=== PATIENT | female | born 1955 | race Caucasian/White ===

== ENCOUNTER 2016-12-19 22:53 | Emergency (ER) | payer MEDICARE, MEDICAID ==
[2016-12-19 23:16] VITALS: BP 146/78
--- NOTE | 2016-12-20 00:15 | EDM.PDOC ---
ED HPI GENERAL MEDICAL PROBLEM - General Chief Complaint: Abdominal Pain Stated Complaint: ABDOMINAL PAIN Time Seen by Provider: 12/19/16 23:14 Source of Information: Reports: Patient, Family, RN Notes Reviewed History Limitations: Reports: No Limitations - History of Present Illness INITIAL COMMENTS - FREE TEXT/NARRATIVE: 61-year-old female presents emergency department day complaint of generalized abdominal pain, she does have a history of diverticular disease however the pain now has completely resolved she had no nausea vomiting or fever abdominal pain Pain Score (Numeric/FACES): 3 - Related Data Allergies Allergy/AdvReac Type Severity Reaction Status Date / Time acetaminophen [From Percocet] Allergy Hives Verified 12/19/16 23:49 ciprofloxacin [From Cipro] Allergy Hives Verified 12/19/16 23:49 ciprofloxacin HCl Allergy Hives Verified 12/19/16 23:49 [From Cipro] clonidine HCl [From Catapres] Allergy Blisters Verified 12/19/16 23:49 hydromorphone Allergy Itching Verified 12/19/16 23:49 oxycodone [From Percocet] Allergy Hives Verified 12/19/16 23:49 Home Meds: Home Meds Citalopram [Citalopram HBr] 20 mg PO DAILY 07/05/14 [History] Cyclobenzaprine [Flexeril] 10 - 20 mg PO TID PRN 07/05/14 [History] Levothyroxine Sodium [Synthroid] 25 mcg PO DAILY 07/05/14 [History] Pantoprazole [ProTONIX] 40 mg PO BID 07/05/14 [History] Albuterol Sulfate [Albuterol Sulfate HFA] 2 puff INH Q6H PRN 10/25/14 [History] Ondansetron HCl [Zofran] 4 mg PO Q4H PRN 10/25/14 [History] Tiotropium [Spiriva HandiHaler] 1 cap INH DAILY 06/18/15 [History] ClonazePAM [KlonoPIN] 0.5 mg PO BID PRN #0 tablet 06/24/15 [Rx] Loratadine 10 mg PO DAILY 02/14/16 [History] Meclizine HCl 25 mg PO Q6HR PRN 02/14/16 [History] traMADol [Ultram] 50 mg PO Q6HR PRN 02/14/16 [History] buPROPion [Wellbutrin] 200 mg PO DAILY 02/15/16 [History] Furosemide 40 mg PO DAILY PRN 06/17/16 [History] Lidocaine 2% [Xylocaine 2% Jelly] 1 applic TOP ASDIRECTED 06/17/16 [History] Mupirocin Oint [Bactroban Oint] 1 applic TP BID 06/17/16 [History] Triamcinolone Acetonide [Kenalog 0.1% Crm] 1 applic TOP TID 06/17/16 [History] Albuterol/Ipratropium [DuoNeb 3.0-0.5 MG/3 ML] 3 ml IH Q4H PRN 12/14/16 [History ] predniSONE [Prednisone] 5 mg PO ASDIRECTED 12/14/16 [History] Past Medical History HEENT 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: Allergic Rhinitis, Impaired Vision Cardiovascular 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: Cardiomyopathy, SOB on Exertion Respiratory 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: Bronchitis, Recurrent, COPD, Sleep Apnea Gastrointestinal 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: Bowel Obstruction, Diverticulosis, GERD, Hiatal Hernia Genitourinary 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: UTI, Recurrent, Other (See Below) Other Genitourinary History: bladder suspension 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: , Spontaneous Musculoskeletal 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: Arthritis, Back Pain, Chronic, Fibromyalgia Neurological 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: Vertigo Psychiatric 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: Anxiety, Depression Endocrine/Metabolic 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: Hypothyroidism, Obesity/BMI 30+ Oncologic (Cancer) 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: Uterine Other Oncologic History: complete hysterectomy July 09, 2014 Dermatologic 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: Cellulitis Other Dermatologic History: sore on right lower leg that won't go away - Infectious Disease History Infectious Disease 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: Chicken Pox, Measles - Past Surgical History GI Surgical 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: Appendectomy, Colonoscopy, EGD, Hernia Repair/ Other Female Surgical 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: Hysterectomy, Salpingo-Oophorectomy Social & Family History - Family History Family Medical History: Noncontributory - Tobacco Use Smoking Status *Q: Current Every Day Smoker Years of Tobacco use: 40 Packs/Tins Daily: 0.5 Used Tobacco, but Quit: No Month Tobacco Last Used: TODAY Second Hand Smoke Exposure: No - Caffeine Use Caffeine Use: Reports: Coffee, Soda - Alcohol Use Days Per Week of Alcohol Use: 0 - Recreational Drug Use Recreational Drug Use: No ED ROS GENERAL - Review of Systems Review Of Systems: See Below Constitutional: Reports: No Symptoms Respiratory: Reports: No Symptoms Cardiovascular: Reports: No Symptoms GI/Abdominal: Reports: Abdominal Pain (Now resolved), Flatus. Denies: Nausea, Vomiting ( headaches versus constipation) : Reports: No Symptoms Musculoskeletal: Reports: No Symptoms ED EXAM, GI/ABD - Physical Exam Exam: See Below Exam Limited By: No Limitations General Appearance: Alert, WD/WN, No Apparent Distress Respiratory/Chest: No Respiratory Distress GI/Abdominal: Normal Bowel Sounds, Soft, Non-Tender, No Mass Course - Vital Signs Last Recorded V/S: Last Vital Signs Temp 97.3 F 12/19/16 23:15 Pulse 83 12/19/16 23:15 Resp 16 12/19/16 23:15 BP 146/78 H 12/19/16 23:15 Pulse Ox 93 L 12/19/16 23:15 Departure - Departure Time of Disposition: 00:14 Disposition: Home, Self-Care 01 Condition: Good Clinical Impression: Abdominal pain Qualifiers: Abdominal location: generalized Qualified Code(s): R10.84 - Generalized abdominal pain - Discharge Information Forms: ED Department Discharge Additional Instructions: Continue regular medications, Please followup with your primary care provider in 3-5 days if not better, please call return to the emergency department with worsening of symptoms. - Assessment/Plan Plan: Assessment Acuity = acute Site and laterality = abdominal pain now resolved Etiology = unclear etiology Manifestations = none Location of injury = Home Lab values = none Plan I offered to provide further workup and evaluation of abdominal pain she felt since the pain is now resolved she would prefer to just go home and will return if the she has a follow-up appointment with general surgery next month Patient was in agreement with the plan all questions were answered, they were instructed to return to the emergency department or call for worsening symptoms. This note was dictated using [employer] voice recognition software please call with any questions.
== END 2016-12-20 00:35 | disposition home or self-care (01) ==
LOC: JP.ED 22:53
DX: R10.84 Generalized abdominal pain (principal); J44.9 Chronic obstructive pulmonary disease, unspecified; F41.9 Anxiety disorder, unspecified; F32.9 Major depressive disorder, single episode, unspecified; E03.9 Hypothyroidism, unspecified; F17.210 Nicotine dependence, cigarettes, uncomplicated; E66.9 Obesity, unspecified; Z68.37 Body mass index [BMI] 37.0-37.9, adult; Z87.440 Personal history of urinary (tract) infections; Z90.49 Acquired absence of other specified parts of digestive tract; Z90.710 Acquired absence of both cervix and uterus; Z90.721 Acquired absence of ovaries, unilateral; Z98.890 Other specified postprocedural states; Z79.899 Other long term (current) drug therapy; Z88.1 Allergy status to other antibiotic agents; Z88.5 Allergy status to narcotic agent; Z88.8 Allergy status to other drugs, medicaments and biological substances
CPT/HCPCS: 99282; 99284

== ENCOUNTER 2017-03-09 07:31 | Day surgery (SDC) | payer MEDICARE, MEDICAID ==
[~2017-03-09 07:31] MED LIST: Dextrose 5%-Lactated Ringers 1,000 ML IV SCH
[2017-03-09] MEDS ORDERED: Dextrose 5%-Lactated Ringers 1,000 ML IV SCH (08:00)
[2017-03-09] MEDS ORDERED: Propofol 200 MG/20 ML SDV ONE (08:32)
[2017-03-09] MEDS ORDERED: fentaNYL 100 MCG/2 ML SDV ONE (08:32)
[2017-03-09] MEDS ORDERED: Midazolam 1 MG/ML 2 ML SDV ONE (08:32)
[2017-03-09 11:16] VITALS: BP 107/72
--- NOTE | 2017-03-16 18:50 | OR ---
DATE OF PROCEDURE: 03/09/2017 PREOPERATIVE DIAGNOSES: Nausea and epigastric discomfort. POSTOPERATIVE DIAGNOSES: Nausea and epigastric discomfort associated with: 1. Small hiatal hernia with no gross inflammation at esophagogastric junction. 2. Diffuse gastritis (marked edema and mild redness throughout the gastric mucosa). OPERATIVE PROCEDURE: Esophagogastroduodenoscopy with: 1. Biopsies of antrum for CLOtest. 2. Biopsies of gastric body for histologic evaluation. ANESTHESIA: IV sedation. INDICATIONS FOR PROCEDURE: This is a 62-year-old presenting with ongoing problems with nausea. Nausea is predominant symptom, also has some mild epigastric discomfort as well. Presently, she is on Protonix 40 mg b.i.d. and also taking Zofran on a p.r.n. basis. The plan is to proceed with an upper GI endoscopy with biopsies as indicated. Potential risks including bleeding and perforation were discussed, and the patient wishes to proceed. DETAILS OF PROCEDURE: The patient was taken to the operating room and placed in a left lateral decubitus position. IV sedation was administered, after which the upper GI endoscope was passed orally through the length of the esophagus into the stomach with retroflexion view of the fundus, and thereafter through the pyloric channel and into the duodenum. Findings included a normal hypopharynx, larynx, upper esophageal sphincter, there was a small hiatal hernia present, but no gross inflammation or upward extension of the gastroesophageal junction mucosal lining above the gastric fold. Within the stomach, there was a quite pronounced diffuse gastritis, this was most prominent within the body and antrum. The entire surface of the stomach was reddened and edematous. No erosions or ulcers were seen. Pyloric channel and duodenum third and fourth portions were otherwise unremarkable. The biopsies were obtained from the antrum and sent for CLOtest for H. pylori. Multiple biopsies were obtained from the gastric body, sent for histologic evaluation. No bleeding from the biopsy sites was seen and the procedure then concluded. The plan will be to add a cytoprotective agent, in this case Carafate 1 gram q.i.d. to the regimen and we will see her back in one month for recheck. If the CLOtest is abnormal, we will contact her regarding treatment of H. pylori. Aayush Ruiz MD /[id number]
== END 2017-03-09 11:30 | disposition home or self-care (01) ==
LOC: JP.SDS 07:31
PROVIDERS: ATTEND Surgery
DX: K29.50 Unspecified chronic gastritis without bleeding (principal); K44.9 Diaphragmatic hernia without obstruction or gangrene; G47.33 Obstructive sleep apnea (adult) (pediatric); J44.9 Chronic obstructive pulmonary disease, unspecified; K21.9 Gastro-esophageal reflux disease without esophagitis; F41.9 Anxiety disorder, unspecified; F32.9 Major depressive disorder, single episode, unspecified; E03.9 Hypothyroidism, unspecified; Z88.1 Allergy status to other antibiotic agents; Z88.8 Allergy status to other drugs, medicaments and biological substances; F17.210 Nicotine dependence, cigarettes, uncomplicated
CPT/HCPCS: 43239; 87081; 88305; 88341; 88342; J2250; J2704; J3010; J7042

== ENCOUNTER 2017-09-20 07:35 | Inpatient (IN) | payer MEDICARE, MEDICAID ==
[~2017-09-20 07:35] MED LIST changes: +Acetaminophen 500 MG Tab PO ONE; -Dextrose 5%-Lactated Ringers 1,000 ML IV SCH; +Midazolam 1 MG/ML 2 ML SDV ONE; +Propofol 200 MG/20 ML SDV ONE; +fentaNYL 100 MCG/2 ML SDV ONE
[2017-09-20] MEDS ORDERED: Lidocaine 1% with EPINEPHrine 1:100,000 50 ML MDV ONE (07:40)
[2017-09-20] MEDS ORDERED: Bupivacaine 0.5% 50 ML MDV ONE (07:40)
[2017-09-20] MEDS ORDERED: Albuterol/Ipratropium 3.0-0.5 MG/3 ML Neb Soln NEB ONE (08:00)
[2017-09-20] MEDS ORDERED: Dextrose 5%-Lactated Ringers 1,000 ML IV SCH (08:00)
[2017-09-20] MEDS ORDERED: Acetaminophen 500 MG Tab PO ONE (08:00)
[2017-09-20] MEDS ORDERED: Rocuronium 50 MG/5 ML Vial ONE (09:02)
[2017-09-20] MEDS ORDERED: Propofol 200 MG/20 ML SDV ONE (09:02)
[2017-09-20] MEDS ORDERED: Ondansetron 4 MG/2 ML SDV ONE (09:02)
[2017-09-20] MEDS ORDERED: Succinylcholine 200 MG/10 ML MDV ONE (09:02)
[2017-09-20] MEDS ORDERED: Dexamethasone 4 MG/ML SDV ONE (09:02)
[2017-09-20] MEDS ORDERED: Bupivacaine 0.5%/EPINEPHrine 1:200,000 50 ML MDV ONE (09:23)
[2017-09-20] MEDS: Clindamycin Phosphate 900 MG in Sodium Chloride 0.9% 100 ML IV ONE ×2 (09:26→12:08)
[2017-09-20] MEDS ORDERED: Morphine PF 150 MG/30 ML PCA Syringe IV PRN (10:21)
[2017-09-20] MEDS ORDERED: Naloxone 0.4 MG/ML SDV IV PRN (11:41)
[2017-09-20] MEDS ORDERED: hydrOXYzine HCl 100 MG/2 ML SDV IM PRN (11:42)
[2017-09-20] MEDS ORDERED: hydrOXYzine HCl 25 MG Tab PO PRN (11:43)
[2017-09-20] MEDS ORDERED: Meclizine 25 MG Tab PO PRN (11:53)
[2017-09-20] MEDS ORDERED: Albuterol/Ipratropium 3.0-0.5 MG/3 ML Neb Soln INH PRN (12:00)
[2017-09-20] MEDS ORDERED: Ondansetron 4 MG/2 ML SDV IVPUSH PRN (12:00)
[2017-09-20] MEDS: Albuterol/Ipratropium 3.0-0.5 MG/3 ML Neb Soln INH SCH ×2 (14:47→21:53)
[2017-09-20] MEDS: ceFAZolin 1 GM in Premix Bag 1 BAG IV SCH (15:37)
[2017-09-20] MEDS: buPROPion 150 MG Tab.SR PO SCH (21:50)
[2017-09-20] MEDS: ClonazePAM 0.5 MG Tab PO SCH (21:51)
[2017-09-20] MEDS: Dextrose 5%-Lactated Ringers 1,000 ML IV SCH (21:59)
[2017-09-20] MEDS: traZODone 50 MG Tab PO PRN (22:07)
[2017-09-21] MEDS: ceFAZolin 1 GM in Premix Bag 1 BAG IV SCH ×3 (00:45→15:36)
[2017-09-21] MEDS: Dextrose 5%-Lactated Ringers 1,000 ML IV SCH (05:30)
[2017-09-21] MEDS: Levothyroxine 25 MCG Tab PO SCH (07:09)
[2017-09-21] MEDS: Pantoprazole 40 MG Tab.CR PO SCH (07:09)
[2017-09-21] MEDS ORDERED: Dextrose 5%-Lactated Ringers 1,000 ML IV SCH (07:30)
[2017-09-21] MEDS: Albuterol/Ipratropium 3.0-0.5 MG/3 ML Neb Soln INH SCH ×4 (07:33→21:14)
[2017-09-21] MEDS: Loratadine 10 MG Tab PO SCH (08:52)
[2017-09-21] MEDS: Docusate Sodium 100 MG Cap PO SCH ×2 (08:52→21:04)
[2017-09-21] MEDS: lamoTRIgine 100 MG, lamoTRIgine 50 MG PO SCH ×2 (08:53)
[2017-09-21] MEDS: Furosemide 40 MG Tab PO SCH (08:53)
[2017-09-21] MEDS: Sertraline 50 MG Tab PO SCH (08:53)
[2017-09-21] MEDS: buPROPion 150 MG Tab.SR PO SCH ×2 (08:53→21:04)
[2017-09-21] MEDS: Acetaminophen/HYDROcodone 325-5 MG Tab PO PRN ×3 (08:58→19:28)
[2017-09-21] MEDS: diphenhydrAMINE 25 MG Cap PO PRN ×3 (11:43→21:13)
[2017-09-21] MEDS: ClonazePAM 0.5 MG Tab PO SCH (18:56)
[2017-09-21] MEDS: traZODone 50 MG Tab PO PRN (21:30)
[2017-09-22] MEDS: ceFAZolin 1 GM in Premix Bag 1 BAG IV SCH ×2 (00:24→00:50)
[2017-09-22] MEDS: Albuterol/Ipratropium 3.0-0.5 MG/3 ML Neb Soln INH SCH (07:14)
[2017-09-22 07:28] VITALS: BP 99/52
[2017-09-22] MEDS: Acetaminophen/HYDROcodone 325-5 MG Tab PO PRN (08:20)
[2017-09-22] MEDS: Pantoprazole 40 MG Tab.CR PO SCH (08:22)
[2017-09-22] MEDS: Levothyroxine 25 MCG Tab PO SCH (08:22)
[2017-09-22] MEDS: Furosemide 40 MG Tab PO SCH (09:31)
[2017-09-22] MEDS: Sertraline 50 MG Tab PO SCH (09:31)
[2017-09-22] MEDS: Loratadine 10 MG Tab PO SCH (09:31)
[2017-09-22] MEDS: lamoTRIgine 100 MG, lamoTRIgine 50 MG PO SCH ×2 (09:31)
[2017-09-22] MEDS: Docusate Sodium 100 MG Cap PO SCH (09:31)
[2017-09-22] MEDS: buPROPion 150 MG Tab.SR PO SCH (09:32)
--- NOTE | 2017-09-23 01:31 | DISCH ---
ADMISSION DIAGNOSES: 1. Recurrent incarcerated incisional hernia. 2. Panlobular emphysema. 3. Chronic low back pain. 4. Obstructive sleep apnea syndrome with CPAP. 5. Mild concentric left ventricular hypertrophy. 6. Vitamin D deficiency. 7. Anxiety. 8. Gastrointestinal dysmotility. 9. Personality disorder. 10.Tobacco use disorder, recently stopped about a week ago. 11.Venous insufficiency. 12.Memory loss. 13.Major depression disorder. 14.Pure hypercholesterolemia. 15.Hypothyroidism due to acquired atrophy of the thyroid. DISCHARGE DIAGNOSIS: Open repair of recurrent incarcerated incisional hernia with mesh, and repair of left inguinal hernia with mesh, and division of left inguinal nerve for recurrent incarcerated incisional hernia and recurrent incarcerated left inguinal hernia and left inguinal nerve entrapment. Date of surgery on 09/20/2017 by Aayush Ruiz MD. HISTORY: Reji Gonzalez is a 62-year-old female with a recurrent incarcerated incisional hernia and recurrent left inguinal hernia. After preoperative evaluation and discussion of possible risks and possible complications, she wished to proceed with surgical procedure. HOSPITAL COURSE: Reji had her surgery on 09/20/2017. She had no operative complications. On postop day #1, she was started on a regular diet, oral pain medication, and a stool softener. On postop day #2, her pain was well managed, her activity was good, vital signs stable, and she was able to be discharged to home. PHYSICAL EXAMINATION: GENERAL: Reji Gonzalez is a 62-year-old female, alert, orientated. VITAL SIGNS: Height is 5 feet 1 inch, weight is 199 pounds. TPR is 99.2, 61, 16, blood pressure 99/52. HEENT: Negative. NECK: Supple. HEART: Regular rate and rhythm. LUNGS: Clear. ABDOMEN: Soft. Normal expected tenderness on left surgical site. EXTREMITIES: Negative extremities without peripheral edema. DISPOSITION: Discharged to home. CONDITION: Stable and improving. FOLLOWUP APPOINTMENT: With Irasema Gresham PA-C, on 10/04/2017 at 9:00 a.m. and follow up with Aayush Ruiz MD on 10/13/2017 at 10:00 a.m. DISCHARGE MEDICATIONS: New prescriptions: 1. [place] 5/325 mg 1 to 2 every 4 hours p.r.n. pain, #40, new. She is to resume her home medications: 1. Albuterol inhaler 2 puffs every 6 hours p.r.n. dyspnea. 2. Albuterol DuoNeb 3 mL every 4 hours p.r.n. shortness of breath. 3. Keflex 500 mg oral twice daily. 4. Klonopin 0.5 mg oral daily. 5. Furosemide 40 mg oral daily. 6. Levothyroxine 25 mcg oral daily. 7. Lidocaine 2% jelly one applicator topical as directed. 8. Loratadine 10 mg oral daily. 9. Magnesium oxide 500 mg oral daily. 10.Meclizine 25 mg oral q.6 hours p.r.n. dizziness. 11.Elocon 0.1% cream 1 applicator topical daily. 12.Zofran 4 mg every 4 hours p.r.n. nausea. 13.Protonix 40 mg oral twice daily. 14.Denavir 1% cream 1.5 g topical as directed. 15.Sertraline (Zoloft) 100 mg oral daily. 16.Carafate 1 tablet oral before meals and at bedtime. 17.Kenalog 0.1% cream topical t.i.d. 18.Chantix 1 tablet as directed b.i.d. 19.Bupropion 150 mg oral twice daily. 20.Lamotrigine 150 mg oral at bedtime. 21.Tizanidine 4 mg oral every 8 hours p.r.n. muscle spasms. 22.Trazodone 1 to 2 at bedtime for sleep. DIET: Usual diet as tolerated, drink 8-10 glasses of water a day. ACTIVITY: No lifting greater than 10 pounds for 6 weeks. DRIVING AFTER DISCHARGE: Do not drive on pain medication, may shower. INSTRUCTIONS: Notify provider if any fever, increased pain, nausea, or vomiting. Keep site clean and dry. SPECIAL INSTRUCTION: Use incentive spirometer 10 times every hour while awake.
--- NOTE | 2017-09-26 13:24 | PN ---
DATE OF SERVICE: 09/21/2017 The patient has been afebrile with stable vital signs. The plan will be to start diet today and go over to oral pain medication, and she may be ready for discharge home tomorrow. Aayush Ruiz MD /[id number]
--- NOTE | 2017-09-26 13:30 | OR ---
DATE OF PROCEDURE: 09/20/2017 PREOPERATIVE DIAGNOSIS: Left inguinal hernia. POSTOPERATIVE DIAGNOSES: 1. Recurrent incarcerated incisional hernia. 2. Non-incarcerated left inguinal hernia. 3. Left ilioinguinal nerve at risk for scar entrapment. OPERATIVE PROCEDURES: 1. Open repair of recurrent incarcerated incisional hernia with mesh (43878, [id number]). 2. Repair of left inguinal hernia with mesh (78221). 3. Division of left ilioinguinal nerve ([id number]). ANESTHESIA: General. ASSISTANTS: 1. Irasema Gresham PA-C. 2. JEREMI Kramer. 3. JEREMI Conley. INDICATION FOR PROCEDURE: A 62-year-old presenting with what appears to be increasingly symptomatic left inguinal hernia. Plan is to proceed with an inguinal exploration with repair of hernias as indicated. Potential risks including bleeding, infection, injury to underlying viscera, possible problems with the hernia recurring, problems of chronic pain following the repair were all reviewed along with the remote possibility of cardiopulmonary, septic, or hemorrhagic complications leading to , and the patient wishes to proceed. DETAILS OF PROCEDURE: The patient was taken to the operating room and after general endotracheal anesthesia was induced, the abdomen and groin areas were prepped and draped. The area over the left inguinal region was then incised with incision then carried down through the skin and subcutaneous tissue and down on to the area of the external oblique aponeurosis. This area was initially divided. The patient had a complex hernia picture in this case. She had a previous incisional hernia located just above that, but that had been repaired with mesh. This appeared to have recurred along with some mesh prolapse in an incarcerated manner into the abdominal wall just below the previous hernia repair site. This was associated with the onset of a broad-based direct inguinal hernia as well. At this point, the incisional hernia component was dissected free from the surrounding soft tissues and then reduced. The previously-placed mesh was then affixed superior to that with some 0 Vicryl stitches between the musculature consisting of the 3 layers of the abdominal muscle at that level. This then involved division of the transversalis fascia and dissection in the plane underneath the transversalis fascia down to the level of the Riki ligament as well as immediately superiorly up to the level of the adjacent incisional hernia and then laterally underneath the conjoined tendon. An extra-large mesh plug was then placed into that defect. This was affixed initially to the Riki ligament with titanium tacking screws, then medially to the underside of the conjoined tendon, superiorly to the conjoint tendon, and also to the mesh at the repair site of the incisional hernia, all with 0 Ethibond sutures, and then finally with horizontal mattress sutures to the lateral aspect of the tissue underlying the conjoined tendon. At that point, there appeared to be a reasonably secure closure of the floor as well as the above incisional hernia overlying this. The conjoined tendon was affixed to the inguinal ligament with a running #1 Vicryl stitch. The patient's ilioinguinal nerve was within the field of all of this dissection and it was felt to be at significant risk for entrapment plus scar resulting in chronic pain. Given this, this was divided at the lateral aspect of the incision and specimen of this was delivered from the field. Finally, the external oblique aponeurosis was approximated over this area with 0 Vicryl stitch, subcutaneous tissue with 4-0 Vicryl stitch, and the skin with azeem. Dressing was applied. The patient was taken to the recovery room in a satisfactory condition. There were no other complications. Physician occupational therapy assistant, Irasema Gresham PA-C, played an essential role in assisting in this case, helping to position the patient, retract structures as needed, as well as suturing and cutting sutures when indicated. Her presence improved patient safety and decreased the operative time. Aayush Ruiz MD /[id number]
== END 2017-09-22 10:53 | disposition home or self-care (01) | DRG 351 ==
LOC: JP.SDSSCHI 07:35 → JP.SDS 07:35 → JP.2SS 10:30 → EDSTATUS 11:00
PROVIDERS: ADMIT Surgery; ATTEND Surgery
PROC: 0WUF0JZ Supplement Abdominal Wall with Synthetic Substitute, Open Approach (ICD-10-PCS; principal; 2017-09-20)
PROC: 0YU60JZ Supplement Left Inguinal Region with Synthetic Substitute, Open Approach (ICD-10-PCS; 2017-09-20)
PROC: 018 Peripheral Nervous System, Division (ICD-10-PCS; 2017-09-20)
DX: K40.91 Unilateral inguinal hernia, without obstruction or gangrene, recurrent (principal); I50.30 Unspecified diastolic (congestive) heart failure; K43.0 Incisional hernia with obstruction, without gangrene; K40.90 Unilateral inguinal hernia, without obstruction or gangrene, not specified as recurrent; G57.82 Other specified mononeuropathies of left lower limb; F17.210 Nicotine dependence, cigarettes, uncomplicated; N18.9 Chronic kidney disease, unspecified; E03.9 Hypothyroidism, unspecified; J43.1 Panlobular emphysema; F41.9 Anxiety disorder, unspecified; F32.9 Major depressive disorder, single episode, unspecified; F60.9 Personality disorder, unspecified; G47.33 Obstructive sleep apnea (adult) (pediatric); Z99.89 Dependence on other enabling machines and devices; M54.9 Dorsalgia, unspecified; G89.29 Other chronic pain; E55.9 Vitamin D deficiency, unspecified; K30 Functional dyspepsia; E78.00 Pure hypercholesterolemia, unspecified
CPT/HCPCS: 88305; 88342; 94640; 94762; A9270-GY; C1781; J0330; J0690; J1100; J2250; J2270; J2405; J2704; J3010; J7030; J7042; J7620; S0077

== ENCOUNTER 2017-12-07 14:31 | Inpatient (IN) | payer MEDICARE, MEDICAID ==
[2017-12-07] MEDS ORDERED: Sodium Chloride 0.9% 10 ML Syringe FLUSH PRN (15:12)
[2017-12-07] MEDS ORDERED: HYDROmorphone 1 MG/ML Syringe IVPUSH ONE (15:16)
[2017-12-07] MEDS ORDERED: Morphine 10 MG/ML Syringe IVPUSH ONE (15:18)
[2017-12-07] MEDS ORDERED: Sodium Chloride 0.9% 1,000 ML IV SCH ×3 (15:30→21:27)
[2017-12-07] MEDS ORDERED: Morphine 2 MG/ML Syringe IVPUSH ONE (17:12)
[2017-12-07] MEDS ORDERED: Sodium Chloride 0.9% 10 ML Syringe FLUSH ONE (17:20)
[2017-12-07] MEDS ORDERED: Sodium Chloride 0.9% 80 ML IV SCH (17:30)
[2017-12-07] MEDS: Iopamidol 612 MG/ML 150 ML Bottle IV SCH ×3 (17:43→21:57)
[2017-12-07] MEDS ORDERED: Morphine 2 MG/ML Syringe IVPUSH PRN (21:27)
[2017-12-07] MEDS ORDERED: methylPREDNISolone Sodium Succinate 125 MG/2 ML SDV IVPUSH ONE (21:27)
[2017-12-07] MEDS ORDERED: LORazepam 2 MG/ML SDV IV PRN (21:27)
[2017-12-07] MEDS ORDERED: Albuterol/Ipratropium 3.0-0.5 MG/3 ML Neb Soln NEB PRN (21:27)
[2017-12-07] MEDS ORDERED: lamoTRIgine 100 MG Tab PO SCH (21:27)
[2017-12-07] MEDS ORDERED: tiZANidine 4 MG Tab PO PRN (21:27)
[2017-12-07] MEDS ORDERED: Bisacodyl 5 MG Tab PO PRN (21:27)
[2017-12-07] MEDS ORDERED: Furosemide 40 MG Tab PO PRN (21:27)
[2017-12-07] MEDS ORDERED: traZODone 50 MG Tab PO PRN (21:27)
[2017-12-07] MEDS ORDERED: buPROPion 100 MG Tab PO SCH (21:27)
[2017-12-07] MEDS ORDERED: Albuterol 8 GM Inhaler INH PRN (21:27)
[2017-12-07] MEDS ORDERED: Docusate Sodium 100 MG Cap PO PRN (21:27)
[2017-12-07] MEDS ORDERED: Albuterol 0.083% 2.5 MG/3 ML Neb Soln NEB PRN (21:27)
[2017-12-07] MEDS ORDERED: Ondansetron 4 MG/2 ML SDV IV PRN (21:27)
[2017-12-07] MEDS ORDERED: Ondansetron 4 MG Tab.DIS PO PRN (21:27)
--- NOTE | 2017-12-07 21:28 | PCM.HP ---
H&P History of Present Illness - General Date of Service: 12/07/17 Admit Problem/Dx: Admission Diagnosis/Problem Admission Diagnosis/Problem Diverticulitis Source of Information: Patient History Limitations: Reports: No Limitations - History of Present Illness Initial Comments - Free Text/Narative: Abdominal pain; this is a 62-year-old female presents emergency room for concerns of abdominal pain, she reports on Wednesday started to experience abdominal pain felt chills but no fever. She felt a little better on Wednesday then today had worsening symptoms of abdominal pain and chills. Denies any vomiting, bloody diarrhea, chest pain, fever or chills. Does have chronic shortness of breath due to her severe emphysema and COPD. Onset of Symptoms: Reports: Gradual Duration of Symptoms: Reports: Day(s): (3 days) Location: Reports: Abdomen Quality: Reports: Same as Previous Episode Severity: Moderate Improves with: Reports: Medication Worsens with: Reports: Eating Context: Reports: Other (Past history of diverticular stenosis) Associated Symptoms: Reports: Fever/Chills (Chills not fever), Loss of Appetite , Shortness of Breath (Chronic) Abdomen Pain Score (Numeric/FACES): 3 - Related Data Allergies/Adverse Reactions: Allergies Allergy/AdvReac Type Severity Reaction Status Date / Time ciprofloxacin [From Cipro] Allergy Hives Verified 12/07/17 15:18 ciprofloxacin HCl Allergy Hives Verified 12/07/17 15:18 [From Cipro] clonidine HCl [From Catapres] Allergy Blisters Verified 12/07/17 15:18 hydromorphone Allergy Itching Verified 12/07/17 15:18 oxycodone [From Percocet] Allergy Hives Verified 12/07/17 15:18 Home Medications: Home Meds Levothyroxine Sodium [Synthroid] 25 mcg PO DAILY 07/05/14 [History] Pantoprazole [ProTONIX Granules] 40 mg PO BID 07/05/14 [History] Albuterol Sulfate [Albuterol Sulfate HFA] 2 puff INH Q6H PRN 10/25/14 [History] Ondansetron HCl [Zofran] 4 mg PO Q4H PRN 10/25/14 [History] Loratadine 10 mg PO DAILY 02/14/16 [History] buPROPion [Wellbutrin] 150 mg PO BID 02/15/16 [History] Furosemide 40 mg PO DAILY PRN 06/17/16 [History] Lidocaine 2% [Xylocaine 2% Jelly] 1 applic TOP ASDIRECTED 06/17/16 [History] Triamcinolone Acetonide [Kenalog 0.1% Crm] 1 applic TOP TID 06/17/16 [History] Albuterol/Ipratropium [DuoNeb 3.0-0.5 MG/3 ML] 3 ml IH Q4H PRN 12/14/16 [History ] Magnesium Oxide [Magnesium] 250 mg PO ASDIRECTED 02/24/17 [History] Sertraline HCl [Zoloft] 50 mg PO DAILY 02/24/17 [History] Varenicline [Chantix] 1 tab PO BID 02/24/17 [History] lamoTRIgine [Lamotrigine] 150 mg PO BEDTIME 02/24/17 [History] traZODone 1 - 2 tab PO BEDTIME PRN 02/24/17 [History] ClonazePAM [KlonoPIN] 0.5 mg PO DAILY 03/05/17 [History] Penciclovir [Denavir 1% Crm] 1.5 gm TP ASDIRECTED 03/05/17 [History] Mometasone Furoate [Elocon 0.1% Crm] 1 applic TOP DAILY 09/16/17 [History] Sucralfate [Carafate] 1 tab PO QIDACANDBED 09/16/17 [History] tiZANidine [Zanaflex] 4 mg PO Q8H PRN 09/16/17 [History] Hydrocodone/Acetaminophen [Hydrocodon-Acetaminophen 5-325] 1 - 2 tab PO Q4H 08/22 [History] Past Medical History HEENT 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: Allergic Rhinitis, Impaired Vision Cardiovascular 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: Cardiomyopathy, SOB on Exertion Respiratory 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: Bronchitis, Recurrent, COPD, Sleep Apnea Gastrointestinal 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: Bowel Obstruction, Diverticulosis, GERD, Hiatal Hernia Genitourinary 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: UTI, Recurrent, Other (See Below) Other Genitourinary History: bladder suspension [employer] 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: , Spontaneous Musculoskeletal 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: Arthritis, Back Pain, Chronic, Fibromyalgia Neurological 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: Vertigo Psychiatric 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: Anxiety, Depression Endocrine/Metabolic 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: Hypothyroidism, Obesity/BMI 30+ Immunologic 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: None Oncologic (Cancer) 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: Uterine Other Oncologic History: complete hysterectomy July 09, 2014 Dermatologic 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: Cellulitis Other Dermatologic History: sore on right lower leg that won't go away - Infectious Disease History Infectious Disease 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: Chicken Pox, Measles - Past Surgical History HEENT Surgical 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: Other (See Below) Other HEENT Surgeries/Procedures: biopsy on tongue GI Surgical 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: Appendectomy, Colon, Colonoscopy, EGD, Hernia Repair/Other Female Surgical 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: Hysterectomy, Salpingo-Oophorectomy Social & Family History - Family History Family Medical History: Noncontributory - Tobacco Use Smoking Status *Q: Light Tobacco Smoker Years of Tobacco use: 45 Packs/Tins Daily: 0.3 - Caffeine Use Caffeine Use: Reports: Coffee, Soda - Recreational Drug Use Recreational Drug Use: No - Living Situation & Occupation Living situation: Reports: (Lives with her 80+ mother, and her sister is in the next house. Has 1 son and 2 grandchildren , who she is currently estranged from her child and grandchildren.) H&P Review of Systems - Review of Systems: Review Of Systems: See Below General: Reports: Chills, Fatigue, Decreased Appetite HEENT: Reports: No Symptoms Pulmonary: Reports: Shortness of Breath, Cough, Other (Severe emphysema with COPD) Cardiovascular: Reports: No Symptoms Gastrointestinal: Reports: Abdominal Pain Genitourinary: Reports: No Symptoms Musculoskeletal: Reports: No Symptoms Skin: Reports: No Symptoms Psychiatric: Reports: Depression, Other (Depression related to family situation , anxiety, personality disorder.) Neurological: Reports: No Symptoms Hematologic/Lymphatic: Reports: No Symptoms Immunologic: Reports: No Symptoms Exam - Exam Exam: See Below - Vital Signs Vital Signs: Last Vital Signs Temp 37.1 C 12/07/17 15:17 Pulse 73 12/07/17 18:13 Resp 16 12/07/17 18:13 BP 105/55 L 12/07/17 18:13 Pulse Ox 93 L 12/07/17 18:13 Weight: 89.811 kg - Exam Quality Assessment: Supplemental Oxygen, DVT Prophylaxis General: Alert, Oriented, Cooperative, Mild Distress HEENT: PERRLA, Conjunctiva Clear, EACs Clear, EOMI, Hearing Intact, Mucosa Moist & [place], Nares Patent, Normal Nasal Septum, Posterior Pharynx Clear, Pupils Equal, Pupils Reactive, TMs Clear, Glasses Neck: Supple, Trachea Midline, 2 Lungs: Decreased Breath Sounds, Wheezing Cardiovascular: Regular Rate, Regular Rhythm, Normal S1, Normal S2 GI/Abdominal Exam: Soft, Tender (Generalized tenderness noted), Abnormal Bowel Sounds (Hypoactive bowel sounds noted) (Female) Exam: Deferred Rectal (Female) Exam: Deferred Back Exam: Normal Inspection, Full Range of Motion, NT Extremities: Normal Inspection, Normal Range of Motion, Non-Tender, No Pedal Edema, Normal Capillary Refill Peripheral Pulses: 2+: Radial (L), Radial (R), Posterior Tibial (L), Posterior Tibial (R) Skin: Warm, Dry, Intact Neurological: Strength Equal Bilateral, Normal Speech, Normal Tone Neuro Extensive - Mental Status: Alert, Oriented x3, Normal Mood/Affect, Other ( Patient became tearful when discussing her family situation.) Psychiatric: Alert, Normal Affect, Normal Mood - Patient Data Lab Results Last 24 hrs: Laboratory Results - last 24 hr 12/07/17 12/07/17 12/07/17 Range/Units 15:11 15:11 15:11 WBC 9.9 (4.5-11.0) K/uL RBC 4.44 (3.30-5.50) M/uL Hgb 13.1 (12.0-15.0) g/dL Hct 40.5 (36.0-48.0) % MCV 91 (80-98) fL MCH 30 (27-31) pg MCHC 32 (32-36) % Plt Count 253 (150-400) K/uL Neut % (Auto) 75 H (36-66) % Lymph % (Auto) 18 L (24-44) % [place] % (Auto) 6 (2-6) % Eos % (Auto) 1 L (2-4) % Baso % (Auto) 0 (0-1) % Sodium 143 (140-148) mmol/L Potassium 3.8 (3.6-5.2) mmol/L Chloride 104 (100-108) mmol/L Carbon Dioxide 31 (21-32) mmol/L Anion Gap 8.3 (5.0-14.0) mmol/L BUN 14 (7-18) mg/dL Creatinine 1.0 D (0.6-1.0) mg/dL Est Cr Clr Drug Dosing 44.58 mL/min Estimated GFR (MDRD) 56 L (>60) Glucose 101 (74-106) mg/dL Calcium 8.9 (8.5-10.1) mg/dL Total Bilirubin 0.4 (0.2-1.0) mg/dL AST 17 (15-37) U/L ALT 22 (12-78) U/L Alkaline Phosphatase 98 (46-116) U/L Total Protein 7.2 (6.4-8.2) g/dL Albumin 3.3 L (3.4-5.0) g/dL Globulin 3.9 H (2.3-3.5) g/dL Albumin/Globulin Ratio 0.9 L (1.2-2.2) Amylase 52 (25-115) U/L Lipase 71 L (73-393) U/L Urine Color Yellow Urine Appearance Clear Urine pH 7.0 (4.5-8.0) Ur Specific [place] 1.010 (1.008-1.030) Urine Protein Negative (NEGATIVE) mg/dL Urine Glucose (UA) Normal (NEGATIVE) mg/dL Urine Ketones Negative (NEGATIVE) mg/dL Urine Occult Blood Negative (NEGATIVE) Urine Nitrite Negative (NEGATIVE) Urine Bilirubin Negative (NEGATIVE) Urine Urobilinogen Normal (NORMAL) mg/dL Ur Leukocyte Esterase Negative (NEGATIVE) Urine RBC 0-5 (0-5) Urine WBC 0-5 (0-5) Ur Epithelial Cells Rare Amorphous Sediment Not seen Urine Bacteria Moderate Urine Mucus Not seen Result Diagrams: 12/07/17 15:11 12/07/17 15:11 - Problem List (1) COPD (chronic obstructive pulmonary disease) with emphysema SNOMED Code(s): 74474208 ICD Code: J43.9 - EMPHYSEMA, UNSPECIFIED Status: Acute Current Visit: Yes (2) Diverticulitis SNOMED Code(s): 815768221 ICD Code: K57.92 - DVTRCLI OF INTEST, PART UNSP, W/O PERF OR ABSCESS W/O BLEED Status: Acute Priority: High Current Visit: Yes (3) COLD, Chronic obstructive lung disease SNOMED Code(s): 64378667 ICD Code: J44.9 - CHRONIC OBSTRUCTIVE PULMONARY DISEASE, UNSPECIFIED Status : Chronic Priority: Low Current Visit: No Problem List Initiated/Reviewed/Updated: Yes Orders Last 24hrs: Active Orders 24 hr Category Date Time Status Patient Status Manage Transfer [TRANSFER] Routine ADT 12/07/17 20:02 Active Peripheral IV Care [RC] . DIRECTED Care 12/07/17 15:12 Active Abdomen 2V AP Flat Upright [CR] Stat Exams 12/07/17 15:59 Taken Abdomen Pelvis w Cont [CT] Stat Exams 12/07/17 17:11 Taken UA W/MICROSCOPIC [URIN] Stat Lab 12/07/17 15:11 Ordered Iopamidol [Isovue-300 (61%)] Med 12/07/17 17:30 Active 135 ml IV . DIRECTED Sodium Chloride 0.9% [Normal Saline] 1,000 ml Med 12/07/17 15:30 Active IV ASDIRECTED Sodium Chloride 0.9% [Normal Saline] 1,000 ml Med 12/07/17 19:15 Active IV ASDIRECTED Sodium Chloride 0.9% [Normal Saline] 80 ml Med 12/07/17 17:30 Active IV ASDIRECTED Sodium Chloride 0.9% [Saline Flush] Med 12/07/17 15:12 Active 10 ml FLUSH ASDIRECTED PRN Peripheral IV Insertion Adult [OM.PC] Stat Oth 12/07/17 15:12 Ordered Resuscitation Status Routine Resus Stat 12/07/17 20:05 Ordered Medication Orders Sodium Chloride (Normal Saline) 1,000 mls @ 75 mls/hr IV ASDIRECTED [facility] Last Admin: 12/07/17 15:57 Dose: 75 mls/hr Sodium Chloride (Normal Saline) 80 mls @ 3 mls/sec IV ASDIRECTED [facility] Stop: 12/07/17 23:00 Last Admin: 12/07/17 17:44 Dose: 3 mls/sec Sodium Chloride (Normal Saline) 1,000 mls @ 75 mls/hr IV ASDIRECTED [facility] Last Admin: 12/07/17 21:00 Dose: 75 mls/hr Iopamidol (Isovue-300 (61%)) 135 ml IV . DIRECTED [facility] Stop: 12/07/17 22:00 Last Admin: 12/07/17 17:44 Dose: 135 ml Admin: 12/07/17 17:43 Dose: 150 ml Sodium Chloride (Saline Flush) 10 ml FLUSH ASDIRECTED PRN PRN Reason: Keep Vein Open Last Admin: 12/07/17 15:57 Dose: 10 ml Assessment/Plan Comment:: ASSESSMENT / PLAN -Abdominal pain; this is a 62-year-old female presents emergency room for concerns of abdominal pain, she reports on Wednesday started to experience abdominal pain felt chills but no fever. She felt a little better on Wednesday then today had worsening symptoms of abdominal pain and chills. Denies any vomiting, bloody diarrhea, chest pain, fever or chills. Does have chronic shortness of breath due to her severe emphysema and COPD. Labs: White count 9.9 hemoglobin 13.1 differential normal, sodium 143 potassium 3.8 chloride 104 ,bun 14 creatinine 1.0, chloride 101 CO2 31 GFR greater than 56 , UA negative. CT scan abdomen pelvis, results colonic diverticulosis with moderate acute diverticulitis of the mid sigmoid colon. Colonic diverticulosis with moderate acute diverticulitis of the mid sigmoid colon -Admit to [address] [place] [address] for further monitoring -IV Fluids for rehydration NS at 125 mL per hour -IV Antibiotic: Piperacillin tazobact 3.375mg IV every 6 hours -IV Antibiotic: Metronidazole 500 gm IV every 8 hours -IV Solu-Medrol 125 mg, then 62.5 mg IV every 6 hours -surgical consult Dr. Ruiz, will see in am -And a.m. labs: CBC, BMP COPD -albuterol nebulizer every 4 hours as needed for wheezing and cough -Duo nebu ; schedule nebulize every 6 hours -Nicotine patch 14mg daily -oxygen per nasal cannula to keep sats greater than 92% -Advise to notify nurses of any chest pain or other symptoms Maintenance issues -Orders home meds: ordered discharge -Nutrition: NPO diet -Barrett catheter not indicated at this time -DVT: SCD -PPI: IV Protonix 40mg daily CODE STATUS: FULL CODE Admission status: Admit to [address] [place] [address] Admission justification. This patient will be admitted for inpatient services and is medically appropriate meeting medical necessity for inpatient admission as outlined in my documentation. I reasonably expect the patient will require inpatient services that span. Time over 2 midnights. I reasonably expect this patient to be discharged or transferred within 96 hours after admission to the critical access hospital. Disposition; home Primary care provider: Dr. Linda MD Hospitalist: Dr. Quinones Surgeon: Dr. Aayush Ruiz
[2017-12-07] MEDS: Nicotine 14 MG/24 Hr Patch TRDERM SCH (21:55)
[2017-12-07] MEDS: metroNIDAZOLE/Normal Saline 500 MG in Premix Bag 1 BAG IV SCH (22:24)
[2017-12-07] MEDS: Acetaminophen/HYDROcodone 325-5 MG Tab PO PRN (22:31)
[2017-12-07] MEDS: Triamcinolone Acetonide 0.1% Crm 15 GM Tube TOP SCH (22:40)
[2017-12-07] MEDS: Albuterol/Ipratropium 3.0-0.5 MG/3 ML Neb Soln NEB SCH (22:41)
[2017-12-07] MEDS: Piperacillin/Tazobactam 3.375 GM in Sodium Chloride 0.9% 50 ML IV SCH (23:53)
[2017-12-08] MEDS: metroNIDAZOLE/Normal Saline 500 MG in Premix Bag 1 BAG IV SCH (04:08)
[2017-12-08] MEDS: Piperacillin/Tazobactam 3.375 GM in Sodium Chloride 0.9% 50 ML IV SCH (04:08)
[2017-12-08] MEDS ORDERED: methylPREDNISolone Sodium Succinate 125 MG/2 ML SDV IVPUSH SCH ×2 (04:10→10:00)
[2017-12-08] MEDS: Acetaminophen/HYDROcodone 325-5 MG Tab PO PRN ×4 (04:29→21:11)
[2017-12-08] MEDS: Albuterol/Ipratropium 3.0-0.5 MG/3 ML Neb Soln NEB SCH ×4 (05:28→21:12)
[2017-12-08] MEDS: Levothyroxine 25 MCG Tab PO SCH (08:30)
[2017-12-08] MEDS: Sucralfate 1 GM Tab PO SCH ×4 (08:31→21:11)
[2017-12-08] MEDS: Loratadine 10 MG Tab PO SCH (08:31)
[2017-12-08] MEDS: Nicotine 14 MG/24 Hr Patch TRDERM SCH (08:31)
[2017-12-08] MEDS: Sertraline 50 MG Tab PO SCH (08:31)
[2017-12-08] MEDS: Triamcinolone Acetonide 0.1% Crm 15 GM Tube TOP SCH ×3 (08:32→21:04)
[2017-12-08] MEDS: Pantoprazole 40 MG Vial IV SCH (08:32)
[2017-12-08] MEDS: ClonazePAM 0.5 MG Tab PO SCH ×2 (08:51→10:01)
[2017-12-08] MEDS ORDERED: Levothyroxine 25 MCG Tab PO SCH (09:00)
[2017-12-08] MEDS: Piperacillin/Tazobactam/Dext 3.375 GM in Premix Bag 1 BAG IV SCH ×3 (09:53→21:17)
[2017-12-08] MEDS ORDERED: metroNIDAZOLE/Normal Saline 500 MG in Premix Bag 1 BAG IV SCH (10:00)
[2017-12-08] MEDS ORDERED: Dextrose 5%-Lactated Ringers 1,000 ML IV SCH (10:00)
--- NOTE | 2017-12-08 10:39 | PCM.PN ---
- General Info Date of Service: 12/08/17 Functional Status: Reports: Pain Controlled - Review of Systems General: Denies: Fever Gastrointestinal: Reports: Abdominal Pain Systems Review Comment:: There were no acute events overnight. Abdominal pain has improved since admission. She still reports moderate lower abdominal and left lower quadrant abdominal pain. She has had a bowel movement. She has not had any fevers. White blood cell count is normal. No nausea. Appetite is returning. - Patient Data Vitals - Most Recent: Last Vital Signs Temp 35.7 C 12/08/17 08:21 Pulse 73 12/08/17 08:21 Resp 16 12/08/17 08:21 BP 97/54 L 12/08/17 08:21 Pulse Ox 90 L 12/08/17 08:21 Weight - Most Recent: 89.811 kg I&O - Last 24 Hours: Intake & Output 12/07/17 12/08/17 12/08/17 22:59 06:59 14:59 Intake Total 1001 140 Output Total 1150 300 Balance -149 -160 Lab Results Last 24 Hours: Laboratory Results - last 24 hr 12/07/17 12/07/17 12/07/17 Range/Units 15:11 15:11 15:11 WBC 9.9 (4.5-11.0) K/uL RBC 4.44 (3.30-5.50) M/uL Hgb 13.1 (12.0-15.0) g/dL Hct 40.5 (36.0-48.0) % MCV 91 (80-98) fL MCH 30 (27-31) pg MCHC 32 (32-36) % Plt Count 253 (150-400) K/uL Neut % (Auto) 75 H (36-66) % Lymph % (Auto) 18 L (24-44) % [place] % (Auto) 6 (2-6) % Eos % (Auto) 1 L (2-4) % Baso % (Auto) 0 (0-1) % Sodium 143 (140-148) mmol/L Potassium 3.8 (3.6-5.2) mmol/L Chloride 104 (100-108) mmol/L Carbon Dioxide 31 (21-32) mmol/L Anion Gap 8.3 (5.0-14.0) mmol/L BUN 14 (7-18) mg/dL Creatinine 1.0 D (0.6-1.0) mg/dL Est Cr Clr Drug Dosing 44.58 mL/min Estimated GFR (MDRD) 56 L (>60) Glucose 101 (74-106) mg/dL Calcium 8.9 (8.5-10.1) mg/dL Total Bilirubin 0.4 (0.2-1.0) mg/dL AST 17 (15-37) U/L ALT 22 (12-78) U/L Alkaline Phosphatase 98 (46-116) U/L Total Protein 7.2 (6.4-8.2) g/dL Albumin 3.3 L (3.4-5.0) g/dL Globulin 3.9 H (2.3-3.5) g/dL Albumin/Globulin Ratio 0.9 L (1.2-2.2) Amylase 52 (25-115) U/L Lipase 71 L (73-393) U/L Urine Color Yellow Urine Appearance Clear Urine pH 7.0 (4.5-8.0) Ur Specific [place] 1.010 (1.008-1.030) Urine Protein Negative (NEGATIVE) mg/dL Urine Glucose (UA) Normal (NEGATIVE) mg/dL Urine Ketones Negative (NEGATIVE) mg/dL Urine Occult Blood Negative (NEGATIVE) Urine Nitrite Negative (NEGATIVE) Urine Bilirubin Negative (NEGATIVE) Urine Urobilinogen Normal (NORMAL) mg/dL Ur Leukocyte Esterase Negative (NEGATIVE) Urine RBC 0-5 (0-5) Urine WBC 0-5 (0-5) Ur Epithelial Cells Rare Amorphous Sediment Not seen Urine Bacteria Moderate Urine Mucus Not seen 12/08/17 12/08/17 Range/Units 05:45 05:45 WBC 6.8 (4.5-11.0) K/uL RBC 4.11 (3.30-5.50) M/uL Hgb 12.4 (12.0-15.0) g/dL Hct 37.9 (36.0-48.0) % MCV 92 (80-98) fL MCH 30 (27-31) pg MCHC 33 (32-36) % Plt Count 212 (150-400) K/uL Neut % (Auto) 92 H (36-66) % Lymph % (Auto) 7 L (24-44) % [place] % (Auto) 1 L (2-6) % Eos % (Auto) 0 L (2-4) % Baso % (Auto) 0 (0-1) % Sodium 143 (140-148) mmol/L Potassium 4.1 (3.6-5.2) mmol/L Chloride 106 (100-108) mmol/L Carbon Dioxide 26 (21-32) mmol/L Anion Gap 10.7 (5.0-14.0) mmol/L BUN 11 (7-18) mg/dL Creatinine 1.0 (0.6-1.0) mg/dL Est Cr Clr Drug Dosing 44.58 mL/min Estimated GFR (MDRD) 56 L (>60) Glucose 154 H (74-106) mg/dL Calcium 8.4 L (8.5-10.1) mg/dL Total Bilirubin (0.2-1.0) mg/dL AST (15-37) U/L ALT (12-78) U/L Alkaline Phosphatase (46-116) U/L Total Protein (6.4-8.2) g/dL Albumin (3.4-5.0) g/dL Globulin (2.3-3.5) g/dL Albumin/Globulin Ratio (1.2-2.2) Amylase (25-115) U/L Lipase (73-393) U/L Urine Color Urine Appearance Urine pH (4.5-8.0) Ur Specific [place] (1.008-1.030) Urine Protein (NEGATIVE) mg/dL Urine Glucose (UA) (NEGATIVE) mg/dL Urine Ketones (NEGATIVE) mg/dL Urine Occult Blood (NEGATIVE) Urine Nitrite (NEGATIVE) Urine Bilirubin (NEGATIVE) Urine Urobilinogen (NORMAL) mg/dL Ur Leukocyte Esterase (NEGATIVE) Urine RBC (0-5) Urine WBC (0-5) Ur Epithelial Cells Amorphous Sediment Urine Bacteria Urine Mucus Med Orders - Current: Current Medications Acetaminophen (Tylenol) 650 mg PO Q4H PRN PRN Reason: Pain (Mild 1-3)/fever Hydrocodone Bitart/Acetaminophen ([place] 325-5 Mg) 1 tab PO Q4H PRN PRN Reason: Pain (moderate 4-6) Last Admin: 12/08/17 08:44 Dose: 1 tab Albuterol (Proventil Neb Soln) 2.5 mg NEB Q4H PRN PRN Reason: Shortness Of Breath/wheezing Albuterol (Ventolin Hfa) 0 gm INH Q6H PRN PRN Reason: Dyspnea Albuterol/Ipratropium (Duoneb 3.0-0.5 Mg/3 Ml) 3 ml NEB Q4H PRN PRN Reason: Shortness of Breath Albuterol/Ipratropium (Duoneb 3.0-0.5 Mg/3 Ml) 3 ml NEB QIDRT [facility] Bisacodyl (Dulcolax) 5 mg PO DAILY PRN PRN Reason: Constipation Last Admin: 12/07/17 22:31 Dose: 5 mg Bupropion HCl (Wellbutrin) 150 mg PO BID [facility] Last Admin: 12/08/17 08:31 Dose: 150 mg Clonazepam (Klonopin) 0.5 mg PO DAILY [facility] Last Admin: 12/08/17 10:01 Dose: 0.5 mg Docusate Sodium (Colace) 100 mg PO BID PRN PRN Reason: Constipation Last Admin: 12/07/17 22:31 Dose: 100 mg Furosemide (Lasix) 40 mg PO DAILY PRN PRN Reason: Other Last Admin: 12/07/17 22:32 Dose: 40 mg Piperacillin/Tazobactam/ (Dextrose 3.375 gm/ Premix) 50 mls @ 100 mls/hr IV Q6H [facility] Last Admin: 12/08/17 09:53 Dose: 100 mls/hr Dextrose/Lactated Ringer's (Dextrose 5%-Lactated Ringers) 1,000 mls @ 100 mls/ hr IV ASDIRECTED [facility] Lamotrigine (Lamotrigine) 150 mg PO BEDTIME [facility] Last Admin: 12/07/17 22:32 Dose: 150 mg Levothyroxine Sodium (Levothyroxine) 25 mcg PO ACBREAKFAST [facility] Last Admin: 12/08/17 08:30 Dose: 25 mcg Loratadine (Claritin) 10 mg PO DAILY [facility] Last Admin: 12/08/17 08:31 Dose: 10 mg Lorazepam (Ativan) 1 mg IV Q6H PRN PRN Reason: Nausea/Vomiting Morphine Sulfate (Morphine) 2 mg IVPUSH Q2H PRN PRN Reason: Pain (severe 7-10) Nicotine (Habitrol) 14 mg TRDERM DAILY [facility] Last Admin: 12/08/17 08:31 Dose: Not Given Ondansetron HCl (Zofran Odt) 4 mg PO Q6H PRN PRN Reason: Nausea able to take PO Ondansetron HCl (Zofran) 4 mg IV Q4H PRN PRN Reason: Nausea/Vomiting Pantoprazole Sodium (Protonix Iv) 40 mg IV DAILY [facility] Last Admin: 12/08/17 08:32 Dose: 40 mg Sertraline HCl (Zoloft) 50 mg PO DAILY [facility] Last Admin: 12/08/17 08:31 Dose: 50 mg Sucralfate (Carafate) 1 gm PO QIDACANDBED [facility] Last Admin: 12/08/17 08:31 Dose: 1 gm Tizanidine HCl (Zanaflex) 4 mg PO Q8H PRN PRN Reason: Muscle Spasm Trazodone HCl (Trazodone) 50 mg PO BEDTIME PRN PRN Reason: Sleep Last Admin: 12/07/17 22:31 Dose: 50 mg Triamcinolone Acetonide (Triamcinolone Acetonide 0.1% Crm) 0 gm TOP TID [facility] Last Admin: 12/08/17 08:32 Dose: 1 applic Discontinued Medications Albuterol/Ipratropium (Duoneb 3.0-0.5 Mg/3 Ml) 3 ml NEB QID [facility] Last Admin: 12/08/17 05:28 Dose: 3 ml Bupropion HCl (Wellbutrin) 150 mg PO BID [facility] Last Admin: 12/07/17 22:45 Dose: 150 mg Sodium Chloride (Normal Saline) 1,000 mls @ 75 mls/hr IV ASDIRECTED [facility] Last Admin: 12/07/17 15:57 Dose: 75 mls/hr Sodium Chloride (Normal Saline) 80 mls @ 3 mls/sec IV ASDIRECTED [facility] Stop: 12/07/17 23:00 Last Admin: 12/07/17 17:44 Dose: 3 mls/sec Sodium Chloride (Normal Saline) 1,000 mls @ 75 mls/hr IV ASDIRECTED [facility] Last Admin: 12/07/17 21:00 Dose: 75 mls/hr Metronidazole 500 mg/ Premix 100 mls @ 100 mls/hr IV Q6H [facility] Last Admin: 12/08/17 04:08 Dose: 100 mls/hr Piperacillin Sod/Tazobactam (Sod 3.375 gm/ Sodium Chloride) 50 mls @ 100 mls/ hr IV Q6H [facility] Last Admin: 12/08/17 04:08 Dose: 100 mls/hr Sodium Chloride (Normal Saline) 1,000 mls @ 125 mls/hr IV ASDIRECTED [facility] Last Admin: 12/08/17 08:21 Dose: 125 mls/hr Metronidazole 500 mg/ Premix 100 mls @ 100 mls/hr IV Q6H [facility] Iopamidol (Isovue-300 (61%)) 135 ml IV . DIRECTED [facility] Stop: 12/07/17 22:00 Last Admin: 12/07/17 21:57 Dose: Not Given Levothyroxine Sodium (Levothyroxine) 25 mcg PO DAILY [facility] Methylprednisolone Sodium Succinate (Solu-Medrol) 125 mg IVPUSH ONETIME ONE Stop: 12/07/17 21:28 Last Admin: 12/07/17 22:35 Dose: 125 mg Methylprednisolone Sodium Succinate (Solu-Medrol) 62.5 mg IVPUSH Q6H [facility] Last Admin: 12/08/17 04:08 Dose: 62.5 mg Methylprednisolone Sodium Succinate (Solu-Medrol) 62.5 mg IVPUSH Q6H [facility] Last Admin: 12/08/17 09:51 Dose: 62.5 mg Morphine Sulfate (Morphine) 5 mg IVPUSH ONETIME ONE Stop: 12/07/17 15:19 Last Admin: 12/07/17 15:56 Dose: 5 mg Morphine Sulfate (Morphine) 2 mg IVPUSH ONETIME ONE Stop: 12/07/17 17:13 Last Admin: 12/07/17 17:30 Dose: 2 mg Sodium Chloride (Saline Flush) 10 ml FLUSH ASDIRECTED PRN PRN Reason: Keep Vein Open Last Admin: 12/07/17 15:57 Dose: 10 ml Sodium Chloride (Saline Flush) 10 ml FLUSH ONETIME ONE Stop: 12/07/17 17:21 Last Admin: 12/07/17 17:40 Dose: 10 ml - Exam Quality Assessment: No: Supplemental Oxygen General: Alert, Oriented, Cooperative, No Acute Distress Neck: Supple Lungs: Clear to Auscultation, Normal Respiratory Effort GI/Abdominal Exam: Soft, No Distention, Tender, Abnormal Bowel Sounds ( hypoactive) Extremities: No Pedal Edema Skin: Warm, Dry Psy/Mental Status: Alert, Normal Affect - Problem List Review Problem List Initiated/Reviewed/Updated: Yes - My Orders Last 24 Hours: My Active Orders 12/08/17 22:00 methylPREDNISolone Sod Succ [Solu-MEDROL] 62.5 mg IVPUSH Q12H 12/08/17 Lunch Clear Liquid Diet [DIET] - Plan Plan:: ASSESSMENT / PLAN Acute diverticulitis of the mid sigmoid colon - pain improving. Not having any fevers.Indication for surgical intervention at this time. -IV fluids -Antibiotic coverage with Piperacillin/tazobactam 3.375mg IV every 6 hours -Tapering dose of steroids -Pain control -Trial of clear liquids COPD - stable with no evidence for exacerbation. -albuterol nebulizer every 4 hours as needed for wheezing and cough -Duo nebu ; schedule nebulize every 6 hours -oxygen per nasal cannula to keep sats greater than 92% -Advise to notify nurses of any chest pain or other symptoms Tobacco dependence - patient currently utilizing a nicotine patch. Maintenance issues -Nutrition: Clear liquids -Barrett catheter - not indicated at this time -DVT: SCD -PPI: PPI Disposition - I would anticipate discharge to home after the hospital stay, possibly tomorrow if she continues to improve at this rate Rj Quinones M.D.
[2017-12-08] MEDS: Acetaminophen 325 MG Tab PO PRN (21:10)
[2017-12-08] MEDS ORDERED: traZODone 50 MG Tab PO PRN (21:11)
[2017-12-08] MEDS: methylPREDNISolone Sodium Succinate 125 MG/2 ML SDV IVPUSH SCH (21:13)
[2017-12-08] MEDS: lamoTRIgine 100 MG, lamoTRIgine 50 MG PO SCH ×2 (22:58)
[2017-12-09] MEDS: Piperacillin/Tazobactam/Dext 3.375 GM in Premix Bag 1 BAG IV SCH ×4 (03:45→21:50)
[2017-12-09] MEDS: Albuterol/Ipratropium 3.0-0.5 MG/3 ML Neb Soln NEB SCH ×4 (07:27→21:55)
[2017-12-09] MEDS: Loratadine 10 MG Tab PO SCH (08:18)
[2017-12-09] MEDS: Levothyroxine 25 MCG Tab PO SCH (08:18)
[2017-12-09] MEDS: Sucralfate 1 GM Tab PO SCH ×4 (08:18→21:54)
[2017-12-09] MEDS: Nicotine 14 MG/24 Hr Patch TRDERM SCH ×2 (08:18→22:28)
[2017-12-09] MEDS: Pantoprazole 40 MG Vial IV SCH (08:19)
[2017-12-09] MEDS: Sertraline 50 MG Tab PO SCH (08:19)
--- NOTE | 2017-12-09 09:05 | PN ---
DATE OF SERVICE: 12/08/2017 The patient was admitted overnight with a sigmoid colon diverticulitis. She states that her abdomen feels a little bit less uncomfortable today. Examination does show quite a bit in the way of tenderness in the left lower quadrant. A CT scan shows some fluid around the area of diverticulitis, but no obvious abscess formation. She is presently receiving antibiotics consisting of Flagyl and Zosyn. The plan, at this point, we would attempt to treat this nonoperatively. We will continue the antibiotics and minimize the amount of oral intake, recheck some labs in the morning, and follow things clinically over the next few days. Aayush Ruiz MD Job #: [id number]
--- NOTE | 2017-12-09 09:27 | CR ---
Abdomen 2V AP Flat Upright INDICATION: abdominal pain COMPARISON: CT abdomen 09/16/2017 FINDINGS: 4 views. There is infiltrate and possible pleural effusion at the left base. Postoperative changes in the abdomen. No abnormal bowel gas pattern seen. No free air. No signs of ob struction. No abnormal calculi seen.
[2017-12-09] MEDS: Triamcinolone Acetonide 0.1% Crm 15 GM Tube TOP SCH ×3 (09:32→21:56)
[2017-12-09] MEDS: ClonazePAM 0.5 MG Tab PO SCH (09:32)
--- NOTE | 2017-12-09 09:50 | PN ---
DATE OF SERVICE: 12/09/2017 SUBJECTIVE: Reji has sigmoid diverticulitis. She is on IV Zosyn and clear liquids. BNP was 2610. She has been active. Pain has been controlled. Denies any other associated signs and symptoms. REVIEW OF SYSTEMS: HEENT: Negative. NECK: Negative. HEART: No chest pain or shortness of breath. LUNGS: No cough. ABDOMEN: As above. Last bowel movement was a couple of days ago. : Negative for any UTI signs and symptoms. EXTREMITIES: Without joint pain or swelling. SKIN: Denies any rash or changes in moles. PSYCHIATRIC: No depression, anxiety, or insomnia. Remainder of review of systems negative for any pertinent positives and negatives. OBJECTIVE: GENERAL: Reji Gonzalez is a 62-year-old female. She is alert and orientated. VITAL SIGNS: TPR 96.3, 73, 18, and blood pressure 132/77. HEENT: Negative. NECK: Supple. HEART: Regular rate and rhythm. LUNGS: Clear. ABDOMEN: Soft and nontender. EXTREMITIES: Without peripheral edema. NEUROLOGIC: Intact. PSYCHIATRIC: Mood and affect appropriate. ASSESSMENT: Sigmoid diverticulitis. PLAN: 1. Full liquid diet. 2. We will evaluate p.r.n. or in a.m. Irasema Gresham PA-C /[id number]
[2017-12-09] MEDS: methylPREDNISolone Sodium Succinate 125 MG/2 ML SDV IVPUSH SCH (10:31)
[2017-12-09] MEDS ORDERED: LORazepam 1 MG Tab PO PRN (12:06)
[2017-12-09] MEDS ORDERED: traZODone 50 MG Tab PO PRN (12:07)
--- NOTE | 2017-12-09 12:08 | PCM.PN ---
- General Info Date of Service: 12/09/17 Functional Status: Reports: Pain Controlled, Tolerating Diet - Review of Systems General: Denies: Fever Gastrointestinal: Reports: Abdominal Pain Systems Review Comment:: No acute events overnight. Abdominal pain has been slowly improving but has not resolved. She has been having bowel movements. She has not been having fevers. Shortness of breath is at baseline. Tolerating her clear liquid diet overnight. - Patient Data Vitals - Most Recent: Last Vital Signs Temp 36.8 C 12/09/17 10:54 Pulse 72 12/09/17 11:46 Resp 18 12/09/17 10:54 BP 125/63 12/09/17 10:54 Pulse Ox 96 12/09/17 11:46 Weight - Most Recent: 89.074 kg I&O - Last 24 Hours: Intake & Output 12/08/17 12/09/17 12/09/17 22:59 06:59 14:59 Intake Total 1270 1970 Output Total 900 1800 700 Balance 370 170 -700 Lab Results Last 24 Hours: Laboratory Results - last 24 hr 12/09/17 12/09/17 Range/Units 04:48 04:48 WBC 9.2 (4.5-11.0) K/uL RBC 3.65 (3.30-5.50) M/uL Hgb 10.9 L (12.0-15.0) g/dL Hct 33.7 L (36.0-48.0) % MCV 92 (80-98) fL MCH 30 (27-31) pg MCHC 32 (32-36) % Plt Count 213 (150-400) K/uL Sodium 144 (140-148) mmol/L Potassium 3.5 L (3.6-5.2) mmol/L Chloride 109 H (100-108) mmol/L Carbon Dioxide 28 (21-32) mmol/L Anion Gap 10.5 (5.0-14.0) mmol/L BUN 11 (7-18) mg/dL Creatinine 0.9 (0.6-1.0) mg/dL Est Cr Clr Drug Dosing 49.53 mL/min Estimated GFR (MDRD) > 60 (>60) Glucose 175 H (74-106) mg/dL Calcium 8.5 (8.5-10.1) mg/dL Phosphorus 2.7 (2.5-4.9) mg/dL Magnesium 2.1 (1.8-2.4) mg/dL Total Bilirubin 0.2 (0.2-1.0) mg/dL AST 13 L (15-37) U/L ALT 19 (12-78) U/L Alkaline Phosphatase 72 (46-116) U/L NT-Pro-B Natriuret Pep 2610 H (5-125) pg/mL Total Protein 6.3 L (6.4-8.2) g/dL Albumin 2.8 L (3.4-5.0) g/dL Globulin 3.5 (2.3-3.5) g/dL Albumin/Globulin Ratio 0.8 L (1.2-2.2) Med Orders - Current: Current Medications Acetaminophen (Tylenol) 650 mg PO Q4H PRN PRN Reason: Pain (Mild 1-3)/fever Last Admin: 12/08/17 21:10 Dose: 650 mg Hydrocodone Bitart/Acetaminophen ([place] 325-5 Mg) 1 tab PO Q4H PRN PRN Reason: Pain (moderate 4-6) Last Admin: 12/08/17 21:11 Dose: 1 tab Albuterol (Proventil Neb Soln) 2.5 mg NEB Q4H PRN PRN Reason: Shortness Of Breath/wheezing Albuterol (Ventolin Hfa) 0 gm INH Q6H PRN PRN Reason: Dyspnea Albuterol/Ipratropium (Duoneb 3.0-0.5 Mg/3 Ml) 3 ml NEB Q4H PRN PRN Reason: Shortness of Breath Albuterol/Ipratropium (Duoneb 3.0-0.5 Mg/3 Ml) 3 ml NEB QIDRT [facility] Last Admin: 12/09/17 11:46 Dose: 3 ml Bisacodyl (Dulcolax) 5 mg PO DAILY PRN PRN Reason: Constipation Last Admin: 12/07/17 22:31 Dose: 5 mg Bupropion HCl (Wellbutrin) 150 mg PO BID [facility] Last Admin: 12/09/17 08:19 Dose: 150 mg Clonazepam (Klonopin) 0.5 mg PO DAILY [facility] Last Admin: 12/09/17 09:32 Dose: Not Given Docusate Sodium (Colace) 100 mg PO BID PRN PRN Reason: Constipation Last Admin: 12/07/17 22:31 Dose: 100 mg Furosemide (Lasix) 40 mg PO DAILY PRN PRN Reason: Other Last Admin: 12/07/17 22:32 Dose: 40 mg Piperacillin/Tazobactam/ (Dextrose 3.375 gm/ Premix) 50 mls @ 100 mls/hr IV Q6H [facility] Last Admin: 12/09/17 09:18 Dose: 100 mls/hr Lamotrigine 100 mg/ (Lamotrigine 50 mg) 150 mg PO BEDTIME [facility] Last Admin: 12/08/17 22:58 Dose: 150 mg Levothyroxine Sodium (Levothyroxine) 25 mcg PO ACBREAKFAST [facility] Last Admin: 12/09/17 08:18 Dose: 25 mcg Loratadine (Claritin) 10 mg PO DAILY [facility] Last Admin: 12/09/17 08:18 Dose: 10 mg Morphine Sulfate (Morphine) 2 mg IVPUSH Q2H PRN PRN Reason: Pain (severe 7-10) Nicotine (Habitrol) 14 mg TRDERM DAILY [facility] Last Admin: 12/09/17 08:18 Dose: 14 mg Ondansetron HCl (Zofran Odt) 4 mg PO Q6H PRN PRN Reason: Nausea able to take PO Ondansetron HCl (Zofran) 4 mg IV Q4H PRN PRN Reason: Nausea/Vomiting Sertraline HCl (Zoloft) 50 mg PO DAILY [facility] Last Admin: 12/09/17 08:19 Dose: 50 mg Sucralfate (Carafate) 1 gm PO QIDACANDBED [facility] Last Admin: 12/09/17 11:25 Dose: 1 gm Tizanidine HCl (Zanaflex) 4 mg PO Q8H PRN PRN Reason: Muscle Spasm Triamcinolone Acetonide (Triamcinolone Acetonide 0.1% Crm) 0 gm TOP TID [facility] Last Admin: 12/09/17 09:32 Dose: Not Given Discontinued Medications Albuterol/Ipratropium (Duoneb 3.0-0.5 Mg/3 Ml) 3 ml NEB QID [facility] Last Admin: 12/08/17 05:28 Dose: 3 ml Bupropion HCl (Wellbutrin) 150 mg PO BID [facility] Last Admin: 12/07/17 22:45 Dose: 150 mg Sodium Chloride (Normal Saline) 1,000 mls @ 75 mls/hr IV ASDIRECTED [facility] Last Admin: 12/07/17 15:57 Dose: 75 mls/hr Sodium Chloride (Normal Saline) 80 mls @ 3 mls/sec IV ASDIRECTED [facility] Stop: 12/07/17 23:00 Last Admin: 12/07/17 17:44 Dose: 3 mls/sec Sodium Chloride (Normal Saline) 1,000 mls @ 75 mls/hr IV ASDIRECTED [facility] Last Admin: 12/07/17 21:00 Dose: 75 mls/hr Metronidazole 500 mg/ Premix 100 mls @ 100 mls/hr IV Q6H [facility] Last Admin: 12/08/17 04:08 Dose: 100 mls/hr Piperacillin Sod/Tazobactam (Sod 3.375 gm/ Sodium Chloride) 50 mls @ 100 mls/ hr IV Q6H [facility] Last Admin: 12/08/17 04:08 Dose: 100 mls/hr Sodium Chloride (Normal Saline) 1,000 mls @ 125 mls/hr IV ASDIRECTED [facility] Last Admin: 12/08/17 08:21 Dose: 125 mls/hr Metronidazole 500 mg/ Premix 100 mls @ 100 mls/hr IV Q6H [facility] Dextrose/Lactated Ringer's (Dextrose 5%-Lactated Ringers) 1,000 mls @ 100 mls/ hr IV ASDIRECTED [facility] Last Admin: 12/08/17 16:14 Dose: 100 mls/hr Iopamidol (Isovue-300 (61%)) 135 ml IV . DIRECTED [facility] Stop: 12/07/17 22:00 Last Admin: 12/07/17 21:57 Dose: Not Given Lamotrigine (Lamotrigine) 150 mg PO BEDTIME [facility] Last Admin: 12/07/17 22:32 Dose: 150 mg Levothyroxine Sodium (Levothyroxine) 25 mcg PO DAILY [facility] Lorazepam (Ativan) 1 mg IV Q6H PRN PRN Reason: Nausea/Vomiting Last Admin: 12/09/17 08:17 Dose: 1 mg Methylprednisolone Sodium Succinate (Solu-Medrol) 125 mg IVPUSH ONETIME ONE Stop: 12/07/17 21:28 Last Admin: 12/07/17 22:35 Dose: 125 mg Methylprednisolone Sodium Succinate (Solu-Medrol) 62.5 mg IVPUSH Q6H [facility] Last Admin: 12/08/17 04:08 Dose: 62.5 mg Methylprednisolone Sodium Succinate (Solu-Medrol) 62.5 mg IVPUSH Q6H [facility] Last Admin: 12/08/17 09:51 Dose: 62.5 mg Methylprednisolone Sodium Succinate (Solu-Medrol) 62.5 mg IVPUSH Q12H [facility] Last Admin: 12/09/17 10:31 Dose: 62.5 mg Morphine Sulfate (Morphine) 5 mg IVPUSH ONETIME ONE Stop: 12/07/17 15:19 Last Admin: 12/07/17 15:56 Dose: 5 mg Morphine Sulfate (Morphine) 2 mg IVPUSH ONETIME ONE Stop: 12/07/17 17:13 Last Admin: 12/07/17 17:30 Dose: 2 mg Pantoprazole Sodium (Protonix Iv) 40 mg IV DAILY [facility] Last Admin: 12/09/17 08:19 Dose: 40 mg Sodium Chloride (Saline Flush) 10 ml FLUSH ASDIRECTED PRN PRN Reason: Keep Vein Open Last Admin: 12/07/17 15:57 Dose: 10 ml Sodium Chloride (Saline Flush) 10 ml FLUSH ONETIME ONE Stop: 12/07/17 17:21 Last Admin: 12/07/17 17:40 Dose: 10 ml Trazodone HCl (Trazodone) 50 mg PO BEDTIME PRN PRN Reason: Sleep Last Admin: 12/07/17 22:31 Dose: 50 mg Trazodone HCl (Trazodone) 50 - 100 mg PO BEDTIME PRN PRN Reason: Sleep Last Admin: 12/08/17 23:03 Dose: 100 mg - Exam Quality Assessment: Supplemental Oxygen General: Alert, Oriented, Cooperative, No Acute Distress Neck: Supple Lungs: Normal Respiratory Effort GI/Abdominal Exam: Soft, No Distention Extremities: No Pedal Edema Psy/Mental Status: Alert, Normal Affect - Problem List Review Problem List Initiated/Reviewed/Updated: Yes - My Orders Last 24 Hours: My Active Orders 12/08/17 21:11 traZODone 50 - 100 mg PO BEDTIME PRN 12/09/17 12:05 Convert IV to Saline Lock [OM.PC] Routine 12/09/17 12:06 LORazepam [Ativan] 1 mg PO Q4H PRN 12/09/17 12:07 traZODone 100 mg PO BEDTIME PRN 12/10/17 07:30 Pantoprazole [ProTONIX] 40 mg PO ACBREAKFAST - Plan Plan:: ASSESSMENT / PLAN Acute diverticulitis of the mid sigmoid colon - Abdominal pain steadily improving. No fevers overnight. -Saline lock IV fluids -Antibiotic coverage with Piperacillin/tazobactam 3.375mg IV every 6 hours -Discontinue steroids -Pain control -Trial of full liquids COPD - stable with no evidence for exacerbation. -albuterol nebulizer every 4 hours as needed for wheezing and cough -Duo nebu ; schedule nebulize every 6 hours -oxygen per nasal cannula to keep sats greater than 92% -Advise to notify nurses of any chest pain or other symptoms Tobacco dependence - patient currently utilizing a nicotine patch. Maintenance issues -Nutrition: Clear liquids -Barrett catheter - not indicated at this time -DVT: SCD -PPI: PPI Disposition - I would anticipate discharge to home after the hospital stay, probably tomorrow Rj Quinones M.D.
[2017-12-09] MEDS: Acetaminophen 325 MG Tab PO PRN (16:51)
[2017-12-09] MEDS: Acetaminophen/HYDROcodone 325-5 MG Tab PO PRN (16:51)
[2017-12-09] MEDS: lamoTRIgine 100 MG, lamoTRIgine 50 MG PO SCH ×2 (21:55)
[2017-12-10] MEDS: Piperacillin/Tazobactam/Dext 3.375 GM in Premix Bag 1 BAG IV SCH ×2 (03:29→11:21)
[2017-12-10] MEDS: Albuterol/Ipratropium 3.0-0.5 MG/3 ML Neb Soln NEB SCH ×3 (07:26→14:51)
[2017-12-10] MEDS ORDERED: Pantoprazole 40 MG Tab.CR PO SCH (07:30)
[2017-12-10] MEDS: Levothyroxine 25 MCG Tab PO SCH (07:45)
[2017-12-10] MEDS: Sucralfate 1 GM Tab PO SCH ×2 (07:46→13:11)
[2017-12-10] MEDS: Loratadine 10 MG Tab PO SCH (09:38)
[2017-12-10] MEDS: Sertraline 50 MG Tab PO SCH (09:38)
[2017-12-10] MEDS: Nicotine 14 MG/24 Hr Patch TRDERM SCH (09:39)
[2017-12-10] MEDS: Triamcinolone Acetonide 0.1% Crm 15 GM Tube TOP SCH (09:39)
[2017-12-10] MEDS: ClonazePAM 0.5 MG Tab PO SCH (09:39)
--- NOTE | 2017-12-10 10:11 | PCM.SN ---
- Free Text/Narrative Note: Pt started having moderate central chest pain while walking. Had similar pain yesterday and again this morning. Worse when trying to swallow, even with coffee. No change with pressure on chest. No nausea or diaphoresis. Does not feel short of breath. EKG shows sinus rhythm some borderline ST changes inferiorly and laterally. The EKG appears similar to the one from 2015. Planning trial of GI cocktail and Q3H troponins but this sounds like GI rather than cardiac pain. Exam is benign. Pro Quinones MD
[2017-12-10] MEDS: Alum Hydrox/Mag Hydrox/Simeth 15 ML, Lidocaine 2% 15 ML PO ONE ×2 (11:31)
--- NOTE | 2017-12-10 12:14 | DISCH ---
ADMISSION DIAGNOSES: 1. Abdominal pain. 2. Chronic obstructive pulmonary disease. 3. Mild concentric left ventricular hypertrophy. 4. Panlobular emphysema. 5. Chronic low back pain. 6. Chronic obstructive lung disease. DISCHARGE DIAGNOSIS: Diverticulitis. HISTORY: Olivia Gonzalez is a 62-year-old female who presented to the emergency department at [facility] for abdominal pain on 12/07/2017. She reports abdominal pain started on 12/05/2017. She had chills, but no fever. The pain gradually worsened. She had no vomiting, red or black stools, and no fever. A CT scan was obtained, and there was severe colonic diverticulosis with moderate acute diverticulitis of the mid-sigmoid colon and a small collection of fluid to the left of the urinary bladder, deep to the anterior abdominal wall, forced to represent postsurgical seroma from her hernia repair. HOSPITAL COURSE: She was admitted to the hospital and started on IV Flagyl and Zosyn. Abdominal pain did lessen. Her abdomen was much less tender, and she started having bowel movements. She remained to be on a clear liquid diet and advanced to a full liquid diet on 12/09/2017. On 12/10/2017, she was started on a low-residue diet, received dietary education and instructions, and was able to be discharged to home without any complications. ALLERGIES: OLIVIA HAS AN ALLERGY TO CIPRO. REVIEW OF SYSTEMS: CONSTITUTIONAL: Denies any fever, chills, night sweats, or fatigue. No weight loss. NECK: Negative. HEART: No chest pain, shortness of breath, fast or irregular heartbeats. The chest pain was evaluated that she did have and was thought to be GI symptoms. ABDOMEN: As above. : Negative. MUSCULOSKELETAL: Chronic back pain and some joint pain and stiffness. SKIN: Negative for rash. NEURO: No headaches, dizziness, or loss of coordination. PSYCHIATRIC: Mood and affect appropriate. Remainder of review of systems negative for any pertinent positives and negatives. PHYSICAL EXAMINATION: GENERAL: Olivia Gonzalez is a 62-year-old female. VITAL SIGNS: Height is 5 feet 1 inch. Weight is 196 pounds. TPR is 98.1, 76, 18, and blood pressure 127/72. HEENT: Negative. NECK: Supple. HEART: Regular rate and rhythm. LUNGS: Clear. ABDOMEN: Soft and nontender. EXTREMITIES: Without peripheral edema. NEURO: Intact. SKIN: Without rash. PSYCHIATRIC: Mood and affect appropriate. DISPOSITION: Discharged to home. CONDITION: Stable and improving. FOLLOWUP APPOINTMENT: With Aayush Ruiz MD, at [facility] on 12/22/2017 at 9 a.m. DISCHARGE MEDICATIONS: She is to resume home medications of; 1. Albuterol 2 puffs every 6 hours p.r.n. shortness of breath. 2. DuoNeb 3 mL inhalation every 4 hours p.r.n. shortness of breath. 3. Clonazepam 0.5 mg oral daily. 4. Furosemide 40 mg oral daily. 5. [place] 5/325 mg 1 to 2 tabs every 4 hours p.r.n. pain. 6. Synthroid 25 mcg daily. 7. Lidocaine one applicator topical as directed. 8. Loratadine 10 mg oral daily. 9. Magnesium oxide 250 mg oral as directed. 10.Elocon 0.1% cream topical daily. 11.Zofran 4 mg every 4 hours. 12.Protonix 40 mg oral twice daily. 13.Penciclovir (Denavir) 1% cream 1.5 topical as directed. 14.Zoloft 50 mg oral daily. 15.Carafate one tablet before meals and at bedtime. 16.Triamcinolone cream three times a day to affected area. 17.Chantix one tablet twice daily. 18.Wellbutrin 150 oral twice daily. 19.Lamotrigine 150 mg oral at bedtime. 20.Tizanidine 4 mg oral every 8 hours p.r.n. muscle spasm. 21.Trazodone one to two tabs at bedtime for sleep. 22.Augmentin 875/125 mg one tablet b.i.d. for 10 days. 23.Flagyl 500 mg p.o. q.8 hours, #30. Recommendations of diverticulitis from up to date. DIET: Soft, low-residue diet. Drink 8 to 10 glasses of water a day. ACTIVITY: As tolerated. Shower/bathing, may shower. DISCHARGE INSTRUCTIONS: Notify provider if any fever, increased pain, nausea, or vomiting. Time of discharge, greater than 10 minutes.
[2017-12-10 14:03] VITALS: BP 118/72
== END 2017-12-10 16:00 | disposition home or self-care (01) | DRG 392 ==
LOC: JP.ED 14:31 → JP.MS 20:02
PROVIDERS: ADMIT Internal Medicine; ATTEND Internal Medicine
DX: K57.32 Diverticulitis of large intestine without perforation or abscess without bleeding (principal); K91.873 Postprocedural seroma of a digestive system organ or structure following other procedure; K57.30 Diverticulosis of large intestine without perforation or abscess without bleeding; J43.9 Emphysema, unspecified; R10.9 Unspecified abdominal pain; F17.210 Nicotine dependence, cigarettes, uncomplicated; E03.9 Hypothyroidism, unspecified; R07.9 Chest pain, unspecified; K21.9 Gastro-esophageal reflux disease without esophagitis; Z85.42 Personal history of malignant neoplasm of other parts of uterus; F32.9 Major depressive disorder, single episode, unspecified; F41.9 Anxiety disorder, unspecified; M79.7 Fibromyalgia; M54.9 Dorsalgia, unspecified; G89.29 Other chronic pain; Z87.440 Personal history of urinary (tract) infections; H54.7 Unspecified visual loss; Z88.1 Allergy status to other antibiotic agents; Z88.5 Allergy status to narcotic agent; Z88.8 Allergy status to other drugs, medicaments and biological substances; J43.1 Panlobular emphysema
CPT/HCPCS: 36415; 74019 ×2; 74177; 80053; 81001; 82150; 83690; 85025; 96361; 96374; 96376; 99284; 99285; J2270 ×2; J7030 ×2; J7050 ×2; 80048; 83735; 83880; 84100; 84484; 85027; 93005; 94640; A9270-GY; C9113; J2060; J2543; J2930; J7042; J7620

== ENCOUNTER 2018-06-20 22:01 | Emergency (ER) | payer MEDICARE, MEDICAID ==
[2018-06-20 22:17] VITALS: BP 144/75
[2018-06-20] MEDS ORDERED: Sodium Chloride 0.9% 10 ML Syringe FLUSH PRN ×2 (22:40→22:54)
--- NOTE | 2018-06-20 22:44 | EDM.PDOC ---
ED HPI GENERAL MEDICAL PROBLEM - General Chief Complaint: Abdominal Pain Stated Complaint: ABD PAIN Time Seen by Provider: 06/20/18 22:35 Source of Information: Reports: Patient, Family, Old Records, RN Notes Reviewed History Limitations: Reports: No Limitations - History of Present Illness INITIAL COMMENTS - FREE TEXT/NARRATIVE: 63-year-old female presents to the emergency department today with complaint of abdominal pain. She states he's had abdominal pain over the last 2 days it is progressively getting worse is mainly in the left lower quadrant. She has felt nauseated no vomiting she still passing gas no shortness of breath or chest pain. Does have extensive history of abdominal surgeries 7 does have a recent bout of diverticulitis the summer Abdominal Pain Score (Numeric/FACES): 8 - Related Data Allergies Allergy/AdvReac Type Severity Reaction Status Date / Time ciprofloxacin [From Cipro] Allergy Hives Verified 06/20/18 22:31 ciprofloxacin HCl Allergy Hives Verified 06/20/18 22:31 [From Cipro] clonidine HCl [From Catapres] Allergy Blisters Verified 06/20/18 22:31 hydromorphone Allergy Itching Verified 06/20/18 22:31 oxycodone [From Percocet] Allergy Hives Verified 06/20/18 22:31 Home Meds: Home Meds Levothyroxine Sodium [Synthroid] 25 mcg PO DAILY 07/05/14 [History] Pantoprazole [ProTONIX Granules] 40 mg PO BID 07/05/14 [History] Albuterol Sulfate [Albuterol Sulfate HFA] 2 puff INH Q6H PRN 10/25/14 [History] Ondansetron HCl [Zofran] 4 mg PO Q4H PRN 10/25/14 [History] Loratadine 10 mg PO DAILY 02/14/16 [History] buPROPion [Wellbutrin] 150 mg PO BID 02/15/16 [History] Furosemide 40 mg PO DAILY PRN 06/17/16 [History] Triamcinolone Acetonide [Kenalog 0.1% Crm] 1 applic TOP TID 06/17/16 [History] Albuterol/Ipratropium [DuoNeb 3.0-0.5 MG/3 ML] 3 ml IH Q4H PRN 12/14/16 [History ] Magnesium Oxide [Magnesium] 250 mg PO ASDIRECTED 02/24/17 [History] Sertraline HCl [Zoloft] 50 mg PO DAILY 02/24/17 [History] lamoTRIgine [Lamotrigine] 150 mg PO BEDTIME 02/24/17 [History] traZODone 1 - 2 tab PO BEDTIME PRN 02/24/17 [History] ClonazePAM [KlonoPIN] 0.5 mg PO DAILY 03/05/17 [History] Penciclovir [Denavir 1% Crm] 1.5 gm TP ASDIRECTED 03/05/17 [History] Mometasone Furoate [Elocon 0.1% Crm] 1 applic TOP DAILY 09/16/17 [History] Sucralfate [Carafate] 1 tab PO QIDACANDBED 09/16/17 [History] tiZANidine [Zanaflex] 4 mg PO Q8H PRN 09/16/17 [History] Past Medical History HEENT 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: Allergic Rhinitis, Impaired Vision Cardiovascular 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: Cardiomyopathy, SOB on Exertion Respiratory 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: Bronchitis, Recurrent, COPD, Sleep Apnea Gastrointestinal 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: Bowel Obstruction, Diverticulosis, GERD, Hiatal Hernia Genitourinary 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: UTI, Recurrent, Other (See Below) Other Genitourinary History: bladder suspension 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: , 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 Musculoskeletal 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: Arthritis, Back Pain, Chronic, Fibromyalgia Neurological 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: Vertigo Psychiatric 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: Anxiety, Depression Endocrine/Metabolic 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: Hypothyroidism, Obesity/BMI 30+ Immunologic 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: None Oncologic (Cancer) 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: Uterine Other Oncologic History: complete hysterectomy July 09, 2014 Dermatologic 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: Cellulitis Other Dermatologic History: sore on right lower leg that won't go away - Infectious Disease History Infectious Disease 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: Chicken Pox, Measles - Past Surgical History HEENT Surgical 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: Other (See Below) Other HEENT Surgeries/Procedures: biopsy on tongue GI Surgical 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: Appendectomy, Colon, Colonoscopy, EGD, Hernia Repair/Other Female Surgical 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: Hysterectomy, Salpingo-Oophorectomy Social & Family History - Family History Family Medical History: Noncontributory - Tobacco Use Smoking Status *Q: Current Every Day Smoker Years of Tobacco use: 48 Packs/Tins Daily: 0.5 - Caffeine Use Caffeine Use: Reports: Coffee - Recreational Drug Use Recreational Drug Use: No - Living Situation & Occupation Living situation: Reports: (Lives with her 80+ mother, and her sister is in the next house. Has 1 son and 2 grandchildren , who she is currently estranged from her child and grandchildren.) ED ROS GENERAL - Review of Systems Review Of Systems: See Below Constitutional: Denies: Fever, Chills HEENT: Reports: No Symptoms Respiratory: Reports: Shortness of Breath (Not beyond baseline) Cardiovascular: Reports: No Symptoms GI/Abdominal: Reports: Abdominal Pain, Flatus, Nausea. Denies: Vomiting : Reports: No Symptoms Musculoskeletal: Reports: No Symptoms Skin: Reports: No Symptoms ED EXAM, GI/ABD - Physical Exam Exam: See Below Exam Limited By: No Limitations General Appearance: Alert, WD/WN, No Apparent Distress Head: Atraumatic, Normocephalic Neck: Normal Inspection, Supple, Non-Tender, Full Range of Motion Respiratory/Chest: No Respiratory Distress, No Accessory Muscle Use, Chest Non- Tender, Decreased Breath Sounds Cardiovascular: Regular Rate, Rhythm, No Murmur GI/Abdominal Exam: Normal Bowel Sounds, Soft, Tender (Tender left lower quadrant ) Course - Vital Signs Last Recorded V/S: Last Vital Signs Temp 97.4 F 06/20/18 22:23 Pulse 86 06/20/18 22:23 Resp 16 06/20/18 22:23 BP 144/75 H 06/20/18 22:23 Pulse Ox 92 L 06/20/18 22:23 - Orders/Labs/Meds Orders: Active Orders 24 hr Category Date Time Status Peripheral IV Care [RC] . DIRECTED Care 06/20/18 22:41 Active Abdomen Pelvis wo Cont [CT] Stat Exams 06/20/18 23:32 Taken Lactated Ringers [Ringers, Lactated] 1,000 ml Med 06/20/18 22:45 Active IV ASDIRECTED Sodium Chloride 0.9% [Saline Flush] Med 06/20/18 22:54 Active 10 ml FLUSH ASDIRECTED PRN Peripheral IV Insertion Adult [OM.PC] Urgent Oth 06/20/18 22:40 Ordered Medication Orders Lactated Ringer's (Ringers, Lactated) 1,000 mls @ 500 mls/hr IV ASDIRECTED DANIEL Last Admin: 06/20/18 23:31 Dose: 500 mls/hr Sodium Chloride (Saline Flush) 10 ml FLUSH ASDIRECTED PRN PRN Reason: Keep Vein Open Labs: Laboratory Tests 06/20/18 06/20/18 06/20/18 Range/Units 22:40 23:02 23:02 WBC 7.7 (4.5-11.0) K/uL RBC 4.31 (3.30-5.50) M/uL Hgb 13.2 D (12.0-15.0) g/dL Hct 40.1 (36.0-48.0) % MCV 93 (80-98) fL MCH 31 (27-31) pg MCHC 33 (32-36) % Plt Count 237 (150-400) K/uL Neut % (Auto) 58 (36-66) % Lymph % (Auto) 35 (24-44) % [place] % (Auto) 6 (2-6) % Eos % (Auto) 2 (2-4) % Baso % (Auto) 0 (0-1) % Sodium 141 (140-148) mmol/L Potassium 3.9 (3.6-5.2) mmol/L Chloride 101 (100-108) mmol/L Carbon Dioxide 32 (21-32) mmol/L Anion Gap 8.4 (5.0-14.0) mmol/L BUN 23 H D (7-18) mg/dL Creatinine 1.7 H D (0.6-1.0) mg/dL Est Cr Clr Drug Dosing 25.89 mL/min Estimated GFR (MDRD) 30 L (>60) Glucose 105 (74-106) mg/dL Lactic Acid 1.3 (0.4-2.0) mmol/L Calcium 9.0 (8.5-10.1) mg/dL Total Bilirubin 0.2 (0.2-1.0) mg/dL AST 15 (15-37) U/L ALT 20 (12-78) U/L Alkaline Phosphatase 102 (46-116) U/L Total Protein 7.2 (6.4-8.2) g/dL Albumin 3.4 (3.4-5.0) g/dL Globulin 3.8 H (2.3-3.5) g/dL Albumin/Globulin Ratio 0.9 L (1.2-2.2) Lipase 156 (73-393) U/L Urine Color Urine Appearance Urine pH (4.5-8.0) Ur Specific [place] (1.008-1.030) Urine Protein (NEGATIVE) mg/dL Urine Glucose (UA) (NEGATIVE) mg/dL Urine Ketones (NEGATIVE) mg/dL Urine Occult Blood (NEGATIVE) Urine Nitrite (NEGATIVE) Urine Bilirubin (NEGATIVE) Urine Urobilinogen (NORMAL) mg/dL Ur Leukocyte Esterase (NEGATIVE) Urine RBC (0-5) Urine WBC (0-5) Ur Epithelial Cells Amorphous Sediment Urine Bacteria Urine Mucus 06/20/18 Range/Units 23:14 WBC (4.5-11.0) K/uL RBC (3.30-5.50) M/uL Hgb (12.0-15.0) g/dL Hct (36.0-48.0) % MCV (80-98) fL MCH (27-31) pg MCHC (32-36) % Plt Count (150-400) K/uL Neut % (Auto) (36-66) % Lymph % (Auto) (24-44) % [place] % (Auto) (2-6) % Eos % (Auto) (2-4) % Baso % (Auto) (0-1) % Sodium (140-148) mmol/L Potassium (3.6-5.2) mmol/L Chloride (100-108) mmol/L Carbon Dioxide (21-32) mmol/L Anion Gap (5.0-14.0) mmol/L BUN (7-18) mg/dL Creatinine (0.6-1.0) mg/dL Est Cr Clr Drug Dosing mL/min Estimated GFR (MDRD) (>60) Glucose (74-106) mg/dL Lactic Acid (0.4-2.0) mmol/L Calcium (8.5-10.1) mg/dL Total Bilirubin (0.2-1.0) mg/dL AST (15-37) U/L ALT (12-78) U/L Alkaline Phosphatase (46-116) U/L Total Protein (6.4-8.2) g/dL Albumin (3.4-5.0) g/dL Globulin (2.3-3.5) g/dL Albumin/Globulin Ratio (1.2-2.2) Lipase (73-393) U/L Urine Color Yellow Urine Appearance Clear Urine pH 6.0 (4.5-8.0) Ur Specific [place] 1.015 (1.008-1.030) Urine Protein Negative (NEGATIVE) mg/dL Urine Glucose (UA) Normal (NEGATIVE) mg/dL Urine Ketones Negative (NEGATIVE) mg/dL Urine Occult Blood Negative (NEGATIVE) Urine Nitrite Negative (NEGATIVE) Urine Bilirubin Negative (NEGATIVE) Urine Urobilinogen Normal (NORMAL) mg/dL Ur Leukocyte Esterase Negative (NEGATIVE) Urine RBC 0-5 (0-5) Urine WBC 0-5 (0-5) Ur Epithelial Cells Few Amorphous Sediment Rare Urine Bacteria Not seen Urine Mucus Not seen Meds: Medications Generic Name Dose Route Start Last Admin Trade Name Freq PRN Reason Stop Dose Admin Lactated Ringer's 1,000 mls @ 500 mls/hr 06/20/18 22:45 06/20/18 23:31 Ringers, Lactated IV 500 mls/hr ASDIRECTED DANIEL Administration Sodium Chloride 10 ml 06/20/18 22:54 Saline Flush FLUSH ASDIRECTED PRN Keep Vein Open Discontinued Medications Generic Name Dose Route Start Last Admin Trade Name Freq PRN Reason Stop Dose Admin Sodium Chloride 80 mls @ 3 mls/sec 06/20/18 23:00 Normal Saline IV ASDIRECTED [facility] Iopamidol 126 ml 06/20/18 23:00 Isovue-300 (61%) IV . DIRECTED [facility] Prochlorperazine Edisylate 5 mg 06/20/18 22:45 06/20/18 23:28 Compazine IVPUSH 06/20/18 22:46 5 mg ONETIME ONE Administration Sodium Chloride 10 ml 06/20/18 22:40 Saline Flush FLUSH ASDIRECTED PRN Keep Vein Open Departure - Departure Time of Disposition: 00:32 Disposition: Home, Self-Care 01 Condition: Fair Clinical Impression: LLQ abdominal pain, Left lower quadrant abdominal pain - Discharge Information Referrals: Zhang Mckeon MD [Primary Care Provider] - Forms: ED Department Discharge Additional Instructions: Continue to use Tylenol or Motrin as needed for pain control, use your anti- nausea medication artery prescribed, Please followup with your primary care provider in 3-5 days if not better, please call return to the emergency department with worsening of symptoms. - My Orders Last 24 Hours: My Active Orders 06/20/18 22:40 Peripheral IV Insertion Adult [OM.PC] Urgent 06/20/18 22:41 Peripheral IV Care [RC] . DIRECTED 06/20/18 22:45 Lactated Ringers [Ringers, Lactated] 1,000 ml IV ASDIRECTED 06/20/18 22:54 Sodium Chloride 0.9% [Saline Flush] 10 ml FLUSH ASDIRECTED PRN 06/20/18 23:32 Abdomen Pelvis wo Cont [CT] Stat - Assessment/Plan Last 24 Hours: My Active Orders 06/20/18 22:40 Peripheral IV Insertion Adult [OM.PC] Urgent 06/20/18 22:41 Peripheral IV Care [RC] . DIRECTED 06/20/18 22:45 Lactated Ringers [Ringers, Lactated] 1,000 ml IV ASDIRECTED 06/20/18 22:54 Sodium Chloride 0.9% [Saline Flush] 10 ml FLUSH ASDIRECTED PRN 06/20/18 23:32 Abdomen Pelvis wo Cont [CT] Stat Plan: Assessment Acuity = acute Site and laterality = left lower quadrant abdominal pain complicated patient with known history of diverticulosis Etiology = unclear etiology Manifestations = none] Location of injury = Home Lab values = CBC within normal limits, creatinine elevated 1.7 consistent with acute renal failure stage G IIIB, urinalysis unremarkable CT scan of the abdomen shows no acute process Plan I reviewed lab work CT scan results with her elected to do watchful waiting at this time she is given a follow-up with primary care the next 3-5 days for reevaluation if pain persists This note was dictated using [employer] voice recognition software please call with any questions on syntax or grammar.
[2018-06-20] MEDS ORDERED: Prochlorperazine 10 MG/2 ML SDV IVPUSH ONE (22:45)
[2018-06-20] MEDS ORDERED: Lactated Ringers 1,000 ML IV SCH (22:45)
[2018-06-20] MEDS ORDERED: Iopamidol 612 MG/ML 150 ML Bottle IV SCH (23:00)
[2018-06-20] MEDS ORDERED: Sodium Chloride 0.9% 80 ML IV SCH (23:00)
== END 2018-06-21 00:48 | disposition home or self-care (01) ==
LOC: JP.ED 22:01
DX: R10.32 Left lower quadrant pain (principal); Z88.1 Allergy status to other antibiotic agents; Z88.5 Allergy status to narcotic agent; Z79.899 Other long term (current) drug therapy; F17.210 Nicotine dependence, cigarettes, uncomplicated; Z87.19 Personal history of other diseases of the digestive system
CPT/HCPCS: 36415; 74176; 80053; 81001; 83605; 83690; 85025; 96361; 96374; 99284; J0780; J7120

== ENCOUNTER 2018-08-12 12:53 | Emergency (ER) | payer MEDICARE, MEDICAID ==
[2018-08-12] MEDS ORDERED: Ketorolac 60 MG/2 ML SDV IM ONE (13:56)
--- NOTE | 2018-08-12 14:24 | EDM.PDOC ---
<Zhang Borjas - Last Filed: 08/12/18 16:35> ED HPI GENERAL MEDICAL PROBLEM - General Chief Complaint: Abdominal Pain Stated Complaint: LOWER LEFT ABD PAIN Time Seen by Provider: 08/12/18 13:45 - Related Data Allergies Allergy/AdvReac Type Severity Reaction Status Date / Time ciprofloxacin [From Cipro] Allergy Hives Verified 08/12/18 13:29 ciprofloxacin HCl Allergy Hives Verified 08/12/18 13:29 [From Cipro] clonidine HCl [From Catapres] Allergy Blisters Verified 08/12/18 13:29 hydromorphone Allergy Itching Verified 08/12/18 13:29 oxycodone [From Percocet] Allergy Hives Verified 08/12/18 13:29 Home Meds: Home Meds RX: Levothyroxine Sodium [Synthroid] 25 mcg PO DAILY 07/05/14 [History] RX: Pantoprazole [ProTONIX Granules] 40 mg PO BID 07/05/14 [History] RX: Albuterol Sulfate [Albuterol Sulfate HFA] 2 puff INH Q6H PRN 10/25/14 [ History] RX: Ondansetron HCl [Zofran] 4 mg PO Q4H PRN 10/25/14 [History] RX: Loratadine 10 mg PO DAILY 02/14/16 [History] RX: buPROPion [Wellbutrin] 150 mg PO BID 02/15/16 [History] RX: Furosemide 40 mg PO DAILY PRN 06/17/16 [History] RX: Triamcinolone Acetonide [Kenalog 0.1% Crm] 1 applic TOP TID 06/17/16 [ History] RX: Albuterol/Ipratropium [DuoNeb 3.0-0.5 MG/3 ML] 3 ml IH Q4H PRN 12/14/16 [ History] RX: Magnesium Oxide [Magnesium] 250 mg PO ASDIRECTED 02/24/17 [History] RX: Sertraline HCl [Zoloft] 50 mg PO DAILY 02/24/17 [History] RX: lamoTRIgine [Lamotrigine] 150 mg PO BEDTIME 02/24/17 [History] RX: traZODone 1 - 2 tab PO BEDTIME PRN 02/24/17 [History] RX: ClonazePAM [KlonoPIN] 0.5 mg PO DAILY 03/05/17 [History] RX: Penciclovir [Denavir 1% Crm] 1.5 gm TP ASDIRECTED 03/05/17 [History] RX: Mometasone Furoate [Elocon 0.1% Crm] 1 applic TOP DAILY 09/16/17 [History] RX: Sucralfate [Carafate] 1 tab PO QIDACANDBED 09/16/17 [History] RX: tiZANidine [Zanaflex] 4 mg PO Q8H PRN 09/16/17 [History] Course - Vital Signs Last Recorded V/S: Last Vital Signs Temp 36.3 C 08/12/18 16:00 Pulse 80 08/12/18 16:00 Resp 16 08/12/18 16:00 BP 106/51 L 08/12/18 16:00 Pulse Ox 91 L 08/12/18 16:00 - Orders/Labs/Meds Orders: Active Orders 24 hr Category Date Time Status Sodium Chloride 0.9% [Normal Saline] 1,000 ml Med 08/12/18 15:15 Active IV ASDIRECTED Medication Orders Sodium Chloride (Normal Saline) 1,000 mls @ 999 mls/hr IV ASDIRECTED DANIEL Last Admin: 08/12/18 16:11 Dose: 999 mls/hr Labs: Laboratory Tests 08/12/18 08/12/18 08/12/18 Range/Units 14:07 14:07 14:58 WBC 12.0 H (4.5-11.0) K/uL RBC 4.64 (3.30-5.50) M/uL Hgb 13.9 (12.0-15.0) g/dL Hct 43.1 (36.0-48.0) % MCV 93 (80-98) fL MCH 30 (27-31) pg MCHC 32 (32-36) % Plt Count 248 (150-400) K/uL Neut % (Auto) 78 H (36-66) % Lymph % (Auto) 15 L (24-44) % [place] % (Auto) 6 (2-6) % Eos % (Auto) 1 L (2-4) % Baso % (Auto) 0 (0-1) % Sodium 139 L (140-148) mmol/L Potassium 4.4 (3.6-5.2) mmol/L Chloride 103 (100-108) mmol/L Carbon Dioxide 27 (21-32) mmol/L Anion Gap 13.4 (5.0-14.0) mmol/L BUN 15 (7-18) mg/dL Creatinine 1.0 (0.6-1.0) mg/dL Est Cr Clr Drug Dosing 44.02 mL/min Estimated GFR (MDRD) 59 L (>60) Glucose 82 (74-106) mg/dL Calcium 9.7 (8.5-10.1) mg/dL Total Bilirubin 0.5 D (0.2-1.0) mg/dL AST 17 (15-37) U/L ALT 13 (12-78) U/L Alkaline Phosphatase 81 (46-116) U/L C-Reactive Protein 3.30 H (0.0-0.3) mg/dL Total Protein 7.1 (6.4-8.2) g/dL Albumin 3.5 (3.4-5.0) g/dL Globulin 3.6 H (2.3-3.5) g/dL Albumin/Globulin Ratio 1.0 L (1.2-2.2) Lipase 82 (73-393) U/L Urine Color Yellow Urine Appearance Clear Urine pH 6.0 (4.5-8.0) Ur Specific [place] 1.020 (1.008-1.030) Urine Protein Negative (NEGATIVE) mg/dL Urine Glucose (UA) Normal (NEGATIVE) mg/dL Urine Ketones Negative (NEGATIVE) mg/dL Urine Occult Blood Negative (NEGATIVE) Urine Nitrite Negative (NEGATIVE) Urine Bilirubin Negative (NEGATIVE) Urine Urobilinogen Normal (NORMAL) mg/dL Ur Leukocyte Esterase Small (NEGATIVE) Urine RBC Not seen (0-5) Urine WBC 0-5 (0-5) Ur Epithelial Cells Moderate Amorphous Sediment Not seen Urine Bacteria Few Urine Mucus Few Meds: Medications Generic Name Dose Route Start Last Admin Trade Name Freq PRN Reason Stop Dose Admin Sodium Chloride 1,000 mls @ 999 mls/hr 08/12/18 15:15 08/12/18 16:11 Normal Saline IV 999 mls/hr ASDIRECTED DANIEL Administration Discontinued Medications Generic Name Dose Route Start Last Admin Trade Name Freq PRN Reason Stop Dose Admin Ampicillin Sodium/Sulbactam 50 mls @ 100 mls/hr 08/12/18 16:00 08/12/18 16:12 Sodium 1.5 gm/ Sodium Chloride IV 08/12/18 16:29 100 mls/hr ONETIME ONE Administration Ketorolac Tromethamine 60 mg 08/12/18 13:56 08/12/18 14:14 Toradol IM 08/12/18 13:57 60 mg ONETIME ONE Administration - Re-Assessments/Exams Free Text/Narrative Re-Assessment/Exam: 08/12/18 16:35 White count returned mildly elevated, CT without contrast confirms sigmoid diverticulitis. Patient was given 1.5 mg of IV Unasyn, and will be placed on 500 mg of metronidazole 3 times a day and Augmentin 875 twice a day for the next 7 days. Encourage stool softeners and lots of water, return if worsening despite treatment. Departure - Departure Disposition: Home, Self-Care 01 Condition: Fair Clinical Impression: Diverticulitis - Discharge Information Instructions: Diverticulitis, [id number] Referrals: PCP,None [Primary Care Provider] - Forms: ED Department Discharge Care Plan Goals: Take antibiotic as prescribed until gone. Drink lots of water, and consider stool softeners such as docusate sodium or fiber. Return anytime if worsening despite treatment such as fever or increased pain. - My Orders Last 24 Hours: My Active Orders 08/12/18 15:15 Sodium Chloride 0.9% [Normal Saline] 1,000 ml IV ASDIRECTED - Assessment/Plan Last 24 Hours: My Active Orders 08/12/18 15:15 Sodium Chloride 0.9% [Normal Saline] 1,000 ml IV ASDIRECTED <Ashia Caputo - Last Filed: 08/12/18 16:58> ED HPI GENERAL MEDICAL PROBLEM - History of Present Illness INITIAL COMMENTS - FREE TEXT/NARRATIVE: Reji Gonzalez is a 63 year old female who reports with concerns of LLQ pain that started 3 days ago. She indicates the pain progressed and was an 8/10 this AM. She states she has chronic loose stools, which has been worse in the last couple of days. 3 days ago she was incontinent of bowel two times during the night hours while sleeping. She states the pain occurs upon positional change, when having a BM and while urinating. She thinks she had a colonoscopy about 1 year ago. She did have a normal CT in June. She states feeling chilled but denies fevers. Further symptoms are denied at this time. 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 Musculoskeletal 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: Arthritis, Back Pain, Chronic, Fibromyalgia Neurological 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: Vertigo Psychiatric 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: Anxiety, Depression Endocrine/Metabolic 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: Hypothyroidism, Obesity/BMI 30+ Immunologic 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: None Oncologic (Cancer) 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: Uterine Other Oncologic History: complete hysterectomy July 09, 2014 Dermatologic 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: Cellulitis Other Dermatologic History: sore on right lower leg that won't go away - Infectious Disease History Infectious Disease 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: Chicken Pox, Measles - Past Surgical History HEENT Surgical 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: Other (See Below) Other HEENT Surgeries/Procedures: biopsy on tongue GI Surgical 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: Appendectomy, Colon, Colonoscopy, EGD, Hernia Repair/Other Female Surgical 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: Hysterectomy, Salpingo-Oophorectomy Social & Family History - Family History Family Medical History: Noncontributory - Tobacco Use Smoking Status *Q: Current Every Day Smoker Years of Tobacco use: 40 Packs/Tins Daily: 0.7 - Caffeine Use Caffeine Use: Reports: Coffee - Living Situation & Occupation Living situation: Reports: (Lives with her 80+ mother, and her sister is in the next house. Has 1 son and 2 grandchildren , who she is currently estranged from her child and grandchildren.) ED ROS GENERAL - Review of Systems Review Of Systems: See Below Constitutional: Denies: Fever, Chills HEENT: Reports: No Symptoms Respiratory: Reports: Shortness of Breath (Patient stated is a chronic issue) Cardiovascular: Reports: No Symptoms GI/Abdominal: Reports: Diarrhea, Distension, Nausea, Other (LLQ pain upon palpation). Denies: Black Stool, Bloody Stool, Constipation, Difficulty Swallowing, Vomiting : Reports: Pain Musculoskeletal: Reports: No Symptoms Skin: Reports: No Symptoms Neurological: Reports: No Symptoms Psychiatric: Reports: No Symptoms ED EXAM, GI/ABD - Physical Exam Exam: See Below Exam Limited By: No Limitations General Appearance: Alert, WD/WN, No Apparent Distress, Mild Distress Ears: Normal External Exam Nose: Normal Inspection Throat/Mouth: Normal Inspection, Normal Lips Head: Atraumatic, Normocephalic Neck: Normal Inspection, Supple, Non-Tender, Full Range of Motion Respiratory/Chest: No Respiratory Distress, Lungs Clear Cardiovascular: Regular Rate, Rhythm, No Edema GI/Abdominal Exam: Normal Bowel Sounds, Soft, Tender (Tenderness upon palpation of LLQ) Extremities: Normal Inspection Neurological: Alert, Oriented Psychiatric: Normal Affect, Normal Mood Departure - Departure Time of Disposition: 16:58
[2018-08-12] MEDS ORDERED: Sodium Chloride 0.9% 1,000 ML IV SCH (15:15)
[2018-08-12] MEDS ORDERED: Ampicillin/Sulbactam Na 1.5 GM in Sodium Chloride 0.9% 50 ML IV ONE ×2 (15:45→16:00)
[2018-08-12 16:01] VITALS: BP 106/51
--- NOTE | 2018-08-12 16:35 | CRLCT ---
INDICATION: Left lower abdominal pain TECHNIQUE: CT abdomen and pelvis without contrast. COMPARISON: June 20, 2013 FINDINGS: Lower chest: Coronary artery calcifications. Liver: Unremarkable. Spleen: Unremarkable. Pancreas: Unremarkable. Gallbladder and bile ducts: Unremarkable. Adrenal glands: 1.2 cm left adrenal gland adenoma. Kidneys: Unremarkable. No kidney or ureteral stones and no hydronephrosis. GI tract: Anastomotic suture within the distal small bowel. Colonic diverticulosis. There is some fat stranding around the mid sigmoid colon, image 113 series 2. No extraluminal air. No evidence for large abscess in the confines of a noncontrast exam. Vascular structures: Moderate atherosclerotic disease. Lymph nodes: Unremarkable. Miscellaneous: Multiple calcifications in the anterior abdomen likely from prior ventral herniorrhaphy. Pelvic Organs: Status post hysterectomy. Bones: Unremarkable for age. IMPRESSION: Acute sigmoid diverticulitis. No extraluminal air. No evidence for abscess within the confines of a noncontrast exam. Coronary artery disease. Left adrenal gland adenoma. Status post hysterectomy and likely ventral herniorrhaphy. Please note that all CT scans at this facility use dose modulation, iterative reconstruction, and/or weight-based dosing when appropriate to reduce radiation dose to as low as reasonably achievable. Dictated by Heidi Barragan MD @ Aug 12 2018 4:21PM Signed by Dr. Heidi Barragan @ Aug 12 2018 4:33PM
== END 2018-08-12 17:04 | disposition home or self-care (01) ==
LOC: JP.ED 12:53
DX: K57.32 Diverticulitis of large intestine without perforation or abscess without bleeding (principal); F41.9 Anxiety disorder, unspecified; F32.9 Major depressive disorder, single episode, unspecified; E03.9 Hypothyroidism, unspecified; F17.210 Nicotine dependence, cigarettes, uncomplicated; Z88.1 Allergy status to other antibiotic agents; Z88.6 Allergy status to analgesic agent; Z79.899 Other long term (current) drug therapy
CPT/HCPCS: 36415; 74176; 80053; 81001; 83690; 85025; 86140; 96365; 96372; 99284; J0287; J1885; J7030; J7050

== ENCOUNTER 2018-11-23 15:59 | Emergency (ER) | payer MEDICARE, MEDICAID ==
[2018-11-23 16:04] VITALS: BP 152/74
[2018-11-23] MEDS ORDERED: Ketorolac 60 MG/2 ML SDV IM ONE (16:16)
--- NOTE | 2018-11-23 16:32 | EDM.PDOC ---
ED HPI GENERAL MEDICAL PROBLEM - General Chief Complaint: Lower Extremity Injury/Pain Stated Complaint: VIA [facility] Time Seen by Provider: 11/23/18 16:10 Source of Information: Reports: Patient History Limitations: Reports: No Limitations - History of Present Illness INITIAL COMMENTS - FREE TEXT/NARRATIVE: 63-year-old female was on a riding lawnmower going up a hill, when she accidentally hit the accelerator and the lawn more flipped upright and then over onto her right leg. She has significant pain of the right knee and she felt and heard a snap. No other significant injury. She was given 50 g of fentanyl in route which didn't do anything for her. Onset: Sudden Duration: Hour(s): Location: Reports: Lower Extremity, Right (within the last hour) Associated Symptoms: Reports: Other (Slight bruising of the left knee as well but no significant pain) Right Knee Pain Score (Numeric/FACES): 8 - Related Data Allergies Allergy/AdvReac Type Severity Reaction Status Date / Time ciprofloxacin [From Cipro] Allergy Hives Verified 11/23/18 16:08 clonidine HCl [From Catapres] Allergy Blisters Verified 11/23/18 16:08 oxycodone [From Percocet] Allergy Hives Verified 11/23/18 16:08 Home Meds: Home Meds Levothyroxine Sodium [Synthroid] 25 mcg PO DAILY 07/05/14 [History] Pantoprazole [ProTONIX Granules] 40 mg PO BID 07/05/14 [History] Albuterol Sulfate [Albuterol Sulfate HFA] 2 puff INH Q6H PRN 10/25/14 [History] Ondansetron HCl [Zofran] 4 mg PO Q4H PRN 10/25/14 [History] Loratadine 10 mg PO DAILY 02/14/16 [History] buPROPion [Wellbutrin] 150 mg PO BID 02/15/16 [History] Furosemide 40 mg PO DAILY PRN 06/17/16 [History] Triamcinolone Acetonide [Kenalog 0.1% Crm] 1 applic TOP TID 06/17/16 [History] Albuterol/Ipratropium [DuoNeb 3.0-0.5 MG/3 ML] 3 ml IH Q4H PRN 12/14/16 [History ] Magnesium Oxide [Magnesium] 250 mg PO ASDIRECTED 02/24/17 [History] Sertraline HCl [Zoloft] 50 mg PO DAILY 02/24/17 [History] lamoTRIgine [Lamotrigine] 150 mg PO BEDTIME 02/24/17 [History] traZODone 1 - 2 tab PO BEDTIME PRN 02/24/17 [History] ClonazePAM [KlonoPIN] 0.5 mg PO DAILY 03/05/17 [History] Penciclovir [Denavir 1% Crm] 1.5 gm TP ASDIRECTED 03/05/17 [History] Mometasone Furoate [Elocon 0.1% Crm] 1 applic TOP DAILY 09/16/17 [History] Sucralfate [Carafate] 1 tab PO QIDACANDBED 09/16/17 [History] tiZANidine [Zanaflex] 4 mg PO Q8H PRN 09/16/17 [History] Past Medical History HEENT 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: Allergic Rhinitis, Impaired Vision Cardiovascular 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: Cardiomyopathy, SOB on Exertion Respiratory 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: Bronchitis, Recurrent, COPD, Sleep Apnea Gastrointestinal 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: Bowel Obstruction, Diverticulosis, GERD, Hiatal Hernia Genitourinary 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: UTI, Recurrent, Other (See Below) Other Genitourinary History: bladder suspension 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: , 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 Musculoskeletal 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: Arthritis, Back Pain, Chronic, Fibromyalgia Neurological 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: Vertigo Psychiatric 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: Anxiety, Depression, Suicidal Ideation Endocrine/Metabolic 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: Hypothyroidism, Obesity/BMI 30+ Immunologic 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: None Oncologic (Cancer) 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: Uterine Other Oncologic History: complete hysterectomy July 09, 2014 Dermatologic 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: Cellulitis Other Dermatologic History: sore on right lower leg that won't go away - Infectious Disease History Infectious Disease 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: Chicken Pox, Measles - Past Surgical History HEENT Surgical 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: Other (See Below) Other HEENT Surgeries/Procedures: biopsy on tongue GI Surgical 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: Appendectomy, Colon, Colonoscopy, EGD, Hernia Repair/Other Female Surgical 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: Hysterectomy, Salpingo-Oophorectomy Social & Family History - Family History Family Medical History: Noncontributory - Tobacco Use Smoking Status *Q: Current Every Day Smoker Years of Tobacco use: 45 Packs/Tins Daily: 1 - Caffeine Use Caffeine Use: Reports: Coffee, Soda - Recreational Drug Use Recreational Drug Use: No - Living Situation & Occupation Living situation: Reports: (Lives with her 80+ mother, and her sister is in the next house. Has 1 son and 2 grandchildren , who she is currently estranged from her child and grandchildren.) Review of Systems - Review of Systems Review Of Systems: See Below Constitutional: Denies: Fever Respiratory: Reports: No Symptoms Cardiovascular: Reports: No Symptoms GI/Abdominal: Reports: No Symptoms Skin: Reports: Bruising, Other (A few abrasions on the lower extremities, some chronic vascular changes and excoriations) Psychiatric: Reports: No Symptoms ED EXAM, GENERAL - Physical Exam Exam: See Below Exam Limited By: No Limitations General Appearance: Alert, No Apparent Distress (Uncomfortable but not distressed) Head: Atraumatic Neck: Non-Tender Respiratory/Chest: No Respiratory Distress GI/Abdominal: Non-Tender Extremities: Other (Exam is otherwise limited the lower extremities. There is a slight swelling around the anterior aspect of the right knee compared to the left, no patellar palpation tenderness. Most the palpation tenderness is across the lateral knee and on the proximal fibula. There is increased pain with flexion of the knee even passively.) Course - Vital Signs Last Recorded V/S: Last Vital Signs Temp 96.3 F 11/23/18 16:06 Pulse 78 11/23/18 16:06 Resp 20 11/23/18 16:06 BP 152/74 H 11/23/18 16:06 Pulse Ox 78 L 11/23/18 16:06 - Orders/Labs/Meds Orders: Active Orders 24 hr Category Date Time Status DME for Discharge [COMM] Stat Oth 11/23/18 16:47 Ordered Meds: Medications Discontinued Medications Generic Name Dose Route Start Last Admin Trade Name Freq PRN Reason Stop Dose Admin Ketorolac Tromethamine 60 mg 11/23/18 16:16 11/23/18 16:22 Toradol IM 11/23/18 16:17 60 mg ONETIME ONE Administration - Re-Assessments/Exams Free Text/Narrative Re-Assessment/Exam: 11/23/18 16:31 An x-ray of the right knee was obtained. 11/23/18 16:46 X-ray shows no fracture. A six-inch Giuliano wrap was applied to the knee and she attempted to bear weight but it was too sore. Crutches were given, and she is can wear the Giuliano wrap for support for the next several days and recheck early next week with Dr. Nagy if not improving satisfactorily. She was given 20 hydrocodone for pain control not responding to anti-inflammatories. Departure - Departure Time of Disposition: 17:18 Disposition: Home, Self-Care 01 Clinical Impression: Right knee sprain Qualifiers: Encounter type: initial encounter Involved ligament of knee: unspecified ligament Qualified Code(s): S83.91XA - Sprain of unspecified site of right knee , initial encounter - Discharge Information Instructions: Knee Sprain, Adult, [id number] Referrals: PCP,None [Primary Care Provider] - Forms: ED Department Discharge Care Plan Goals: Wrap for comfort and use crutches the next several days as you increase activity as tolerated. Take ibuprofen and return naproxen for pain and add stronger pain medication as directed if needed. Recheck with Dr. Nagy next week, call Wednesday for an appointment if still unable to ambulate without crutches. - My Orders Last 24 Hours: My Active Orders 11/23/18 16:47 DME for Discharge [COMM] Stat - Assessment/Plan Last 24 Hours: My Active Orders 11/23/18 16:47 DME for Discharge [COMM] Stat
--- NOTE | 2018-11-23 17:21 | CRLCR ---
Indication: Injury and pain Technique: Right knee 3 views Comparison: None Findings/Impression: Bones: Alignment is normal. No fractures or bone lesions. Joint spaces: Joint effusion is suspected. There is moderate narrowing of the knee joint medial compartment. No other degenerative changes. Soft tissues: Unremarkable. Dictated by Braxton Serrano MD @ 11/23/2018 5:19:27 PM Dictated by: Braxton Serrano MD @ 11/23/2018 17:19:31 (Electronically Signed)
== END 2018-11-23 17:18 | disposition home or self-care (01) ==
LOC: JP.ED 15:59
DX: S83.91XA Sprain of unspecified site of right knee, initial encounter (principal); F41.9 Anxiety disorder, unspecified; F32.9 Major depressive disorder, single episode, unspecified; F17.210 Nicotine dependence, cigarettes, uncomplicated; E03.9 Hypothyroidism, unspecified; J44.9 Chronic obstructive pulmonary disease, unspecified; Z88.8 Allergy status to other drugs, medicaments and biological substances; Z79.899 Other long term (current) drug therapy; Z88.1 Allergy status to other antibiotic agents; Z88.6 Allergy status to analgesic agent; W22.8XXA Striking against or struck by other objects, initial encounter
CPT/HCPCS: 73562; 96372; 99283; J1885

== ENCOUNTER 2018-12-22 23:14 | Emergency (ER) | payer MEDICARE, MEDICAID ==
[2018-12-22 23:51] VITALS: BP 139/74; PULSE 93
--- NOTE | 2018-12-23 00:14 | EDM.PDOC ---
ED HPI GENERAL MEDICAL PROBLEM - General Chief Complaint: Lower Extremity Injury/Pain Stated Complaint: RIGHT LEG RED SWOLLEN AND SORE Time Seen by Provider: 12/23/18 00:06 Source of Information: Reports: Patient, RN Notes Reviewed History Limitations: Reports: No Limitations - History of Present Illness INITIAL COMMENTS - FREE TEXT/NARRATIVE: 63-year-old female presents emergency department today complaint red swollen right leg, she does have a small wound on this leg she's noticed the redness has spread over the last 24 hours has not had any fevers Right Lower Leg Pain Score (Numeric/FACES): 4 - Related Data Allergies Allergy/AdvReac Type Severity Reaction Status Date / Time ciprofloxacin [From Cipro] Allergy Hives Verified 12/22/18 23:43 clonidine HCl [From Catapres] Allergy Blisters Verified 12/22/18 23:43 Home Meds: Home Meds Levothyroxine Sodium [Synthroid] 25 mcg PO DAILY 07/05/14 [History] Pantoprazole [ProTONIX Granules] 40 mg PO BID 07/05/14 [History] Albuterol Sulfate [Albuterol Sulfate HFA] 2 puff INH Q6H PRN 10/25/14 [History] Ondansetron HCl [Zofran] 4 mg PO Q4H PRN 10/25/14 [History] Loratadine 10 mg PO DAILY 02/14/16 [History] buPROPion [Wellbutrin] 150 mg PO BID 02/15/16 [History] Furosemide 40 mg PO DAILY PRN 06/17/16 [History] Triamcinolone Acetonide [Kenalog 0.1% Crm] 1 applic TOP TID 06/17/16 [History] Albuterol/Ipratropium [DuoNeb 3.0-0.5 MG/3 ML] 3 ml IH Q4H PRN 12/14/16 [History ] Magnesium Oxide [Magnesium] 250 mg PO ASDIRECTED 02/24/17 [History] Sertraline HCl [Zoloft] 50 mg PO DAILY 02/24/17 [History] lamoTRIgine [Lamotrigine] 150 mg PO DAILY 02/24/17 [History] traZODone 1 - 2 tab PO BEDTIME PRN 02/24/17 [History] ClonazePAM [KlonoPIN] 0.5 mg PO ASDIRECTED PRN 03/05/17 [History] Penciclovir [Denavir 1% Crm] 1.5 gm TP ASDIRECTED 03/05/17 [History] Mometasone Furoate [Elocon 0.1% Crm] 1 applic TOP DAILY 09/16/17 [History] Sucralfate [Carafate] 1 tab PO QIDACANDBED 09/16/17 [History] tiZANidine [Zanaflex] 4 mg PO Q8H PRN 09/16/17 [History] Acetaminophen/HYDROcodone [[place] 325-5 MG] 1 tab PO Q6H PRN 11/29/18 [History] Hydrocodone/Acetaminophen [[place] 5-325 Tablet] 1 each PO Q6HR PRN #28 tablet 02/23 [Rx] Past Medical History HEENT 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: Allergic Rhinitis, Impaired Vision Cardiovascular 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: Cardiomyopathy, SOB on Exertion Respiratory 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: Bronchitis, Recurrent, COPD, Sleep Apnea Gastrointestinal 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: Bowel Obstruction, Diverticulosis, GERD, Hiatal Hernia Genitourinary 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: UTI, Recurrent, Other (See Below) Other Genitourinary History: bladder suspension 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: , 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 Musculoskeletal 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: Arthritis, Back Pain, Chronic, Fibromyalgia Other Musculoskeletal History: right knee pain Neurological 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: Vertigo Psychiatric 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: Anxiety, Depression, Suicidal Ideation Endocrine/Metabolic 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: Hypothyroidism, Obesity/BMI 30+ Hematologic 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: None Immunologic 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: None Oncologic (Cancer) 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: Cervix, Uterine Other Oncologic History: complete hysterectomy July 09, 2014 Dermatologic 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: Cellulitis Other Dermatologic History: sore on right lower leg that won't go away - Infectious Disease History Infectious Disease 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: Helicobacter Pylori, Measles, Mumps - Past Surgical History HEENT Surgical 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: Other (See Below) Other HEENT Surgeries/Procedures: biopsy on tongue GI Surgical 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: Appendectomy, Colon, Colonoscopy, EGD, Hernia Repair/Other Female Surgical 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: Hysterectomy, Salpingo-Oophorectomy Musculoskeletal Surgical 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: None Oncologic Surgical 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: None Social & Family History - Family History Family Medical History: Noncontributory - Tobacco Use Smoking Status *Q: Current Every Day Smoker Years of Tobacco use: 45 Packs/Tins Daily: 5 - Caffeine Use Caffeine Use: Reports: Coffee - Recreational Drug Use Recreational Drug Use: No - Living Situation & Occupation Living situation: Reports: (Lives with her 80+ mother, and her sister is in the next house. Has 1 son and 2 grandchildren , who she is currently estranged from her child and grandchildren.) Review of Systems - Review of Systems Review Of Systems: See Below Constitutional: Reports: No Symptoms Respiratory: Reports: No Symptoms Cardiovascular: Reports: No Symptoms Skin: Reports: Pallor, Rash, Erythema, Wound ED EXAM, GENERAL - Physical Exam Exam: See Below Free Text/Narrative:: Examination of the right leg ado appreciated erythematous area approximately 8 cm x 5 cm it is located around her facial wound. It is warm to the touch and tender to the touch, pedal pulse is +2 I don't appreciate any significant edema in the calf Exam Limited By: No Limitations General Appearance: Alert, WD/WN, No Apparent Distress Course - Vital Signs Last Recorded V/S: Last Vital Signs Temp 97.6 F 12/22/18 23:51 Pulse 93 12/22/18 23:51 Resp 18 12/22/18 23:51 BP 139/74 12/22/18 23:51 Pulse Ox 91 L 12/22/18 23:51 Departure - Departure Time of Disposition: 00:13 Disposition: Home, Self-Care 01 Condition: Fair Clinical Impression: Cellulitis of right lower leg - Discharge Information Instructions: Cellulitis, Adult Referrals: Zhang Mckeon MD [Primary Care Provider] - Additional Instructions: Take full course of antibiotics, Please followup with your primary care provider in 3-5 days if not better, please call return to the emergency department with worsening of symptoms. - Assessment/Plan Plan: Assessment Acuity = acute Site and laterality = right lower extremity cellulitis Etiology = secondary to breaking the skin bacterial cause Manifestations = none Location of injury = Home Lab values = none Plan Elected to treat empirically Keflex 500 mg by mouth 4 times a day 7 days have her follow up with primary care next week This note was dictated using [employer] recognition software please call with any questions on syntax or grammar.
== END 2018-12-23 00:15 | disposition home or self-care (01) ==
LOC: JP.ED 23:14
DX: L03.115 Cellulitis of right lower limb (principal); B96.89 Other specified bacterial agents as the cause of diseases classified elsewhere; J44.9 Chronic obstructive pulmonary disease, unspecified; K21.9 Gastro-esophageal reflux disease without esophagitis; F41.9 Anxiety disorder, unspecified; F32.9 Major depressive disorder, single episode, unspecified; E03.9 Hypothyroidism, unspecified; F17.210 Nicotine dependence, cigarettes, uncomplicated; Z88.1 Allergy status to other antibiotic agents; Z88.8 Allergy status to other drugs, medicaments and biological substances; Z79.899 Other long term (current) drug therapy
CPT/HCPCS: 99283

== ENCOUNTER 2019-03-30 21:44 | Emergency (ER) | payer MEDICARE, MEDICAID ==
[2019-03-30 22:04] VITALS: BP 114/59; PULSE 84
[2019-03-30] MEDS ORDERED: hydrOXYzine HCl 100 MG/2 ML SDV IM ONE (22:13)
--- NOTE | 2019-03-30 22:15 | EDM.PDOC ---
ED HPI GENERAL MEDICAL PROBLEM - General Chief Complaint: Skin Complaint Stated Complaint: RIGHT LEG ITCHING WITH PAIN Time Seen by Provider: 03/30/19 22:10 Source of Information: Reports: Patient History Limitations: Reports: No Limitations - History of Present Illness INITIAL COMMENTS - FREE TEXT/NARRATIVE: 64 yo female here with itching to the R leg beneath a dressing that was applied [address] Walton after a small skin graft was applied just above her ankle. She has not taken anything for the itching. Dressing has a rubbery texture. 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: Other (see below) (none) - Related Data Allergies Allergy/AdvReac Type Severity Reaction Status Date / Time ciprofloxacin [From Cipro] Allergy Hives Verified 12/22/18 23:43 clonidine HCl [From Catapres] Allergy Blisters Verified 12/22/18 23:43 Home Meds: Home Meds Levothyroxine Sodium [Synthroid] 25 mcg PO DAILY 07/05/14 [History] Pantoprazole [ProTONIX Granules] 40 mg PO BID 07/05/14 [History] Albuterol Sulfate [Albuterol Sulfate HFA] 2 puff INH Q6H PRN 10/25/14 [History] Ondansetron HCl [Zofran] 4 mg PO Q4H PRN 10/25/14 [History] Loratadine 10 mg PO DAILY 02/14/16 [History] buPROPion [Wellbutrin] 150 mg PO BID 02/15/16 [History] Furosemide 40 mg PO DAILY PRN 06/17/16 [History] Triamcinolone Acetonide [Kenalog 0.1% Crm] 1 applic TOP TID 06/17/16 [History] Albuterol/Ipratropium [DuoNeb 3.0-0.5 MG/3 ML] 3 ml IH Q4H PRN 12/14/16 [History ] Magnesium Oxide [Magnesium] 250 mg PO ASDIRECTED 02/24/17 [History] Sertraline HCl [Zoloft] 50 mg PO DAILY 02/24/17 [History] lamoTRIgine [Lamotrigine] 150 mg PO DAILY 02/24/17 [History] traZODone 1 - 2 tab PO BEDTIME PRN 02/24/17 [History] ClonazePAM [KlonoPIN] 0.5 mg PO ASDIRECTED PRN 03/05/17 [History] Penciclovir [Denavir 1% Crm] 1.5 gm TP ASDIRECTED 03/05/17 [History] Mometasone Furoate [Elocon 0.1% Crm] 1 applic TOP DAILY 09/16/17 [History] tiZANidine [Zanaflex] 4 mg PO Q8H PRN 09/16/17 [History] Acetaminophen/HYDROcodone [[place] 325-5 MG] 1 tab PO Q6H PRN 11/29/18 [History] Hydrocodone/Acetaminophen [[place] 5-325 Tablet] 1 each PO Q6HR PRN #28 tablet 02/23 [Rx] cephALEXin [Keflex] 500 mg PO QID 12/27/18 [History] Past Medical History HEENT 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: Allergic Rhinitis, Impaired Vision Cardiovascular 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: Cardiomyopathy, SOB on Exertion Respiratory 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: Bronchitis, Recurrent, COPD, Sleep Apnea Gastrointestinal 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: Bowel Obstruction, Diverticulosis, GERD, Hiatal Hernia Genitourinary 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: UTI, Recurrent, Other (See Below) Other Genitourinary History: bladder suspension 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: , 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 Musculoskeletal 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: Arthritis, Back Pain, Chronic, Fibromyalgia Other Musculoskeletal History: right knee pain Neurological 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: Vertigo Psychiatric 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: Anxiety, Depression, Suicidal Ideation Endocrine/Metabolic 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: Hypothyroidism, Obesity/BMI 30+ Hematologic 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: None Immunologic 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: None Oncologic (Cancer) 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: Cervix, Uterine Other Oncologic History: complete hysterectomy July 09, 2014 Dermatologic 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: Cellulitis Other Dermatologic History: sore on right lower leg that won't go away - Infectious Disease History Infectious Disease 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: Helicobacter Pylori, Measles, Mumps - Past Surgical History HEENT Surgical 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: Other (See Below) Other HEENT Surgeries/Procedures: biopsy on tongue GI Surgical 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: Appendectomy, Colon, Colonoscopy, EGD, Hernia Repair/Other Female Surgical 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: Hysterectomy, Salpingo-Oophorectomy Musculoskeletal Surgical 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: None Social & Family History - Family History Family Medical History: Noncontributory - Caffeine Use Caffeine Use: Reports: Soda - Living Situation & Occupation Living situation: Reports: (Lives with her 80+ mother, and her sister is in the next house. Has 1 son and 2 grandchildren , who she is currently estranged from her child and grandchildren.) ED ROS GENERAL - Review of Systems Review Of Systems: ROS reveals no pertinent complaints other than HPI. Constitutional: Reports: No Symptoms Skin: Reports: Pruritis (just to skin beneath her dressing.) ED EXAM, SKIN/RASH Exam: See Below Exam Limited By: No Limitations General Appearance: Alert, WD/WN, Mild Distress Respiratory/Chest: No Respiratory Distress, Lungs Clear, Normal Breath Sounds, No Accessory Muscle Use Cardiovascular: Regular Rate, Rhythm Skin: Warm, Dry, Intact, No Rash, Erythema (Very slight erythema beneath her dressing. ). No: Increased Warmth, Lymphangitis, Rash Location, Skin: Lower Extremity, Right (below the knee) Characteristics: Confluent, Erythematous (very slight) Associated features: No: Warmth, Tenderness, Swelling, Induration, Scaling, Lymphangitis ED SKIN PROCEDURES - Additional/Other Procedure(s) Other (Free Text) Procedure(s): Current dressing removed and a new one with only cotton in contact with her skin. Course - Vital Signs Last Recorded V/S: Last Vital Signs Temp 36.4 C 03/30/19 22:01 Pulse 84 03/30/19 22:01 Resp 16 03/30/19 22:01 BP 114/59 L 03/30/19 22:01 Pulse Ox 93 L 03/30/19 22:01 - Orders/Labs/Meds Meds: Medications Discontinued Medications Generic Name Dose Route Start Last Admin Trade Name Freq PRN Reason Stop Dose Admin Hydroxyzine HCl 75 mg 03/30/19 22:13 Vistaril IM 03/30/19 22:14 ONETIME ONE Departure - Departure Time of Disposition: 22:45 Disposition: Home, Self-Care 01 Condition: Good Clinical Impression: Localized pruritus - Discharge Information *PRESCRIPTION DRUG MONITORING PROGRAM REVIEWED*: No *COPY OF PRESCRIPTION DRUG MONITORING REPORT IN PATIENT CLYDE: No Instructions: Contact Dermatitis, [id number] Referrals: Zhang Mckeon MD [Primary Care Provider] - Forms: ED Department Discharge Additional Instructions: Take diphenhydramine 50 mg every 4 hrs as needed for itching starting after 0230h tonight. Recheck with Dr. Walton as needed for this problem.
== END 2019-03-30 22:45 | disposition home or self-care (01) ==
LOC: JP.ED 21:44
DX: L29.9 Pruritus, unspecified (principal); J44.9 Chronic obstructive pulmonary disease, unspecified; K21.9 Gastro-esophageal reflux disease without esophagitis; F41.9 Anxiety disorder, unspecified; F32.9 Major depressive disorder, single episode, unspecified; E03.9 Hypothyroidism, unspecified; E66.9 Obesity, unspecified; Z68.34 Body mass index [BMI] 34.0-34.9, adult; Z88.1 Allergy status to other antibiotic agents; Z88.8 Allergy status to other drugs, medicaments and biological substances; Z79.899 Other long term (current) drug therapy; Z79.890 Hormone replacement therapy
CPT/HCPCS: 96372; 99282; 99284; J3410

== ENCOUNTER 2019-04-08 16:55 | Emergency (ER) | payer MEDICARE, MEDICAID ==
[2019-04-08 17:08] VITALS: BP 129/74; PULSE 68
--- NOTE | 2019-04-08 17:20 | EDM.PDOC ---
ED HPI GENERAL MEDICAL PROBLEM - General Chief Complaint: Skin Complaint Stated Complaint: RIGHT PINKY BLISTER Time Seen by Provider: 04/08/19 17:13 Source of Information: Reports: Patient, RN Notes Reviewed History Limitations: Reports: No Limitations - History of Present Illness INITIAL COMMENTS - FREE TEXT/NARRATIVE: 64-year-old female presents emergency department today with a small ulcer on digit #5 right hand states been ongoing for 24 hours she did get some thick purulent drainage out of there the redness is spreading no fevers - Related Data Allergies Allergy/AdvReac Type Severity Reaction Status Date / Time ciprofloxacin [From Cipro] Allergy Hives Verified 12/22/18 23:43 clonidine HCl [From Catapres] Allergy Blisters Verified 12/22/18 23:43 Home Meds: Home Meds Levothyroxine Sodium [Synthroid] 25 mcg PO DAILY 07/05/14 [History] Pantoprazole [ProTONIX Granules] 40 mg PO BID 07/05/14 [History] Albuterol Sulfate [Albuterol Sulfate HFA] 2 puff INH Q6H PRN 10/25/14 [History] Ondansetron HCl [Zofran] 4 mg PO Q4H PRN 10/25/14 [History] Loratadine 10 mg PO DAILY 02/14/16 [History] buPROPion [Wellbutrin] 150 mg PO BID 02/15/16 [History] Furosemide 40 mg PO DAILY PRN 06/17/16 [History] Triamcinolone Acetonide [Kenalog 0.1% Crm] 1 applic TOP TID 06/17/16 [History] Albuterol/Ipratropium [DuoNeb 3.0-0.5 MG/3 ML] 3 ml IH Q4H PRN 12/14/16 [History ] Magnesium Oxide [Magnesium] 250 mg PO ASDIRECTED 02/24/17 [History] Sertraline HCl [Zoloft] 50 mg PO DAILY 02/24/17 [History] lamoTRIgine [Lamotrigine] 150 mg PO DAILY 02/24/17 [History] traZODone 1 - 2 tab PO BEDTIME PRN 02/24/17 [History] ClonazePAM [KlonoPIN] 0.5 mg PO ASDIRECTED PRN 03/05/17 [History] Penciclovir [Denavir 1% Crm] 1.5 gm TP ASDIRECTED 03/05/17 [History] Mometasone Furoate [Elocon 0.1% Crm] 1 applic TOP DAILY 09/16/17 [History] tiZANidine [Zanaflex] 4 mg PO Q8H PRN 09/16/17 [History] Acetaminophen/HYDROcodone [[place] 325-5 MG] 1 tab PO Q6H PRN 11/29/18 [History] Hydrocodone/Acetaminophen [[place] 5-325 Tablet] 1 each PO Q6HR PRN #28 tablet 02/23 [Rx] cephALEXin [Keflex] 500 mg PO QID 12/27/18 [History] Past Medical History HEENT 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: Allergic Rhinitis, Impaired Vision Cardiovascular 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: Cardiomyopathy, SOB on Exertion Respiratory 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: Bronchitis, Recurrent, COPD, Sleep Apnea Gastrointestinal 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: Bowel Obstruction, Diverticulosis, GERD, Hiatal Hernia Genitourinary 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: UTI, Recurrent, Other (See Below) Other Genitourinary History: bladder suspension 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: , 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 Musculoskeletal 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: Arthritis, Back Pain, Chronic, Fibromyalgia Other Musculoskeletal History: right knee pain Neurological 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: Vertigo Psychiatric 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: Anxiety, Depression, Suicidal Ideation Endocrine/Metabolic 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: Hypothyroidism, Obesity/BMI 30+ Hematologic 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: None Immunologic 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: None Oncologic (Cancer) 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: Cervix, Uterine Other Oncologic History: complete hysterectomy July 09, 2014 Dermatologic 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: Cellulitis Other Dermatologic History: sore on right lower leg that won't go away - Infectious Disease History Infectious Disease 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: Helicobacter Pylori, Measles, Mumps - Past Surgical History HEENT Surgical 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: Other (See Below) Other HEENT Surgeries/Procedures: biopsy on tongue GI Surgical 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: Appendectomy, Colon, Colonoscopy, EGD, Hernia Repair/Other Female Surgical 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: Hysterectomy, Salpingo-Oophorectomy Musculoskeletal Surgical 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: None Social & Family History - Family History Family Medical History: Noncontributory - Caffeine Use Caffeine Use: Reports: Coffee - Recreational Drug Use Recreational Drug Use: No - Living Situation & Occupation Living situation: Reports: (Lives with her 80+ mother, and her sister is in the next house. Has 1 son and 2 grandchildren , who she is currently estranged from her child and grandchildren.) ED ROS GENERAL - Review of Systems Review Of Systems: See Below Constitutional: Reports: No Symptoms Skin: Reports: Pallor, Erythema, Wound ED EXAM, SKIN/RASH Exam: See Below Text/Narrative:: Examination of the right hand there is a small ulcer near the PIP joint digit # 5 right hand there is some erythema around that it is warm to the touch it is tender to the touch Course - Vital Signs Last Recorded V/S: Last Vital Signs Temp 97.2 F 04/08/19 17:11 Pulse 68 04/08/19 17:11 Resp 16 04/08/19 17:11 BP 129/74 04/08/19 17:11 Pulse Ox 96 04/08/19 17:11 Departure - Departure Time of Disposition: 17:19 Disposition: Home, Self-Care 01 Condition: Fair Clinical Impression: Cellulitis of right little finger - Discharge Information Referrals: Zhang Mckeon MD [Primary Care Provider] - Additional Instructions: Take full course of antibiotics, Please followup with your primary care provider in 5-7 days if not better, please call return to the emergency department with worsening of symptoms. - Assessment/Plan Plan: Assessment Acuity = acute Site and laterality = cellulitis digit #5 right hand Etiology = probable bacterial cause Manifestations = none Location of injury = Home Lab values = none Plan Elected to treat empirically Keflex 500 mg by mouth 4 times a day 10 days follow-up primary care in 5-7 days if no improvement This note was dictated using [employer] voice recognition software please call with any questions on syntax or grammar.
== END 2019-04-08 17:27 | disposition home or self-care (01) ==
LOC: JP.ED 16:55
DX: L03.011 Cellulitis of right finger (principal); E03.9 Hypothyroidism, unspecified; J44.9 Chronic obstructive pulmonary disease, unspecified; K21.9 Gastro-esophageal reflux disease without esophagitis; F32.9 Major depressive disorder, single episode, unspecified; Z88.1 Allergy status to other antibiotic agents; Z88.8 Allergy status to other drugs, medicaments and biological substances; Z79.890 Hormone replacement therapy; Z79.899 Other long term (current) drug therapy
CPT/HCPCS: 99282

== ENCOUNTER 2019-05-31 23:16 | Emergency (ER) | payer MEDICARE, MEDICAID ==
[2019-06-01 00:42] VITALS: BP 143/72; PULSE 75
[2019-06-01] MEDS ORDERED: Ampicillin/Sulbactam Na 1.5 GM in Sodium Chloride 0.9% 50 ML IV ONE (01:25)
[2019-06-01] MEDS ORDERED: Ketorolac 30 MG/ML SDV IVPUSH ONE (01:26)
--- NOTE | 2019-06-01 01:27 | EDM.PDOC ---
ED HPI GENERAL MEDICAL PROBLEM - General Chief Complaint: Wound Recheck Stated Complaint: LOWER LEFT LEG PAIN Time Seen by Provider: 06/01/19 01:00 Source of Information: Reports: Patient History Limitations: Reports: No Limitations - History of Present Illness INITIAL COMMENTS - FREE TEXT/NARRATIVE: 64-year-old female with chronic worsening ulcerative inflamed lesion on her right leg. States she saw Dr. Walton yesterday and was started on Augmentin. She has taken 2 doses but is concerned that the inflammation seems to be worsening and she has more discomfort. No fevers or chills. Onset: Gradual Duration: Chronic Location: Reports: Lower Extremity, Right Associated Symptoms: Reports: Malaise. Denies: Confusion, Fever/Chills, Loss of Appetite, Nausea/Vomiting Right Leg Pain Score (Numeric/FACES): 6 - Related Data Allergies Allergy/AdvReac Type Severity Reaction Status Date / Time ciprofloxacin [From Cipro] Allergy Hives Verified 12/22/18 23:43 clonidine HCl [From Catapres] Allergy Blisters Verified 12/22/18 23:43 Home Meds: Home Meds Levothyroxine Sodium [Synthroid] 25 mcg PO DAILY 07/05/14 [History] Pantoprazole [ProTONIX Granules] 40 mg PO BID 07/05/14 [History] Albuterol Sulfate [Albuterol Sulfate HFA] 2 puff INH Q6H PRN 10/25/14 [History] Ondansetron HCl [Zofran] 4 mg PO Q4H PRN 10/25/14 [History] Loratadine 10 mg PO DAILY 02/14/16 [History] buPROPion [Wellbutrin] 150 mg PO BID 02/15/16 [History] Furosemide 40 mg PO DAILY PRN 06/17/16 [History] Triamcinolone Acetonide [Kenalog 0.1% Crm] 1 applic TOP TID 06/17/16 [History] Albuterol/Ipratropium [DuoNeb 3.0-0.5 MG/3 ML] 3 ml IH Q4H PRN 12/14/16 [History ] Magnesium Oxide [Magnesium] 250 mg PO ASDIRECTED 02/24/17 [History] Sertraline HCl [Zoloft] 50 mg PO DAILY 02/24/17 [History] lamoTRIgine [Lamotrigine] 150 mg PO DAILY 02/24/17 [History] traZODone 1 - 2 tab PO BEDTIME PRN 02/24/17 [History] ClonazePAM [KlonoPIN] 0.5 mg PO ASDIRECTED PRN 03/05/17 [History] Penciclovir [Denavir 1% Crm] 1.5 gm TP ASDIRECTED 03/05/17 [History] Mometasone Furoate [Elocon 0.1% Crm] 1 applic TOP DAILY 09/16/17 [History] tiZANidine [Zanaflex] 4 mg PO Q8H PRN 09/16/17 [History] Hydrocodone/Acetaminophen [[place] 5-325 Tablet] 1 each PO Q6HR PRN #28 tablet 02/23 [Rx] cephALEXin [Keflex] 500 mg PO QID 12/27/18 [History] Amoxicillin/Potassium Clav [Amox-Clav 875-125 mg Tablet] 1 tab PO BID 06/01/19 [ History] Past Medical History HEENT 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: Allergic Rhinitis, Impaired Vision Cardiovascular 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: Cardiomyopathy, SOB on Exertion Respiratory 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: Bronchitis, Recurrent, COPD, Sleep Apnea Gastrointestinal 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: Bowel Obstruction, Diverticulosis, GERD, Hiatal Hernia Genitourinary 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: UTI, Recurrent, Other (See Below) Other Genitourinary History: bladder suspension 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: , 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 Musculoskeletal 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: Arthritis, Back Pain, Chronic, Fibromyalgia Other Musculoskeletal History: right knee pain Neurological 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: Vertigo Psychiatric 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: Anxiety, Depression, Suicidal Ideation Endocrine/Metabolic 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: Hypothyroidism, Obesity/BMI 30+ Hematologic 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: None Immunologic 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: None Oncologic (Cancer) 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: Cervix, Uterine Other Oncologic History: complete hysterectomy July 09, 2014 Dermatologic 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: Cellulitis Other Dermatologic History: sore on right lower leg that won't go away - Infectious Disease History Infectious Disease 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: Helicobacter Pylori, Measles, Mumps - Past Surgical History HEENT Surgical 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: Other (See Below) Other HEENT Surgeries/Procedures: biopsy on tongue GI Surgical 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: Appendectomy, Colon, Colonoscopy, EGD, Hernia Repair/Other Female Surgical 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: Hysterectomy, Salpingo-Oophorectomy Musculoskeletal Surgical 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: None Social & Family History - Family History Family Medical History: Noncontributory - Tobacco Use Years of Tobacco use: 45 Packs/Tins Daily: 0.5 - Caffeine Use Caffeine Use: Reports: Coffee, Soda - Recreational Drug Use Recreational Drug Use: No - Living Situation & Occupation Living situation: Reports: (Lives with her 80+ mother, and her sister is in the next house. Has 1 son and 2 grandchildren , who she is currently estranged from her child and grandchildren.) ED ROS GENERAL - Review of Systems Review Of Systems: See Below Constitutional: Reports: Malaise. Denies: Fever, Chills Respiratory: Denies: Shortness of Breath Cardiovascular: Denies: Chest Pain GI/Abdominal: Denies: Nausea, Vomiting Skin: Reports: Erythema (Significant increasing erythema around the lesion of the right leg) Neurological: Denies: Paresthesia ED EXAM, SKIN/RASH Exam: See Below Exam Limited By: No Limitations General Appearance: Alert, No Apparent Distress Respiratory/Chest: No Respiratory Distress Extremities: Other (Exam is otherwise limited to the right leg. Patient has a 4 x 5 cm ulcerative lesion which is irregular on the anterior aspect of the right lower leg. There is surrounding erythema and tenderness. No significant discharge or drainage.) Course - Vital Signs Last Recorded V/S: Last Vital Signs Temp 98.2 F 06/01/19 00:51 Pulse 75 06/01/19 00:51 Resp 16 06/01/19 00:51 BP 143/72 H 06/01/19 00:51 Pulse Ox 96 06/01/19 00:51 - Orders/Labs/Meds Meds: Medications Discontinued Medications Generic Name Dose Route Start Last Admin Trade Name Nedra PRN Reason Stop Dose Admin Ampicillin Sodium/Sulbactam 50 mls @ 100 mls/hr 06/01/19 01:25 06/01/19 01:35 Sodium 1.5 gm/ Sodium Chloride IV 06/01/19 01:54 100 mls/hr ONETIME ONE Administration Ketorolac Tromethamine 30 mg 06/01/19 01:26 06/01/19 01:33 Toradol IVPUSH 06/01/19 01:27 30 mg ONETIME ONE Administration - Re-Assessments/Exams Free Text/Narrative Re-Assessment/Exam: 06/01/19 01:40 An IV was started and the patient was given 1.5 g of IV Unasyn, and 30 mg of IV Toradol. She was discharged with 10 hydrocodone for extra pain control and encouraged to continue with the oral Augmentin and follow-up with Dr. Walton early next week if not improving satisfactorily. Departure - Departure Time of Disposition: 02:17 Disposition: Home, Self-Care 01 Clinical Impression: Chronic ulcer of leg Qualifiers: Laterality: right Non-pressure ulcer stage: with fat layer exposed Qualified Code(s): L97.912 - Non-pressure chronic ulcer of unspecified part of right lower leg with fat layer exposed - Discharge Information Instructions: Wound Care, Adult Referrals: Zhang Mckeon MD [Primary Care Provider] - Forms: ED Department Discharge Care Plan Goals: Continue your antibiotics as prescribed, and use stronger pain medication as needed through the weekend. Recheck early next week if not improving satisfactorily. It may be helpful to elevate the leg. Sepsis Event Note - Evaluation Sepsis Screening Result: No Definite Risk - Focused Exam Vital Signs: Vital Signs Temp Pulse Resp BP Pulse Ox 06/01/19 00:51 98.2 F 75 16 143/72 H 96 06/01/19 00:40 98.2 F 75 16 143/72 H 96 Date Exam was Performed: 06/01/19 Time Exam was Performed: 07:00
== END 2019-06-01 02:17 | disposition home or self-care (01) ==
LOC: JP.ED 23:16
DX: L97.912 Non-pressure chronic ulcer of unspecified part of right lower leg with fat layer exposed (principal); J44.9 Chronic obstructive pulmonary disease, unspecified; K21.9 Gastro-esophageal reflux disease without esophagitis; M19.90 Unspecified osteoarthritis, unspecified site; F41.9 Anxiety disorder, unspecified; F32.9 Major depressive disorder, single episode, unspecified; E03.9 Hypothyroidism, unspecified; E66.9 Obesity, unspecified; Z68.35 Body mass index [BMI] 35.0-35.9, adult; F17.210 Nicotine dependence, cigarettes, uncomplicated; Z88.1 Allergy status to other antibiotic agents; Z88.8 Allergy status to other drugs, medicaments and biological substances; Z79.899 Other long term (current) drug therapy
CPT/HCPCS: 96374; 96375; 99282; 99284; J0287; J1885; J7050

== ENCOUNTER 2019-06-05 15:01 | Inpatient (IN) | payer MEDICARE, MEDICAID ==
[2019-06-05] MEDS ORDERED: Lactated Ringers 1,000 ML IV ONE (18:32)
[2019-06-05] MEDS ORDERED: Sodium Chloride 0.9% 10 ML Syringe FLUSH PRN (18:32)
[2019-06-05] MEDS ORDERED: Albuterol/Ipratropium 3.0-0.5 MG/3 ML Neb Soln NEB ONE (18:34)
--- NOTE | 2019-06-05 18:38 | EDM.PDOC ---
ED HPI GENERAL MEDICAL PROBLEM - General Chief Complaint: Respiratory Problem Stated Complaint: FEVER,DIFFICULTY BREATHING Time Seen by Provider: 06/05/19 18:27 Source of Information: Reports: Patient, Family, RN Notes Reviewed History Limitations: Reports: No Limitations - History of Present Illness INITIAL COMMENTS - FREE TEXT/NARRATIVE: 64-year-old female presents emergency department with a complaint of shortness of breath cough and sputum production, she does have a known history of chronic obstructive pulmonary disease states she has been ill for about 3 days has progressively gotten worse. She had fever this morning she did receive an influenza vaccine. Denies any chest pain nausea vomiting difficulty with bowel movements, she normally wears oxygen at night was found to be hypoxic on initial evaluation by nurse Right Lower Leg Pain Score (Numeric/FACES): 5 - Related Data Allergies Allergy/AdvReac Type Severity Reaction Status Date / Time ciprofloxacin [From Cipro] Allergy Hives Verified 06/05/19 18:07 clonidine HCl [From Catapres] Allergy Blisters Verified 06/05/19 18:07 Home Meds: Home Meds Levothyroxine Sodium [Synthroid] 25 mcg PO DAILY 07/05/14 [History] Pantoprazole [ProTONIX Granules] 40 mg PO BID 07/05/14 [History] Albuterol Sulfate [Albuterol Sulfate HFA] 2 puff INH Q6H PRN 10/25/14 [History] Ondansetron HCl [Zofran] 4 mg PO Q4H PRN 10/25/14 [History] Loratadine 10 mg PO DAILY 02/14/16 [History] buPROPion [Wellbutrin] 150 mg PO BID 02/15/16 [History] Furosemide 40 mg PO DAILY PRN 06/17/16 [History] Triamcinolone Acetonide [Kenalog 0.1% Crm] 1 applic TOP TID 06/17/16 [History] Albuterol/Ipratropium [DuoNeb 3.0-0.5 MG/3 ML] 3 ml IH Q4H PRN 12/14/16 [History ] Magnesium Oxide [Magnesium] 250 mg PO ASDIRECTED 02/24/17 [History] Sertraline HCl [Zoloft] 50 mg PO DAILY 02/24/17 [History] lamoTRIgine [Lamotrigine] 150 mg PO DAILY 02/24/17 [History] traZODone 1 - 2 tab PO BEDTIME PRN 02/24/17 [History] ClonazePAM [KlonoPIN] 0.5 mg PO ASDIRECTED PRN 03/05/17 [History] Penciclovir [Denavir 1% Crm] 1.5 gm TP ASDIRECTED 03/05/17 [History] Mometasone Furoate [Elocon 0.1% Crm] 1 applic TOP DAILY 09/16/17 [History] tiZANidine [Zanaflex] 4 mg PO Q8H PRN 09/16/17 [History] Hydrocodone/Acetaminophen [[place] 5-325 Tablet] 1 each PO Q6HR PRN #28 tablet 02/23 [Rx] Amoxicillin/Potassium Clav [Amox-Clav 875-125 mg Tablet] 1 tab PO BID 06/01/19 [ History] Past Medical History HEENT 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: Allergic Rhinitis, Impaired Vision Cardiovascular 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: Cardiomyopathy, SOB on Exertion Respiratory 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: Bronchitis, Recurrent, COPD, Sleep Apnea Gastrointestinal 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: Bowel Obstruction, Diverticulosis, GERD, Hiatal Hernia Genitourinary 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: UTI, Recurrent, Other (See Below) Other Genitourinary History: bladder suspension GLAUCOMA 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: , 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 Musculoskeletal 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: Arthritis, Back Pain, Chronic, Fibromyalgia Other Musculoskeletal History: right knee pain Neurological 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: Vertigo Psychiatric 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: Anxiety, Depression, Suicidal Ideation Endocrine/Metabolic 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: Hypothyroidism, Obesity/BMI 30+ Hematologic 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: None Immunologic 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: None Oncologic (Cancer) 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: Cervix, Uterine Other Oncologic History: complete hysterectomy July 09, 2014 Dermatologic 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: Cellulitis Other Dermatologic History: sore on right lower leg that won't go away - Infectious Disease History Infectious Disease 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: Helicobacter Pylori, Measles, Mumps - Past Surgical History Head Surgeries/Procedures: Reports: None HEENT Surgical 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: Other (See Below) Other HEENT Surgeries/Procedures: biopsy on tongue Cardiovascular Surgical 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: None Respiratory Surgical 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: None GI Surgical 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: Appendectomy, Colon, Colonoscopy, EGD, Hernia Repair/Other Female Surgical 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: Hysterectomy, Salpingo-Oophorectomy Endocrine Surgical 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: None Neurological Surgical 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: None Musculoskeletal Surgical 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: None Oncologic Surgical 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: None Dermatological Surgical 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: None Social & Family History - Family History Family Medical History: Noncontributory - Tobacco Use Smoking Status *Q: Current Every Day Smoker Years of Tobacco use: 45 Packs/Tins Daily: 1 - Caffeine Use Caffeine Use: Reports: Coffee, Soda - Recreational Drug Use Recreational Drug Use: No - Living Situation & Occupation Living situation: Reports: (Lives with her 80+ mother, and her sister is in the next house. Has 1 son and 2 grandchildren , who she is currently estranged from her child and grandchildren.) ED ROS GENERAL - Review of Systems Review Of Systems: See Below Constitutional: Reports: Fever, Chills, Weakness HEENT: Reports: No Symptoms Respiratory: Reports: Shortness of Breath, Wheezing, Cough, Sputum Cardiovascular: Reports: Dyspnea on Exertion GI/Abdominal: Reports: No Symptoms : Reports: No Symptoms Musculoskeletal: Reports: No Symptoms Skin: Reports: No Symptoms ED EXAM, GENERAL - Physical Exam Exam: See Below Free Text/Narrative:: Examination of the right lower extremity I do appreciate a chronic wound there is some sanguinous material there is small amount of eschar formed there is odor coming from the wound mild amount of erythema Exam Limited By: No Limitations General Appearance: Alert, WD/WN, No Apparent Distress Neck: Normal Inspection, Supple, Non-Tender, Full Range of Motion Respiratory/Chest: No Accessory Muscle Use, Rhonchi, Wheezing Cardiovascular: Regular Rate, Rhythm, No Murmur GI/Abdominal: Soft, Non-Tender Course - Vital Signs Last Recorded V/S: Last Vital Signs Temp 97.8 F 06/05/19 17:59 Pulse 81 06/05/19 17:59 Resp 20 06/05/19 17:59 BP 104/35 L 06/05/19 17:59 Pulse Ox - Orders/Labs/Meds Orders: Active Orders 24 hr Category Date Time Status Peripheral IV Care [RC] . DIRECTED Care 06/05/19 18:33 Active RT Aerosol Therapy [RC] ASDIRECTED Care 06/05/19 18:35 Active LACTIC ACID [CHEM] Stat Lab 06/05/19 20:18 Ordered Lactated Ringers [Ringers, Lactated] 1,000 ml Med 06/05/19 18:32 Active IV ASDIRECTED Sodium Chloride 0.9% [Saline Flush] Med 06/05/19 18:32 Active 10 ml FLUSH ASDIRECTED PRN Peripheral IV Insertion Adult [OM.PC] Urgent Oth 06/05/19 18:32 Ordered Medication Orders Lactated Ringer's (Ringers, Lactated) 1,000 mls @ 500 mls/hr IV ASDIRECTED ONE Stop: 06/05/19 20:31 Last Admin: 06/05/19 18:49 Dose: 500 mls/hr Sodium Chloride (Saline Flush) 10 ml FLUSH ASDIRECTED PRN PRN Reason: Keep Vein Open Last Admin: 06/05/19 18:51 Dose: 10 ml Labs: Laboratory Tests 06/05/19 06/05/19 Range/Units 18:35 18:35 WBC 6.1 (4.5-11.0) K/uL RBC 3.66 (3.30-5.50) M/uL Hgb 10.9 L D (12.0-15.0) g/dL Hct 34.4 L (36.0-48.0) % MCV 94 (80-98) fL MCH 30 (27-31) pg MCHC 32 (32-36) % Plt Count 257 (150-400) K/uL Neut % (Auto) 64 (36-66) % Lymph % (Auto) 27 (24-44) % [place] % (Auto) 6 (2-6) % Eos % (Auto) 2 (2-4) % Baso % (Auto) 1 (0-1) % Sodium 137 L (140-148) mmol/L Potassium 3.5 L (3.6-5.2) mmol/L Chloride 101 (100-108) mmol/L Carbon Dioxide 28 (21-32) mmol/L Anion Gap 11.5 (5.0-14.0) mmol/L BUN 13 (7-18) mg/dL Creatinine 0.9 (0.6-1.0) mg/dL Est Cr Clr Drug Dosing 50.60 mL/min Estimated GFR (MDRD) > 60 (>60) Glucose 68 L (74-106) mg/dL Calcium 8.1 L D (8.5-10.1) mg/dL Total Bilirubin 0.3 (0.2-1.0) mg/dL AST 25 (15-37) U/L ALT 23 D (12-78) U/L Alkaline Phosphatase 72 (46-116) U/L Troponin I < 0.017 (0.000-0.056) ng/mL Total Protein 7.0 (6.4-8.2) g/dL Albumin 2.8 L (3.4-5.0) g/dL Globulin 4.2 H (2.3-3.5) g/dL Albumin/Globulin Ratio 0.7 L (1.2-2.2) Meds: Medications Generic Name Dose Route Start Last Admin Trade Name Freq PRN Reason Stop Dose Admin Lactated Ringer's 1,000 mls @ 500 mls/hr 06/05/19 18:32 06/05/19 18:49 Ringers, Lactated IV 06/05/19 20:31 500 mls/hr ASDIRECTED ONE Administration Sodium Chloride 10 ml 06/05/19 18:32 06/05/19 18:51 Saline Flush FLUSH 10 ml ASDIRECTED PRN Administration Keep Vein Open Discontinued Medications Generic Name Dose Route Start Last Admin Trade Name Freq PRN Reason Stop Dose Admin Albuterol/Ipratropium 3 ml 06/05/19 18:34 06/05/19 18:48 Duoneb 3.0-0.5 Mg/3 Ml NEB 06/05/19 18:35 3 ml ONETIME ONE Administration Fentanyl 50 mcg 06/05/19 18:57 06/05/19 19:03 Sublimaze IVPUSH 06/05/19 18:58 50 mcg ONETIME ONE Administration Departure - Departure Time of Disposition: 20:23 Disposition: Admitted As Inpatient 67 Condition: Fair Clinical Impression: COPD exacerbation - Discharge Information Referrals: Zhang Mckeon MD [Primary Care Provider] - Forms: ED Department Discharge Sepsis Event Note - Evaluation Sepsis Screening Result: No Definite Risk - Focused Exam Vital Signs: Vital Signs Temp Pulse Resp BP 06/05/19 17:59 97.8 F 81 20 104/35 L Date Exam was Performed: 06/05/19 Time Exam was Performed: 20:22 - My Orders Last 24 Hours: My Active Orders 06/05/19 18:32 Lactated Ringers [Ringers, Lactated] 1,000 ml IV ASDIRECTED Sodium Chloride 0.9% [Saline Flush] 10 ml FLUSH ASDIRECTED PRN Peripheral IV Insertion Adult [OM.PC] Urgent 06/05/19 18:33 Peripheral IV Care [RC] . DIRECTED 06/05/19 18:35 RT Aerosol Therapy [RC] ASDIRECTED 06/05/19 20:18 LACTIC ACID [CHEM] Stat - Assessment/Plan Last 24 Hours: My Active Orders 06/05/19 18:32 Lactated Ringers [Ringers, Lactated] 1,000 ml IV ASDIRECTED Sodium Chloride 0.9% [Saline Flush] 10 ml FLUSH ASDIRECTED PRN Peripheral IV Insertion Adult [OM.PC] Urgent 06/05/19 18:33 Peripheral IV Care [RC] . DIRECTED 06/05/19 18:35 RT Aerosol Therapy [RC] ASDIRECTED 06/05/19 20:18 LACTIC ACID [CHEM] Stat Plan: Assessment Acuity = acute Site and laterality = COPD exacerbation with bronchitis Etiology = unknown Manifestations = fever, dyspnea Location of injury = Home Lab values = CBC, CMP unremarkable troponin was negative, chest x-ray shows increased opacities in the lower lobes bilaterally Plan Discussed the case with hospitalist on-call at 2019 can agreed to come evaluate patient emergency department for admission This note was dictated using [employer] voice recognition software please call with any questions on syntax or grammar.
[2019-06-05] MEDS ORDERED: fentaNYL 100 MCG/2 ML SDV IVPUSH ONE (18:57)
--- NOTE | 2019-06-05 19:34 | CRLCR ---
Indication: Shortness of breath. Technique: PA and lateral views the chest. Comparison: December 17, 2014. Findings: The heart is normal in size. Diffusely increased interstitial opacities are identified bilaterally, increased since the previous exam. No pleural effusion or pneumothorax is identified. Impression: Diffusely increased interstitial opacities bilaterally, particularly in the right lower lobe. Dictated by Kelly Trevizo MD @ Jun 05 2019 7:32PM Signed by Dr. Kelly Trevizo @ Jun 05 2019 7:33PM
[2019-06-05] MEDS: cefTRIAXone 1 GM in Sodium Chloride 0.9% 50 ML IV SCH (20:45)
[2019-06-05] MEDS ORDERED: Morphine 2 MG/ML Syringe IVPUSH ONE (20:58)
[2019-06-05] MEDS: Azithromycin 500 MG in Sodium Chloride 0.9% 250 ML IV SCH (21:12)
[2019-06-05] MEDS ORDERED: Zolpidem 5 MG Tab PO PRN (21:53)
[2019-06-05] MEDS ORDERED: Sodium Chloride 0.9% 1,000 ML IV SCH (21:53)
[2019-06-05] MEDS ORDERED: buPROPion 100 MG Tab PO SCH (21:53)
[2019-06-05] MEDS ORDERED: methylPREDNISolone Sodium Succinate 125 MG/2 ML SDV IVPUSH ONE (21:53)
[2019-06-05] MEDS ORDERED: PENCICLOVIR 1% TP PRN (21:53)
[2019-06-05] MEDS ORDERED: Pantoprazole 40 MG Delayed-Release Granules 1 Packet PO SCH (21:53)
[2019-06-05] MEDS ORDERED: Bisacodyl 5 MG Tab PO PRN (21:53)
[2019-06-05] MEDS ORDERED: tiZANidine 4 MG Tab PO PRN (21:53)
[2019-06-05] MEDS ORDERED: LORazepam 2 MG/ML SDV IV PRN (21:53)
[2019-06-05] MEDS ORDERED: Docusate Sodium 100 MG Cap PO PRN (21:53)
[2019-06-05] MEDS ORDERED: Furosemide 40 MG Tab PO PRN (21:53)
[2019-06-05] MEDS: Albuterol/Ipratropium 3.0-0.5 MG/3 ML Neb Soln NEB SCH (22:26)
[2019-06-05] MEDS: Triamcinolone Acetonide 0.1% Crm 15 GM Tube TOP SCH (22:31)
[2019-06-05] MEDS: traZODone 50 MG Tab PO PRN (22:44)
--- NOTE | 2019-06-05 23:37 | PCM.HP.2 ---
H&P History of Present Illness - General Date of Service: 06/05/19 Admit Problem/Dx: Admission Diagnosis/Problem Admission Diagnosis/Problem COPD with acute lower respiratory infection Source of Information: Patient, Provider, RN History Limitations: Reports: No Limitations - History of Present Illness Initial Comments - Free Text/Narative: chief complaint: shortness of breath with weakness. 64-year-old female presents emergency department with a complaint of shortness of breath cough and sputum production, she does have a known history of chronic obstructive pulmonary disease states she has been ill for about 3 days has progressively gotten worse. She had fever this morning she did receive an influenza vaccine. Denies any chest pain nausea vomiting difficulty with bowel movements, she normally wears oxygen at night was found to be hypoxic on initial evaluation by nurse Onset of Symptoms: Reports: Gradual Duration of Symptoms: Reports: Day(s): Location: Reports: Generalized Severity: Severe Improves with: Reports: Rest Worsens with: Reports: Movement Associated Symptoms: Reports: Cough, Fever/Chills, Nausea/Vomiting, Shortness of Breath, Weakness Right Lower Leg Pain Score (Numeric/FACES): 5 - Related Data Allergies/Adverse Reactions: Allergies Allergy/AdvReac Type Severity Reaction Status Date / Time ciprofloxacin [From Cipro] Allergy Hives Verified 06/05/19 18:07 clonidine HCl [From Catapres] Allergy Blisters Verified 06/05/19 18:07 Home Medications: Home Meds Levothyroxine Sodium [Synthroid] 25 mcg PO DAILY 07/05/14 [History] Pantoprazole [ProTONIX Granules] 40 mg PO BID 07/05/14 [History] Albuterol Sulfate [Albuterol Sulfate HFA] 2 puff INH Q6H PRN 10/25/14 [History] Ondansetron HCl [Zofran] 4 mg PO Q4H PRN 10/25/14 [History] Loratadine 10 mg PO DAILY 02/14/16 [History] buPROPion [Wellbutrin] 150 mg PO BID 02/15/16 [History] Furosemide 40 mg PO DAILY PRN 06/17/16 [History] Triamcinolone Acetonide [Kenalog 0.1% Crm] 1 applic TOP TID 06/17/16 [History] Albuterol/Ipratropium [DuoNeb 3.0-0.5 MG/3 ML] 3 ml IH Q4H PRN 12/14/16 [History ] Magnesium Oxide [Magnesium] 250 mg PO ASDIRECTED 02/24/17 [History] Sertraline HCl [Zoloft] 50 mg PO DAILY 02/24/17 [History] lamoTRIgine [Lamotrigine] 150 mg PO DAILY 02/24/17 [History] traZODone 1 - 2 tab PO BEDTIME PRN 02/24/17 [History] ClonazePAM [KlonoPIN] 0.5 mg PO ASDIRECTED PRN 03/05/17 [History] Penciclovir [Denavir 1% Crm] 1.5 gm TP ASDIRECTED 03/05/17 [History] Mometasone Furoate [Elocon 0.1% Crm] 1 applic TOP DAILY 09/16/17 [History] tiZANidine [Zanaflex] 4 mg PO Q8H PRN 09/16/17 [History] Hydrocodone/Acetaminophen [Choudrant 5-325 Tablet] 1 each PO Q6HR PRN #28 tablet 02/23 [Rx] Amoxicillin/Potassium Clav [Amox-Clav 875-125 mg Tablet] 1 tab PO BID 06/01/19 [ History] Past Medical History HEENT 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: Allergic Rhinitis, Impaired Vision Cardiovascular 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: Cardiomyopathy, SOB on Exertion Respiratory 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: Bronchitis, Recurrent, COPD, Sleep Apnea Gastrointestinal 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: Bowel Obstruction, Diverticulosis, GERD, Hiatal Hernia Genitourinary 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: UTI, Recurrent, Other (See Below) Other Genitourinary History: bladder suspension BARREL SCRAPER 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: , Spontaneous Musculoskeletal 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: Arthritis, Back Pain, Chronic, Fibromyalgia Other Musculoskeletal History: right knee pain Neurological 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: Vertigo Psychiatric 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: Anxiety, Depression, Suicidal Ideation Endocrine/Metabolic 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: Hypothyroidism, Obesity/BMI 30+ Hematologic 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: None Immunologic 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: None Oncologic (Cancer) 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: Cervix, Uterine Other Oncologic History: complete hysterectomy July 09, 2014 Dermatologic 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: Cellulitis Other Dermatologic History: sore on right lower leg that won't go away - Infectious Disease History Infectious Disease 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: Helicobacter Pylori, Measles, Mumps - Past Surgical History Head Surgeries/Procedures: Reports: None HEENT Surgical History: Reports: Other (See Below) Other HEENT Surgeries/Procedures: biopsy on tongue Cardiovascular Surgical History: Reports: None Respiratory Surgical History: Reports: None GI Surgical History: Reports: Appendectomy, Colon, Colonoscopy, EGD, Hernia Repair/Other Female Surgical History: Reports: Hysterectomy, Salpingo-Oophorectomy Endocrine Surgical History: Reports: None Neurological Surgical History: Reports: None Musculoskeletal Surgical History: Reports: None Oncologic Surgical History: Reports: None Dermatological Surgical History: Reports: None Social & Family History - Family History Family Medical History: Noncontributory - Tobacco Use Smoking Status *Q: Current Every Day Smoker Years of Tobacco use: 45 Packs/Tins Daily: 1 Used Tobacco, but Quit: No - Caffeine Use Caffeine Use: Reports: Coffee, Soda - Recreational Drug Use Recreational Drug Use: No - Living Situation & Occupation Living situation: Reports: (Lives with her 80+ mother, and her sister is in the next house. Has 1 son and 2 grandchildren , who she is currently estranged from her child and grandchildren.) H&P Review of Systems - Review of Systems: Review Of Systems: See Below General: Reports: Fever, Chills, Malaise, Weakness, Decreased Appetite HEENT: Reports: No Symptoms Pulmonary: Reports: Shortness of Breath, Wheezing, Pleuritic Chest Pain, Cough, Sputum Cardiovascular: Reports: Dyspnea on Exertion, Orthopnea Gastrointestinal: Reports: No Symptoms Genitourinary: Reports: No Symptoms Musculoskeletal: Reports: Back Pain, Leg Pain, Muscle Pain Skin: Reports: Wound (chronic right lower leg pain) Exam - Exam Exam: See Below - Vital Signs Vital Signs: Last Vital Signs Temp 36.8 C 06/05/19 21:53 Pulse 83 06/05/19 21:53 Resp 16 06/05/19 21:53 BP 113/49 L 06/05/19 23:02 Pulse Ox 90 L 06/05/19 23:12 Weight: 85.23 kg - Exam Quality Assessment: Supplemental Oxygen (chronic home oxygen at 2l/ml), DVT Prophylaxis, Skin Breakdown General: Alert, Oriented, Cooperative, Mild Distress HEENT: PERRLA, Hearing Intact, Mucosa Moist & [place], Nares Patent, Normal Nasal Septum, Posterior Pharynx Clear, Conjunctiva Clear, EOMI, EACs Clear, TMs Clear Neck: Supple, Trachea Midline, 2 Lungs: Decreased Breath Sounds, Rales, Rhonchi, Wheezing Cardiovascular: Regular Rhythm, Normal S1, Normal S2 GI/Abdominal Exam: Normal Bowel Sounds, Soft, Non-Tender, No Organomegaly, No Distention, No Abnormal Bruit, No Mass, Pelvis Stable (Female) Exam: Deferred Rectal (Female) Exam: Deferred Back Exam: Normal Inspection, Full Range of Motion, Other (upper back pain noted ) Extremities: Leg Pain (right lower leg with 9x10 cm wound noted. scant yellowish discharge is noted.no odor), Redness Skin: Wound (9x10 cm wound noted, scant discharge, raw - open to dermis.) Neurological: Strength Equal Bilateral Neuro Extensive - Mental Status: Alert, Oriented x3, Normal Mood/Affect, Normal Cognition DTR: 2+: Patella (L), Patella (R) Psychiatric: Alert, Normal Affect, Normal Mood - Patient Data Lab Results Last 24 hrs: Laboratory Results - last 24 hr 06/05/19 06/05/19 06/05/19 Range/Units 18:35 18:35 18:35 WBC 6.1 (4.5-11.0) K/uL RBC 3.66 (3.30-5.50) M/uL Hgb 10.9 L D (12.0-15.0) g/dL Hct 34.4 L (36.0-48.0) % MCV 94 (80-98) fL MCH 30 (27-31) pg MCHC 32 (32-36) % Plt Count 257 (150-400) K/uL Neut % (Auto) 64 (36-66) % Lymph % (Auto) 27 (24-44) % [place] % (Auto) 6 (2-6) % Eos % (Auto) 2 (2-4) % Baso % (Auto) 1 (0-1) % Sodium 137 L (140-148) mmol/L Potassium 3.5 L (3.6-5.2) mmol/L Chloride 101 (100-108) mmol/L Carbon Dioxide 28 (21-32) mmol/L Anion Gap 11.5 (5.0-14.0) mmol/L BUN 13 (7-18) mg/dL Creatinine 0.9 (0.6-1.0) mg/dL Est Cr Clr Drug Dosing 50.60 mL/min Estimated GFR (MDRD) > 60 (>60) Glucose 68 L (74-106) mg/dL Lactic Acid 1.3 (0.4-2.0) mmol/L Calcium 8.1 L D (8.5-10.1) mg/dL Total Bilirubin 0.3 (0.2-1.0) mg/dL AST 25 (15-37) U/L ALT 23 D (12-78) U/L Alkaline Phosphatase 72 (46-116) U/L Troponin I < 0.017 (0.000-0.056) ng/mL Total Protein 7.0 (6.4-8.2) g/dL Albumin 2.8 L (3.4-5.0) g/dL Globulin 4.2 H (2.3-3.5) g/dL Albumin/Globulin Ratio 0.7 L (1.2-2.2) Result Diagrams: 06/05/19 18:35 06/05/19 18:35 Julius Results Last 24 hrs: Microbiology 06/05/19 19:19 Influenza Type A Antigen Screen - Final Nasal Aspirate, Unspecified NEGATIVE INFLUENZA A VIRUS AG REFERENCE RANGE: NEGATIVE Influenza Type B Antigen Screen - Final NEGATIVE INFLUENZA B VIRUS AG REFERENCE RANGE: NEGATIVE Sepsis Event Note - Evaluation Sepsis Screening Result: No Definite Risk - Focused Exam Vital Signs: Vital Signs Temp Pulse Resp BP Pulse Ox 06/05/19 23:12 90 L 06/05/19 23:03 92 L 06/05/19 23:02 113/49 L 06/05/19 21:53 36.8 C 83 16 85/42 L 92 L 06/05/19 20:18 36.2 C 88 14 110/71 91 L 06/05/19 17:59 36.6 C 81 20 104/35 L Date Exam was Performed: 06/05/19 Time Exam was Performed: 23:38 - Problem List (1) COPD exacerbation SNOMED Code(s): 625611245 ICD Code: J44.1 - CHRONIC OBSTRUCTIVE PULMONARY DISEASE W (ACUTE) EXACERBATION Status: Acute Current Visit: Yes (2) Pneumonia SNOMED Code(s): 428256847 ICD Code: J18.9 - PNEUMONIA, UNSPECIFIED ORGANISM Status: Acute Priority : High Current Visit: Yes Qualifiers: Laterality: right (3) Chronic ulcer of leg SNOMED Code(s): 67480308 ICD Code: L97.909 - NON-PRS CHRONIC ULC UNSP PRT OF UNSP LOW LEG W UNSP SEVERITY Status: Acute Priority: Low Current Visit: Yes Qualifiers: Laterality: right Non-pressure ulcer stage: with fat layer exposed Qualified Code(s): L97.912 - Non-pressure chronic ulcer of unspecified part of right lower leg with fat layer exposed Problem List Initiated/Reviewed/Updated: Yes Orders Last 24hrs: Active Orders 24 hr Category Date Time Status Intake and Output [RC] QSHIFT Care 06/05/19 21:53 Active Notify Provider Vital Signs [RC] ASDIRECTED Care 06/05/19 21:53 Active Oxygen Therapy [RC] PRN Care 06/05/19 21:53 Active Pulse Oximetry [RC] CONTINUOUS Care 06/05/19 21:53 Active RT Aerosol Therapy [RC] ASDIRECTED Care 06/05/19 18:35 Active RT Aerosol Therapy [RC] ASDIRECTED Care 06/05/19 21:53 Active Up ad Candace [RC] ASDIRECTED Care 06/05/19 21:53 Active VTE/DVT Education [RC] Per Unit Routine Care 06/05/19 21:53 Active Vital Signs [RC] Q4H Care 06/05/19 21:53 Active Wound Travelift Operator Consult [Consult to Wound Care Cons 06/05/19 21:53 Active Services] [CONS] Routine Regular Diet [DIET] Diet 06/05/19 Breakfast Active BASIC METABOLIC PANEL,BMP [CHEM] AM Lab 06/06/19 05:11 Ordered CBC WITH AUTO DIFF [HEME] AM Lab 06/06/19 05:11 Ordered CULTURE BLOOD [BC] Urgent Lab 06/05/19 20:22 Ordered CULTURE BLOOD [BC] Urgent Lab 06/05/19 20:22 Ordered LACTIC ACID [CHEM] Timed Lab 06/06/19 02:10 Ordered Acetaminophen [Tylenol] Med 06/05/19 21:53 Active 650 mg PO Q4H PRN Acetaminophen/HYDROcodone [Choudrant 325-5 MG] Med 06/05/19 21:53 Active 1 tab PO Q6H PRN Albuterol/Ipratropium [DuoNeb 3.0-0.5 MG/3 ML] Med 06/05/19 22:00 Active 3 ml NEB QIDRT Azithromycin [Zithromax] 500 mg Med 06/05/19 20:30 Active Sodium Chloride 0.9% [Normal Saline] 250 ml IV Q24H ClonazePAM [KlonoPIN] Med 06/05/19 21:53 Pending 0.5 mg PO ASDIRECTED PRN Docusate Sodium [Colace] Med 06/05/19 21:53 Active 100 mg PO BID PRN Enoxaparin [Lovenox] Med 06/06/19 09:00 Active 40 mg SUBCUT DAILY Furosemide [Lasix] Med 06/05/19 21:53 Active 40 mg PO DAILY PRN LORazepam [Ativan] Med 06/05/19 21:53 Active 1 mg IV Q6H PRN Levothyroxine Med 06/06/19 07:00 Active 25 mcg PO ACBREAKFAST@0700 Magnesium Oxide Med 06/06/19 09:00 Active 200 mg PO DAILY Morphine Med 06/05/19 21:48 Active 2 mg IVPUSH Q4H PRN Non-Formulary Medication [NF Drug] Med 06/06/19 09:00 Pending 1 each TOP DAILY Ondansetron [Zofran ODT] Med 06/05/19 21:53 Active 4 mg PO Q6H PRN Pantoprazole [ProTONIX Granules] Med 06/05/19 21:53 Active 40 mg PO BIDAC Penciclovir [Denavir 1% Crm] Med 06/05/19 21:53 Pending 1.5 gm TP ASDIRECTED Sertraline [Zoloft] Med 06/06/19 09:00 Active 50 mg PO DAILY Sodium Chloride 0.9% [Normal Saline] 1,000 ml Med 06/05/19 21:53 Active IV ASDIRECTED Sodium Chloride 0.9% [Saline Flush] Med 06/05/19 18:32 Active 10 ml FLUSH ASDIRECTED PRN Triamcinolone Acetonide [Triamcinolone Acetonide 0.1% Med 06/05/19 21:53 Active Crm] 0 gm TOP TID Zolpidem [Ambien] Med 06/05/19 21:53 Active 5 mg PO BEDTIME PRN bisacodyL [Dulcolax] Med 06/05/19 21:53 Active 5 mg PO DAILY PRN buPROPion [Wellbutrin] Med 06/05/19 21:53 Active 150 mg PO BID cefTRIAXone [Rocephin] 1 gm Med 06/05/19 20:30 Active Sodium Chloride 0.9% [Normal Saline] 50 ml IV Q24H lamoTRIgine Med 06/06/19 09:00 Active 150 mg PO DAILY methylPREDNISolone Sod Succ [Solu-MEDROL] Med 06/06/19 04:00 Active 40 mg IVPUSH Q6H tiZANidine [Zanaflex] Med 06/05/19 21:53 Active 4 mg PO Q8H PRN traZODone Med 06/05/19 21:53 Active 50 - 100 mg PO BEDTIME PRN Blood Culture x2 Reflex Set [OM.PC] Urgent Oth 06/05/19 20:22 Ordered Peripheral IV Insertion Adult [OM.PC] Urgent Oth 06/05/19 18:32 Ordered Resuscitation Status Routine Resus Stat 06/05/19 20:29 Ordered Medication Orders Acetaminophen (Tylenol) 650 mg PO Q4H PRN PRN Reason: Pain (Mild 1-3)/fever Hydrocodone Bitart/Acetaminophen (Choudrant 325-5 Mg) 1 tab PO Q6H PRN PRN Reason: Pain Albuterol/Ipratropium (Duoneb 3.0-0.5 Mg/3 Ml) 3 ml NEB QIDRT [facility] Last Admin: 06/05/19 22:26 Dose: 3 ml Bisacodyl (Dulcolax) 5 mg PO DAILY PRN PRN Reason: Constipation Bupropion HCl (Wellbutrin) 150 mg PO BID [facility] Last Admin: 06/05/19 22:44 Dose: 150 mg Clonazepam (Klonopin) 0.5 mg PO ASDIRECTED PRN PRN Reason: Anxiety Docusate Sodium (Colace) 100 mg PO BID PRN PRN Reason: Constipation Enoxaparin Sodium (Lovenox) 40 mg SUBCUT DAILY [facility] Furosemide (Lasix) 40 mg PO DAILY PRN PRN Reason: Other Azithromycin 500 mg/ Sodium (Chloride) 250 mls @ 250 mls/hr IV Q24H [facility] Last Admin: 06/05/19 21:12 Dose: 250 mls/hr Ceftriaxone Sodium 1 gm/ (Sodium Chloride) 50 mls @ 100 mls/hr IV Q24H [facility] Last Admin: 06/05/19 20:45 Dose: 100 mls/hr Sodium Chloride (Normal Saline) 1,000 mls @ 125 mls/hr IV ASDIRECTED [facility] Lamotrigine (Lamotrigine) 150 mg PO DAILY [facility] Levothyroxine Sodium (Levothyroxine) 25 mcg PO ACBREAKFAST@0700 [facility] Lorazepam (Ativan) 1 mg IV Q6H PRN PRN Reason: Nausea/Vomiting Magnesium Oxide (Magnesium Oxide) 200 mg PO DAILY [facility] Methylprednisolone Sodium Succinate (Solu-Medrol) 40 mg IVPUSH Q6H DANIEL Morphine Sulfate (Morphine) 2 mg IVPUSH Q4H PRN PRN Reason: Pain (severe 7-10) Non-Formulary Medication (Penciclovir [Denavir 1% Crm]) 1.5 gm TP ASDIRECTED [facility] Non-Formulary Medication (Nf Drug) 1 each TOP DAILY [facility] Ondansetron HCl (Zofran Odt) 4 mg PO Q6H PRN PRN Reason: Nausea able to take PO Pantoprazole Sodium (Protonix Granules) 40 mg PO BIDAC [facility] Last Admin: 06/05/19 22:44 Dose: 40 mg Sertraline HCl (Zoloft) 50 mg PO DAILY [facility] Sodium Chloride (Saline Flush) 10 ml FLUSH ASDIRECTED PRN PRN Reason: Keep Vein Open Last Admin: 06/05/19 18:51 Dose: 10 ml Tizanidine HCl (Zanaflex) 4 mg PO Q8H PRN PRN Reason: Muscle Spasm Trazodone HCl (Trazodone) 50 - 100 mg PO BEDTIME PRN PRN Reason: Sleep Last Admin: 06/05/19 22:44 Dose: 50 mg Triamcinolone Acetonide (Triamcinolone Acetonide 0.1% Crm) 0 gm TOP TID [facility] Last Admin: 06/05/19 22:31 Dose: Not Given Zolpidem Tartrate (Ambien) 5 mg PO BEDTIME PRN PRN Reason: Sleep Assessment/Plan Comment:: Assessment/Plan Comment:: ASSESSMENT AND PLAN OF CARE: chief complaint: shortness of breath with weakness. 64-year-old female presents emergency department with a complaint of shortness of breath cough and sputum production, she does have a known history of chronic obstructive pulmonary disease states she has been ill for about 3 days has progressively gotten worse. She had fever this morning she did receive an influenza vaccine. Denies any chest pain nausea vomiting difficulty with bowel movements, she normally wears oxygen at night was found to be hypoxic on initial evaluation by nurse. Pneumonia, with COPD -Admit to [address] [place] [address] for further monitoring -IV Fluids for rehydration NS at 125 mL per hour -IV Antibiotic; Rocephin 1 gram IV every 24 hours -IV Zithromax 500mg every 24 hours -oxygen to keep sats greater than 95% -IV Solumedrol 125mg now, then 62.5mg every 8 hours -schedule Duo nebs every 6 hours, Albuterol nebs every 4 hours prn -Advise to notify nurses of any chest pain or other symptoms -blood cultures x2 pending -And a.m. labs: CBC, BMP Right chronic leg ulcer -daily dressing changes with non-stick dressing, 4x4 and coban. no tape -consult to Wound Care Maintenance issues -Orders home meds: chronic medication -Nutrition: regular diet -Barrett catheter -not indicated at this time -DVT: Lovenox 30 units subcut. -PPI; PO Protonix 40mg daily CODE STATUS: FULL Admission status: Admit to [address] [place] [address] Admission justification. This patient will be admitted for inpatient services and is medically appropriate meeting medical necessity for inpatient admission as outlined in my documentation. I reasonably expect the patient will require inpatient services that span. Time over 2 midnights. I reasonably expect this patient to be discharged or transferred within 96 hours after admission to the critical access hospital. Disposition: home with Family Primary care provider: Dr. Mckeon, [facility] Hospitalist: Dr. Mcclure - Mortality Measure Prognosis:: Good
[2019-06-06] MEDS: Albuterol 0.083% 2.5 MG/3 ML Neb Soln NEB PRN ×2 (01:14→04:42)
[2019-06-06] MEDS ORDERED: Sodium Chloride 0.9% 1,000 ML IV SCH (01:15)
[2019-06-06] MEDS ORDERED: Albuterol 0.083% 2.5 MG/3 ML Neb Soln NEB STA (01:34)
[2019-06-06] MEDS: methylPREDNISolone Sodium Succinate 40 MG/1 ML SDV IVPUSH SCH ×4 (04:33→21:27)
[2019-06-06] MEDS: Albuterol/Ipratropium 3.0-0.5 MG/3 ML Neb Soln NEB SCH ×4 (07:08→21:12)
[2019-06-06] MEDS: Triamcinolone Acetonide 0.1% Crm 15 GM Tube TOP SCH ×3 (08:46→21:06)
[2019-06-06] MEDS: lamoTRIgine 25 MG Tab PO SCH (08:47)
[2019-06-06] MEDS: buPROPion 150 MG Tab.SR PO SCH ×2 (08:47→21:06)
[2019-06-06] MEDS: lamoTRIgine 100 MG Tab PO SCH (08:47)
[2019-06-06] MEDS: Levothyroxine 25 MCG Tab PO SCH (08:47)
[2019-06-06] MEDS: Pantoprazole 40 MG Tab.CR PO SCH ×2 (08:47→16:03)
[2019-06-06] MEDS: Enoxaparin 40 MG/0.4 ML Syringe SUBCUT SCH (08:48)
[2019-06-06] MEDS: Sertraline 50 MG Tab PO SCH (08:48)
[2019-06-06] MEDS: Magnesium Oxide 400 MG Tab PO SCH (08:48)
[2019-06-06] MEDS ORDERED: ClonazePAM 0.5 MG Tab PO PRN (09:00)
[2019-06-06] MEDS ORDERED: MOMETASONE FUROATE TOP SCH (09:00)
[2019-06-06] MEDS ORDERED: Non-Formulary Medication 1 Each TOP SCH (09:00)
[2019-06-06] MEDS ORDERED: Triamcinolone Acetonide 0.1% Crm 15 GM Tube TOP SCH (09:00)
[2019-06-06] MEDS ORDERED: Enoxaparin 30 MG/0.3 ML Syringe SUBCUT SCH (09:00)
[2019-06-06] MEDS: Acetaminophen/HYDROcodone 325-5 MG Tab PO PRN (11:57)
--- NOTE | 2019-06-06 16:07 | PCM.PN ---
- General Info Date of Service: 06/06/19 Subjective Update: Ms. Gonzalez is a 64-year-old woman who was admitted through the emergency department last night with weakness, shortness of breath, and hypoxia, secondary to COPD exacerbation and underlying pneumonia. She feels moderately improved from admission and has been able to ambulate with assistance. Continued cough which for the most part has been nonproductive. Vital signs have been stable and she has remained afebrile. - Review of Systems General: Reports: Weakness. Denies: Fever, Chills Pulmonary: Reports: Shortness of Breath, Cough, Wheezing. Denies: Pleuritic Chest Pain, Sputum, Hemoptysis Cardiovascular: Reports: Dyspnea on Exertion. Denies: Chest Pain, Palpitations , Orthopnea, PND, Edema, Lightheadedness Gastrointestinal: Reports: No Symptoms - Patient Data Vitals - Most Recent: Last Vital Signs Temp 96.6 F 06/06/19 15:00 Pulse 74 06/06/19 15:00 Resp 18 06/06/19 15:00 BP 119/63 06/06/19 15:00 Pulse Ox 88 L 06/06/19 15:00 Weight - Most Recent: 187 lb 14.4 oz I&O - Last 24 Hours: Intake & Output 06/06/19 06/06/19 06/06/19 06:59 14:59 22:59 Intake Total 500 1480 Output Total 200 600 Balance 300 880 Lab Results Last 24 Hours: Laboratory Results - last 24 hr 06/05/19 06/05/19 06/05/19 Range/Units 18:35 18:35 18:35 WBC 6.1 (4.5-11.0) K/uL RBC 3.66 (3.30-5.50) M/uL Hgb 10.9 L D (12.0-15.0) g/dL Hct 34.4 L (36.0-48.0) % MCV 94 (80-98) fL MCH 30 (27-31) pg MCHC 32 (32-36) % Plt Count 257 (150-400) K/uL Neut % (Auto) 64 (36-66) % Lymph % (Auto) 27 (24-44) % [place] % (Auto) 6 (2-6) % Eos % (Auto) 2 (2-4) % Baso % (Auto) 1 (0-1) % Sodium 137 L (140-148) mmol/L Potassium 3.5 L (3.6-5.2) mmol/L Chloride 101 (100-108) mmol/L Carbon Dioxide 28 (21-32) mmol/L Anion Gap 11.5 (5.0-14.0) mmol/L BUN 13 (7-18) mg/dL Creatinine 0.9 (0.6-1.0) mg/dL Est Cr Clr Drug Dosing 50.60 mL/min Estimated GFR (MDRD) > 60 (>60) Glucose 68 L (74-106) mg/dL Lactic Acid 1.3 (0.4-2.0) mmol/L Calcium 8.1 L D (8.5-10.1) mg/dL Total Bilirubin 0.3 (0.2-1.0) mg/dL AST 25 (15-37) U/L ALT 23 D (12-78) U/L Alkaline Phosphatase 72 (46-116) U/L Troponin I < 0.017 (0.000-0.056) ng/mL Total Protein 7.0 (6.4-8.2) g/dL Albumin 2.8 L (3.4-5.0) g/dL Globulin 4.2 H (2.3-3.5) g/dL Albumin/Globulin Ratio 0.7 L (1.2-2.2) 06/06/19 06/06/19 06/06/19 Range/Units 02:30 02:30 02:30 WBC 6.1 (4.5-11.0) K/uL RBC 3.47 (3.30-5.50) M/uL Hgb 10.3 L (12.0-15.0) g/dL Hct 32.6 L (36.0-48.0) % MCV 94 (80-98) fL MCH 30 (27-31) pg MCHC 32 (32-36) % Plt Count 229 (150-400) K/uL Neut % (Auto) 86 H (36-66) % Lymph % (Auto) 12 L (24-44) % [place] % (Auto) 1 L (2-6) % Eos % (Auto) 0 L (2-4) % Baso % (Auto) 1 (0-1) % Sodium 136 L (140-148) mmol/L Potassium 3.4 L (3.6-5.2) mmol/L Chloride 101 (100-108) mmol/L Carbon Dioxide 25 (21-32) mmol/L Anion Gap 13.4 (5.0-14.0) mmol/L BUN 13 (7-18) mg/dL Creatinine 0.8 (0.6-1.0) mg/dL Est Cr Clr Drug Dosing 56.93 mL/min Estimated GFR (MDRD) > 60 (>60) Glucose 151 H (74-106) mg/dL Lactic Acid 1.1 (0.4-2.0) mmol/L Calcium 7.9 L (8.5-10.1) mg/dL Total Bilirubin (0.2-1.0) mg/dL AST (15-37) U/L ALT (12-78) U/L Alkaline Phosphatase (46-116) U/L Troponin I (0.000-0.056) ng/mL Total Protein (6.4-8.2) g/dL Albumin (3.4-5.0) g/dL Globulin (2.3-3.5) g/dL Albumin/Globulin Ratio (1.2-2.2) Julius Results Last 24 Hours: Microbiology 06/06/19 03:40 Clostridioides difficile (PCR) - Final Stool / Feces 06/05/19 19:19 Influenza Type A Antigen Screen - Final Nasal Aspirate, Unspecified NEGATIVE INFLUENZA A VIRUS AG REFERENCE RANGE: NEGATIVE Influenza Type B Antigen Screen - Final NEGATIVE INFLUENZA B VIRUS AG REFERENCE RANGE: NEGATIVE Med Orders - Current: Current Medications Acetaminophen (Tylenol) 650 mg PO Q4H PRN PRN Reason: Pain (Mild 1-3)/fever Hydrocodone Bitart/Acetaminophen ([place] 325-5 Mg) 1 tab PO Q6H PRN PRN Reason: Pain Last Admin: 06/06/19 11:57 Dose: 1 tab Albuterol (Proventil Neb Soln) 2.5 mg NEB Q2H PRN PRN Reason: Shortness of Breath Last Admin: 06/06/19 04:42 Dose: 2.5 mg Albuterol/Ipratropium (Duoneb 3.0-0.5 Mg/3 Ml) 3 ml NEB QIDRT [facility] Last Admin: 06/06/19 14:51 Dose: 3 ml Bisacodyl (Dulcolax) 5 mg PO DAILY PRN PRN Reason: Constipation Bupropion HCl (Wellbutrin Sr) 150 mg PO BID [facility] Last Admin: 06/06/19 08:47 Dose: 150 mg Clonazepam (Klonopin) 0.5 mg PO DAILY PRN PRN Reason: Anxiety Docusate Sodium (Colace) 100 mg PO BID PRN PRN Reason: Constipation Enoxaparin Sodium (Lovenox) 40 mg SUBCUT DAILY [facility] Last Admin: 06/06/19 08:48 Dose: 40 mg Furosemide (Lasix) 40 mg PO DAILY PRN PRN Reason: Other Azithromycin 500 mg/ Sodium (Chloride) 250 mls @ 250 mls/hr IV Q24H [facility] Last Admin: 06/05/19 21:12 Dose: 250 mls/hr Ceftriaxone Sodium 1 gm/ (Sodium Chloride) 50 mls @ 100 mls/hr IV Q24H [facility] Last Admin: 06/05/19 20:45 Dose: 100 mls/hr Lamotrigine (Lamotrigine) 50 mg PO DAILY [facility] Last Admin: 06/06/19 08:47 Dose: 50 mg Lamotrigine (Lamotrigine) 100 mg PO DAILY [facility] Last Admin: 06/06/19 08:47 Dose: 100 mg Levothyroxine Sodium (Levothyroxine) 25 mcg PO ACBREAKFAST@0700 [facility] Last Admin: 06/06/19 08:47 Dose: 25 mcg Lorazepam (Ativan) 1 mg IV Q6H PRN PRN Reason: Nausea/Vomiting Magnesium Oxide (Magnesium Oxide) 200 mg PO DAILY [facility] Last Admin: 06/06/19 08:48 Dose: 200 mg Methylprednisolone Sodium Succinate (Solu-Medrol) 40 mg IVPUSH Q6H [facility] Last Admin: 06/06/19 16:03 Dose: 40 mg Morphine Sulfate (Morphine) 2 mg IVPUSH Q4H PRN PRN Reason: Pain (severe 7-10) Penciclovir (Denavir () 1% CrmPom) 0 gm TP ASDIRECTED PRN PRN Reason: PRN Ondansetron HCl (Zofran Odt) 4 mg PO Q6H PRN PRN Reason: Nausea able to take PO Pantoprazole Sodium (Protonix) 40 mg PO BIDAC [facility] Last Admin: 12/31/19 16:03 Dose: 40 mg Potassium Chloride (Klor-Con M20) 40 meq PO ONETIME ONE Stop: 06/06/19 16:04 Potassium Chloride (Klor-Con M20) 40 meq PO ONETIME ONE Stop: 06/06/19 21:01 Sertraline HCl (Zoloft) 150 mg PO DAILY [facility] Last Admin: 06/06/19 08:48 Dose: 150 mg Sodium Chloride (Saline Flush) 10 ml FLUSH ASDIRECTED PRN PRN Reason: Keep Vein Open Last Admin: 06/05/19 18:51 Dose: 10 ml Tizanidine HCl (Zanaflex) 4 mg PO Q8H PRN PRN Reason: Muscle Spasm Trazodone HCl (Trazodone) 50 - 100 mg PO BEDTIME PRN PRN Reason: Sleep Last Admin: 06/05/19 22:44 Dose: 50 mg Triamcinolone Acetonide (Triamcinolone Acetonide 0.1% Crm) 0 gm TOP TID [facility] Last Admin: 06/06/19 14:25 Dose: Not Given Zolpidem Tartrate (Ambien) 5 mg PO BEDTIME PRN PRN Reason: Sleep Discontinued Medications Albuterol (Proventil Neb Soln) 2.5 mg NEB ONETIME STA Stop: 06/06/19 01:35 Last Admin: 06/06/19 01:45 Dose: 2.5 mg Albuterol/Ipratropium (Duoneb 3.0-0.5 Mg/3 Ml) 3 ml NEB ONETIME ONE Stop: 06/05/19 18:35 Last Admin: 06/05/19 18:48 Dose: 3 ml Bupropion HCl (Wellbutrin) 150 mg PO BID [facility] Last Admin: 06/05/19 22:44 Dose: 150 mg Fentanyl (Sublimaze) 50 mcg IVPUSH ONETIME ONE Stop: 06/05/19 18:58 Last Admin: 06/05/19 19:03 Dose: 50 mcg Lactated Ringer's (Ringers, Lactated) 1,000 mls @ 500 mls/hr IV ASDIRECTED ONE Stop: 06/05/19 20:31 Last Admin: 06/05/19 18:49 Dose: 500 mls/hr Sodium Chloride (Normal Saline) 1,000 mls @ 125 mls/hr IV ASDIRECTED [facility] Last Infusion: 06/06/19 01:25 Dose: 75 mls/hr Sodium Chloride (Normal Saline) 1,000 mls @ 75 mls/hr IV ASDIRECTED [facility] Methylprednisolone Sodium Succinate (Solu-Medrol) 125 mg IVPUSH ONETIME ONE Stop: 06/05/19 21:54 Last Admin: 06/05/19 22:23 Dose: 125 mg Morphine Sulfate (Morphine) 2 mg IVPUSH ONETIME ONE Stop: 06/05/19 20:59 Last Admin: 06/05/19 22:26 Dose: Not Given Pantoprazole Sodium (Protonix Granules) 40 mg PO BIDAC [facility] Last Admin: 06/05/19 22:44 Dose: 40 mg - Exam Quality Assessment: DVT Prophylaxis General: Alert, Oriented, Cooperative, Moderate Distress Lungs: Decreased Breath Sounds, Rhonchi, Wheezing. No: Rales, Rub Cardiovascular: Regular Rate, Regular Rhythm, No Murmurs GI/Abdominal Exam: Soft, Non-Tender, No Organomegaly, No Distention Extremities: Non-Tender, No Pedal Edema Sepsis Event Note - Evaluation Sepsis Screening Result: No Definite Risk - Focused Exam Vital Signs: Vital Signs Temp Pulse Resp BP Pulse Ox 06/06/19 15:00 96.6 F 74 18 119/63 88 L 06/06/19 12:55 96 06/06/19 11:41 96.5 F 79 20 122/64 93 L 06/06/19 10:46 70 06/06/19 07:37 95.1 F L 71 20 111/50 L 88 L 06/06/19 07:19 92 L 06/06/19 07:09 77 Date Exam was Performed: 06/06/19 Time Exam was Performed: 16:07 - Problem List Review Problem List Initiated/Reviewed/Updated: Yes - My Orders Last 24 Hours: My Active Orders 06/07/19 05:11 POTASSIUM,K [CHEM] AM 06/06/19 16:03 Potassium Chloride [Klor-Con M20] 40 meq PO ONETIME ONE Convert IV to Saline Lock [OM.PC] Routine 06/06/19 21:00 Potassium Chloride [Klor-Con M20] 40 meq PO ONETIME ONE - Plan Plan:: ASSESSMENT AND PLAN OF CARE: Pneumonia, with COPD exacerbation -Saline lock IV -IV Antibiotic; Rocephin 1 gram IV every 24 hours -IV Zithromax 500mg every 24 hours -IV Solumedrol 40 mg every 6 hours -schedule Duo nebs every 6 hours, Albuterol nebs every 4 hours prn -blood cultures x2 pending Hypoxic respiratory failure-secondary to pneumonia and COPD exacerbation -Supplemental oxygen as needed Right chronic leg ulcer -daily dressing changes with non-stick dressing, 4x4 and coban. no tape -Follow-up with Dr. Walton on , inpatient versus outpatient Maintenance issues -Orders home meds: chronic medication -Nutrition: regular diet -Barrett catheter -not indicated at this time -DVT: Lovenox 30 units subcut. -PPI; PO Protonix 40mg daily CODE STATUS: FULL Admission status: Admit to [address] [place] [address] Admission justification. This patient will be admitted for inpatient services and is medically appropriate meeting medical necessity for inpatient admission as outlined in my documentation. I reasonably expect the patient will require inpatient services that span. Time over 2 midnights. I reasonably expect this patient to be discharged or transferred within 96 hours after admission to the [facility]. Disposition: home with Family Primary care provider: Dr. Mckeon, [facility] Hospitalist: Dr. Mcclure
[2019-06-06] MEDS ORDERED: Potassium Chloride 20 MEQ Tab.ER PO ONE ×2 (17:00→21:00)
[2019-06-06] MEDS: cefTRIAXone 1 GM in Sodium Chloride 0.9% 50 ML IV SCH (19:56)
[2019-06-06] MEDS: Azithromycin 500 MG in Sodium Chloride 0.9% 250 ML IV SCH (20:58)
[2019-06-06] MEDS: Acetylcysteine 20% 200 MG/ML 4 ML Nebulizer Soln SDV NEB SCH (21:17)
[2019-06-06] MEDS: traZODone 50 MG Tab PO PRN (22:37)
[2019-06-06] MEDS: Ondansetron 4 MG Tab.DIS PO PRN (22:38)
[2019-06-07] MEDS: Acetaminophen/HYDROcodone 325-5 MG Tab PO PRN ×2 (00:28→08:35)
[2019-06-07] MEDS: methylPREDNISolone Sodium Succinate 40 MG/1 ML SDV IVPUSH SCH ×2 (05:02→11:46)
[2019-06-07] MEDS: Acetylcysteine 20% 200 MG/ML 4 ML Nebulizer Soln SDV NEB SCH ×2 (07:45→13:12)
[2019-06-07] MEDS: Albuterol/Ipratropium 3.0-0.5 MG/3 ML Neb Soln NEB SCH ×4 (07:45→20:56)
[2019-06-07] MEDS: Levothyroxine 25 MCG Tab PO SCH (08:37)
[2019-06-07] MEDS: Pantoprazole 40 MG Tab.CR PO SCH ×2 (08:37→18:02)
[2019-06-07] MEDS: lamoTRIgine 25 MG Tab PO SCH (08:37)
[2019-06-07] MEDS: Enoxaparin 40 MG/0.4 ML Syringe SUBCUT SCH (08:38)
[2019-06-07] MEDS: lamoTRIgine 100 MG Tab PO SCH (08:38)
[2019-06-07] MEDS: Magnesium Oxide 400 MG Tab PO SCH (08:38)
[2019-06-07] MEDS: Sertraline 50 MG Tab PO SCH (08:39)
[2019-06-07] MEDS: buPROPion 150 MG Tab.SR PO SCH ×2 (08:39→20:50)
[2019-06-07] MEDS: Triamcinolone Acetonide 0.1% Crm 15 GM Tube TOP SCH ×3 (08:39→20:49)
[2019-06-07] MEDS: Acetaminophen 325 MG Tab PO PRN ×3 (11:46→23:25)
[2019-06-07] MEDS: Albuterol 0.083% 2.5 MG/3 ML Neb Soln NEB PRN (13:13)
--- NOTE | 2019-06-07 13:17 | PCM.PN ---
- General Info Date of Service: 06/07/19 Subjective Update: No acute events overnight. Still fairly short of breath but a little better today. Cough is minimally productive but she does feel like there is sputum to be coughed up. She did not have any fevers. She continues to require supplemental oxygen. She is moving around a little more each day but still very short of breath with activity. She feels weak. Appetite is not great. Functional Status: Reports: Pain Controlled, Tolerating Diet - Review of Systems General: Reports: Weakness Pulmonary: Reports: Shortness of Breath, Cough - Patient Data Vitals - Most Recent: Last Vital Signs Temp 35.4 C 06/07/19 11:52 Pulse 64 06/07/19 11:52 Resp 18 06/07/19 11:52 BP 127/61 06/07/19 11:52 Pulse Ox 92 L 06/07/19 12:30 Weight - Most Recent: 85.23 kg I&O - Last 24 Hours: Intake & Output 06/06/19 06/07/19 06/07/19 22:59 06:59 14:59 Intake Total 400 Balance 400 Lab Results Last 24 Hours: Laboratory Results - last 24 hr 06/07/19 Range/Units 05:55 Potassium 4.8 (3.6-5.2) mmol/L Med Orders - Current: Current Medications Acetaminophen (Tylenol) 650 mg PO Q4H PRN PRN Reason: Pain (Mild 1-3)/fever Last Admin: 06/07/19 11:46 Dose: 650 mg Hydrocodone Bitart/Acetaminophen (Jessie 325-5 Mg) 1 tab PO Q6H PRN PRN Reason: Pain Last Admin: 06/07/19 08:35 Dose: 1 tab Albuterol (Proventil Neb Soln) 2.5 mg NEB Q2H PRN PRN Reason: Shortness of Breath Last Admin: 06/07/19 13:13 Dose: 2.5 mg Albuterol/Ipratropium (Duoneb 3.0-0.5 Mg/3 Ml) 3 ml NEB QIDRT [facility] Last Admin: 06/07/19 11:19 Dose: 3 ml Bisacodyl (Dulcolax) 5 mg PO DAILY PRN PRN Reason: Constipation Bupropion HCl (Wellbutrin Sr) 150 mg PO BID [facility] Last Admin: 06/07/19 08:39 Dose: 150 mg Clonazepam (Klonopin) 0.5 mg PO DAILY PRN PRN Reason: Anxiety Docusate Sodium (Colace) 100 mg PO BID PRN PRN Reason: Constipation Enoxaparin Sodium (Lovenox) 40 mg SUBCUT DAILY [facility] Last Admin: 06/07/19 08:38 Dose: 40 mg Furosemide (Lasix) 40 mg PO DAILY PRN PRN Reason: Other Azithromycin 500 mg/ Sodium (Chloride) 250 mls @ 250 mls/hr IV Q24H [facility] Last Admin: 06/06/19 20:58 Dose: 250 mls/hr Ceftriaxone Sodium 1 gm/ (Sodium Chloride) 50 mls @ 100 mls/hr IV Q24H [facility] Last Admin: 06/06/19 19:56 Dose: 100 mls/hr Lamotrigine (Lamotrigine) 50 mg PO DAILY [facility] Last Admin: 06/07/19 08:37 Dose: 50 mg Lamotrigine (Lamotrigine) 100 mg PO DAILY [facility] Last Admin: 06/07/19 08:38 Dose: 100 mg Levothyroxine Sodium (Levothyroxine) 25 mcg PO ACBREAKFAST@0700 [facility] Last Admin: 06/07/19 08:37 Dose: 25 mcg Lorazepam (Ativan) 1 mg IV Q6H PRN PRN Reason: Nausea/Vomiting Magnesium Oxide (Magnesium Oxide) 200 mg PO DAILY [facility] Last Admin: 06/07/19 08:38 Dose: 200 mg Morphine Sulfate (Morphine) 2 mg IVPUSH Q4H PRN PRN Reason: Pain (severe 7-10) Penciclovir (Denavir () 1% CrmPom) 0 gm TP ASDIRECTED PRN PRN Reason: PRN Ondansetron HCl (Zofran Odt) 4 mg PO Q6H PRN PRN Reason: Nausea able to take PO Last Admin: 06/06/19 22:38 Dose: 4 mg Pantoprazole Sodium (Protonix) 40 mg PO BIDAC [facility] Last Admin: 06/07/19 08:37 Dose: 40 mg Sertraline HCl (Zoloft) 150 mg PO DAILY [facility] Last Admin: 06/07/19 08:39 Dose: 150 mg Sodium Chloride (Saline Flush) 10 ml FLUSH ASDIRECTED PRN PRN Reason: Keep Vein Open Last Admin: 06/05/19 18:51 Dose: 10 ml Tizanidine HCl (Zanaflex) 4 mg PO Q8H PRN PRN Reason: Muscle Spasm Trazodone HCl (Trazodone) 50 - 100 mg PO BEDTIME PRN PRN Reason: Sleep Last Admin: 06/06/19 22:37 Dose: 50 mg Triamcinolone Acetonide (Triamcinolone Acetonide 0.1% Crm) 0 gm TOP TID [facility] Last Admin: 06/07/19 08:39 Dose: Not Given Varenicline (Chantix) 1 mg PO BID [facility] Last Admin: 06/07/19 08:37 Dose: 1 mg Zolpidem Tartrate (Ambien) 5 mg PO BEDTIME PRN PRN Reason: Sleep Discontinued Medications Acetylcysteine (Mucomyst 20%) 200 mg NEB TIDRT [facility] Last Admin: 06/07/19 13:12 Dose: 200 mg Albuterol (Proventil Neb Soln) 2.5 mg NEB ONETIME STA Stop: 06/06/19 01:35 Last Admin: 06/06/19 01:45 Dose: 2.5 mg Albuterol/Ipratropium (Duoneb 3.0-0.5 Mg/3 Ml) 3 ml NEB ONETIME ONE Stop: 06/05/19 18:35 Last Admin: 06/05/19 18:48 Dose: 3 ml Bupropion HCl (Wellbutrin) 150 mg PO BID [facility] Last Admin: 06/05/19 22:44 Dose: 150 mg Fentanyl (Sublimaze) 50 mcg IVPUSH ONETIME ONE Stop: 06/05/19 18:58 Last Admin: 06/05/19 19:03 Dose: 50 mcg Lactated Ringer's (Ringers, Lactated) 1,000 mls @ 500 mls/hr IV ASDIRECTED ONE Stop: 06/05/19 20:31 Last Admin: 06/05/19 18:49 Dose: 500 mls/hr Sodium Chloride (Normal Saline) 1,000 mls @ 125 mls/hr IV ASDIRECTED [facility] Last Infusion: 06/06/19 01:25 Dose: 75 mls/hr Sodium Chloride (Normal Saline) 1,000 mls @ 75 mls/hr IV ASDIRECTED [facility] Methylprednisolone Sodium Succinate (Solu-Medrol) 125 mg IVPUSH ONETIME ONE Stop: 06/05/19 21:54 Last Admin: 06/05/19 22:23 Dose: 125 mg Methylprednisolone Sodium Succinate (Solu-Medrol) 40 mg IVPUSH Q6H [facility] Last Admin: 06/07/19 11:46 Dose: 40 mg Morphine Sulfate (Morphine) 2 mg IVPUSH ONETIME ONE Stop: 06/05/19 20:59 Last Admin: 06/05/19 22:26 Dose: Not Given Pantoprazole Sodium (Protonix Granules) 40 mg PO BIDAC [facility] Last Admin: 06/05/19 22:44 Dose: 40 mg Potassium Chloride (Klor-Con M20) 40 meq PO ONETIME ONE Stop: 06/06/19 17:01 Last Admin: 06/06/19 16:19 Dose: 40 meq Potassium Chloride (Klor-Con M20) 40 meq PO ONETIME ONE Stop: 06/06/19 21:01 Last Admin: 06/06/19 21:04 Dose: 40 meq - Exam Quality Assessment: Supplemental Oxygen General: Alert, Oriented, Cooperative, No Acute Distress Lungs: Normal Respiratory Effort, Rhonchi (moderate diffuse with expiration ), Wheezing (mild mid to end exp bilateral mid lung area ) Cardiovascular: Regular Rate, Regular Rhythm GI/Abdominal Exam: Soft, No Distention Extremities: No Pedal Edema. No: Increased Warmth Skin: Warm, Dry, Other (Allevyn dressing over ulcer right medial lower leg ) Psy/Mental Status: Alert, Normal Affect Sepsis Event Note - Evaluation Sepsis Screening Result: No Definite Risk - Focused Exam Vital Signs: Vital Signs Temp Pulse Resp BP BP Pulse Ox Pulse Ox 06/07/19 12:30 92 L 06/07/19 11:52 35.4 C 64 18 127/61 93 L 06/07/19 11:19 57 L 95 06/07/19 11:00 97 06/07/19 08:27 35.3 C 62 16 143/62 H 93 L 06/07/19 07:48 56 L 94 L 06/07/19 07:24 92 L 06/07/19 05:08 35.8 C 65 18 119/49 L 95 Date Exam was Performed: 06/07/19 Time Exam was Performed: 15:12 - Problem List Review Problem List Initiated/Reviewed/Updated: Yes - My Orders Last 24 Hours: My Active Orders 06/07/19 13:13 Discontinue Telemetry Monitoring [Cardiac Monitoring Discontinue] [RC] Click to Edit 06/07/19 13:14 Benzonatate [Tessalon Perles] 100 mg PO TID PRN Lidocaine 2% [Xylocaine 2% Jelly] 1 ml TOP BID PRN 06/07/19 13:15 guaiFENesin [Mucinex] 600 mg PO BID 06/07/19 16:30 predniSONE 20 mg PO BIDAC 06/08/19 05:00 BASIC METABOLIC PANEL,BMP [CHEM] Timed CBC W/O DIFF,HEMOGRAM [HEME] Timed (1) - Plan Plan:: ASSESSMENT AND PLAN - Pneumonia, with COPD exacerbation-still requiring supplemental oxygen but seems to be slowly improving. -Saline lock IV -Ceftriaxone 1 gram IV every 24 hours -Azithromycin 500mg every 24 hours -transition to prednisone this afternoon -schedule Duo nebs every 6 hours, Albuterol nebs every 4 hours prn -Follow-up blood cultures Hypoxic respiratory failure-secondary to pneumonia and COPD exacerbation. Still requiring oxygen but slowly getting better. -Supplemental oxygen as needed Right chronic leg ulcer-no evidence for active infection. -daily dressing changes with non-stick dressing, 4x4 and coban. no tape -Follow-up with Dr. Walton on , inpatient versus outpatient Maintenance issues -Orders home meds: chronic medication -Nutrition: regular diet -DVT: Lovenox 30 units subcut. -GI; PO Protonix 40mg daily Disposition: home with Family Rj Quinones MD
[2019-06-07] MEDS: guaiFENesin 600 MG Tab.ER PO SCH ×2 (14:41→20:49)
[2019-06-07] MEDS: predniSONE 20 MG Tab PO SCH (18:02)
[2019-06-07] MEDS: Ondansetron 4 MG Tab.DIS PO PRN (19:43)
[2019-06-07] MEDS: cefTRIAXone 1 GM in Sodium Chloride 0.9% 50 ML IV SCH (20:46)
[2019-06-07] MEDS: Azithromycin 500 MG in Sodium Chloride 0.9% 250 ML IV SCH (21:42)
[2019-06-07] MEDS: traZODone 50 MG Tab PO PRN (23:25)
[2019-06-08] MEDS: Acetaminophen/HYDROcodone 325-5 MG Tab PO PRN (02:37)
[2019-06-08] MEDS: Benzonatate 100 MG Cap PO PRN (02:38)
[2019-06-08] MEDS: Acetaminophen 325 MG Tab PO PRN (06:09)
[2019-06-08] MEDS: Albuterol/Ipratropium 3.0-0.5 MG/3 ML Neb Soln NEB SCH ×4 (07:15→22:07)
[2019-06-08] MEDS: predniSONE 20 MG Tab PO SCH ×2 (07:48→16:39)
[2019-06-08] MEDS: Levothyroxine 25 MCG Tab PO SCH (07:48)
[2019-06-08] MEDS: Pantoprazole 40 MG Tab.CR PO SCH ×2 (07:48→16:39)
[2019-06-08] MEDS: lamoTRIgine 25 MG Tab PO SCH (08:00)
[2019-06-08] MEDS: guaiFENesin 600 MG Tab.ER PO SCH ×2 (08:00→22:09)
[2019-06-08] MEDS: buPROPion 150 MG Tab.SR PO SCH ×2 (08:00→22:09)
[2019-06-08] MEDS: Sertraline 50 MG Tab PO SCH (08:00)
[2019-06-08] MEDS: lamoTRIgine 100 MG Tab PO SCH (08:00)
[2019-06-08] MEDS: Magnesium Oxide 400 MG Tab PO SCH (08:01)
[2019-06-08] MEDS: Enoxaparin 40 MG/0.4 ML Syringe SUBCUT SCH (08:01)
[2019-06-08] MEDS: Triamcinolone Acetonide 0.1% Crm 15 GM Tube TOP SCH ×3 (08:02→22:08)
[2019-06-08] MEDS: Ondansetron 4 MG Tab.DIS PO PRN (08:20)
[2019-06-08] MEDS: Morphine 2 MG/ML Syringe IVPUSH PRN ×2 (10:55→20:10)
--- NOTE | 2019-06-08 12:05 | PCM.PN ---
- General Info Date of Service: 06/08/19 Subjective Update: There were no acute events overnight. Patient still feels fairly short of breath, especially with activity. Still has a harsh and mostly nonproductive cough. Still very fatigued. She has a mild generalized headache. No fevers overnight. Wound culture was obtained in the clinic earlier this week and culture has returned with MRSA. Functional Status: Reports: Pain Controlled, Tolerating Diet - Review of Systems General: Reports: Weakness Pulmonary: Reports: Shortness of Breath, Cough - Patient Data Vitals - Most Recent: Last Vital Signs Temp 35.8 C 06/08/19 10:47 Pulse 60 06/08/19 10:53 Resp 16 06/08/19 10:47 BP 125/58 L 06/08/19 10:47 Pulse Ox 90 L 06/08/19 10:47 Weight - Most Recent: 85.23 kg I&O - Last 24 Hours: Intake & Output 06/07/19 06/08/19 06/08/19 22:59 06:59 14:59 Intake Total 2190 200 1280 Balance 2190 200 1280 Lab Results Last 24 Hours: Laboratory Results - last 24 hr 06/08/19 06/08/19 Range/Units 05:54 05:54 WBC 9.9 (4.5-11.0) K/uL RBC 3.46 (3.30-5.50) M/uL Hgb 10.1 L (12.0-15.0) g/dL Hct 32.9 L (36.0-48.0) % MCV 95 (80-98) fL MCH 29 (27-31) pg MCHC 31 L (32-36) % Plt Count 280 (150-400) K/uL Sodium 138 L (140-148) mmol/L Potassium 4.6 (3.6-5.2) mmol/L Chloride 103 (100-108) mmol/L Carbon Dioxide 27 (21-32) mmol/L Anion Gap 12.6 (5.0-14.0) mmol/L BUN 14 (7-18) mg/dL Creatinine 0.8 (0.6-1.0) mg/dL Est Cr Clr Drug Dosing 56.93 mL/min Estimated GFR (MDRD) > 60 (>60) Glucose 123 H (74-106) mg/dL Calcium 8.3 L (8.5-10.1) mg/dL Med Orders - Current: Current Medications Acetaminophen (Tylenol) 650 mg PO Q4H PRN PRN Reason: Pain (Mild 1-3)/fever Last Admin: 06/08/19 06:09 Dose: 650 mg Hydrocodone Bitart/Acetaminophen ([place] 325-5 Mg) 1 tab PO Q6H PRN PRN Reason: Pain Last Admin: 06/08/19 02:37 Dose: 1 tab Albuterol (Proventil Neb Soln) 2.5 mg NEB Q2H PRN PRN Reason: Shortness of Breath Last Admin: 06/07/19 13:13 Dose: 2.5 mg Albuterol/Ipratropium (Duoneb 3.0-0.5 Mg/3 Ml) 3 ml NEB QIDRT [facility] Last Admin: 06/08/19 10:52 Dose: 3 ml Benzonatate (Tessalon Perles) 100 mg PO TID PRN PRN Reason: Cough Last Admin: 06/08/19 02:38 Dose: 100 mg Bisacodyl (Dulcolax) 5 mg PO DAILY PRN PRN Reason: Constipation Last Admin: 06/08/19 11:11 Dose: 5 mg Bupropion HCl (Wellbutrin Sr) 150 mg PO BID [facility] Last Admin: 06/08/19 08:00 Dose: 150 mg Clonazepam (Klonopin) 0.5 mg PO DAILY PRN PRN Reason: Anxiety Docusate Sodium (Colace) 100 mg PO BID PRN PRN Reason: Constipation Doxycycline Hyclate (Vibramycin) 100 mg PO BID [facility] Enoxaparin Sodium (Lovenox) 40 mg SUBCUT DAILY [facility] Last Admin: 06/08/19 08:01 Dose: 40 mg Furosemide (Lasix) 40 mg PO DAILY PRN PRN Reason: Other Guaifenesin (Mucinex) 600 mg PO BID [facility] Last Admin: 06/08/19 08:00 Dose: 600 mg Lamotrigine (Lamotrigine) 50 mg PO DAILY [facility] Last Admin: 06/08/19 08:00 Dose: 50 mg Lamotrigine (Lamotrigine) 100 mg PO DAILY [facility] Last Admin: 06/08/19 08:00 Dose: 100 mg Levothyroxine Sodium (Levothyroxine) 25 mcg PO ACBREAKFAST@0700 [facility] Last Admin: 06/08/19 07:48 Dose: 25 mcg Lidocaine HCl (Xylocaine 2% Jelly) 0 ml TOP BID PRN PRN Reason: dressing changes Lorazepam (Ativan) 1 mg IV Q6H PRN PRN Reason: Nausea/Vomiting Magnesium Oxide (Magnesium Oxide) 200 mg PO DAILY [facility] Last Admin: 06/08/19 08:01 Dose: 200 mg Morphine Sulfate (Morphine) 2 mg IVPUSH Q4H PRN PRN Reason: Pain (severe 7-10) Last Admin: 06/08/19 10:55 Dose: 2 mg Penciclovir (Denavir () 1% CrmPom) 0 gm TP ASDIRECTED PRN PRN Reason: PRN Ondansetron HCl (Zofran Odt) 4 mg PO Q6H PRN PRN Reason: Nausea able to take PO Last Admin: 06/08/19 08:20 Dose: 4 mg Pantoprazole Sodium (Protonix) 40 mg PO BIDAC [facility] Last Admin: 06/08/19 07:48 Dose: 40 mg Prednisone (Prednisone) 20 mg PO BIDMEALS [facility] Last Admin: 06/08/19 07:48 Dose: 20 mg Sertraline HCl (Zoloft) 150 mg PO DAILY [facility] Last Admin: 06/08/19 08:00 Dose: 150 mg Sodium Chloride (Saline Flush) 10 ml FLUSH ASDIRECTED PRN PRN Reason: Keep Vein Open Last Admin: 06/05/19 18:51 Dose: 10 ml Tizanidine HCl (Zanaflex) 4 mg PO Q8H PRN PRN Reason: Muscle Spasm Last Admin: 06/07/19 23:25 Dose: 4 mg Trazodone HCl (Trazodone) 50 - 100 mg PO BEDTIME PRN PRN Reason: Sleep Last Admin: 06/07/19 23:25 Dose: 50 mg Triamcinolone Acetonide (Triamcinolone Acetonide 0.1% Crm) 0 gm TOP TID [facility] Last Admin: 06/08/19 08:02 Dose: Not Given Varenicline (Chantix) 1 mg PO BID [facility] Last Admin: 06/08/19 08:00 Dose: 1 mg Zolpidem Tartrate (Ambien) 5 mg PO BEDTIME PRN PRN Reason: Sleep Discontinued Medications Acetylcysteine (Mucomyst 20%) 200 mg NEB TIDRT [facility] Last Admin: 06/07/19 13:12 Dose: 200 mg Albuterol (Proventil Neb Soln) 2.5 mg NEB ONETIME STA Stop: 06/06/19 01:35 Last Admin: 06/06/19 01:45 Dose: 2.5 mg Albuterol/Ipratropium (Duoneb 3.0-0.5 Mg/3 Ml) 3 ml NEB ONETIME ONE Stop: 06/05/19 18:35 Last Admin: 06/05/19 18:48 Dose: 3 ml Bupropion HCl (Wellbutrin) 150 mg PO BID [facility] Last Admin: 06/05/19 22:44 Dose: 150 mg Fentanyl (Sublimaze) 50 mcg IVPUSH ONETIME ONE Stop: 06/05/19 18:58 Last Admin: 06/05/19 19:03 Dose: 50 mcg Lactated Ringer's (Ringers, Lactated) 1,000 mls @ 500 mls/hr IV ASDIRECTED ONE Stop: 06/05/19 20:31 Last Admin: 06/05/19 18:49 Dose: 500 mls/hr Azithromycin 500 mg/ Sodium (Chloride) 250 mls @ 250 mls/hr IV Q24H [facility] Last Admin: 06/07/19 21:42 Dose: 250 mls/hr Ceftriaxone Sodium 1 gm/ (Sodium Chloride) 50 mls @ 100 mls/hr IV Q24H [facility] Last Admin: 06/07/19 20:46 Dose: 100 mls/hr Sodium Chloride (Normal Saline) 1,000 mls @ 125 mls/hr IV ASDIRECTED [facility] Last Infusion: 06/06/19 01:25 Dose: 75 mls/hr Sodium Chloride (Normal Saline) 1,000 mls @ 75 mls/hr IV ASDIRECTED [facility] Methylprednisolone Sodium Succinate (Solu-Medrol) 125 mg IVPUSH ONETIME ONE Stop: 06/05/19 21:54 Last Admin: 06/05/19 22:23 Dose: 125 mg Methylprednisolone Sodium Succinate (Solu-Medrol) 40 mg IVPUSH Q6H [facility] Last Admin: 06/07/19 11:46 Dose: 40 mg Morphine Sulfate (Morphine) 2 mg IVPUSH ONETIME ONE Stop: 06/05/19 20:59 Last Admin: 06/05/19 22:26 Dose: Not Given Pantoprazole Sodium (Protonix Granules) 40 mg PO BIDAC [facility] Last Admin: 06/05/19 22:44 Dose: 40 mg Potassium Chloride (Klor-Con M20) 40 meq PO ONETIME ONE Stop: 06/06/19 17:01 Last Admin: 06/06/19 16:19 Dose: 40 meq Potassium Chloride (Klor-Con M20) 40 meq PO ONETIME ONE Stop: 06/06/19 21:01 Last Admin: 06/06/19 21:04 Dose: 40 meq - Exam Quality Assessment: Supplemental Oxygen General: Alert, Oriented, Cooperative, No Acute Distress Lungs: Normal Respiratory Effort, Rhonchi (mild diffuse), Wheezing (moderate right sided ) Cardiovascular: Regular Rate, Regular Rhythm GI/Abdominal Exam: Soft, No Distention Extremities: No Pedal Edema. No: Increased Warmth Skin: Warm, Dry Psy/Mental Status: Alert, Normal Affect Sepsis Event Note - Evaluation Sepsis Screening Result: No Definite Risk - Focused Exam Vital Signs: Vital Signs Temp Pulse Resp BP Pulse Ox 06/08/19 10:53 60 06/08/19 10:47 35.8 C 76 16 125/58 L 90 L 06/08/19 07:49 35.5 C 60 20 150/65 H 94 L 06/08/19 07:17 66 06/08/19 02:33 35.2 C 62 18 130/58 L 91 L Date Exam was Performed: 06/08/19 Time Exam was Performed: 14:11 - Problem List Review Problem List Initiated/Reviewed/Updated: Yes - My Orders Last 24 Hours: My Active Orders 06/07/19 13:14 Benzonatate [Tessalon Perles] 100 mg PO TID PRN Lidocaine 2% [Xylocaine 2% Jelly] 0 ml TOP BID PRN 06/07/19 13:15 guaiFENesin [Mucinex] 600 mg PO BID 06/07/19 17:00 predniSONE 20 mg PO BIDMEALS 06/08/19 11:51 Isolation [COMM] Routine 06/08/19 12:00 Doxycycline [Vibramycin] 100 mg PO BID - Plan Plan:: ASSESSMENT AND PLAN - Pneumonia, with COPD exacerbation-Still very short of breath with any activity and requiring more supplemental oxygen than usual. Not much better today than yesterday but vital signs are stable and she is not having fevers. With MRSA cultured from her lower extremity ulcer we will be switching antibiotics. -Saline lock IV -Change antibiotics to doxycycline -Continue prednisone -schedule Duo nebs every 6 hours, Albuterol nebs every 4 hours prn -Follow-up blood cultures Hypoxic respiratory failure-secondary to pneumonia and COPD exacerbation. Still requiring oxygen but slowly getting better. -Supplemental oxygen as needed Right chronic leg ulcer-culture from the wound care clinic did grow out MRSA. Dr. Walton did see her today. -daily dressing changes with non-stick dressing, 4x4 and coban. no tape -Doxycycline twice daily x1 week Maintenance issues -Orders home meds: chronic medication -Nutrition: regular diet -DVT: Lovenox 30 units subcut. -GI; PO Protonix 40mg daily Disposition: home with Family Rj Quinones MD
[2019-06-08] MEDS: Doxycycline 100 MG Cap PO SCH ×2 (12:33→22:09)
[2019-06-08] MEDS: Ibuprofen 600 MG Tab PO PRN (14:25)
[2019-06-08] MEDS ORDERED: Lidocaine 2% Jelly 30 ML Tube ONE (20:11)
[2019-06-08] MEDS: Lidocaine 2% Jelly 30 ML Tube TOP PRN (20:24)
[2019-06-08] MEDS: traZODone 50 MG Tab PO PRN (22:10)
[2019-06-09] MEDS: Albuterol/Ipratropium 3.0-0.5 MG/3 ML Neb Soln NEB SCH ×4 (07:38→21:32)
[2019-06-09] MEDS: predniSONE 20 MG Tab PO SCH ×2 (08:53→17:38)
[2019-06-09] MEDS: Pantoprazole 40 MG Tab.CR PO SCH ×2 (08:53→15:30)
[2019-06-09] MEDS: Levothyroxine 25 MCG Tab PO SCH (08:53)
[2019-06-09] MEDS: lamoTRIgine 25 MG Tab PO SCH (08:54)
[2019-06-09] MEDS: lamoTRIgine 100 MG Tab PO SCH (08:55)
[2019-06-09] MEDS: Magnesium Oxide 400 MG Tab PO SCH (08:57)
[2019-06-09] MEDS: guaiFENesin 600 MG Tab.ER PO SCH ×2 (08:57→21:33)
[2019-06-09] MEDS: Doxycycline 100 MG Cap PO SCH ×2 (08:57→21:33)
[2019-06-09] MEDS: buPROPion 150 MG Tab.SR PO SCH ×2 (08:57→21:31)
[2019-06-09] MEDS: Triamcinolone Acetonide 0.1% Crm 15 GM Tube TOP SCH ×3 (08:58→21:34)
[2019-06-09] MEDS: Enoxaparin 40 MG/0.4 ML Syringe SUBCUT SCH (08:58)
[2019-06-09] MEDS: Sertraline 50 MG Tab PO SCH (08:58)
[2019-06-09] MEDS: Ibuprofen 600 MG Tab PO PRN ×2 (09:12→21:30)
[2019-06-09] MEDS ORDERED: LORazepam 2 MG/ML SDV IV PRN (11:41)
--- NOTE | 2019-06-09 12:11 | PCM.PN ---
- General Info Date of Service: 06/09/19 Subjective Update: There were no acute events overnight. The patient thinks her shortness of breath is slightly better today. She does report some nausea this morning but has not had any vomiting. She has been up and walking around and is moving better today but still feels short of breath with activity. She continues to have a harsh cough but thinks this is slightly better today. She has not had any fevers. She does continue to require supplemental oxygen during the day which is unusual for her. She is very concerned about the MRSA infection in her leg. Functional Status: Reports: Pain Controlled, Tolerating Diet - Review of Systems General: Reports: Weakness. Denies: Fever Pulmonary: Reports: Shortness of Breath, Cough Gastrointestinal: Reports: Nausea - Patient Data Vitals - Most Recent: Last Vital Signs Temp 35.6 C 06/09/19 11:00 Pulse 81 06/09/19 11:00 Resp 18 06/09/19 11:00 BP 122/46 L 06/09/19 11:00 Pulse Ox 95 06/09/19 11:00 Weight - Most Recent: 85.23 kg I&O - Last 24 Hours: Intake & Output 06/08/19 06/09/19 06/09/19 22:59 06:59 14:59 Intake Total 1200 560 Output Total 300 Balance 1200 260 Med Orders - Current: Current Medications Acetaminophen (Tylenol) 650 mg PO Q4H PRN PRN Reason: Pain (Mild 1-3)/fever Last Admin: 06/08/19 06:09 Dose: 650 mg Hydrocodone Bitart/Acetaminophen ([place] 325-5 Mg) 1 tab PO Q6H PRN PRN Reason: Pain Last Admin: 06/08/19 02:37 Dose: 1 tab Albuterol (Proventil Neb Soln) 2.5 mg NEB Q2H PRN PRN Reason: Shortness of Breath Last Admin: 06/07/19 13:13 Dose: 2.5 mg Albuterol/Ipratropium (Duoneb 3.0-0.5 Mg/3 Ml) 3 ml NEB QIDRT [facility] Last Admin: 06/09/19 10:54 Dose: 3 ml Benzonatate (Tessalon Perles) 100 mg PO TID PRN PRN Reason: Cough Last Admin: 06/08/19 02:38 Dose: 100 mg Bisacodyl (Dulcolax) 5 mg PO DAILY PRN PRN Reason: Constipation Last Admin: 06/08/19 11:11 Dose: 5 mg Bupropion HCl (Wellbutrin Sr) 150 mg PO BID [facility] Last Admin: 06/09/19 08:57 Dose: 150 mg Clonazepam (Klonopin) 0.5 mg PO DAILY PRN PRN Reason: Anxiety Last Admin: 06/08/19 14:25 Dose: 0.5 mg Docusate Sodium (Colace) 100 mg PO BID PRN PRN Reason: Constipation Last Admin: 06/09/19 09:12 Dose: 100 mg Doxycycline Hyclate (Vibramycin) 100 mg PO BID [facility] Last Admin: 06/09/19 08:57 Dose: 100 mg Enoxaparin Sodium (Lovenox) 40 mg SUBCUT DAILY [facility] Last Admin: 06/09/19 08:58 Dose: 40 mg Furosemide (Lasix) 40 mg PO DAILY PRN PRN Reason: Other Guaifenesin (Mucinex) 600 mg PO BID [facility] Last Admin: 06/09/19 08:57 Dose: 600 mg Ibuprofen (Motrin) 600 mg PO Q6H PRN PRN Reason: Headache Last Admin: 06/09/19 09:12 Dose: 600 mg Lamotrigine (Lamotrigine) 50 mg PO DAILY [facility] Last Admin: 06/09/19 08:54 Dose: 50 mg Lamotrigine (Lamotrigine) 100 mg PO DAILY [facility] Last Admin: 06/09/19 08:55 Dose: 100 mg Levothyroxine Sodium (Levothyroxine) 25 mcg PO ACBREAKFAST@0700 [facility] Last Admin: 06/09/19 08:53 Dose: 25 mcg Lidocaine HCl (Xylocaine 2% Jelly) 0 ml TOP BID PRN PRN Reason: dressing changes Last Admin: 06/08/19 20:24 Dose: 1 applic Lorazepam (Ativan) 0.5 mg IV Q6H PRN PRN Reason: Nausea/Vomiting Last Admin: 06/09/19 12:01 Dose: 0.5 mg Magnesium Oxide (Magnesium Oxide) 200 mg PO DAILY [facility] Last Admin: 06/09/19 08:57 Dose: 200 mg Morphine Sulfate (Morphine) 2 mg IVPUSH Q4H PRN PRN Reason: Pain (severe 7-10) Last Admin: 06/08/19 20:10 Dose: 2 mg Penciclovir (Denavir () 1% CrmPom) 0 gm TP ASDIRECTED PRN PRN Reason: PRN Ondansetron HCl (Zofran Odt) 4 mg PO Q6H PRN PRN Reason: Nausea able to take PO Last Admin: 06/08/19 08:20 Dose: 4 mg Pantoprazole Sodium (Protonix) 40 mg PO BIDAC [facility] Last Admin: 06/09/19 08:53 Dose: 40 mg Prednisone (Prednisone) 20 mg PO BIDMEALS [facility] Last Admin: 06/09/19 08:53 Dose: 20 mg Sertraline HCl (Zoloft) 150 mg PO DAILY [facility] Last Admin: 06/09/19 08:58 Dose: 150 mg Sodium Chloride (Saline Flush) 10 ml FLUSH ASDIRECTED PRN PRN Reason: Keep Vein Open Last Admin: 06/05/19 18:51 Dose: 10 ml Tizanidine HCl (Zanaflex) 4 mg PO Q8H PRN PRN Reason: Muscle Spasm Last Admin: 06/07/19 23:25 Dose: 4 mg Trazodone HCl (Trazodone) 50 - 100 mg PO BEDTIME PRN PRN Reason: Sleep Last Admin: 06/08/19 22:10 Dose: 50 mg Triamcinolone Acetonide (Triamcinolone Acetonide 0.1% Crm) 0 gm TOP TID [facility] Last Admin: 06/09/19 08:58 Dose: Not Given Varenicline (Chantix) 1 mg PO BID [facility] Last Admin: 06/09/19 08:54 Dose: 1 mg Zolpidem Tartrate (Ambien) 5 mg PO BEDTIME PRN PRN Reason: Sleep Discontinued Medications Acetylcysteine (Mucomyst 20%) 200 mg NEB TIDRT [facility] Last Admin: 06/07/19 13:12 Dose: 200 mg Albuterol (Proventil Neb Soln) 2.5 mg NEB ONETIME STA Stop: 06/06/19 01:35 Last Admin: 06/06/19 01:45 Dose: 2.5 mg Albuterol/Ipratropium (Duoneb 3.0-0.5 Mg/3 Ml) 3 ml NEB ONETIME ONE Stop: 06/05/19 18:35 Last Admin: 06/05/19 18:48 Dose: 3 ml Bupropion HCl (Wellbutrin) 150 mg PO BID [facility] Last Admin: 06/05/19 22:44 Dose: 150 mg Fentanyl (Sublimaze) 50 mcg IVPUSH ONETIME ONE Stop: 06/05/19 18:58 Last Admin: 06/05/19 19:03 Dose: 50 mcg Lactated Ringer's (Ringers, Lactated) 1,000 mls @ 500 mls/hr IV ASDIRECTED ONE Stop: 06/05/19 20:31 Last Admin: 06/05/19 18:49 Dose: 500 mls/hr Azithromycin 500 mg/ Sodium (Chloride) 250 mls @ 250 mls/hr IV Q24H [facility] Last Admin: 06/07/19 21:42 Dose: 250 mls/hr Ceftriaxone Sodium 1 gm/ (Sodium Chloride) 50 mls @ 100 mls/hr IV Q24H [facility] Last Admin: 06/07/19 20:46 Dose: 100 mls/hr Sodium Chloride (Normal Saline) 1,000 mls @ 125 mls/hr IV ASDIRECTED [facility] Last Infusion: 06/06/19 01:25 Dose: 75 mls/hr Sodium Chloride (Normal Saline) 1,000 mls @ 75 mls/hr IV ASDIRECTED [facility] Lidocaine HCl (Xylocaine 2% Jelly) Confirm Administered Dose 30 ml .ROUTE .STK- MED ONE Stop: 06/08/19 20:12 Lorazepam (Ativan) 1 mg IV Q6H PRN PRN Reason: Nausea/Vomiting Methylprednisolone Sodium Succinate (Solu-Medrol) 125 mg IVPUSH ONETIME ONE Stop: 06/05/19 21:54 Last Admin: 06/05/19 22:23 Dose: 125 mg Methylprednisolone Sodium Succinate (Solu-Medrol) 40 mg IVPUSH Q6H [facility] Last Admin: 06/07/19 11:46 Dose: 40 mg Morphine Sulfate (Morphine) 2 mg IVPUSH ONETIME ONE Stop: 06/05/19 20:59 Last Admin: 06/05/19 22:26 Dose: Not Given Pantoprazole Sodium (Protonix Granules) 40 mg PO BIDAC [facility] Last Admin: 06/05/19 22:44 Dose: 40 mg Potassium Chloride (Klor-Con M20) 40 meq PO ONETIME ONE Stop: 06/06/19 17:01 Last Admin: 06/06/19 16:19 Dose: 40 meq Potassium Chloride (Klor-Con M20) 40 meq PO ONETIME ONE Stop: 06/06/19 21:01 Last Admin: 06/06/19 21:04 Dose: 40 meq - Exam Quality Assessment: Supplemental Oxygen General: Alert, Oriented, Cooperative, No Acute Distress Lungs: Normal Respiratory Effort, Rhonchi (mild diffuse ), Wheezing (moderate diffuse) Cardiovascular: Regular Rate, Regular Rhythm GI/Abdominal Exam: Soft, No Distention Extremities: No Pedal Edema, Increased Warmth (mild around the dressing covering her right leg ulcer ) Skin: Warm, Dry Psy/Mental Status: Alert, Normal Affect Sepsis Event Note - Evaluation Sepsis Screening Result: No Definite Risk - Focused Exam Vital Signs: Vital Signs Temp Pulse Resp BP Pulse Ox Pulse Ox 06/09/19 11:00 35.6 C 81 18 122/46 L 95 06/09/19 10:54 73 95 06/09/19 08:00 93 L 06/09/19 07:38 67 91 L 06/09/19 07:00 35.6 C 57 L 18 134/69 94 L 06/09/19 03:00 35.4 C 79 18 143/74 H 92 L Date Exam was Performed: 06/09/19 Time Exam was Performed: 15:38 - Problem List Review Problem List Initiated/Reviewed/Updated: Yes - My Orders Last 24 Hours: My Active Orders 06/08/19 11:51 Isolation [COMM] Routine 06/08/19 12:00 Doxycycline [Vibramycin] 100 mg PO BID 06/08/19 13:34 Ibuprofen [Motrin] 600 mg PO Q6H PRN 06/09/19 11:41 LORazepam [Ativan] 0.5 mg IV Q6H PRN 06/09/19 12:08 RT Acapella [RESPCARE] Routine 06/09/19 12:09 Dressing Change [Wound Care] [RC] Q3D - Plan Plan:: ASSESSMENT AND PLAN - Pneumonia, with COPD exacerbation-Still very short of breath with any activity and requiring more supplemental oxygen than usual. Little better today. Tolerating antibiotics and steroids. Hypoxic during the day but moving a little better. -Saline lock IV -Continue doxycycline -Continue prednisone -schedule Duo nebs every 6 hours, Albuterol nebs every 4 hours prn -Follow-up blood cultures Hypoxic respiratory failure-secondary to pneumonia and COPD exacerbation. Still requiring oxygen during the day which is not normal for her but slowly getting better. -Supplemental oxygen as needed Right chronic leg ulcer-culture from the wound care clinic did grow out MRSA. Dr. Walton is following. -Q3D dressing changes with Allevyn -Doxycycline twice daily x1 week Maintenance issues -Orders home meds: chronic medication -Nutrition: regular diet -DVT: Lovenox 30 units subcut. -GI; PO Protonix 40mg daily Disposition: home with Family Rj Quinones MD
[2019-06-09] MEDS: Acetaminophen 325 MG Tab PO PRN (12:15)
[2019-06-09] MEDS: Acetaminophen/HYDROcodone 325-5 MG Tab PO PRN (21:31)
[2019-06-09] MEDS: Lidocaine 2% Jelly 30 ML Tube TOP PRN (21:32)
[2019-06-09] MEDS: traZODone 50 MG Tab PO PRN (21:32)
[2019-06-10] MEDS: Albuterol/Ipratropium 3.0-0.5 MG/3 ML Neb Soln NEB SCH ×4 (07:09→20:40)
[2019-06-10] MEDS: Pantoprazole 40 MG Tab.CR PO SCH ×2 (07:16→16:03)
[2019-06-10] MEDS: Levothyroxine 25 MCG Tab PO SCH (07:17)
[2019-06-10] MEDS: Ibuprofen 600 MG Tab PO PRN (07:30)
[2019-06-10] MEDS: lamoTRIgine 25 MG Tab PO SCH (09:28)
[2019-06-10] MEDS: Doxycycline 100 MG Cap PO SCH ×2 (09:28→20:40)
[2019-06-10] MEDS: Sertraline 50 MG Tab PO SCH (09:28)
[2019-06-10] MEDS: Enoxaparin 40 MG/0.4 ML Syringe SUBCUT SCH (09:29)
[2019-06-10] MEDS: predniSONE 20 MG Tab PO SCH (09:29)
[2019-06-10] MEDS: Magnesium Oxide 400 MG Tab PO SCH (09:29)
[2019-06-10] MEDS: lamoTRIgine 100 MG Tab PO SCH (09:29)
[2019-06-10] MEDS: guaiFENesin 600 MG Tab.ER PO SCH ×2 (09:30→20:40)
[2019-06-10] MEDS: buPROPion 150 MG Tab.SR PO SCH ×2 (09:30→20:40)
[2019-06-10] MEDS: Triamcinolone Acetonide 0.1% Crm 15 GM Tube TOP SCH ×3 (09:30→20:41)
--- NOTE | 2019-06-10 10:38 | PN ---
DATE OF SERVICE: 06/09/2019 SUBJECTIVE: The patient is stable. She did now have MRSA noted in her wound due to wound culture at the clinic. OBJECTIVE: VITAL SIGNS: Stable. MUSCULOSKELETAL: Wound shows slight improvement. ASSESSMENT: Right leg wound. PLAN: I did discuss with the hospitalist service, doxycycline will cover both the wound and the pneumonia, therefore, we will switch to this. Kedar Walton MD /[id number]
--- NOTE | 2019-06-10 11:29 | PN ---
DATE OF SERVICE: 06/10/2019 SUBJECTIVE: The patient doing better. The wound has improved. Pain is controlled. No nausea, vomiting, shortness of breath, or chest pain. There is good response to antibiotics. OBJECTIVE: Wound shows improvement today. ASSESSMENT: Right leg venous ulcer. PLAN: We do not want a compression wrapping at this time as we would like to observe this for infection purposes. However, overall subjectively and objectively, this wound is improving. Kedar Walton MD /[id number]
--- NOTE | 2019-06-10 11:44 | CONS ---
DATE OF SERVICE: 06/08/2019 REFERRING PHYSICIAN: CONSULTING PHYSICIAN: Kedar Walton MD REASON FOR CONSULTATION: Right leg wound. HISTORY OF PRESENT ILLNESS: A pleasant 64-year-old female who was admitted to the emergency room due to shortness of breath and high sputum production. This was modified by a history of COPD. Unfortunately, this appears to be an exacerbation of COPD due to pneumonia. The patient has been admitted to the hospitalist service for evaluation and management of this. The second problem is she has a wound on her right leg, which has grown and become worse and is concerning for infection, also modified by COPD. PAST MEDICAL HISTORY: Significant including cardiomyopathy, COPD as described above, bronchitis, sleep apnea, history of bowel obstructions, GERD, hiatal hernia, diverticulosis, recurrent bladder infections, bladder suspension, fibromyalgia, chronic pain, back pain, knee pain, vertigo, depression, history of suicidal ideation, hypothyroidism, and hysterectomy. PAST SURGICAL HISTORY: Hysterectomy as described above, hernia repair, multiple EGDs, colonoscopy, and tongue biopsy. SOCIAL HISTORY: She is an active smoker. FAMILY HISTORY: Noncontributory. REVIEW OF SYSTEMS: GENERAL: Appropriate for condition. HEENT: Active smoker. PULMONARY: As described above. CARDIOVASCULAR: Some shortness of breath. GASTROINTESTINAL: No issues, but history of reflux. GENITOURINARY: History of urinary tract infections, but no problems at this time. MUSCULOSKELETAL: Right leg pain. SKIN: Chronic venous ulcer. PHYSICAL EXAMINATION: VITAL SIGNS: Temperature 95.9, blood pressure 150/65, pulse 60, respirations 20, and 94% on 2.5 L. HEENT: Pupils are equal. NECK: Supple. LUNGS: Poor inspiratory effort bilaterally. ABDOMEN: Nontender and nondistended. EXTREMITIES: She has range of motion. SKIN: Has a nonhealing venous ulcer concerning for infection, on her right leg. ASSESSMENT: Venous ulcer, right leg. PLAN: The patient had a culture of this wound recently in the clinic and we await the results of this. Aside from that, continue the Allevyn-type dressing. She may shower, soap and water to get in and on the wound. Kedar Walton MD /[id number]
--- NOTE | 2019-06-10 12:06 | PCM.PN ---
- General Info Date of Service: 06/10/19 Subjective Update: No acute events overnight. Nausea is better but not resolved. No fevers. Still short of breath and still coughing but a little better today than yesterday. Still short of breath with activity. Still requiring supplemental oxygen during the day. Still has some wheezing. Wound care was performed with dressing change today. Tolerating current antibiotics. Functional Status: Reports: Pain Controlled, Tolerating Diet - Review of Systems General: Reports: Weakness. Denies: Fever Pulmonary: Reports: Shortness of Breath, Cough Musculoskeletal: Reports: Leg Pain - Patient Data Vitals - Most Recent: Last Vital Signs Temp 35.4 C 06/10/19 07:21 Pulse 68 06/10/19 10:49 Resp 20 06/10/19 07:21 BP 164/78 H 06/10/19 07:21 Pulse Ox 94 L 06/10/19 08:00 Weight - Most Recent: 85.23 kg I&O - Last 24 Hours: Intake & Output 06/09/19 06/10/19 06/10/19 22:59 06:59 14:59 Intake Total 700 600 Balance 700 600 Med Orders - Current: Current Medications Acetaminophen (Tylenol) 650 mg PO Q4H PRN PRN Reason: Pain (Mild 1-3)/fever Last Admin: 06/09/19 12:15 Dose: 650 mg Hydrocodone Bitart/Acetaminophen ([place] 325-5 Mg) 1 tab PO Q6H PRN PRN Reason: Pain Last Admin: 06/09/19 21:31 Dose: 1 tab Albuterol (Proventil Neb Soln) 2.5 mg NEB Q2H PRN PRN Reason: Shortness of Breath Last Admin: 06/07/19 13:13 Dose: 2.5 mg Albuterol/Ipratropium (Duoneb 3.0-0.5 Mg/3 Ml) 3 ml NEB QIDRT DANIEL Last Admin: 06/10/19 10:48 Dose: 3 ml Benzonatate (Tessalon Perles) 100 mg PO TID PRN PRN Reason: Cough Last Admin: 06/08/19 02:38 Dose: 100 mg Bisacodyl (Dulcolax) 5 mg PO DAILY PRN PRN Reason: Constipation Last Admin: 06/08/19 11:11 Dose: 5 mg Bupropion HCl (Wellbutrin Sr) 150 mg PO BID [facility] Last Admin: 06/10/19 09:30 Dose: 150 mg Clonazepam (Klonopin) 0.5 mg PO DAILY PRN PRN Reason: Anxiety Last Admin: 06/08/19 14:25 Dose: 0.5 mg Docusate Sodium (Colace) 100 mg PO BID PRN PRN Reason: Constipation Last Admin: 06/09/19 09:12 Dose: 100 mg Doxycycline Hyclate (Vibramycin) 100 mg PO BID [facility] Last Admin: 06/10/19 09:28 Dose: 100 mg Enoxaparin Sodium (Lovenox) 40 mg SUBCUT DAILY [facility] Last Admin: 06/10/19 09:29 Dose: 40 mg Furosemide (Lasix) 40 mg PO DAILY PRN PRN Reason: Other Guaifenesin (Mucinex) 600 mg PO BID [facility] Last Admin: 06/10/19 09:30 Dose: 600 mg Ibuprofen (Motrin) 600 mg PO Q6H PRN PRN Reason: Headache Last Admin: 06/10/19 07:30 Dose: 600 mg Lamotrigine (Lamotrigine) 50 mg PO DAILY [facility] Last Admin: 06/10/19 09:28 Dose: 50 mg Lamotrigine (Lamotrigine) 100 mg PO DAILY [facility] Last Admin: 06/10/19 09:29 Dose: 100 mg Levothyroxine Sodium (Levothyroxine) 25 mcg PO ACBREAKFAST@0700 [facility] Last Admin: 06/10/19 07:17 Dose: 25 mcg Lidocaine HCl (Xylocaine 2% Jelly) 0 ml TOP BID PRN PRN Reason: dressing changes Last Admin: 06/09/19 21:32 Dose: 1 applic Magnesium Oxide (Magnesium Oxide) 200 mg PO DAILY [facility] Last Admin: 06/10/19 09:29 Dose: 200 mg Penciclovir (Denavir () 1% CrmPom) 0 gm TP ASDIRECTED PRN PRN Reason: PRN Ondansetron HCl (Zofran Odt) 4 mg PO Q6H PRN PRN Reason: Nausea able to take PO Last Admin: 06/08/19 08:20 Dose: 4 mg [facility]) [facility] Last Admin: 06/10/19 07:16 Dose: 40 mg Prednisone (Prednisone) 20 mg PO BIDMEALS [facility] Last Admin: 06/10/19 09:29 Dose: 20 mg Sertraline HCl (Zoloft) 150 mg PO DAILY [facility] Last Admin: 06/10/19 09:28 Dose: 150 mg Sodium Chloride (Saline Flush) 10 ml FLUSH ASDIRECTED PRN PRN Reason: Keep Vein Open Last Admin: 06/05/19 18:51 Dose: 10 ml Tizanidine HCl (Zanaflex) 4 mg PO Q8H PRN PRN Reason: Muscle Spasm Last Admin: 06/07/19 23:25 Dose: 4 mg Trazodone HCl (Trazodone) 50 - 100 mg PO BEDTIME PRN PRN Reason: Sleep Last Admin: 06/09/19 21:32 Dose: 100 mg Triamcinolone Acetonide (Triamcinolone Acetonide 0.1% Crm) 0 gm TOP TID [facility] Last Admin: 06/10/19 09:30 Dose: Not Given Varenicline (Chantix) 1 mg PO BID [facility] Last Admin: 06/10/19 09:28 Dose: 1 mg Zolpidem Tartrate (Ambien) 5 mg PO BEDTIME PRN PRN Reason: Sleep Discontinued Medications Acetylcysteine (Mucomyst 20%) 200 mg NEB TIDRT [facility] Last Admin: 06/07/19 13:12 Dose: 200 mg Albuterol (Proventil Neb Soln) 2.5 mg NEB ONETIME STA Stop: 06/06/19 01:35 Last Admin: 06/06/19 01:45 Dose: 2.5 mg Albuterol/Ipratropium (Duoneb 3.0-0.5 Mg/3 Ml) 3 ml NEB ONETIME ONE Stop: 06/05/19 18:35 Last Admin: 06/05/19 18:48 Dose: 3 ml Bupropion HCl (Wellbutrin) 150 mg PO BID [facility] Last Admin: 06/05/19 22:44 Dose: 150 mg Fentanyl (Sublimaze) 50 mcg IVPUSH ONETIME ONE Stop: 06/05/19 18:58 Last Admin: 06/05/19 19:03 Dose: 50 mcg Lactated Ringer's (Ringers, Lactated) 1,000 mls @ 500 mls/hr IV ASDIRECTED ONE Stop: 06/05/19 20:31 Last Admin: 06/05/19 18:49 Dose: 500 mls/hr Azithromycin 500 mg/ Sodium (Chloride) 250 mls @ 250 mls/hr IV Q24H [facility] Last Admin: 06/07/19 21:42 Dose: 250 mls/hr Ceftriaxone Sodium 1 gm/ (Sodium Chloride) 50 mls @ 100 mls/hr IV Q24H [facility] Last Admin: 06/07/19 20:46 Dose: 100 mls/hr Sodium Chloride (Normal Saline) 1,000 mls @ 125 mls/hr IV ASDIRECTED [facility] Last Infusion: 06/06/19 01:25 Dose: 75 mls/hr Sodium Chloride (Normal Saline) 1,000 mls @ 75 mls/hr IV ASDIRECTED [facility] Lidocaine HCl (Xylocaine 2% Jelly) Confirm Administered Dose 30 ml .ROUTE .STK- MED ONE Stop: 06/08/19 20:12 Lorazepam (Ativan) 1 mg IV Q6H PRN PRN Reason: Nausea/Vomiting Lorazepam (Ativan) 0.5 mg IV Q6H PRN PRN Reason: Nausea/Vomiting Last Admin: 06/09/19 12:01 Dose: 0.5 mg Methylprednisolone Sodium Succinate (Solu-Medrol) 125 mg IVPUSH ONETIME ONE Stop: 06/05/19 21:54 Last Admin: 06/05/19 22:23 Dose: 125 mg Methylprednisolone Sodium Succinate (Solu-Medrol) 40 mg IVPUSH Q6H [facility] Last Admin: 06/07/19 11:46 Dose: 40 mg Morphine Sulfate (Morphine) 2 mg IVPUSH ONETIME ONE Stop: 06/05/19 20:59 Last Admin: 06/05/19 22:26 Dose: Not Given Morphine Sulfate (Morphine) 2 mg IVPUSH Q4H PRN PRN Reason: Pain (severe 7-10) Last Admin: 06/08/19 20:10 Dose: 2 mg Pantoprazole Sodium (Protonix Granules) 40 mg PO BIDAC [facility] Last Admin: 06/05/19 22:44 Dose: 40 mg Potassium Chloride (Klor-Con M20) 40 meq PO ONETIME ONE Stop: 06/06/19 17:01 Last Admin: 06/06/19 16:19 Dose: 40 meq Potassium Chloride (Klor-Con M20) 40 meq PO ONETIME ONE Stop: 06/06/19 21:01 Last Admin: 06/06/19 21:04 Dose: 40 meq - Exam Quality Assessment: Supplemental Oxygen General: Alert, Oriented, Cooperative, No Acute Distress Lungs: Normal Respiratory Effort, Wheezing (moderate diffuse exp wheezing throughout ) Cardiovascular: Regular Rate, Regular Rhythm GI/Abdominal Exam: Soft, No Distention Extremities: No Pedal Edema Wound/Incisions: No Drainage, Other (large wound right medial lower leg ) Psy/Mental Status: Alert, Normal Affect Sepsis Event Note - Evaluation Sepsis Screening Result: No Definite Risk - Focused Exam Vital Signs: Vital Signs Temp Pulse Resp BP Pulse Ox Pulse Ox 06/10/19 10:49 68 06/10/19 08:00 94 L 06/10/19 07:21 35.4 C 68 20 164/78 H 95 06/10/19 07:09 70 06/10/19 03:00 35.2 C L 20 L 18 151/68 H 94 L Date Exam was Performed: 06/10/19 Time Exam was Performed: 13:57 - Problem List Review Problem List Initiated/Reviewed/Updated: Yes - My Orders Last 24 Hours: My Active Orders 06/09/19 12:08 RT Acapella [RESPCARE] Routine 06/09/19 12:09 Dressing Change [Wound Care] [RC] Q3D 06/09/19 12:12 Peripheral IV Discontinue [OM.PC] Routine 06/11/19 09:00 predniSONE 20 mg PO DAILY - Plan Plan:: ASSESSMENT AND PLAN - Pneumonia, with COPD exacerbation-little less short of breath but still wheezing and still hypoxic beyond baseline. More symptomatic with any activity but slowly getting better. -Saline lock IV -Continue doxycycline -Continue prednisone -schedule Duo nebs every 6 hours, Albuterol nebs every 4 hours prn -Follow-up blood cultures Hypoxic respiratory failure-secondary to pneumonia and COPD exacerbation. Still requiring oxygen during the day which is not normal for her but slowly getting better. -Supplemental oxygen as needed Right chronic leg ulcer-culture from the wound care clinic did grow out MRSA. Dr. Walton is following. -Q3D dressing changes with Allevyn -Doxycycline twice daily x1 week Maintenance issues -Nutrition: regular diet -DVT: Lovenox 30 units subcut. -GI; PO Protonix 40mg daily Disposition: home with Family, hopefully tomorrow Rj Quinones MD
[2019-06-10] MEDS: Acetaminophen/HYDROcodone 325-5 MG Tab PO PRN ×2 (12:08→22:26)
[2019-06-10] MEDS: Acetaminophen 325 MG Tab PO PRN (14:45)
[2019-06-10] MEDS: traZODone 50 MG Tab PO PRN (20:41)
[2019-06-10] MEDS: Ondansetron 4 MG Tab.DIS PO PRN (21:05)
[2019-06-10] MEDS: Benzonatate 100 MG Cap PO PRN (22:25)
[2019-06-11] MEDS: Acetaminophen/HYDROcodone 325-5 MG Tab PO PRN (04:13)
[2019-06-11] MEDS: Albuterol/Ipratropium 3.0-0.5 MG/3 ML Neb Soln NEB SCH ×2 (07:02→10:57)
[2019-06-11 08:28] VITALS: BP 131/69; PULSE 70
[2019-06-11] MEDS ORDERED: predniSONE 20 MG Tab PO SCH (09:00)
[2019-06-11] MEDS: Enoxaparin 40 MG/0.4 ML Syringe SUBCUT SCH (09:28)
[2019-06-11] MEDS: Levothyroxine 25 MCG Tab PO SCH (09:28)
[2019-06-11] MEDS: buPROPion 150 MG Tab.SR PO SCH (09:29)
[2019-06-11] MEDS: guaiFENesin 600 MG Tab.ER PO SCH (09:29)
[2019-06-11] MEDS: Magnesium Oxide 400 MG Tab PO SCH (09:29)
[2019-06-11] MEDS: Sertraline 50 MG Tab PO SCH (09:29)
[2019-06-11] MEDS: Pantoprazole 40 MG Tab.CR PO SCH (09:29)
[2019-06-11] MEDS: Doxycycline 100 MG Cap PO SCH (09:29)
[2019-06-11] MEDS: lamoTRIgine 100 MG Tab PO SCH (09:29)
[2019-06-11] MEDS: Triamcinolone Acetonide 0.1% Crm 15 GM Tube TOP SCH (09:30)
[2019-06-11] MEDS: lamoTRIgine 25 MG Tab PO SCH (09:30)
[2019-06-11] MEDS: Ibuprofen 600 MG Tab PO PRN (09:37)
--- NOTE | 2019-06-11 11:10 | PCM.DCSUM1 ---
Discharge Summary - Hospital Course Brief History: 64-year-old female with history of severe emphysema with nocturnal oxygen dependence and chronic right leg ulcer who was sent from the wound care clinic for evaluation of increased cough and shortness of breath. She was admitted for management of right lower lobe pneumonia with COPD exacerbation. Diagnosis: Stroke: No - Discharge Data Discharge Date: 06/11/19 Discharge Disposition: Home, Self-Care 01 Condition: Good - Referral to Home Health Primary Care Physician: Zhang Mckeon MD - Discharge Diagnosis/Problem(s) (1) Pneumonia SNOMED Code(s): 815279689 ICD Code: J18.9 - PNEUMONIA, UNSPECIFIED ORGANISM Status: Acute Priority : High Qualifiers: Pneumonia type: due to unspecified organism Laterality: right Lung location: lower lobe of lung Qualified Code(s): J18.9 - Pneumonia, unspecified organism (2) COPD exacerbation SNOMED Code(s): 208345720 ICD Code: J44.1 - CHRONIC OBSTRUCTIVE PULMONARY DISEASE W (ACUTE) EXACERBATION Status: Acute (3) Chronic ulcer of leg SNOMED Code(s): 02097754 ICD Code: L97.909 - NON-PRS CHRONIC ULC UNSP PRT OF UNSP LOW LEG W UNSP SEVERITY Status: Acute Priority: Low Qualifiers: Laterality: right Non-pressure ulcer stage: with fat layer exposed Qualified Code(s): L97.912 - Non-pressure chronic ulcer of unspecified part of right lower leg with fat layer exposed - Patient Summary/Data Consults: Consultations 06/05/19 21:53 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 Work -up in the emergency room was suggestive of a right lower lobe pneumonia with an acute exacerbation of her COPD. She was started on broad-spectrum antibiotics as well as steroids and admitted to the hospital for further management. Over the next couple of days her respiratory status did not improve very much. She continued to require supplemental oxygen during the day and shortness of breath had not improved much. Vital signs were otherwise stable. Her wound culture from the clinic did return with MRSA. Antibiotics were transitioned from ceftriaxone and a azithromycin to doxycycline. Steroids were continued but she was transitioned to oral steroids. At this time she was complaining of pain in the right leg. Over the next couple of days she did have a fair amount of improvement in the redness and pain in the right leg. Dr. Walton did see her regarding wound care management and previous dressing change orders were continued. The leg appeared to be improving each day. Her respiratory status did start to improve with the change in antibiotics. Shortness of breath has been steadily improving and she has been able to be up and moving around more each day. She does continue to require some oxygen during the day but is slowly improving. She does have home oxygen available. Her wheezing has nearly resolved but a small amount remains. She feels comfortable going home at this point with the improvement in her respiratory status. Her leg is feeling much better. The plan is for her to continue prednisone with a taper over the next 9 days. She will continue doxycycline with the plan to complete an additional week for management of her chronic leg wound with an acute infection. She was not interested in home care at the time of discharge. She has follow-up with the wound care clinic in 2 days. - Patient Instructions Diet: Regular Diet as Tolerated Activity: As Tolerated Showering/Bathing: May Shower Notify Provider of: Fever, Increased Pain, Nausea and/or Vomiting Other/Special Instructions: 1. You were in the hospital for management of right lower lung pneumonia complicated by an exacerbation of your COPD. Your condition has been slowly improving with antibiotic therapy and steroids. It is not entirely clear if this is a virus or a bacteria. This will take a little while to continue to get better. I recommend ongoing therapy with prednisone. You should taper this medication over the next 9 days. Please take 20 mg daily for 4 days (Wednesday through ) and then 10 mg daily for 5 days. You should continue to use your nebulizer as previously prescribed. You may need to use your oxygen some during the day but this should be less and less over the next several days. 2. The culture of the wound on your right leg returned growing methicillin-resistant staph aureus (MRSA). We are utilizing doxycycline to treat this infection. You should take doxycycline 100 mg twice daily with food for 1 week after hospital discharge. Your first dose outside of the hospital will be due tonight. I recommend that you continue to use the Allevyn dressing that was applied here in the hospital. It may remain in place until your follow-up with the wound care clinic. 3. Continue your other home medications as previously prescribed. 4. Follow up with the wound care clinic and Dr. Mckeon as previously scheduled. - Discharge Plan *PRESCRIPTION DRUG MONITORING PROGRAM REVIEWED*: Not Applicable *COPY OF PRESCRIPTION DRUG MONITORING REPORT IN PATIENT CLYDE: Not Applicable Prescriptions/Med Rec: Benzonatate 100 mg PO TID PRN #20 capsule PRN Reason: Cough Doxycycline [Vibramycin] 100 mg PO BID #14 cap predniSONE [Prednisone] 10 mg PO ASDIRECTED #13 tablet Home Medications: Home Meds Levothyroxine Sodium [Synthroid] 25 mcg PO DAILY 07/05/14 [History] Albuterol Sulfate [Albuterol Sulfate HFA] 2 puff INH Q6H PRN 10/25/14 [History] Ondansetron HCl [Zofran] 4 mg PO Q4H PRN 10/25/14 [History] Loratadine 10 mg PO DAILY 02/14/16 [History] Furosemide 40 mg PO DAILY PRN 06/17/16 [History] Triamcinolone Acetonide [Kenalog 0.1% Crm] 1 applic TOP TID 06/17/16 [History] Albuterol/Ipratropium [DuoNeb 3.0-0.5 MG/3 ML] 3 ml IH Q4H PRN 12/14/16 [History ] Magnesium Oxide [Magnesium] 250 mg PO ASDIRECTED 02/24/17 [History] Sertraline HCl [Zoloft] 150 mg PO DAILY 02/24/17 [History] lamoTRIgine [Lamotrigine] 150 mg PO DAILY 02/24/17 [History] traZODone 1 - 2 tab PO BEDTIME PRN 02/24/17 [History] ClonazePAM [KlonoPIN] 0.5 mg PO DAILY PRN 03/05/17 [History] Penciclovir [Denavir 1% Crm] 1.5 gm TP ASDIRECTED 03/05/17 [History] Mometasone Furoate [Elocon 0.1% Crm] 1 applic TOP DAILY 09/16/17 [History] tiZANidine [Zanaflex] 4 mg PO Q8H PRN 09/16/17 [History] Hydrocodone/Acetaminophen [[place] 5-325 Tablet] 1 each PO Q6HR PRN #28 tablet 02/23 [Rx] Pantoprazole [ProTONIX] 40 mg PO BID 06/06/19 [History] buPROPion HCl [Wellbutrin SR] 150 mg PO BID 06/06/19 [History] Benzonatate 100 mg PO TID PRN #20 capsule 06/11/19 [Rx] Doxycycline [Vibramycin] 100 mg PO BID #14 cap 06/11/19 [Rx] predniSONE [Prednisone] 10 mg PO ASDIRECTED #13 tablet 06/11/19 [Rx] Oxygen Therapy Mode: Nasal Cannula Patient Handouts: Chronic Obstructive Pulmonary Disease Exacerbation, Doxycycline tablets or capsules Referrals: Zhang Mckeon MD [Primary Care Provider] - (f/u as scheduled ) Kedar Walton MD [Physician] - 06/20/19 2:40 pm (Please arrive 15 minutes early to register for your appointments.) - Discharge Summary/Plan Comment DC Time >30 min.: No - Patient Data Vitals - Most Recent: Last Vital Signs Temp 35.7 C 06/11/19 08:21 Pulse 70 06/11/19 08:21 Resp 12 06/11/19 08:21 BP 131/69 06/11/19 08:21 Pulse Ox 90 L 06/11/19 08:21 Weight - Most Recent: 85.23 kg I&O - Last 24 hours: Intake & Output 06/10/19 06/11/19 06/11/19 22:59 06:59 14:59 Intake Total 800 Balance 800 ESTELLA Results - Last 24 hrs: Microbiology 06/05/19 20:22 Aerobic Blood Culture - Final Blood - Venous - Lab Draw NO GROWTH AFTER 5 DAYS Anaerobic Blood Culture - Final NO GROWTH AFTER 5 DAYS 06/05/19 20:22 Aerobic Blood Culture - Final Blood - Venous NO GROWTH AFTER 5 DAYS Anaerobic Blood Culture - Final NO GROWTH AFTER 5 DAYS Med Orders - Current: Current Medications Acetaminophen (Tylenol) 650 mg PO Q4H PRN PRN Reason: Pain (Mild 1-3)/fever Last Admin: 06/10/19 14:45 Dose: 650 mg Hydrocodone Bitart/Acetaminophen ([place] 325-5 Mg) 1 tab PO Q6H PRN PRN Reason: Pain Last Admin: 06/11/19 04:13 Dose: 1 tab Albuterol (Proventil Neb Soln) 2.5 mg NEB Q2H PRN PRN Reason: Shortness of Breath Last Admin: 06/07/19 13:13 Dose: 2.5 mg Albuterol/Ipratropium (Duoneb 3.0-0.5 Mg/3 Ml) 3 ml NEB QIDRT [facility] Last Admin: 06/11/19 10:57 Dose: 3 ml Benzonatate (Tessalon Perles) 100 mg PO TID PRN PRN Reason: Cough Last Admin: 06/10/19 22:25 Dose: 100 mg Bisacodyl (Dulcolax) 5 mg PO DAILY PRN PRN Reason: Constipation Last Admin: 06/08/19 11:11 Dose: 5 mg Bupropion HCl (Wellbutrin Sr) 150 mg PO BID [facility] Last Admin: 06/11/19 09:29 Dose: 150 mg Clonazepam (Klonopin) 0.5 mg PO DAILY PRN PRN Reason: Anxiety Last Admin: 06/08/19 14:25 Dose: 0.5 mg Docusate Sodium (Colace) 100 mg PO BID PRN PRN Reason: Constipation Last Admin: 06/09/19 09:12 Dose: 100 mg Doxycycline Hyclate (Vibramycin) 100 mg PO BID [facility] Last Admin: 06/11/19 09:29 Dose: 100 mg Enoxaparin Sodium (Lovenox) 40 mg SUBCUT DAILY [facility] Last Admin: 06/11/19 09:28 Dose: 40 mg Furosemide (Lasix) 40 mg PO DAILY PRN PRN Reason: Other Guaifenesin (Mucinex) 600 mg PO BID [facility] Last Admin: 06/11/19 09:29 Dose: 600 mg Ibuprofen (Motrin) 600 mg PO Q6H PRN PRN Reason: Headache Last Admin: 06/11/19 09:37 Dose: 600 mg Lamotrigine (Lamotrigine) 50 mg PO DAILY [facility] Last Admin: 06/11/19 09:30 Dose: 50 mg Lamotrigine (Lamotrigine) 100 mg PO DAILY [facility] Last Admin: 06/11/19 09:29 Dose: 100 mg Levothyroxine Sodium (Levothyroxine) 25 mcg PO ACBREAKFAST@0700 [facility] Last Admin: 06/11/19 09:28 Dose: 25 mcg Lidocaine HCl (Xylocaine 2% Jelly) 0 ml TOP BID PRN PRN Reason: dressing changes Last Admin: 06/09/19 21:32 Dose: 1 applic Magnesium Oxide (Magnesium Oxide) 200 mg PO DAILY [facility] Last Admin: 06/11/19 09:29 Dose: 200 mg Penciclovir (Denavir () 1% CrmPom) 0 gm TP ASDIRECTED PRN PRN Reason: PRN Ondansetron HCl (Zofran Odt) 4 mg PO Q6H PRN PRN Reason: Nausea able to take PO Last Admin: 06/10/19 21:05 Dose: 4 mg Pantoprazole Sodium (Protonix) 40 mg PO BIDAC [facility] Last Admin: 06/11/19 09:29 Dose: 40 mg Prednisone (Prednisone) 20 mg PO DAILY [facility] Last Admin: 06/11/19 09:29 Dose: 20 mg Sertraline HCl (Zoloft) 150 mg PO DAILY [facility] Last Admin: 06/11/19 09:29 Dose: 150 mg Sodium Chloride (Saline Flush) 10 ml FLUSH ASDIRECTED PRN PRN Reason: Keep Vein Open Last Admin: 06/05/19 18:51 Dose: 10 ml Tizanidine HCl (Zanaflex) 4 mg PO Q8H PRN PRN Reason: Muscle Spasm Last Admin: 06/07/19 23:25 Dose: 4 mg Trazodone HCl (Trazodone) 50 - 100 mg PO BEDTIME PRN PRN Reason: Sleep Last Admin: 06/10/19 20:41 Dose: 100 mg Triamcinolone Acetonide (Triamcinolone Acetonide 0.1% Crm) 0 gm TOP TID [facility] Last Admin: 06/11/19 09:30 Dose: Not Given Varenicline (Chantix) 1 mg PO BID [facility] Last Admin: 06/11/19 09:29 Dose: 1 mg Zolpidem Tartrate (Ambien) 5 mg PO BEDTIME PRN PRN Reason: Sleep Discontinued Medications Acetylcysteine (Mucomyst 20%) 200 mg NEB TIDRT [facility] Last Admin: 06/07/19 13:12 Dose: 200 mg Albuterol (Proventil Neb Soln) 2.5 mg NEB ONETIME STA Stop: 06/06/19 01:35 Last Admin: 06/06/19 01:45 Dose: 2.5 mg Albuterol/Ipratropium (Duoneb 3.0-0.5 Mg/3 Ml) 3 ml NEB ONETIME ONE Stop: 06/05/19 18:35 Last Admin: 06/05/19 18:48 Dose: 3 ml Bupropion HCl (Wellbutrin) 150 mg PO BID [facility] Last Admin: 06/05/19 22:44 Dose: 150 mg Fentanyl (Sublimaze) 50 mcg IVPUSH ONETIME ONE Stop: 06/05/19 18:58 Last Admin: 06/05/19 19:03 Dose: 50 mcg Lactated Ringer's (Ringers, Lactated) 1,000 mls @ 500 mls/hr IV ASDIRECTED ONE Stop: 06/05/19 20:31 Last Admin: 06/05/19 18:49 Dose: 500 mls/hr Azithromycin 500 mg/ Sodium (Chloride) 250 mls @ 250 mls/hr IV Q24H [facility] Last Admin: 06/07/19 21:42 Dose: 250 mls/hr Ceftriaxone Sodium 1 gm/ (Sodium Chloride) 50 mls @ 100 mls/hr IV Q24H [facility] Last Admin: 06/07/19 20:46 Dose: 100 mls/hr Sodium Chloride (Normal Saline) 1,000 mls @ 125 mls/hr IV ASDIRECTED [facility] Last Infusion: 06/06/19 01:25 Dose: 75 mls/hr Sodium Chloride (Normal Saline) 1,000 mls @ 75 mls/hr IV ASDIRECTED [facility] Lidocaine HCl (Xylocaine 2% Jelly) Confirm Administered Dose 30 ml .ROUTE .STK- MED ONE Stop: 06/08/19 20:12 Lorazepam (Ativan) 1 mg IV Q6H PRN PRN Reason: Nausea/Vomiting Lorazepam (Ativan) 0.5 mg IV Q6H PRN PRN Reason: Nausea/Vomiting Last Admin: 06/09/19 12:01 Dose: 0.5 mg Methylprednisolone Sodium Succinate (Solu-Medrol) 125 mg IVPUSH ONETIME ONE Stop: 06/05/19 21:54 Last Admin: 06/05/19 22:23 Dose: 125 mg Methylprednisolone Sodium Succinate (Solu-Medrol) 40 mg IVPUSH Q6H [facility] Last Admin: 06/07/19 11:46 Dose: 40 mg Morphine Sulfate (Morphine) 2 mg IVPUSH ONETIME ONE Stop: 06/05/19 20:59 Last Admin: 06/05/19 22:26 Dose: Not Given Morphine Sulfate (Morphine) 2 mg IVPUSH Q4H PRN PRN Reason: Pain (severe 7-10) Last Admin: 06/08/19 20:10 Dose: 2 mg Pantoprazole Sodium (Protonix Granules) 40 mg PO BIDAC [facility] Last Admin: 06/05/19 22:44 Dose: 40 mg Potassium Chloride (Klor-Con M20) 40 meq PO ONETIME ONE Stop: 06/06/19 17:01 Last Admin: 06/06/19 16:19 Dose: 40 meq Potassium Chloride (Klor-Con M20) 40 meq PO ONETIME ONE Stop: 06/06/19 21:01 Last Admin: 06/06/19 21:04 Dose: 40 meq Prednisone (Prednisone) 20 mg PO BIDORALS [facility] Last Admin: 06/10/19 09:29 Dose: 20 mg - Exam Quality Assessment: Reports: Supplemental Oxygen General: Reports: Alert, Oriented, Cooperative, No Acute Distress Lungs: Reports: Normal Respiratory Effort, Wheezing (milld/mod mid to end exp). Denies: Clear to Auscultation Cardiovascular: Reports: Regular Rate, Regular Rhythm Extremities: No Pedal Edema Wound/Incisions: Reports: Dressing Dry and Intact Psy/Mental Status: Reports: Alert, Normal Affect
== END 2019-06-11 12:15 | disposition home or self-care (01) | DRG 190 ==
LOC: JP.ED 15:01 → JP.MS 20:28
PROVIDERS: ADMIT Hospitalist; ATTEND Internal Medicine
DX: J44.1 Chronic obstructive pulmonary disease with (acute) exacerbation (principal); J18.9 Pneumonia, unspecified organism; J30.9 Allergic rhinitis, unspecified; J96.91 Respiratory failure, unspecified with hypoxia; L97.912 Non-pressure chronic ulcer of unspecified part of right lower leg with fat layer exposed; I42.9 Cardiomyopathy, unspecified; K44.9 Diaphragmatic hernia without obstruction or gangrene; J44.0 Chronic obstructive pulmonary disease with (acute) lower respiratory infection; F17.210 Nicotine dependence, cigarettes, uncomplicated; G47.30 Sleep apnea, unspecified; K21.9 Gastro-esophageal reflux disease without esophagitis; M19.90 Unspecified osteoarthritis, unspecified site; M54.9 Dorsalgia, unspecified; G89.29 Other chronic pain; M79.7 Fibromyalgia; F41.9 Anxiety disorder, unspecified; F32.9 Major depressive disorder, single episode, unspecified; F17.200 Nicotine dependence, unspecified, uncomplicated; E03.9 Hypothyroidism, unspecified; E66.9 Obesity, unspecified; Z68.30 Body mass index [BMI] 30.0-30.9, adult; Z88.1 Allergy status to other antibiotic agents; Z88.8 Allergy status to other drugs, medicaments and biological substances; Z90.710 Acquired absence of both cervix and uterus; Z79.899 Other long term (current) drug therapy; Z79.51 Long term (current) use of inhaled steroids; Z79.2 Long term (current) use of antibiotics; Z99.81 Dependence on supplemental oxygen; Z90.721 Acquired absence of ovaries, unilateral; Z90.79 Acquired absence of other genital organ(s); Z98.890 Other specified postprocedural states; Z85.41 Personal history of malignant neoplasm of cervix uteri; Z85.42 Personal history of malignant neoplasm of other parts of uterus
CPT/HCPCS: 36415; 71046; 80053; 83605; 84484; 85025; 87040 ×2; 87804 ×2; 94640; 96361; 96374; 99285; J3010; J7120; 80048; 84132; 85027; 87493; 94667; 94668; 94762; 99284; A9270-GY; J0456; J0696; J1650; J2060; J2270; J2920; J2930; J7030; J7050; J7620-GY

== ENCOUNTER 2019-07-15 23:26 | Emergency (ER) | payer MEDICARE, MEDICAID ==
[2019-07-15] MEDS ORDERED: Sodium Chloride 0.9% 10 ML Syringe FLUSH PRN (23:51)
[2019-07-15] MEDS ORDERED: Ketorolac 30 MG/ML SDV IVPUSH ONE (23:51)
[2019-07-15] MEDS ORDERED: Acetaminophen 500 MG Tab PO ONE (23:52)
[2019-07-15 23:54] VITALS: BP 153/85; PULSE 73
--- NOTE | 2019-07-15 23:58 | EDM.PDOC ---
ED HPI GENERAL MEDICAL PROBLEM - General Chief Complaint: Abdominal Pain Stated Complaint: STOMACH PAINS Time Seen by Provider: 07/15/19 23:45 Source of Information: Reports: Patient, Old Records, RN History Limitations: Reports: No Limitations - History of Present Illness INITIAL COMMENTS - FREE TEXT/NARRATIVE: 64 yo female presents with diffuse abdominal pain that began earlier this afternoon. Pain waxes and wanes. Pain is increased with coughing. Her pain reminds her of diverticulitis she has had in the past. No fever. Has not had any recent hard stools, but rather they have been a bit loose lately. No nausea. Has not had any change in her sx's with eating or drinking today. Has had multiple surgeries in the past. Drove herself to the ER [employer]. 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: Other (see below) (none) Bilateral Abdomen Pain Score (Numeric/FACES): 8 - Related Data Allergies Allergy/AdvReac Type Severity Reaction Status Date / Time ciprofloxacin [From Cipro] Allergy Hives Verified 07/15/19 23:35 clonidine HCl [From Catapres] Allergy Blisters Verified 07/15/19 23:35 Home Meds: Home Meds Levothyroxine Sodium [Synthroid] 25 mcg PO DAILY 07/05/14 [History] Albuterol Sulfate [Albuterol Sulfate HFA] 2 puff INH Q6H PRN 10/25/14 [History] Ondansetron HCl [Zofran] 4 mg PO Q4H PRN 10/25/14 [History] Furosemide 40 mg PO DAILY PRN 06/17/16 [History] Triamcinolone Acetonide [Kenalog 0.1% Crm] 1 applic TOP TID 06/17/16 [History] Albuterol/Ipratropium [DuoNeb 3.0-0.5 MG/3 ML] 3 ml IH Q4H PRN 12/14/16 [History ] Magnesium Oxide [Magnesium] 250 mg PO ASDIRECTED 02/24/17 [History] Sertraline HCl [Zoloft] 150 mg PO DAILY 02/24/17 [History] lamoTRIgine [Lamotrigine] 150 mg PO DAILY 02/24/17 [History] traZODone 1 - 2 tab PO BEDTIME PRN 02/24/17 [History] ClonazePAM [KlonoPIN] 0.5 mg PO DAILY PRN 03/05/17 [History] Penciclovir [Denavir 1% Crm] 1.5 gm TP ASDIRECTED 03/05/17 [History] Mometasone Furoate [Elocon 0.1% Crm] 1 applic TOP DAILY 09/16/17 [History] tiZANidine [Zanaflex] 4 mg PO Q8H PRN 09/16/17 [History] Pantoprazole [ProTONIX] 40 mg PO BID 06/06/19 [History] buPROPion HCl [Wellbutrin SR] 150 mg PO BID 06/06/19 [History] Dicyclomine [Bentyl] 20 mg PO QIDACANDBED #20 tab 07/16/19 [Rx] Past Medical History HEENT History: Reports: Allergic Rhinitis, Impaired Vision Cardiovascular History: Reports: Cardiomyopathy, SOB on Exertion Respiratory History: Reports: Bronchitis, Recurrent, COPD, Sleep Apnea Gastrointestinal History: Reports: Bowel Obstruction, Diverticulosis, GERD, Hiatal Hernia Genitourinary History: Reports: UTI, Recurrent, Other (See Below) Other Genitourinary History: bladder suspension SLIP COVER CUTTER History: Reports: , Spontaneous Musculoskeletal History: Reports: Arthritis, Back Pain, Chronic, Fibromyalgia Other Musculoskeletal History: right knee pain Neurological History: Reports: Vertigo Psychiatric History: Reports: Anxiety, Depression, Suicidal Ideation Endocrine/Metabolic History: Reports: Hypothyroidism, Obesity/BMI 30+ Hematologic History: Reports: None Immunologic History: Reports: None Oncologic (Cancer) History: Reports: Cervix, Uterine Other Oncologic History: complete hysterectomy July 09, 2014 Dermatologic History: Reports: Cellulitis Other Dermatologic History: sore on right lower leg that won't go away - Infectious Disease History Infectious Disease History: Reports: Helicobacter Pylori, Measles, Mumps - Past Surgical History Head Surgeries/Procedures: Reports: None HEENT Surgical History: Reports: Other (See Below) Other HEENT Surgeries/Procedures: biopsy on tongue Cardiovascular Surgical History: Reports: None Respiratory Surgical History: Reports: None GI Surgical History: Reports: Appendectomy, Colon, Colonoscopy, EGD, Hernia Repair/Other Female Surgical History: Reports: Hysterectomy, Salpingo-Oophorectomy Endocrine Surgical History: Reports: None Neurological Surgical History: Reports: None Musculoskeletal Surgical History: Reports: None Oncologic Surgical History: Reports: None Dermatological Surgical History: Reports: None Social & Family History - Family History Family Medical History: Noncontributory - Tobacco Use Smoking Status *Q: Current Every Day Smoker Years of Tobacco use: 50 Packs/Tins Daily: 0.2 - Caffeine Use Caffeine Use: Reports: Coffee, Soda - Recreational Drug Use Recreational Drug Use: No - Living Situation & Occupation Living situation: Reports: (Lives with her 80+ mother, and her sister is in the next house. Has 1 son and 2 grandchildren , who she is currently estranged from her child and grandchildren.) ED ROS GENERAL - Review of Systems Review Of Systems: See Below Constitutional: Reports: No Symptoms HEENT: Reports: No Symptoms Respiratory: Reports: No Symptoms Cardiovascular: Reports: No Symptoms GI/Abdominal: Reports: Abdominal Pain, Diarrhea. Denies: Black Stool, Bloody Stool, Constipation, Decreased Appetite, Distension, Flatus, Hematemesis, Hematochezia, Nausea, Vomiting : Reports: No Symptoms Musculoskeletal: Reports: No Symptoms Skin: Reports: No Symptoms Neurological: Reports: No Symptoms ED EXAM, GI/ABD - Physical Exam Exam: See Below Exam Limited By: No Limitations General Appearance: Alert, WD/WN, No Apparent Distress Eyes: Bilateral: Normal Appearance Ears: Normal External Exam, Normal Canal, Hearing Grossly Normal Nose: Normal Inspection, No Blood Throat/Mouth: Normal Inspection, Normal Lips, Normal Oropharynx, Normal Voice, No Airway Compromise Head: Atraumatic, Normocephalic Neck: Normal Inspection Respiratory/Chest: No Respiratory Distress, Lungs Clear, Normal Breath Sounds, No Accessory Muscle Use Cardiovascular: Regular Rate, Rhythm, No Edema GI/Abdominal Exam: Soft, No Distention, Tender (diffusely), Abnormal Bowel Sounds (increased). No: Non-Tender, Distended, Guarding, Rigid, Rebound, Hernia Extremities: Normal Inspection, Normal Range of Motion, Non-Tender, No Pedal Edema Neurological: Alert, Oriented, CN II-XII Intact, Normal Cognition, No Motor/ Sensory Deficits Psychiatric: Normal Affect, Normal Mood Skin Exam: Warm, Dry, Intact, Normal Color, No Rash Course - Vital Signs Last Recorded V/S: Last Vital Signs Temp 36.6 C 07/15/19 23:47 Pulse 73 07/15/19 23:47 Resp 16 07/15/19 23:47 BP 153/85 H 07/15/19 23:47 Pulse Ox 96 07/15/19 23:47 - Orders/Labs/Meds Orders: Active Orders 24 hr Category Date Time Status Abdomen 2V AP Flat Upright [CR] Stat Exams 07/16/19 00:15 Taken Sodium Chloride 0.9% [Saline Flush] Med 07/15/19 23:51 Active 10 ml FLUSH ASDIRECTED PRN Saline Lock Insert [OM.PC] Routine Oth 07/15/19 23:51 Ordered Medication Orders Sodium Chloride (Saline Flush) 10 ml FLUSH ASDIRECTED PRN PRN Reason: Keep Vein Open Last Admin: 07/16/19 00:08 Dose: 10 ml Labs: Laboratory Tests 07/15/19 07/15/19 07/16/19 Range/Units 00:02 00:02 00:43 WBC 8.5 (4.5-11.0) K/uL RBC 4.16 (3.30-5.50) M/uL Hgb 12.4 D (12.0-15.0) g/dL Hct 39.4 (36.0-48.0) % MCV 95 (80-98) fL MCH 30 (27-31) pg MCHC 32 (32-36) % Plt Count 273 (150-400) K/uL Sodium 142 (140-148) mmol/L Potassium 3.6 (3.6-5.2) mmol/L Chloride 103 (100-108) mmol/L Carbon Dioxide 28 (21-32) mmol/L Anion Gap 11.4 (5.0-14.0) mmol/L BUN 13 (7-18) mg/dL Creatinine 1.2 H (0.6-1.0) mg/dL Est Cr Clr Drug Dosing 36.21 mL/min Estimated GFR (MDRD) 45 L (>60) Glucose 115 H (74-106) mg/dL Calcium 8.5 (8.5-10.1) mg/dL C-Reactive Protein 0.96 H (0.0-0.3) mg/dL Urine Color Yellow (YELLOW) Urine Appearance Clear (CLEAR) Urine pH 5.5 (5.0-8.0) Ur Specific [place] 1.020 (1.008-1.030) Urine Protein Negative (NEGATIVE) mg/dL Urine Glucose (UA) Negative (NEGATIVE) mg/dL Urine Ketones Negative (NEGATIVE) mg/dL Urine Occult Blood Negative (NEGATIVE) Urine Nitrite Negative (NEGATIVE) Urine Bilirubin Negative (NEGATIVE) Urine Urobilinogen 0.2 (0.2-1.0) EU/dL Ur Leukocyte Esterase Trace H (NEGATIVE) Urine RBC 0-5 (0-5) Urine WBC 0-5 (0-5) Ur Epithelial Cells Rare Amorphous Sediment Not seen Urine Bacteria Rare Urine Mucus Few Meds: Medications Generic Name Dose Route Start Last Admin Trade Name Freq PRN Reason Stop Dose Admin Sodium Chloride 10 ml 07/15/19 23:51 07/16/19 00:08 Saline Flush FLUSH 10 ml ASDIRECTED PRN Administration Keep Vein Open Discontinued Medications Generic Name Dose Route Start Last Admin Trade Name Freq PRN Reason Stop Dose Admin Acetaminophen 1,000 mg 07/15/19 23:52 07/16/19 00:04 Tylenol Extra Strength PO 07/15/19 23:53 1,000 mg ONETIME ONE Administration Dicyclomine HCl 30 mg 07/16/19 00:59 Bentyl PO 07/16/19 01:00 ONETIME ONE Ketorolac Tromethamine 30 mg 07/15/19 23:51 07/16/19 00:05 Toradol IVPUSH 07/15/19 23:52 30 mg ONETIME ONE Administration - Radiology Interpretation Free Text/Narrative:: Flat/upright abdominal M-kazh-prnhgtnlozk gas pattern, no increase in stool. Departure - Departure Time of Disposition: 01:10 Disposition: Home, Self-Care 01 Condition: Fair Clinical Impression: Viral intestinal infection - Discharge Information *PRESCRIPTION DRUG MONITORING PROGRAM REVIEWED*: No *COPY OF PRESCRIPTION DRUG MONITORING REPORT IN PATIENT CLYDE: No Prescriptions: Dicyclomine [Bentyl] 20 mg PO QIDACANDBED #20 tab Referrals: Zhang Mckeon MD [Primary Care Provider] - Forms: ED Department Discharge Additional Instructions: Use dicyclomine and acetaminophen as needed for pain relief. Eat a diet of foods that are easily digested. Recheck if worse or not improving. Sepsis Event Note - Focused Exam Vital Signs: Vital Signs Temp Pulse Resp BP Pulse Ox 07/15/19 23:47 36.6 C 73 16 153/85 H 96 Date Exam was Performed: 07/16/19 Time Exam was Performed: 01:01 - My Orders Last 24 Hours: My Active Orders 07/15/19 23:51 Sodium Chloride 0.9% [Saline Flush] 10 ml FLUSH ASDIRECTED PRN Saline Lock Insert [OM.PC] Routine 07/16/19 00:15 Abdomen 2V AP Flat Upright [CR] Stat - Assessment/Plan Last 24 Hours: My Active Orders 07/15/19 23:51 Sodium Chloride 0.9% [Saline Flush] 10 ml FLUSH ASDIRECTED PRN Saline Lock Insert [OM.PC] Routine 07/16/19 00:15 Abdomen 2V AP Flat Upright [CR] Stat
[2019-07-16] MEDS ORDERED: Dicyclomine 10 MG Cap PO ONE (00:59)
--- NOTE | 2019-07-17 09:38 | CR ---
Abdomen 2V AP Flat Upright CLINICAL HISTORY: A dominant pain FINDINGS: Small intestinal gas pattern is nonacute. No free air is identified. Patient has had previous abdominal surgery for apparent ventral hernia repair. There is minimal air in the transverse colon. Pattern may represent some thumb printing. IMPRESSION: Nonacute small intestinal gas pattern Possible mucosal thickening in transverse colon Previous ventral hernia repair.
== END 2019-07-16 01:10 | disposition home or self-care (01) ==
LOC: JP.ED 23:26
DX: A08.4 Viral intestinal infection, unspecified (principal); E03.9 Hypothyroidism, unspecified; F32.9 Major depressive disorder, single episode, unspecified; F41.9 Anxiety disorder, unspecified; K21.9 Gastro-esophageal reflux disease without esophagitis; J44.9 Chronic obstructive pulmonary disease, unspecified; F17.210 Nicotine dependence, cigarettes, uncomplicated; Z79.890 Hormone replacement therapy; Z79.899 Other long term (current) drug therapy; Z88.1 Allergy status to other antibiotic agents; Z88.8 Allergy status to other drugs, medicaments and biological substances
CPT/HCPCS: 36415; 74019; 80048; 81001; 85027; 86140; 96374; 99284; A9270; J1885

== ENCOUNTER 2019-08-14 05:36 | Inpatient (IN) | payer MEDICARE, MEDICAID ==
[2019-08-14] MEDS ORDERED: Albuterol/Ipratropium 3.0-0.5 MG/3 ML Neb Soln NEB ONE (05:45)
[2019-08-14] MEDS ORDERED: Scopolamine 1.5 MG Transdermal Patch TOP ONE (05:45)
[2019-08-14] MEDS ORDERED: Celecoxib 200 MG Cap PO ONE (05:45)
[2019-08-14] MEDS ORDERED: Gabapentin 300 MG Cap PO ONE (05:45)
[2019-08-14] MEDS ORDERED: Bupivacaine 0.5%/EPINEPHrine 1:200,000 50 ML MDV ONE (06:55)
[2019-08-14] MEDS: Dextrose 5%-Lactated Ringers 1,000 ML IV SCH ×3 (06:55→22:40)
[2019-08-14] MEDS ORDERED: fentaNYL 250 MCG/5 ML SDV ONE (07:11)
[2019-08-14] MEDS ORDERED: Rocuronium 50 MG/5 ML Vial ONE (07:12)
[2019-08-14] MEDS ORDERED: Ondansetron 4 MG/2 ML SDV ONE (07:12)
[2019-08-14] MEDS ORDERED: Propofol 200 MG/20 ML SDV ONE (07:12)
[2019-08-14] MEDS ORDERED: Dexamethasone 4 MG/ML SDV ONE (07:12)
[2019-08-14] MEDS ORDERED: Neostigmine Methylsulfate 1 MG/ML 5 ML Syringe ONE (07:12)
[2019-08-14] MEDS ORDERED: Glycopyrrolate 0.2 MG/ML 5 ML MDV ONE (07:12)
[2019-08-14] MEDS ORDERED: Succinylcholine 200 MG/10 ML MDV ONE (07:12)
[2019-08-14] MEDS ORDERED: Ketamine 500 MG/5 ML MDV IV SCH (07:30)
[2019-08-14] MEDS: cefOXitin 2 GM in Sodium Chloride 0.9% 50 ML IV ONE ×2 (07:52→10:35)
[2019-08-14] MEDS ORDERED: Ketamine 50 MG in Sodium Chloride 0.9% 49.5 ML IV SCH (08:00)
[2019-08-14] MEDS ORDERED: hydrOXYzine HCL 100 MG/2 ML SDV IM ONE (08:49)
[2019-08-14] MEDS ORDERED: fentaNYL 100 MCG/2 ML SDV IVPUSH ONE (08:56)
--- NOTE | 2019-08-14 10:19 | CR ---
CHEST: 2 view CLINICAL HISTORY:Preop COMPARISON:06/05/2019 FINDINGS: Heart is mildly enlarged. Pulmonary vascularity is normal. Lungs are hyperaerated. No infiltrates are seen. There are atherosclerotic changes in the aorta. Impression: Mild cardiomegaly No acute cardiopulmonary process Mild hyperaeration.
[2019-08-14] MEDS ORDERED: Ondansetron 4 MG/2 ML SDV IVPUSH PRN (10:25)
[2019-08-14] MEDS ORDERED: Albuterol/Ipratropium 3.0-0.5 MG/3 ML Neb Soln INH PRN (10:37)
[2019-08-14] MEDS: Albuterol/Ipratropium 3.0-0.5 MG/3 ML Neb Soln INH SCH ×3 (11:48→21:07)
[2019-08-14] MEDS ORDERED: Pantoprazole 40 MG Vial IVPUSH SCH (12:00)
[2019-08-14] MEDS: cefOXitin 2 GM in Sodium Chloride 0.9% 50 ML IV SCH ×2 (13:23→19:13)
[2019-08-14] MEDS: Levothyroxine 25 MCG Tab PO SCH (14:30)
[2019-08-14] MEDS: Meclizine 25 MG Tab PO SCH (14:30)
[2019-08-14] MEDS: lamoTRIgine 25 MG Tab PO SCH (14:30)
[2019-08-14] MEDS: Sertraline 50 MG Tab PO SCH (14:30)
[2019-08-14] MEDS: Cetirizine 10 MG Tab PO SCH (14:31)
[2019-08-14] MEDS: Morphine 4 MG/ML Syringe IVPUSH PRN ×2 (19:13→21:13)
[2019-08-14] MEDS: Acetaminophen/HYDROcodone 325-5 MG Tab PO PRN (21:07)
[2019-08-14] MEDS: Fluticasone-Salmeterol 113-14 MCG Powder Inhalant INH SCH ×2 (21:07→22:12)
[2019-08-14] MEDS: buPROPion 150 MG Tab.SR PO SCH (21:08)
[2019-08-14] MEDS: Gabapentin 300 MG Cap PO SCH (21:08)
[2019-08-14] MEDS: Morphine 2 MG/ML Syringe IVPUSH PRN (23:24)
[2019-08-15] MEDS: cefOXitin 2 GM in Sodium Chloride 0.9% 50 ML IV SCH ×4 (01:37→20:18)
[2019-08-15] MEDS: Morphine 4 MG/ML Syringe IVPUSH PRN (01:51)
[2019-08-15] MEDS: Acetaminophen/HYDROcodone 325-5 MG Tab PO PRN ×4 (06:40→20:17)
[2019-08-15] MEDS: Fluticasone-Salmeterol 113-14 MCG Powder Inhalant INH SCH ×2 (06:57→20:55)
[2019-08-15] MEDS: Albuterol/Ipratropium 3.0-0.5 MG/3 ML Neb Soln INH SCH ×4 (06:57→20:54)
[2019-08-15] MEDS: Levothyroxine 25 MCG Tab PO SCH (07:24)
[2019-08-15] MEDS ORDERED: Dextrose 5%-Lactated Ringers 1,000 ML IV SCH (07:30)
[2019-08-15] MEDS: Pantoprazole 40 MG Tab.CR PO SCH (08:38)
[2019-08-15] MEDS: buPROPion 150 MG Tab.SR PO SCH ×2 (08:39→20:55)
[2019-08-15] MEDS: Docusate Sodium 100 MG Cap PO SCH ×2 (08:39→20:54)
[2019-08-15] MEDS: Meclizine 25 MG Tab PO SCH (08:39)
[2019-08-15] MEDS: Bisacodyl 5 MG Tab PO SCH ×2 (08:39→20:54)
[2019-08-15] MEDS: Cetirizine 10 MG Tab PO SCH (08:40)
[2019-08-15] MEDS: Furosemide 40 MG Tab PO SCH (08:40)
[2019-08-15] MEDS: Sertraline 50 MG Tab PO SCH (08:40)
[2019-08-15] MEDS: lamoTRIgine 25 MG Tab PO SCH (08:40)
[2019-08-15] MEDS ORDERED: Calcium Carbonate 500 MG Tab.Chew PO PRN (13:23)
[2019-08-15] MEDS: tiZANidine 4 MG Tab PO PRN (16:03)
[2019-08-15] MEDS: Morphine 2 MG/ML Syringe IVPUSH PRN (16:36)
[2019-08-15] MEDS ORDERED: diphenhydrAMINE 50 MG/ML SDV IVPUSH PRN (16:45)
[2019-08-15] MEDS: Gabapentin 300 MG Cap PO SCH (20:54)
[2019-08-15] MEDS: traZODone 50 MG Tab PO PRN (20:57)
[2019-08-16] MEDS: Acetaminophen/HYDROcodone 325-5 MG Tab PO PRN ×6 (00:31→21:48)
[2019-08-16] MEDS: cefOXitin 2 GM in Sodium Chloride 0.9% 50 ML IV SCH ×4 (02:04→19:52)
[2019-08-16] MEDS: Fluticasone-Salmeterol 113-14 MCG Powder Inhalant INH SCH ×2 (06:58→20:02)
[2019-08-16] MEDS: Albuterol/Ipratropium 3.0-0.5 MG/3 ML Neb Soln INH SCH ×4 (06:58→20:06)
[2019-08-16] MEDS ORDERED: Furosemide 40 MG/4 ML VIAL IVPUSH ONE (07:15)
[2019-08-16] MEDS: Levothyroxine 25 MCG Tab PO SCH (07:21)
[2019-08-16] MEDS: Pantoprazole 40 MG Tab.CR PO SCH (07:21)
[2019-08-16] MEDS ORDERED: Sodium Chloride 0.9% 10 ML Syringe IV PRN (07:27)
[2019-08-16] MEDS ORDERED: Benzocaine/Cetylpyridinium/Menthol Lozenge MUCMEM PRN (07:27)
[2019-08-16] MEDS ORDERED: Bisacodyl 5 MG Tab PO PRN (07:29)
[2019-08-16] MEDS: Magnesium Sulfate/Water 2 GM in Premix Bag 1 BAG IV SCH ×4 (08:15→21:02)
[2019-08-16] MEDS: lamoTRIgine 25 MG Tab PO SCH (09:32)
[2019-08-16] MEDS: Potassium Chloride 20 MEQ Tab.ER PO SCH ×2 (09:32→16:56)
[2019-08-16] MEDS: Sertraline 50 MG Tab PO SCH (09:32)
[2019-08-16] MEDS: buPROPion 150 MG Tab.SR PO SCH ×2 (09:32→20:00)
[2019-08-16] MEDS: Cetirizine 10 MG Tab PO SCH (09:33)
[2019-08-16] MEDS: Meclizine 25 MG Tab PO SCH (09:33)
[2019-08-16] MEDS: Docusate Sodium 100 MG Cap PO SCH ×2 (09:33→20:02)
[2019-08-16] MEDS: Furosemide 40 MG Tab PO SCH (09:33)
--- NOTE | 2019-08-16 13:59 | PN ---
DATE OF SERVICE: 08/15/2019 The patient has been afebrile with stable vital signs. Status post total laparoscopic cholecystectomy yesterday. From a pulmonary standpoint, she is doing well. She finds O2 saturations often in the 80s, but that is her baseline. She has some productive cough, but overall looks fairly good in terms of better than seen previously with abdominal surgeries. We will give IV to keep open. Her oral intake is fairly good. Recheck some labs. Slowly maximize activity. Work with pulmonary toilet. She will be going up to a regular diet today. Aayush Ruiz MD /[id number]
--- NOTE | 2019-08-16 13:59 | PN ---
DATE OF SERVICE: 08/16/2019 The patient had T-max of 100.3 last night. Vital signs were otherwise stable. Temperature did come down with some additional pulmonary toilet. Historically, this is the patient gets into trouble with her pulmonary status. We will keep her in ICU today. Her BNP is up quite a bit from 267 on 08/14/2019 to 1764 today, so we will give her IV Lasix 40 mg now, and she will also get her daily oral dose later this morning. We will supplement her with potassium orally today as well as magnesium is somewhat low. Otherwise, we will remove the HEATH drain and maximize activity and pulmonary toilet. Aayush Ruiz MD /[id number]
[2019-08-16] MEDS: Gabapentin 300 MG Cap PO SCH (20:01)
[2019-08-16] MEDS: traZODone 50 MG Tab PO PRN ×2 (21:49→21:50)
[2019-08-17] MEDS: cefOXitin 2 GM in Sodium Chloride 0.9% 50 ML IV SCH ×3 (03:00→09:34)
[2019-08-17] MEDS: Magnesium Sulfate/Water 2 GM in Premix Bag 1 BAG IV SCH (06:26)
[2019-08-17] MEDS: Levothyroxine 25 MCG Tab PO SCH (07:31)
[2019-08-17] MEDS: Pantoprazole 40 MG Tab.CR PO SCH (07:31)
[2019-08-17] MEDS: Albuterol/Ipratropium 3.0-0.5 MG/3 ML Neb Soln INH SCH ×4 (07:58→20:33)
[2019-08-17] MEDS: Fluticasone-Salmeterol 113-14 MCG Powder Inhalant INH SCH ×2 (08:03→20:33)
[2019-08-17] MEDS: lamoTRIgine 25 MG Tab PO SCH (08:15)
[2019-08-17] MEDS: Sertraline 50 MG Tab PO SCH (08:15)
[2019-08-17] MEDS: buPROPion 150 MG Tab.SR PO SCH ×2 (08:15→20:33)
[2019-08-17] MEDS: Furosemide 40 MG Tab PO SCH (08:15)
[2019-08-17] MEDS: Cetirizine 10 MG Tab PO SCH (08:16)
[2019-08-17] MEDS: Docusate Sodium 100 MG Cap PO SCH ×2 (08:16→20:33)
[2019-08-17] MEDS: Meclizine 25 MG Tab PO SCH (08:16)
[2019-08-17] MEDS: Acetaminophen/HYDROcodone 325-5 MG Tab PO PRN ×3 (08:26→22:57)
[2019-08-17] MEDS: Gabapentin 300 MG Cap PO SCH (20:33)
[2019-08-17] MEDS: tiZANidine 4 MG Tab PO PRN (21:52)
[2019-08-17] MEDS: traZODone 50 MG Tab PO PRN (21:52)
[2019-08-17 22:10] VITALS: BP 99/67
[2019-08-18] MEDS: Albuterol/Ipratropium 3.0-0.5 MG/3 ML Neb Soln INH SCH (07:01)
[2019-08-18 07:02] VITALS: PULSE 81
[2019-08-18] MEDS: Levothyroxine 25 MCG Tab PO SCH (10:09)
[2019-08-18] MEDS: buPROPion 150 MG Tab.SR PO SCH (10:09)
[2019-08-18] MEDS: Sertraline 50 MG Tab PO SCH (10:09)
[2019-08-18] MEDS: Meclizine 25 MG Tab PO SCH (10:10)
[2019-08-18] MEDS: Furosemide 40 MG Tab PO SCH (10:10)
[2019-08-18] MEDS: Pantoprazole 40 MG Tab.CR PO SCH (10:10)
[2019-08-18] MEDS: Docusate Sodium 100 MG Cap PO SCH (10:10)
[2019-08-18] MEDS: Cetirizine 10 MG Tab PO SCH (10:10)
[2019-08-18] MEDS: lamoTRIgine 25 MG Tab PO SCH (10:14)
[2019-08-18] MEDS: Fluticasone-Salmeterol 113-14 MCG Powder Inhalant INH SCH (10:23)
--- NOTE | 2019-08-21 13:08 | PN ---
DATE OF SERVICE: 08/17/2019 The patient has been afebrile with stable vital signs. from the pulmonary problems fairly well at this point. We will keep her one more day to consolidate and work on pulmonary toilet. She will likely be ready for discharge home tomorrow. Aayush Ruiz MD /[id number]
--- NOTE | 2019-08-21 13:44 | DISCH ---
FINAL DIAGNOSES: 1. Chronic cholecystitis and cholelithiasis. 2. Chronic obstructive pulmonary disease. 3. Personality disorder. 4. Panlobular emphysema. 5. Chronic low back pain. 6. Open wound of right calf. 7. Obesity. OPERATIVE PROCEDURES: Done on 08/14/2019, laparoscopic cholecystectomy. SUMMARY: This is a 64-year-old with quite severe COPD with a significant emphysema and asthma component, who was suffering from recurrent biliary colic. On the date of admission, we were fortunate enough to get her gallbladder out by laparoscopic approach, as there was a small area without significant adhesions in the area around the gallbladder. Postoperatively, she was maintained in the ICU, due to her quite severe COPD and history of requiring BiPAP and/or mechanical ventilation with most of her hospitalizations involving any abdominal surgery. This time, we were able to avoid either of those issues, and at this point, she will be discharged home on her usual medications plus Tamms 5/325 one tablet q.4 hours p.r.n. pain. We will continue to treat her leg ulcer per the [facility] recommendations and follow up with Dr. Ruiz in [facility] on 08/23/2019.
--- NOTE | 2019-08-24 08:37 | OR ---
DATE OF PROCEDURE: 08/14/2019 SURGEON: Aayush Ruiz MD PREOPERATIVE DIAGNOSIS: Biliary dyskinesia. POSTOPERATIVE DIAGNOSIS: Biliary dyskinesia. OPERATIVE PROCEDURE: Laparoscopic cholecystectomy (00041). ANESTHESIA: General. PEDIATRIC UROLOGIST: Irasema Gresham PA-C INDICATIONS FOR PROCEDURE: The patient presents with ongoing right upper quadrant pain and an abnormal CCK stimulated HIDA scan. The patient is fairly high risk from a pulmonary standpoint for surgery, but after discussion wished to proceed. We will attempt this laparoscopically and with significant need for open approach due to adhesions. Potential risks per se including bleeding, infection, injury to underlying viscera, possible incomplete relief of symptoms following the procedure, as well as possibility of cardiopulmonary, septic, or hemorrhagic complications leading to were all discussed, and the patient wishes to proceed. DETAILS OF PROCEDURE: The patient was taken to the operating room and placed in a supine position. After general endotracheal anesthesia was induced, the abdomen was prepped and draped. In the right lateral abdomen, a transverse incision was made and peritoneal cavity entered under direct vision with an Optiview trocar. This did enter into a space in the right upper abdomen which was relatively clear of adhesions. A 12 mm epigastric trocar site was placed, along with a 5 mm right subcostal trocar. Gallbladder was then identified. This was noted to be edematous and quite distended consistent with some chronic cholecystitis. Gallbladder was retracted anterolaterally, and dissection with Harmonic Scalpel continued downward along the gallbladder neck and into the gallbladder neck/cystic duct junction. Once that area was well delineated, along with the adjacent cystic artery, both structures were clipped 3 times proximally, once distally, and divided. The gallbladder was then dissected off the gallbladder bed using Harmonic scalpel and delivered through the epigastric trocar site. It was noted to have some fine sludge within it and a general cholesterolosis of the gallbladder wall. The area of dissection was then inspected. A Satnos-Bain drain was then taken out through the right lateral trocar site and positioned adjacent to the gallbladder bed. With no further problems, the trocars were removed. Fascia was closed at the 12 mm site with 0 Vicryl stitch. Prior to closure, transversus abdominis plane blocks were placed. Due to the adhesions, both of the blocks were placed on the right side, as we were not able to visualize anything on the left abdomen, and all of the trocars were essentially placed at least slightly to the right of the midline. The patient was taken to the recovery room in satisfactory condition. Physician assistant professor of chemistry, Irasema Gresham, played an essential role in assisting in this case, helping to position the patient, retract structures as needed, as well as suturing and cutting sutures when indicated. Her presence improved patient safety and decreased operative time. Aayush Ruiz MD /[id number]
== END 2019-08-18 12:25 | disposition home or self-care (01) | DRG 418 ==
LOC: JP.SDS 05:36 → JP.ICU 08:30 → JP.SDS 08-15 08:55 → JP.ICU 08-15 08:56
PROVIDERS: ADMIT Surgery; ATTEND Surgery
PROC: 0FT44ZZ Resection of Gallbladder, Percutaneous Endoscopic Approach (ICD-10-PCS; principal; 2019-08-14)
DX: K80.10 Calculus of gallbladder with chronic cholecystitis without obstruction (principal); L97.919 Non-pressure chronic ulcer of unspecified part of right lower leg with unspecified severity; M15.0 Primary generalized (osteo)arthritis; B34.9 Viral infection, unspecified; F17.210 Nicotine dependence, cigarettes, uncomplicated; Z79.890 Hormone replacement therapy; Z79.899 Other long term (current) drug therapy
CPT/HCPCS: 36415; 71046; 71046-26; 80053; 82247; 83735; 83880; 84075; 84100; 85025; 85027; 94640; 94667; A9270-GY; C9113; J0171; J0330; J0694; J1100; J1200; J1940; J2270; J2405; J2704; J2710; J2795; J3010; J3410; J3475; J3490; J7050; J7121; J7620-GY

== ENCOUNTER 2019-11-20 06:06 | Inpatient (IN) | payer MEDICARE, MEDICAID ==
[2019-11-20] MEDS ORDERED: Bupivacaine 0.25% 10 ML SDV ONE ×3 (06:42→09:00)
[2019-11-20] MEDS ORDERED: Povidone-Iodine 10% Soln 118.25 ML Bottle ONE (06:42)
[2019-11-20] MEDS ORDERED: Lactated Ringers 1,000 ML IV SCH (06:45)
[2019-11-20] MEDS ORDERED: Nozin Nasal Sanitizer NASBOTH ONE (07:00)
[2019-11-20] MEDS ORDERED: fentaNYL 250 MCG/5 ML SDV ONE (07:21)
[2019-11-20] MEDS ORDERED: Glycopyrrolate 0.2 MG/ML 5 ML MDV ONE (07:22)
[2019-11-20] MEDS ORDERED: Ondansetron 4 MG/2 ML SDV ONE (07:22)
[2019-11-20] MEDS ORDERED: Propofol 200 MG/20 ML SDV ONE (07:22)
[2019-11-20] MEDS ORDERED: Neostigmine Methylsulfate 1 MG/ML 5 ML Syringe ONE (07:22)
[2019-11-20] MEDS ORDERED: Rocuronium 50 MG/5 ML Vial ONE (07:22)
[2019-11-20] MEDS ORDERED: Dexamethasone 4 MG/ML SDV ONE (07:22)
[2019-11-20] MEDS ORDERED: ceFAZolin 2 GM in Premix Bag 1 BAG IV ONE (07:30)
[2019-11-20] MEDS ORDERED: Lidocaine 4% Top Soln LTA 4 ML Syringe Kit ONE (07:43)
[2019-11-20] MEDS ORDERED: Albuterol 0.083% 2.5 MG/3 ML Neb Soln NEB PRN (09:19)
[2019-11-20] MEDS ORDERED: Acetaminophen 500 MG Tab PO PRN (09:19)
[2019-11-20] MEDS ORDERED: Fluticasone Propionate Nasal Spray 16 GM Bottle NASBOTH PRN (09:19)
[2019-11-20] MEDS ORDERED: Albuterol 8 GM Inhaler INH PRN (09:19)
[2019-11-20] MEDS ORDERED: Furosemide 40 MG Tab PO PRN (09:19)
[2019-11-20] MEDS ORDERED: hydrOXYzine HCL 100 MG/2 ML SDV IM ONE (09:45)
[2019-11-20] MEDS ORDERED: Morphine 4 MG/ML Syringe IM ONE (09:45)
[2019-11-20] MEDS ORDERED: Midazolam 1 MG/ML 2 ML SDV IVPUSH ONE (10:03)
[2019-11-20] MEDS: Sodium Chloride 0.9% 1,000 ML IV SCH ×2 (10:16→18:36)
[2019-11-20] MEDS: HYDROmorphone 2 MG Tab PO PRN ×3 (11:01→23:20)
[2019-11-20] MEDS: Morphine 2 MG/ML Syringe IVPUSH PRN ×3 (12:33→19:52)
[2019-11-20] MEDS: Levothyroxine 25 MCG Tab PO SCH (13:59)
[2019-11-20] MEDS: ceFAZolin 1 GM in Premix Bag 1 BAG IV SCH ×2 (13:59→22:27)
[2019-11-20] MEDS: lamoTRIgine 25 MG Tab PO SCH (14:00)
[2019-11-20] MEDS: Meclizine 25 MG Tab PO SCH (14:00)
--- NOTE | 2019-11-20 14:32 | CR ---
Knee 1V or 2V Rt CLINICAL HISTORY: Hemiprosthesis FINDINGS: Patient is status post placement of a medial hemiprosthesis in the right knee. Components appear well seated. Impression: Status post recent placement hemiprosthesis
[2019-11-20] MEDS: traMADol 50 MG Tab PO SCH ×2 (15:17→22:26)
[2019-11-20] MEDS: Acetaminophen/HYDROcodone 325-5 MG Tab PO PRN ×2 (15:20→19:51)
[2019-11-20] MEDS: Pantoprazole 40 MG Tab.CR PO SCH (16:03)
[2019-11-20] MEDS ORDERED: tiZANidine 4 MG Tab PO PRN (20:48)
[2019-11-20] MEDS: ClonazePAM 0.5 MG Tab PO PRN (20:56)
[2019-11-20] MEDS: traZODone 50 MG Tab PO PRN (20:56)
[2019-11-20] MEDS: tiZANidine 4 MG Tab PO PRN (20:57)
[2019-11-20] MEDS: buPROPion 150 MG Tab.SR PO SCH (20:58)
[2019-11-20] MEDS: Gabapentin 300 MG Cap PO SCH (20:58)
[2019-11-20] MEDS: Ketorolac 30 MG/ML SDV IVPUSH SCH (20:59)
[2019-11-20] MEDS: Docusate Sodium 100 MG Cap PO SCH (20:59)
[2019-11-21] MEDS: Sodium Chloride 0.9% 1,000 ML IV SCH ×2 (03:16→12:34)
[2019-11-21] MEDS: Ketorolac 30 MG/ML SDV IVPUSH SCH ×4 (03:17→20:15)
[2019-11-21] MEDS: traMADol 50 MG Tab PO SCH ×4 (04:00→21:42)
[2019-11-21] MEDS: ceFAZolin 1 GM in Premix Bag 1 BAG IV SCH (06:09)
[2019-11-21] MEDS: Acetaminophen/HYDROcodone 325-5 MG Tab PO PRN ×2 (06:16→10:03)
[2019-11-21] MEDS: Pantoprazole 40 MG Tab.CR PO SCH ×2 (07:23→16:16)
[2019-11-21] MEDS: Levothyroxine 25 MCG Tab PO SCH (07:23)
[2019-11-21] MEDS ORDERED: Non-Formulary Medication 1 Each (Umeclidinium Brm/Vilanterol Tr [Anoro Ellipta 62.5-25 Mcg INH SCH (09:00)
[2019-11-21] MEDS: Sertraline 50 MG Tab PO SCH (10:04)
[2019-11-21] MEDS: buPROPion 150 MG Tab.SR PO SCH ×2 (10:05→20:17)
[2019-11-21] MEDS: lamoTRIgine 25 MG Tab PO SCH (10:05)
[2019-11-21] MEDS: Docusate Sodium 100 MG Cap PO SCH ×2 (10:06→20:17)
[2019-11-21] MEDS: Meclizine 25 MG Tab PO SCH (10:06)
[2019-11-21] MEDS: Cetirizine 10 MG Tab PO SCH (10:07)
[2019-11-21] MEDS: ANORO ELLIPTA INH SCH (11:17)
--- NOTE | 2019-11-21 17:41 | PCM.SURGPN ---
- General Info Date of Service: 11/21/19 Date of Surgery/Procedure: 11/20/19 POD#: 1 Functional Status: Reports: Tolerating Diet, Ambulating, Urinating - Review of Systems General: Reports: No Symptoms HEENT: Reports: No Symptoms Pulmonary: Reports: Shortness of Breath Cardiovascular: Reports: No Symptoms Gastrointestinal: Reports: No Symptoms Genitourinary: Reports: No Symptoms Musculoskeletal: Reports: Leg Pain Skin: Reports: No Symptoms Neurological: Reports: No Symptoms Psychiatric: Reports: No Symptoms - Patient Data Vitals - Most Recent: Last Vital Signs Temp 35.6 C L 11/21/19 14:25 Pulse 57 L 11/21/19 14:25 Resp 18 11/21/19 14:25 BP 83/32 L 11/21/19 14:25 Pulse Ox 95 11/21/19 14:25 Weight - Most Recent: 80.014 kg I&O - Last 24 Hours: Intake & Output 11/21/19 11/21/19 11/21/19 06:59 14:59 22:59 Intake Total 2221 1447 420 Output Total 800 400 Balance 2221 647 20 Med Orders - Current: Current Medications Acetaminophen (Tylenol Extra Strength) 1,000 mg PO BID PRN PRN Reason: Pain Last Admin: 11/20/19 13:10 Dose: 1,000 mg Hydrocodone Bitart/Acetaminophen ([place] 325-5 Mg) 2 tab PO Q3H PRN PRN Reason: Pain (mild 1-3) Last Admin: 11/21/19 10:03 Dose: 2 tab Albuterol (Proventil Neb Soln) 2.5 mg NEB Q4H PRN PRN Reason: Shortness of Breath Albuterol (Ventolin Hfa) 0 gm INH Q6H PRN PRN Reason: Shortness of Breath Bupropion HCl (Wellbutrin Sr) 150 mg PO BID [facility] Last Admin: 11/21/19 10:05 Dose: 150 mg Cetirizine HCl (Zyrtec) 10 mg PO DAILY DANIEL Last Admin: 11/21/19 10:07 Dose: 10 mg Clonazepam (Klonopin) 0.5 mg PO DAILY PRN PRN Reason: Anxiety Last Admin: 11/20/19 20:56 Dose: 0.5 mg Docusate Sodium (Colace) 100 mg PO BID [facility] Last Admin: 11/21/19 10:06 Dose: 100 mg Fluticasone Propionate (Flonase) 0 gm NASBOTH DAILY PRN PRN Reason: Allergies Furosemide (Lasix) 40 mg PO DAILY PRN PRN Reason: swelling Gabapentin (Neurontin) 300 mg PO BEDTIME [facility] Last Admin: 11/20/19 20:58 Dose: 300 mg Hydromorphone HCl (Dilaudid) 2 - 4 mg PO Q4H PRN PRN Reason: Pain (moderate 4-6) Last Admin: 11/20/19 23:20 Dose: 4 mg Sodium Chloride (Normal Saline) 1,000 mls @ 125 mls/hr IV ASDIRECTED [facility] Last Admin: 11/21/19 12:34 Dose: 125 mls/hr Ketorolac Tromethamine (Toradol) 30 mg IVPUSH Q6H [facility] Stop: 11/22/19 03:01 Last Admin: 11/21/19 14:16 Dose: 30 mg Lamotrigine (Lamotrigine) 25 mg PO DAILY [facility] Last Admin: 11/21/19 10:05 Dose: 25 mg Levothyroxine Sodium (Levothyroxine) 25 mcg PO ACBREAKFAST [facility] Last Admin: 11/21/19 07:23 Dose: 25 mcg Meclizine HCl (Antivert) 25 mg PO DAILY [facility] Last Admin: 11/21/19 10:06 Dose: 25 mg Morphine Sulfate (Morphine) 2 mg IVPUSH Q1H PRN PRN Reason: Breakthrough Pain Last Admin: 11/20/19 19:52 Dose: 2 mg Ondansetron HCl (Zofran) 4 mg IVPUSH Q6H PRN PRN Reason: Nausea/Vomiting Pantoprazole Sodium (Protonix) 40 mg PO BIDAC [facility] Last Admin: 11/21/19 16:16 Dose: 40 mg Anoro Ellipta 62.5/ (25mcg Inhaler (Ptom)) 1 each INH DAILY [facility] Last Admin: 11/21/19 11:17 Dose: Not Given Sertraline HCl (Zoloft) 150 mg PO DAILY [facility] Last Admin: 11/21/19 10:04 Dose: 150 mg Tizanidine HCl (Zanaflex) 4 mg PO Q8H PRN PRN Reason: Spasms Last Admin: 11/20/19 20:57 Dose: 4 mg Tramadol HCl (Ultram) 50 mg PO Q6H [facility] Last Admin: 11/21/19 16:16 Dose: 50 mg Trazodone HCl (Trazodone) 50 mg PO BEDTIME PRN PRN Reason: Sleep Last Admin: 11/20/19 20:56 Dose: 50 mg Varenicline (Chantix) 1 mg PO BID [facility] Last Admin: 11/21/19 10:04 Dose: 1 mg Discontinued Medications Bandage/Support Products ( Nasal Body Builder) 1 applic NASBOTH ONETIME ONE Stop: 11/20/19 07:01 Last Admin: 11/20/19 07:11 Dose: 1 applic Bupivacaine HCl (Sensorcaine-Mpf 0.25%) Confirm Administered Dose 10 ml .ROUTE .STK-MED ONE Stop: 11/20/19 06:43 Last Admin: 11/20/19 09:00 Dose: 10 ml Bupivacaine HCl (Sensorcaine-Mpf 0.25%) Confirm Administered Dose 10 ml .ROUTE .STK-MED ONE Stop: 11/20/19 09:01 Last Admin: 11/20/19 09:00 Dose: 10 ml Bupivacaine HCl (Sensorcaine-Mpf 0.25%) Confirm Administered Dose 10 ml .ROUTE .STK-MED ONE Stop: 11/20/19 09:01 Dexamethasone (Dexamethasone) Confirm Administered Dose 4 mg .ROUTE .STK-MED ONE Stop: 11/20/19 07:23 Fentanyl (Sublimaze) Confirm Administered Dose 250 mcg .ROUTE .STK-MED ONE Stop: 11/20/19 07:22 Glycopyrrolate (Robinul) Confirm Administered Dose 1 mg .ROUTE .STK-MED ONE Stop: 11/20/19 07:23 Hydroxyzine HCl (Vistaril) 75 mg IM ONETIME ONE Stop: 11/20/19 09:46 Last Admin: 11/20/19 09:42 Dose: 75 mg Cefazolin Sodium/Dextrose 2 gm (/ Premix) 50 mls @ 100 mls/hr IV ONETIME ONE Stop: 11/20/19 07:59 Last Admin: 11/20/19 07:35 Dose: 100 mls/hr Lactated Ringer's (Ringers, Lactated) 1,000 mls @ 75 mls/hr IV ASDIRECTED [facility] Last Admin: 11/20/19 07:11 Dose: 75 mls/hr Cefazolin Sodium/Dextrose 1 gm (/ Premix) 50 mls @ 100 mls/hr IV Q8H [facility]ANIEL Stop: 11/21/19 06:59 Last Admin: 11/21/19 06:09 Dose: 100 mls/hr Lidocaine (Lta 360 Kit Top Soln) Confirm Administered Dose 4 ml .ROUTE .STK-MED ONE Stop: 11/20/19 07:44 Midazolam HCl (Versed 1 Mg/Ml) 2 mg IVPUSH ONETIME ONE Stop: 11/20/19 10:04 Last Admin: 11/20/19 10:08 Dose: 2 mg Morphine Sulfate (Morphine) 3 mg IM ONETIME ONE Stop: 11/20/19 09:46 Last Admin: 11/20/19 09:45 Dose: 3 mg Neostigmine Methylsulfate (Neostigmine) Confirm Administered Dose 5 mg .ROUTE .STK-MED ONE Stop: 11/20/19 07:23 Ondansetron HCl (Zofran) Confirm Administered Dose 4 mg .ROUTE .STK-MED ONE Stop: 11/20/19 07:23 Povidone Iodine (Betadine 10% Soln) Confirm Administered Dose 1 ml .ROUTE .STK- MED ONE Stop: 11/20/19 06:43 Last Admin: 11/20/19 08:21 Dose: 1 ml Propofol (Diprivan 20 Ml) Confirm Administered Dose 200 mg .ROUTE .STK-MED ONE Stop: 11/20/19 07:23 Rocuronium Desmet (Zemuron) Confirm Administered Dose 50 mg .ROUTE .STK-MED ONE Stop: 11/20/19 07:23 - Exam Wound/Incisions: Dressing Dry and Intact, No Drainage Quality Assessment: Supplemental Oxygen General: Alert, Oriented HEENT: Pupils Equal, Pupils Reactive, EOMI, Mucous Membr. Moist/[place] Lungs: Clear to Auscultation, Other (decreased O2 sats on room air) Cardiovascular: Regular Rate, Regular Rhythm GI/Abdominal Exam: Normal Bowel Sounds, Soft, Non-Tender, No Distention Extremities: Leg Pain, Limited Range of Motion Skin: Warm, Dry Neurological: No New Focal Deficit Psy/Mental Status: Alert, Normal Affect, Normal Mood Sepsis Event Note - Evaluation Sepsis Screening Result: No Definite Risk - Focused Exam Vital Signs: Vital Signs Temp Pulse Resp BP Pulse Ox 11/21/19 14:25 35.6 C L 57 L 18 83/32 L 95 11/21/19 11:25 35.7 C L 91 18 77/47 L 91 L 11/21/19 07:24 35.6 C L 72 85/43 L 93 L Date Exam was Performed: 11/21/19 Time Exam was Performed: 17:35 - Problem List & Annotations (1) Status post right partial knee replacement SNOMED Code(s): 284397465, 44110355, 837540256, 776576711 Code(s): Z96.651 - PRESENCE OF RIGHT ARTIFICIAL KNEE JOINT Status: Acute Current Visit: Yes (2) Knee pain, right SNOMED Code(s): 92852054 Code(s): M25.561 - PAIN IN RIGHT KNEE Status: Acute Current Visit: No Qualifiers: Chronicity: chronic (3) Osteoarthritis, knee SNOMED Code(s): 159798334 Code(s): M17.10 - UNILATERAL PRIMARY OSTEOARTHRITIS, UNSPECIFIED KNEE Status: Acute Current Visit: No Qualifiers: Osteoarthritis type: primary Laterality: right Qualified Code(s): M17.11 - Unilateral primary osteoarthritis, right knee - Problem List Review Problem List Initiated/Reviewed/Updated: Yes - My Orders Last 24 Hours: Active Orders 24 hr Category Date Time Status Cetirizine [ZyrTEC] Med 11/21/19 09:00 Active 10 mg PO DAILY Docusate Sodium [Colace] Med 11/20/19 21:00 Active 100 mg PO BID Gabapentin [Neurontin] Med 11/20/19 21:00 Active 300 mg PO BEDTIME Ketorolac [Toradol] Med 11/20/19 21:00 Active 30 mg IVPUSH Q6H Patient's Own Medication [Ptom] Med 11/21/19 09:00 Active 1 each INH DAILY Sertraline [Zoloft] Med 11/21/19 09:00 Active 150 mg PO DAILY Varenicline [Chantix] Med 11/20/19 21:00 Active 1 mg PO BID buPROPion [Wellbutrin SR] Med 11/20/19 21:00 Active 150 mg PO BID tiZANidine [Zanaflex] Med 11/20/19 20:44 Active 4 mg PO Q8H PRN Convert IV to Saline Lock [OM.PC] Routine Oth 11/21/19 10:04 Ordered Medication Orders Acetaminophen (Tylenol Extra Strength) 1,000 mg PO BID PRN PRN Reason: Pain Last Admin: 11/20/19 13:10 Dose: 1,000 mg Hydrocodone Bitart/Acetaminophen ([place] 325-5 Mg) 2 tab PO Q3H PRN PRN Reason: Pain (mild 1-3) Last Admin: 11/21/19 10:03 Dose: 2 tab Admin: 11/21/19 06:16 Dose: 2 tab Admin: 11/20/19 19:51 Dose: 2 tab Admin: 11/20/19 15:20 Dose: 2 tab Albuterol (Proventil Neb Soln) 2.5 mg NEB Q4H PRN PRN Reason: Shortness of Breath Albuterol (Ventolin Hfa) 0 gm INH Q6H PRN PRN Reason: Shortness of Breath Bupropion HCl (Wellbutrin Sr) 150 mg PO BID [facility] Last Admin: 11/21/19 10:05 Dose: 150 mg Admin: 11/20/19 20:58 Dose: 150 mg Cetirizine HCl (Zyrtec) 10 mg PO DAILY [facility] Last Admin: 11/21/19 10:07 Dose: 10 mg Clonazepam (Klonopin) 0.5 mg PO DAILY PRN PRN Reason: Anxiety Last Admin: 11/20/19 20:56 Dose: 0.5 mg Docusate Sodium (Colace) 100 mg PO BID [facility] Last Admin: 11/21/19 10:06 Dose: 100 mg Admin: 11/20/19 20:59 Dose: 100 mg Fluticasone Propionate (Flonase) 0 gm NASBOTH DAILY PRN PRN Reason: Allergies Furosemide (Lasix) 40 mg PO DAILY PRN PRN Reason: swelling Gabapentin (Neurontin) 300 mg PO BEDTIME [facility] Last Admin: 11/20/19 20:58 Dose: 300 mg Hydromorphone HCl (Dilaudid) 2 - 4 mg PO Q4H PRN PRN Reason: Pain (moderate 4-6) Last Admin: 11/20/19 23:20 Dose: 4 mg Admin: 11/20/19 18:36 Dose: 4 mg Admin: 11/20/19 11:01 Dose: 4 mg Sodium Chloride (Normal Saline) 1,000 mls @ 125 mls/hr IV ASDIRECTED [facility] Last Admin: 11/21/19 12:34 Dose: 125 mls/hr Infusion: 11/21/19 11:16 Dose: 125 mls/hr Admin: 11/21/19 03:16 Dose: 125 mls/hr Infusion: 11/21/19 02:36 Dose: 125 mls/hr Admin: 11/20/19 18:36 Dose: 125 mls/hr Infusion: 11/20/19 18:16 Dose: 125 mls/hr Admin: 11/20/19 10:16 Dose: 125 mls/hr Ketorolac Tromethamine (Toradol) 30 mg IVPUSH Q6H [facility] Stop: 11/22/19 03:01 Last Admin: 11/21/19 14:16 Dose: 30 mg Admin: 11/21/19 10:07 Dose: 30 mg Admin: 11/21/19 03:17 Dose: 30 mg Admin: 11/20/19 20:59 Dose: 30 mg Lamotrigine (Lamotrigine) 25 mg PO DAILY [facility] Last Admin: 11/21/19 10:05 Dose: 25 mg Admin: 11/20/19 14:00 Dose: 25 mg Levothyroxine Sodium (Levothyroxine) 25 mcg PO ACBREAKFAST [facility] Last Admin: 11/21/19 07:23 Dose: 25 mcg Admin: 11/20/19 13:59 Dose: 25 mcg Meclizine HCl (Antivert) 25 mg PO DAILY [facility] Last Admin: 11/21/19 10:06 Dose: 25 mg Admin: 11/20/19 14:00 Dose: 25 mg Morphine Sulfate (Morphine) 2 mg IVPUSH Q1H PRN PRN Reason: Breakthrough Pain Last Admin: 11/20/19 19:52 Dose: 2 mg Admin: 11/20/19 16:47 Dose: 2 mg Admin: 11/20/19 12:33 Dose: 2 mg Ondansetron HCl (Zofran) 4 mg IVPUSH Q6H PRN PRN Reason: Nausea/Vomiting Pantoprazole Sodium (Protonix) 40 mg PO BIDAC [facility] Last Admin: 11/21/19 16:16 Dose: 40 mg Admin: 11/21/19 07:23 Dose: 40 mg Admin: 11/20/19 16:03 Dose: 40 mg Anoro Ellipta 62.5/ (25mcg Inhaler (Ptom)) 1 each INH DAILY [facility] Last Admin: 11/21/19 11:17 Dose: Sertraline HCl (Zoloft) 150 mg PO DAILY [facility] Last Admin: 11/21/19 10:04 Dose: 150 mg Tizanidine HCl (Zanaflex) 4 mg PO Q8H PRN PRN Reason: Spasms Last Admin: 11/20/19 20:57 Dose: 4 mg Tramadol HCl (Ultram) 50 mg PO Q6H [facility] Last Admin: 11/21/19 16:16 Dose: 50 mg Admin: 11/21/19 11:16 Dose: 50 mg Admin: 11/21/19 04:00 Dose: 50 mg Admin: 11/20/19 22:26 Dose: 50 mg Admin: 11/20/19 15:17 Dose: 50 mg Trazodone HCl (Trazodone) 50 mg PO BEDTIME PRN PRN Reason: Sleep Last Admin: 11/20/19 20:56 Dose: 50 mg Varenicline (Chantix) 1 mg PO BID [facility] Last Admin: 11/21/19 10:04 Dose: 1 mg Admin: 11/20/19 20:57 Dose: 1 mg - Assessment Assessment (Free Text/Narrative):: Pain better controlled today, has been out of bed but only walked about 6o feet , not independent for home, O2 sats dropped on room air - Plan Plan (Free Text/Narrative):: Continue PT, anticipate improvement tomorrow and home late morning or afternoon , try to decrease pain meds and wean off O2, Home PT
[2019-11-21] MEDS: Ondansetron 4 MG/2 ML SDV IVPUSH PRN (20:10)
[2019-11-21] MEDS: Gabapentin 300 MG Cap PO SCH (20:17)
[2019-11-21] MEDS: tiZANidine 4 MG Tab PO PRN (23:00)
[2019-11-21] MEDS: traZODone 50 MG Tab PO PRN (23:00)
[2019-11-21] MEDS: ClonazePAM 0.5 MG Tab PO PRN (23:00)
[2019-11-21] MEDS: HYDROmorphone 2 MG Tab PO PRN (23:03)
[2019-11-22] MEDS: Ketorolac 30 MG/ML SDV IVPUSH SCH (04:00)
[2019-11-22] MEDS: Levothyroxine 25 MCG Tab PO SCH (08:14)
[2019-11-22] MEDS: Cetirizine 10 MG Tab PO SCH (08:14)
[2019-11-22] MEDS: Meclizine 25 MG Tab PO SCH (08:14)
[2019-11-22] MEDS: Pantoprazole 40 MG Tab.CR PO SCH ×2 (08:14→17:12)
[2019-11-22] MEDS: lamoTRIgine 25 MG Tab PO SCH (08:15)
[2019-11-22] MEDS: Docusate Sodium 100 MG Cap PO SCH ×2 (08:15→20:19)
[2019-11-22] MEDS: Sertraline 50 MG Tab PO SCH (08:15)
[2019-11-22] MEDS: buPROPion 150 MG Tab.SR PO SCH ×2 (08:15→20:19)
[2019-11-22] MEDS: ANORO ELLIPTA INH SCH (08:16)
[2019-11-22] MEDS: Ondansetron 4 MG/2 ML SDV IVPUSH PRN (11:08)
[2019-11-22] MEDS: traMADol 50 MG Tab PO SCH ×3 (11:28→17:12)
[2019-11-22] MEDS: Acetaminophen/HYDROcodone 325-5 MG Tab PO PRN ×2 (16:09→20:11)
[2019-11-22] MEDS: Gabapentin 300 MG Cap PO SCH (20:19)
[2019-11-22] MEDS: Aspirin 325 MG Tab.EC PO SCH (20:19)
[2019-11-23] MEDS: Acetaminophen/HYDROcodone 325-5 MG Tab PO PRN ×2 (00:12→07:15)
[2019-11-23] MEDS: traMADol 50 MG Tab PO SCH ×3 (00:13→12:29)
[2019-11-23] MEDS: Levothyroxine 25 MCG Tab PO SCH (07:11)
[2019-11-23] MEDS: Pantoprazole 40 MG Tab.CR PO SCH (07:11)
[2019-11-23] MEDS: Aspirin 325 MG Tab.EC PO SCH (09:40)
[2019-11-23] MEDS: Sertraline 50 MG Tab PO SCH (09:40)
[2019-11-23] MEDS: Cetirizine 10 MG Tab PO SCH (09:40)
[2019-11-23] MEDS: buPROPion 150 MG Tab.SR PO SCH (09:40)
[2019-11-23] MEDS: Meclizine 25 MG Tab PO SCH (09:41)
[2019-11-23] MEDS: lamoTRIgine 25 MG Tab PO SCH (09:41)
[2019-11-23] MEDS: Docusate Sodium 100 MG Cap PO SCH (09:42)
[2019-11-23 10:35] VITALS: BP 96/52; PULSE 66
[2019-11-23] MEDS: ANORO ELLIPTA INH SCH (10:35)
--- NOTE | 2019-11-23 12:39 | PCM.SURGPN ---
- General Info Date of Service: 11/22/19 Date of Surgery/Procedure: 11/20/19 POD#: 2 Functional Status: Reports: Pain Controlled, Tolerating Diet, Ambulating, Urinating - Review of Systems General: Reports: No Symptoms HEENT: Reports: No Symptoms Pulmonary: Reports: Shortness of Breath Cardiovascular: Reports: No Symptoms Gastrointestinal: Reports: No Symptoms Genitourinary: Reports: No Symptoms Musculoskeletal: Reports: Leg Pain, Joint Swelling Skin: Reports: No Symptoms Neurological: Reports: No Symptoms Psychiatric: Reports: No Symptoms - Patient Data Vitals - Most Recent: Last Vital Signs Temp 35.2 C L 11/23/19 10:33 Pulse 66 11/23/19 10:33 Resp 16 11/23/19 10:33 BP 96/52 L 11/23/19 10:33 Pulse Ox 95 11/23/19 10:33 Weight - Most Recent: 80.014 kg I&O - Last 24 Hours: Intake & Output 11/22/19 11/23/19 11/23/19 22:59 06:59 14:59 Intake Total 1480 710 600 Output Total 1000 900 Balance 480 -190 600 Med Orders - Current: Current Medications Acetaminophen (Tylenol Extra Strength) 1,000 mg PO BID PRN PRN Reason: Pain Last Admin: 11/20/19 13:10 Dose: 1,000 mg Documented by: Hydrocodone Bitart/Acetaminophen ([place] 325-5 Mg) 2 tab PO Q3H PRN PRN Reason: Pain (mild 1-3) Last Admin: 11/23/19 07:15 Dose: 2 tab Documented by: Albuterol (Proventil Neb Soln) 2.5 mg NEB Q4H PRN PRN Reason: Shortness of Breath Albuterol (Ventolin Hfa) 0 gm INH Q6H PRN PRN Reason: Shortness of Breath Aspirin (Ecotrin) 325 mg PO BID [facility] Last Admin: 11/23/19 09:40 Dose: 325 mg Documented by: Bupropion HCl (Wellbutrin Sr) 150 mg PO BID [facility] Last Admin: 11/23/19 09:40 Dose: 150 mg Documented by: Cetirizine HCl (Zyrtec) 10 mg PO DAILY [facility] Last Admin: 11/23/19 09:40 Dose: 10 mg Documented by: Clonazepam (Klonopin) 0.5 mg PO DAILY PRN PRN Reason: Anxiety Last Admin: 11/21/19 23:00 Dose: 0.5 mg Documented by: Docusate Sodium (Colace) 100 mg PO BID [facility] Last Admin: 11/23/19 09:42 Dose: 100 mg Documented by: Fluticasone Propionate (Flonase) 0 gm NASBOTH DAILY PRN PRN Reason: Allergies Furosemide (Lasix) 40 mg PO DAILY PRN PRN Reason: swelling Gabapentin (Neurontin) 300 mg PO BEDTIME [facility] Last Admin: 11/22/19 20:19 Dose: 300 mg Documented by: Hydromorphone HCl (Dilaudid) 2 - 4 mg PO Q4H PRN PRN Reason: Pain (moderate 4-6) Last Admin: 11/21/19 23:03 Dose: 4 mg Documented by: Sodium Chloride (Normal Saline) 1,000 mls @ 125 mls/hr IV ASDIRECTED [facility] Last Admin: 11/21/19 12:34 Dose: 125 mls/hr Documented by: Lamotrigine (Lamotrigine) 25 mg PO DAILY [facility] Last Admin: 11/23/19 09:41 Dose: 25 mg Documented by: Levothyroxine Sodium (Levothyroxine) 25 mcg PO ACBREAKFAST [facility] Last Admin: 11/23/19 07:11 Dose: 25 mcg Documented by: Meclizine HCl (Antivert) 25 mg PO DAILY [facility] Last Admin: 11/23/19 09:41 Dose: 25 mg Documented by: Morphine Sulfate (Morphine) 2 mg IVPUSH Q1H PRN PRN Reason: Breakthrough Pain Last Admin: 11/20/19 19:52 Dose: 2 mg Documented by: Ondansetron HCl (Zofran) 4 mg IVPUSH Q6H PRN PRN Reason: Nausea/Vomiting Last Admin: 11/22/19 11:08 Dose: 4 mg Documented by: Pantoprazole Sodium (Protonix) 40 mg PO BIDAC [facility] Last Admin: 11/23/19 07:11 Dose: 40 mg Documented by: Simiro Ellipta 62.5/ (25mcg Inhaler (Ptom)) 1 each INH DAILY [facility] Last Admin: 11/23/19 10:35 Dose: Not Given Documented by: Sertraline HCl (Zoloft) 150 mg PO DAILY [facility] Last Admin: 11/23/19 09:40 Dose: 150 mg Documented by: Tizanidine HCl (Zanaflex) 4 mg PO Q8H PRN PRN Reason: Spasms Last Admin: 11/21/19 23:00 Dose: 4 mg Documented by: Tramadol HCl (Ultram) 50 mg PO Q6H [facility] Last Admin: 11/23/19 05:50 Dose: 50 mg Documented by: Trazodone HCl (Trazodone) 50 mg PO BEDTIME PRN PRN Reason: Sleep Last Admin: 11/21/19 23:00 Dose: 50 mg Documented by: Varenicline (Chantix) 1 mg PO BID [facility] Last Admin: 11/23/19 09:41 Dose: 1 mg Documented by: Discontinued Medications Bandage/Support Products ( Nasal Fur Operator) 1 applic NASBOTH ONETIME ONE Stop: 11/20/19 07:01 Last Admin: 11/20/19 07:11 Dose: 1 applic Documented by: Bupivacaine HCl (Sensorcaine-Mpf 0.25%) Confirm Administered Dose 10 ml .ROUTE .STK-MED ONE Stop: 11/20/19 06:43 Last Admin: 11/20/19 09:00 Dose: 10 ml Documented by: Bupivacaine HCl (Sensorcaine-Mpf 0.25%) Confirm Administered Dose 10 ml .ROUTE .STK-MED ONE Stop: 11/20/19 09:01 Last Admin: 11/20/19 09:00 Dose: 10 ml Documented by: Bupivacaine HCl (Sensorcaine-Mpf 0.25%) Confirm Administered Dose 10 ml .ROUTE .STK-MED ONE Stop: 11/20/19 09:01 Dexamethasone (Dexamethasone) Confirm Administered Dose 4 mg .ROUTE .STK-MED ONE Stop: 11/20/19 07:23 Fentanyl (Sublimaze) Confirm Administered Dose 250 mcg .ROUTE .STK-MED ONE Stop: 11/20/19 07:22 Glycopyrrolate (Robinul) Confirm Administered Dose 1 mg .ROUTE .STK-MED ONE Stop: 11/20/19 07:23 Hydroxyzine HCl (Vistaril) 75 mg IM ONETIME ONE Stop: 11/20/19 09:46 Last Admin: 11/20/19 09:42 Dose: 75 mg Documented by: Cefazolin Sodium/Dextrose 2 gm (/ Premix) 50 mls @ 100 mls/hr IV ONETIME ONE Stop: 11/20/19 07:59 Last Admin: 11/20/19 07:35 Dose: 100 mls/hr Documented by: Lactated Ringer's (Ringers, Lactated) 1,000 mls @ 75 mls/hr IV ASDIRECTED [facility] Last Admin: 11/20/19 07:11 Dose: 75 mls/hr Documented by: Cefazolin Sodium/Dextrose 1 gm (/ Premix) 50 mls @ 100 mls/hr IV Q8H [facility] Stop: 11/21/19 06:59 Last Admin: 11/21/19 06:09 Dose: 100 mls/hr Documented by: Ketorolac Tromethamine (Toradol) 30 mg IVPUSH Q6H [facility] Stop: 11/22/19 03:01 Last Admin: 11/22/19 04:00 Dose: 30 mg Documented by: Lidocaine (Lta 360 Kit Top Soln) Confirm Administered Dose 4 ml .ROUTE .STK-MED ONE Stop: 11/20/19 07:44 Midazolam HCl (Versed 1 Mg/Ml) 2 mg IVPUSH ONETIME ONE Stop: 11/20/19 10:04 Last Admin: 11/20/19 10:08 Dose: 2 mg Documented by: Morphine Sulfate (Morphine) 3 mg IM ONETIME ONE Stop: 11/20/19 09:46 Last Admin: 11/20/19 09:45 Dose: 3 mg Documented by: Neostigmine Methylsulfate (Neostigmine) Confirm Administered Dose 5 mg .ROUTE .STK-MED ONE Stop: 11/20/19 07:23 Ondansetron HCl (Zofran) Confirm Administered Dose 4 mg .ROUTE .STK-MED ONE Stop: 11/20/19 07:23 Povidone Iodine (Betadine 10% Soln) Confirm Administered Dose 1 ml .ROUTE .STK- MED ONE Stop: 11/20/19 06:43 Last Admin: 11/20/19 08:21 Dose: 1 ml Documented by: Propofol (Diprivan 20 Ml) Confirm Administered Dose 200 mg .ROUTE .STK-MED ONE Stop: 11/20/19 07:23 Rocuronium [place] (Zemuron) Confirm Administered Dose 50 mg .ROUTE .STK-MED ONE Stop: 11/20/19 07:23 Tramadol HCl (Ultram) 50 mg PO Q6H [facility] Last Admin: 11/22/19 12:30 Dose: Not Given Documented by: - Exam Wound/Incisions: Healing Well, No Drainage General: Alert, Oriented HEENT: Pupils Equal Neck: Supple Lungs: Clear to Auscultation, Normal Respiratory Effort Cardiovascular: Regular Rate, Regular Rhythm GI/Abdominal Exam: Normal Bowel Sounds, Soft, Non-Tender, No Distention Extremities: Joint Swelling, Limited Range of Motion Skin: Warm, Dry Neurological: No New Focal Deficit Psy/Mental Status: Alert, Normal Affect, Normal Mood Sepsis Event Note - Evaluation Sepsis Screening Result: No Definite Risk - Focused Exam Vital Signs: Vital Signs Temp Temp Pulse Resp BP Pulse Ox Pulse Ox 11/23/19 10:33 35.2 C L 66 16 96/52 L 95 11/23/19 09:00 95 11/23/19 07:00 35.3 C L 75 16 102/72 96 11/23/19 02:42 36.3 C 86 18 100/50 L 96 Date Exam was Performed: 11/23/19 Time Exam was Performed: 12:27 - Problem List & Annotations (1) Status post right partial knee replacement SNOMED Code(s): 099266659, 78195574, 373123079, 836391903 Code(s): Z96.651 - PRESENCE OF RIGHT ARTIFICIAL KNEE JOINT Status: Acute Current Visit: Yes (2) Knee pain, right SNOMED Code(s): 52381705 Code(s): M25.561 - PAIN IN RIGHT KNEE Status: Acute Current Visit: No Qualifiers: Chronicity: chronic (3) Osteoarthritis, knee SNOMED Code(s): 114054636 Code(s): M17.10 - UNILATERAL PRIMARY OSTEOARTHRITIS, UNSPECIFIED KNEE Status: Acute Current Visit: No Qualifiers: Osteoarthritis type: primary Laterality: right Qualified Code(s): M17.11 - Unilateral primary osteoarthritis, right knee - Problem List Review Problem List Initiated/Reviewed/Updated: Yes - My Orders Last 24 Hours: Active Orders 24 hr Category Date Time Status Ready for Discharge [RC] PER UNIT ROUTINE Care 11/23/19 12:20 Ordered Aspirin [Ecotrin] Med 11/22/19 21:00 Active 325 mg PO BID traMADol [Ultram] Med 11/22/19 12:00 Active 50 mg PO Q6H Medication Orders Acetaminophen (Tylenol Extra Strength) 1,000 mg PO BID PRN PRN Reason: Pain Last Admin: 11/20/19 13:10 Dose: 1,000 mg Documented by: YONAS Hydrocodone Bitart/Acetaminophen ([place] 325-5 Mg) 2 tab PO Q3H PRN PRN Reason: Pain (mild 1-3) Last Admin: 11/23/19 07:15 Dose: 2 tab Documented by: Admin: 11/23/19 00:12 Dose: 2 tab Documented by: Admin: 11/22/19 20:11 Dose: 2 tab Documented by: Admin: 11/22/19 16:09 Dose: 2 tab Documented by: Admin: 11/21/19 10:03 Dose: 2 tab Documented by: Admin: 11/21/19 06:16 Dose: 2 tab Documented by: Admin: 11/20/19 19:51 Dose: 2 tab Documented by: Admin: 11/20/19 15:20 Dose: 2 tab Documented by: COREY Albuterol (Proventil Neb Soln) 2.5 mg NEB Q4H PRN PRN Reason: Shortness of Breath Albuterol (Ventolin Hfa) 0 gm INH Q6H PRN PRN Reason: Shortness of Breath Aspirin (Ecotrin) 325 mg PO BID [facility] Admin: 11/23/19 09:40 Dose: 325 mg Documented by: Admin: 11/22/19 20:19 Dose: 325 mg Documented by: ASHLEIGH Bupropion HCl (Wellbutrin Sr) 150 mg PO BID [facility] Admin: 11/23/19 09:40 Dose: 150 mg Documented by: Admin: 11/22/19 20:19 Dose: 150 mg Documented by: Admin: 11/22/19 08:15 Dose: 150 mg Documented by: Admin: 11/21/19 20:17 Dose: 150 mg Documented by: Admin: 11/21/19 10:05 Dose: 150 mg Documented by: Admin: 11/20/19 20:58 Dose: 150 mg Documented by: JOSIE Cetirizine HCl (Zyrtec) 10 mg PO DAILY [facility] Last Admin: 11/23/19 09:40 Dose: 10 mg Documented by: Admin: 11/22/19 08:14 Dose: 10 mg Documented by: Admin: 11/21/19 10:07 Dose: 10 mg Documented by: ALEKSANDAR Clonazepam (Klonopin) 0.5 mg PO DAILY PRN PRN Reason: Anxiety Last Admin: 11/21/19 23:00 Dose: 0.5 mg Documented by: Admin: 11/20/19 20:56 Dose: 0.5 mg Documented by: JOSIE Docusate Sodium (Colace) 100 mg PO BID [facility] Last Admin: 11/23/19 09:42 Dose: 100 mg Documented by: Admin: 11/22/19 20:19 Dose: 100 mg Documented by: Admin: 11/22/19 08:15 Dose: 100 mg Documented by: Admin: 11/21/19 20:17 Dose: 100 mg Documented by: Admin: 11/21/19 10:06 Dose: 100 mg Documented by: Admin: 11/20/19 20:59 Dose: 100 mg Documented by: JOSIE Fluticasone Propionate (Flonase) 0 gm NASBOTH DAILY PRN PRN Reason: Allergies Furosemide (Lasix) 40 mg PO DAILY PRN PRN Reason: swelling Gabapentin (Neurontin) 300 mg PO BEDTIME [facility] Last Admin: 11/22/19 20:19 Dose: 300 mg Documented by: Admin: 11/21/19 20:17 Dose: 300 mg Documented by: Admin: 11/20/19 20:58 Dose: 300 mg Documented by: JOSIE Hydromorphone HCl (Dilaudid) 2 - 4 mg PO Q4H PRN PRN Reason: Pain (moderate 4-6) Last Admin: 11/21/19 23:03 Dose: 4 mg Documented by: Admin: 11/20/19 23:20 Dose: 4 mg Documented by: Admin: 11/20/19 18:36 Dose: 4 mg Documented by: Admin: 11/20/19 11:01 Dose: 4 mg Documented by: COREY Sodium Chloride (Normal Saline) 1,000 mls @ 125 mls/hr IV ASDIRECTED [facility] Last Admin: 11/21/19 12:34 Dose: 125 mls/hr Documented by: Infusion: 11/21/19 11:16 Dose: 125 mls/hr Documented by: Admin: 11/21/19 03:16 Dose: 125 mls/hr Documented by: Infusion: 11/21/19 02:36 Dose: 125 mls/hr Documented by: Admin: 11/20/19 18:36 Dose: 125 mls/hr Documented by: Infusion: 11/20/19 18:16 Dose: 125 mls/hr Documented by: Admin: 11/20/19 10:16 Dose: 125 mls/hr Documented by: LEROY Lamotrigine (Lamotrigine) 25 mg PO DAILY [facility] Last Admin: 11/23/19 09:41 Dose: 25 mg Documented by: Admin: 11/22/19 08:15 Dose: 25 mg Documented by: Admin: 11/21/19 10:05 Dose: 25 mg Documented by: Admin: 11/20/19 14:00 Dose: 25 mg Documented by: COREY Levothyroxine Sodium (Levothyroxine) 25 mcg PO ACBREAKFAST [facility] Last Admin: 11/23/19 07:11 Dose: 25 mcg Documented by: Admin: 11/22/19 08:14 Dose: 25 mcg Documented by: Admin: 11/21/19 07:23 Dose: 25 mcg Documented by: Admin: 11/20/19 13:59 Dose: 25 mcg Documented by: COREY Meclizine HCl (Antivert) 25 mg PO DAILY [facility] Last Admin: 11/23/19 09:41 Dose: 25 mg Documented by: Admin: 11/22/19 08:14 Dose: 25 mg Documented by: Admin: 11/21/19 10:06 Dose: 25 mg Documented by: Admin: 11/20/19 14:00 Dose: 25 mg Documented by: COREY Morphine Sulfate (Morphine) 2 mg IVPUSH Q1H PRN PRN Reason: Breakthrough Pain Last Admin: 11/20/19 19:52 Dose: 2 mg Documented by: Admin: 11/20/19 16:47 Dose: 2 mg Documented by: Admin: 11/20/19 12:33 Dose: 2 mg Documented by: RM Ondansetron HCl (Zofran) 4 mg IVPUSH Q6H PRN PRN Reason: Nausea/Vomiting Last Admin: 11/22/19 11:08 Dose: 4 mg Documented by: Admin: 11/21/19 20:10 Dose: 4 mg Documented by: LISA Pantoprazole Sodium (Protonix) 40 mg PO BIDAC [facility] Last Admin: 11/23/19 07:11 Dose: 40 mg Documented by: Admin: 11/22/19 17:12 Dose: 40 mg Documented by: Admin: 11/22/19 08:14 Dose: 40 mg Documented by: Admin: 11/21/19 16:16 Dose: 40 mg Documented by: Admin: 11/21/19 07:23 Dose: 40 mg Documented by: Admin: 11/20/19 16:03 Dose: 40 mg Documented by: COREY Brown Ellipradha 62.5/ (25mcg Inhaler (Ptom)) 1 each INH DAILY [facility] Last Admin: 11/23/19 10:35 Dose: Not Given Documented by: Admin: 11/22/19 08:16 Dose: Not Given Documented by: Admin: 11/21/19 11:17 Dose: Not Given Documented by: ALEKSANDAR Sertraline HCl (Zoloft) 150 mg PO DAILY [facility] Last Admin: 11/23/19 09:40 Dose: 150 mg Documented by: Admin: 11/22/19 08:15 Dose: 150 mg Documented by: Admin: 11/21/19 10:04 Dose: 150 mg Documented by: ALEKSANDAR Tizanidine HCl (Zanaflex) 4 mg PO Q8H PRN PRN Reason: Spasms Last Admin: 11/21/19 23:00 Dose: 4 mg Documented by: Admin: 11/20/19 20:57 Dose: 4 mg Documented by: JOSIE Tramadol HCl (Ultram) 50 mg PO Q6H [facility] Last Admin: 11/23/19 05:50 Dose: 50 mg Documented by: Admin: 11/23/19 00:13 Dose: 50 mg Documented by: Admin: 11/22/19 17:12 Dose: 50 mg Documented by: Admin: 11/22/19 11:28 Dose: 50 mg Documented by: LUIZA Trazodone HCl (Trazodone) 50 mg PO BEDTIME PRN PRN Reason: Sleep Last Admin: 11/21/19 23:00 Dose: 50 mg Documented by: Admin: 11/20/19 20:56 Dose: 50 mg Documented by: JOSIE Varenicline (Chantix) 1 mg PO BID [facility] Admin: 11/23/19 09:41 Dose: 1 mg Documented by: Admin: 11/22/19 20:19 Dose: 1 mg Documented by: Admin: 11/22/19 08:15 Dose: 1 mg Documented by: Admin: 11/21/19 20:16 Dose: 1 mg Documented by: Admin: 11/21/19 10:04 Dose: 1 mg Documented by: Admin: 11/20/19 20:57 Dose: 1 mg Documented by: JOSIE - Assessment Assessment (Free Text/Narrative):: Moving today but still concerned about her going home, limited help at home, dressing removed, incision healing without complication - Plan Plan (Free Text/Narrative):: Continue PT, work on ambulation and stairs, arrange home health for PT, home tomorrow
--- NOTE | 2019-11-23 12:55 | PCM.DCSUM1 ---
Discharge Summary - Hospital Course HPI Initial Comments: 64 year old female admitted for right unicompartmental knee replacement Diagnosis: Stroke: No Modified [place] Scale: No Symptoms at All Modified [place] Scale Score: 0 - Discharge Data Discharge Date: 11/23/19 Discharge Disposition: Home, W Home Health Agency 06 Condition: Good - Referral to Home Health Date of Face to Face Encounter: 11/23/19 Reason for Homebound Status: Right knee surgery, unable to drive Primary Care Physician: PCP None Skilled Need: Physical Therapy - Discharge Diagnosis/Problem(s) (1) Status post right partial knee replacement SNOMED Code(s): 323813233, [id number], 669722242, [id number] ICD Code: Z96.651 - PRESENCE OF RIGHT ARTIFICIAL KNEE JOINT Status: Acute Current Visit: Yes (2) Knee pain, right SNOMED Code(s): 39000712 ICD Code: M25.561 - PAIN IN RIGHT KNEE Status: Acute Current Visit: No Qualifiers: Chronicity: chronic (3) Osteoarthritis, knee SNOMED Code(s): 588623477 ICD Code: M17.10 - UNILATERAL PRIMARY OSTEOARTHRITIS, UNSPECIFIED KNEE Status: Acute Current Visit: No Qualifiers: Osteoarthritis type: primary Laterality: right Qualified Code(s): M17.11 - Unilateral primary osteoarthritis, right knee - Patient Summary/Data Operative Procedure(s) Performed: right medial unicompartmental knee Consults: Consultations 11/20/19 09:11 Consult to Case Management/Loop Cutter [CONS] Routine Comment: Physician Instructions: Service(s) to be Consulted: Case Management Reason for Consult: Plan for Discharge OT Evaluation and Treatment [CONS] Routine Please Evaluate and Treat. OT Reason for Consult: ADL's This query below is only for informational purposes and is not editable. PT Evaluation and Treatment [CONS] Routine Please Evaluate and Treat. PT Reason for Consult: Post op Ortho Surgery This query below is only for informational purposes and is not editable. PT Evaluation and Treatment [CONS] Routine Please Evaluate and Treat. PT Reason for Consult: Post op Ortho Surgery Knee Pending Discharge: Yes, 1- 2 days Special Instructions: Schedule first outpatient PT appointment in 3-5 day post discharge. This query below is only for informational purposes and is not editable. Hospital Course: Tolerated procedure without complications. Difficulty with pain control initially. Stable post op but some decreased O2 sats, does use O2 at home intermittently. Progressed slowly with PT. Did much better by POD#3 and was independent with walker. Dressing changed POD #2, no wound complications. Arrangements made for Home Health and PT. Follow up 2 weeks. - Patient Instructions Diet: Usual Diet as Tolerated Activity: Apply Ice, As Tolerated, Full Weight Bearing Driving: Do Not Drive Showering/Bathing: May Shower Wound/Incision Care: Keep Operative Site/Wound Site Clean and Dry Notify Provider of: Fever, Increased Pain, Swelling and Redness, Drainage Other/Special Instructions: Aspirin 325mg by mouth twice per day - Discharge Plan *PRESCRIPTION DRUG MONITORING PROGRAM REVIEWED*: No *COPY OF PRESCRIPTION DRUG MONITORING REPORT IN PATIENT CLYDE: No Prescriptions/Med Rec: HYDROmorphone [Dilaudid] 2 - 4 mg PO Q6H PRN #48 tab PRN Reason: Pain Home Medications: Home Meds Levothyroxine Sodium [Synthroid] 25 mcg PO .ACBREAKFAST 07/05/14 [History] ondansetron HCL [Zofran] 8 mg PO Q8H PRN 10/25/14 [History] Furosemide 40 mg PO DAILY PRN 06/17/16 [History] Sertraline HCl [Zoloft] 150 mg PO DAILY 02/24/17 [History] traZODone 50 - 100 mg PO BEDTIME PRN 02/24/17 [History] ClonazePAM [KlonoPIN] 0.5 mg PO DAILY PRN 03/05/17 [History] Penciclovir [Denavir 1% Crm] 1 applic TOP ASDIRECTED 03/05/17 [History] Mometasone Furoate [Elocon 0.1% Crm] 1 applic TOP DAILY 09/16/17 [History] tiZANidine [Zanaflex] 4 mg PO Q8H PRN 09/16/17 [History] Pantoprazole [ProTONIX] 40 mg PO BID 06/06/19 [History] buPROPion HCL [Wellbutrin SR] 150 mg PO BID 06/06/19 [History] Acetaminophen [Tylenol Extra Strength] 1,000 mg PO BID PRN 08/10/19 [History] Albuterol [Proventil Neb Soln] 3 ml NEB Q4H PRN 08/10/19 [History] Cetirizine [ZyrTEC] 10 mg PO DAILY 08/10/19 [History] Cholecalciferol (Vitamin D3) [Vitamin D3] 2,000 unit PO DAILY 08/10/19 [History] Cyanocobalamin (Vitamin B-12) [B-12] 500 mcg PO DAILY 08/10/19 [History] Gabapentin [Neurontin] 300 mg PO BEDTIME 08/10/19 [History] Lidocaine 2% [Xylocaine 2% Jelly] 1 applic TOP DAILY 08/10/19 [History] Meclizine [Antivert] 25 mg PO .MORNING 08/10/19 [History] Varenicline [Chantix] 1 mg PO BID 08/10/19 [History] lamoTRIgine [Lamotrigine] 25 mg PO .[id number] 08/29/19 [History] Albuterol [Ventolin HFA] 2 puff INH Q6H PRN 11/16/19 [History] Fluticasone Propionate [Flonase] 2 spr NASBOTH DAILY PRN 11/16/19 [History] Homeopathic Products (Leg Cramp Complex Or) 1 - 2 tab PO BEDTIME 11/16/19 [History] Umeclidinium Brm/Vilanterol Tr [Anoro Ellipta 62.5-25 MCG] 1 each INH DAILY 11/16/19 [History] HYDROmorphone [Dilaudid] 2 - 4 mg PO Q6H PRN #48 tab 11/23/19 [Rx] Oxygen Therapy Mode: Nasal Cannula Referrals: Don Nagy MD [Physician] - 12/05/19 1:15 pm - Discharge Summary/Plan Comment DC Time >30 min.: No - General Info Functional Status: Reports: Pain Controlled, Tolerating Diet, Ambulating, Urinating - Review of Systems General: Reports: No Symptoms HEENT: Reports: No Symptoms Pulmonary: Reports: Shortness of Breath Cardiovascular: Reports: No Symptoms Gastrointestinal: Reports: No Symptoms Genitourinary: Reports: No Symptoms Musculoskeletal: Reports: Leg Pain, Joint Swelling Skin: Reports: No Symptoms Neurological: Reports: No Symptoms Psychiatric: Reports: No Symptoms - Patient Data Vitals - Most Recent: Last Vital Signs Temp 35.2 C L 11/23/19 10:33 Pulse 66 11/23/19 10:33 Resp 16 11/23/19 10:33 BP 96/52 L 11/23/19 10:33 Pulse Ox 95 11/23/19 10:33 Weight - Most Recent: 80.014 kg I&O - Last 24 hours: Intake & Output 11/22/19 11/23/19 11/23/19 22:59 06:59 14:59 Intake Total 1480 710 600 Output Total 1000 900 Balance 480 -190 600 Med Orders - Current: Current Medications Acetaminophen (Tylenol Extra Strength) 1,000 mg PO BID PRN PRN Reason: Pain Last Admin: 11/20/19 13:10 Dose: 1,000 mg Documented by: Hydrocodone Bitart/Acetaminophen (Hilo 325-5 Mg) 2 tab PO Q3H PRN PRN Reason: Pain (mild 1-3) Last Admin: 11/23/19 07:15 Dose: 2 tab Documented by: Albuterol (Proventil Neb Soln) 2.5 mg NEB Q4H PRN PRN Reason: Shortness of Breath Albuterol (Ventolin Hfa) 0 gm INH Q6H PRN PRN Reason: Shortness of Breath Aspirin (Ecotrin) 325 mg PO BID [facility] Last Admin: 11/23/19 09:40 Dose: 325 mg Documented by: Bupropion HCl (Wellbutrin Sr) 150 mg PO BID [facility] Last Admin: 11/23/19 09:40 Dose: 150 mg Documented by: Cetirizine HCl (Zyrtec) 10 mg PO DAILY [facility] Last Admin: 11/23/19 09:40 Dose: 10 mg Documented by: Clonazepam (Klonopin) 0.5 mg PO DAILY PRN PRN Reason: Anxiety Last Admin: 11/21/19 23:00 Dose: 0.5 mg Documented by: Docusate Sodium (Colace) 100 mg PO BID [facility] Last Admin: 11/23/19 09:42 Dose: 100 mg Documented by: Fluticasone Propionate (Flonase) 0 gm NASBOTH DAILY PRN PRN Reason: Allergies Furosemide (Lasix) 40 mg PO DAILY PRN PRN Reason: swelling Gabapentin (Neurontin) 300 mg PO BEDTIME [facility] Last Admin: 11/22/19 20:19 Dose: 300 mg Documented by: Hydromorphone HCl (Dilaudid) 2 - 4 mg PO Q4H PRN PRN Reason: Pain (moderate 4-6) Last Admin: 11/21/19 23:03 Dose: 4 mg Documented by: Sodium Chloride (Normal Saline) 1,000 mls @ 125 mls/hr IV ASDIRECTED [facility] Last Admin: 11/21/19 12:34 Dose: 125 mls/hr Documented by: Lamotrigine (Lamotrigine) 25 mg PO DAILY [facility] Last Admin: 11/23/19 09:41 Dose: 25 mg Documented by: Levothyroxine Sodium (Levothyroxine) 25 mcg PO ACBREAKFAST [facility] Last Admin: 11/23/19 07:11 Dose: 25 mcg Documented by: Meclizine HCl (Antivert) 25 mg PO DAILY [facility] Last Admin: 11/23/19 09:41 Dose: 25 mg Documented by: Morphine Sulfate (Morphine) 2 mg IVPUSH Q1H PRN PRN Reason: Breakthrough Pain Last Admin: 11/20/19 19:52 Dose: 2 mg Documented by: Ondansetron HCl (Zofran) 4 mg IVPUSH Q6H PRN PRN Reason: Nausea/Vomiting Last Admin: 11/22/19 11:08 Dose: 4 mg Documented by: Pantoprazole Sodium (Protonix) 40 mg PO BIDAC [facility] Last Admin: 11/23/19 07:11 Dose: 40 mg Documented by: Anoro Ellipta 62.5/ (25mcg Inhaler (Ptom)) 1 each INH DAILY [facility] Last Admin: 11/23/19 10:35 Dose: Not Given Documented by: Sertraline HCl (Zoloft) 150 mg PO DAILY [facility] Last Admin: 11/23/19 09:40 Dose: 150 mg Documented by: Tizanidine HCl (Zanaflex) 4 mg PO Q8H PRN PRN Reason: Spasms Last Admin: 11/21/19 23:00 Dose: 4 mg Documented by: Tramadol HCl (Ultram) 50 mg PO Q6H [facility] Last Admin: 11/23/19 12:29 Dose: 50 mg Documented by: Trazodone HCl (Trazodone) 50 mg PO BEDTIME PRN PRN Reason: Sleep Last Admin: 11/21/19 23:00 Dose: 50 mg Documented by: Varenicline (Chantix) 1 mg PO BID [facility] Last Admin: 11/23/19 09:41 Dose: 1 mg Documented by: Discontinued Medications Bandage/Support Products ( Nasal [employer] Director) 1 applic NASBOTH ONETIME ONE Stop: 11/20/19 07:01 Last Admin: 11/20/19 07:11 Dose: 1 applic Documented by: Bupivacaine HCl (Sensorcaine-Mpf 0.25%) Confirm Administered Dose 10 ml .ROUTE .STK-MED ONE Stop: 11/20/19 06:43 Last Admin: 11/20/19 09:00 Dose: 10 ml Documented by: Bupivacaine HCl (Sensorcaine-Mpf 0.25%) Confirm Administered Dose 10 ml .ROUTE .STK-MED ONE Stop: 11/20/19 09:01 Last Admin: 11/20/19 09:00 Dose: 10 ml Documented by: Bupivacaine HCl (Sensorcaine-Mpf 0.25%) Confirm Administered Dose 10 ml .ROUTE .STK-MED ONE Stop: 11/20/19 09:01 Dexamethasone (Dexamethasone) Confirm Administered Dose 4 mg .ROUTE .STK-MED ONE Stop: 11/20/19 07:23 Fentanyl (Sublimaze) Confirm Administered Dose 250 mcg .ROUTE .STK-MED ONE Stop: 11/20/19 07:22 Glycopyrrolate (Robinul) Confirm Administered Dose 1 mg .ROUTE .STK-MED ONE Stop: 11/20/19 07:23 Hydroxyzine HCl (Vistaril) 75 mg IM ONETIME ONE Stop: 11/20/19 09:46 Last Admin: 11/20/19 09:42 Dose: 75 mg Documented by: Cefazolin Sodium/Dextrose 2 gm (/ Premix) 50 mls @ 100 mls/hr IV ONETIME ONE Stop: 11/20/19 07:59 Last Admin: 11/20/19 07:35 Dose: 100 mls/hr Documented by: Lactated Ringer's (Ringers, Lactated) 1,000 mls @ 75 mls/hr IV ASDIRECTED [facility] Last Admin: 11/20/19 07:11 Dose: 75 mls/hr Documented by: Cefazolin Sodium/Dextrose 1 gm (/ Premix) 50 mls @ 100 mls/hr IV Q8H [facility] Stop: 11/21/19 06:59 Last Admin: 11/21/19 06:09 Dose: 100 mls/hr Documented by: Ketorolac Tromethamine (Toradol) 30 mg IVPUSH Q6H [facility] Stop: 11/22/19 03:01 Last Admin: 11/22/19 04:00 Dose: 30 mg Documented by: Lidocaine (Lta 360 Kit Top Soln) Confirm Administered Dose 4 ml .ROUTE .STK-MED ONE Stop: 11/20/19 07:44 Midazolam HCl (Versed 1 Mg/Ml) 2 mg IVPUSH ONETIME ONE Stop: 11/20/19 10:04 Last Admin: 11/20/19 10:08 Dose: 2 mg Documented by: Morphine Sulfate (Morphine) 3 mg IM ONETIME ONE Stop: 11/20/19 09:46 Last Admin: 11/20/19 09:45 Dose: 3 mg Documented by: Neostigmine Methylsulfate (Neostigmine) Confirm Administered Dose 5 mg .ROUTE .STK-MED ONE Stop: 11/20/19 07:23 Ondansetron HCl (Zofran) Confirm Administered Dose 4 mg .ROUTE .STK-MED ONE Stop: 11/20/19 07:23 Povidone Iodine (Betadine 10% Soln) Confirm Administered Dose 1 ml .ROUTE .STK- MED ONE Stop: 11/20/19 06:43 Last Admin: 11/20/19 08:21 Dose: 1 ml Documented by: Propofol (Diprivan 20 Ml) Confirm Administered Dose 200 mg .ROUTE .STK-MED ONE Stop: 11/20/19 07:23 Rocuronium [place] (Zemuron) Confirm Administered Dose 50 mg .ROUTE .STK-MED ONE Stop: 11/20/19 07:23 Tramadol HCl (Ultram) 50 mg PO Q6H [facility] Last Admin: 11/22/19 12:30 Dose: Not Given Documented by: - Exam General: Reports: Alert, Oriented HEENT: Reports: Pupils Equal, Pupils Reactive, EOMI, Mucous Membr. Moist/[place] Neck: Reports: Supple Lungs: Reports: Clear to Auscultation, Normal Respiratory Effort Cardiovascular: Reports: Regular Rate, Regular Rhythm GI/Abdominal Exam: Normal Bowel Sounds, Soft, Non-Tender, No Distention (Female) Exam: Deferred Rectal (Female) Exam: Deferred Back Exam: Reports: Normal Inspection Extremities: Joint Swelling, Limited Range of Motion, Other (extension lag, flexion almost 90 degrees) Skin: Reports: Warm, Dry Wound/Incisions: Reports: Healing Well, Other (two small tradtion blisters from SteriStrips) Neurological: Reports: No New Focal Deficit Psy/Mental Status: Reports: Alert, Normal Affect, Normal Mood
--- NOTE | 2019-12-01 20:56 | OR ---
DATE OF PROCEDURE: 11/20/2019 SURGEON: Don Nagy MD PREOPERATIVE DIAGNOSIS: Osteoarthritis, medial compartment, right knee. POSTOPERATIVE DIAGNOSIS: Severe osteoarthritis, medial compartment, right knee. PROCEDURE: Right medial unicompartmental arthroplasty utilizing [employer] ZUK components with a size D femur, 2 tibia, and 8 mm polyethylene. ANESTHESIA: General. INDICATIONS: Reji is a 64-year-old female with history of progressive pain in her right knee for the past year. It has gotten significantly worse over the past few months. X-rays revealed medial joint space collapse with osteophyte formation. She has failed conservative treatment. Risks, benefits, and potential complications of procedure were discussed. DESCRIPTION OF PROCEDURE: After adequate anesthesia was obtained, the patient placed supine with a tourniquet about the right upper thigh. Right leg was prepped and draped in a sterile fashion. Leg was exsanguinated and tourniquet inflated to 300 mmHg pressure. Anterior incision was made just slightly medial of midline, carried down to the subcutaneous tissues, and hemostasis obtained with electrocautery. Medial parapatellar arthrotomy was performed and taken up just to the insertion of the VMO. The anterior horn of the medial meniscus was excised. Examination of the medial joint revealed severe degenerative changes with complete articular cartilage loss of the femoral condyle. Patellofemoral joint is inspected and reveals no significant articular cartilage loss. The knee was flexed and the anterior lip of the tibial plateau was removed with an oscillating saw. The knee was then extended and an extramedullary alignment jig was placed. This was aligned and secured and the distal femoral cut was made. This portion of the jig was removed, the knee was flexed, and the proximal tibia was then resected with a combination of oscillating and reciprocating saws. The cutting jig was removed. Bone fragment was excised along with the remaining medial meniscus. The femoral condyle was then sized to a D component. The D cutting jig was secured and remaining femoral cuts were made as well as the peg hole drills. The cutting jig was removed along with the bone fragments. Tibia was then sized to a #2 component, baseplate was tapped into position and secured with small pin, and 2 PEG holes were drilled. The femoral trial was placed and an 8 mm trial insert was used and the knee was taken through range of motion. This showed good balance in flexion and extension with full extension and approximately a 2 mm gap. Trials were removed. The knee was then thoroughly irrigated with pulse lavage, bone surfaces were dried, components were cemented in place, excess cement was removed, and the knee was held in full extension with a trial 8 mm tibial polyethylene until the cement cured. The knee was again taken through range of motion. Flexion-extension gaps were evaluated and a 2 mm gap was present with good balance. Trials were removed, the knee was irrigated, and the final polyethylene was snapped into position. The knee was irrigated once again including irrigation with a dilute Betadine solution. The knee was then closed with an Ethibond suture in the capsular layer in a running locking fashion. The skin was closed with 2-0 Vicryl and a 3-0 Monocryl. Steri-Strips were applied. Light compressive dressing was then placed. The patient tolerated the procedure very well. There were no complications. She was taken from the operating room in stable condition. Don Nagy MD /[id number]
== END 2019-11-23 14:40 | disposition home health service (06) | DRG 470 ==
LOC: JP.SDS 06:06 → JP.MS 09:11 → JP.SDSSCHI 09:11 → JP.SDS 11-21 17:40 → JP.SDSSCHI 11-21 17:40 → UNDOADMIN 11-21 17:41 → JP.SDS 11-21 17:41 → JP.MS 11-21 17:41 → UNDODISIN 11-23 14:40
PROVIDERS: ADMIT Specialist; ATTEND Specialist
PROC: 0SRC0L9 Replacement of Right Knee Joint with Medial Unicondylar Synthetic Substitute, Cemented, Open Approach (ICD-10-PCS; principal; 2019-11-20)
DX: M17.11 Unilateral primary osteoarthritis, right knee (principal); F33.9 Major depressive disorder, recurrent, unspecified; F41.9 Anxiety disorder, unspecified; J44.9 Chronic obstructive pulmonary disease, unspecified; K21.9 Gastro-esophageal reflux disease without esophagitis; E03.9 Hypothyroidism, unspecified; G47.33 Obstructive sleep apnea (adult) (pediatric); E66.9 Obesity, unspecified; E55.9 Vitamin D deficiency, unspecified; Z88.8 Allergy status to other drugs, medicaments and biological substances; Z79.899 Other long term (current) drug therapy; Z79.890 Hormone replacement therapy
CPT/HCPCS: 73560-26-RT; 73560-RT; 97110-GP; 97116-GP; 97161-GP; 97165-GO; 97530-GP; A9270-GY; C1713; C1776; J0690; J1100; J1885; J2250; J2270; J2405; J2704; J2710; J3010; J3410; J3490; J7030; J7120

== ENCOUNTER 2019-12-28 07:28 | Day surgery (SDC) | payer MEDICARE, MEDICAID ==
[~2019-12-28 07:28] MED LIST changes: -Acetaminophen 500 MG Tab PO ONE
[2019-12-28] MEDS ORDERED: Dextrose 5%-Lactated Ringers 1,000 ML IV SCH (08:00)
[2019-12-28] MEDS ORDERED: Meropenem 500 MG in Sodium Chloride 0.9% 50 ML IV ONE (08:30)
[2019-12-28] MEDS ORDERED: Albuterol 8 GM Inhaler INH ONE (08:30)
[2019-12-28 11:21] VITALS: BP 110/52; PULSE 54
--- NOTE | 2020-01-01 10:14 | OR ---
DATE OF PROCEDURE: 12/28/2019 SURGEON: aAyush Ruiz MD PREOPERATIVE DIAGNOSIS: Frequent loose bowel movements/diarrhea. POSTOPERATIVE DIAGNOSIS: Frequent loose bowel movements/diarrhea with: 1. Extensive uncomplicated left colonic diverticulosis. 2. Otherwise normal exam. OPERATIVE PROCEDURE: Flexible colonoscopy with: 1. Collection of stool for microbiologic workup ([id number]). 2. Random colorectal biopsies to rule out microscopic colitis ([id number]). ANESTHESIA: IV sedation. INDICATION FOR PROCEDURE: A 64-year-old female presenting with some ongoing frequent loose bowel movements or diarrhea. The plan is to proceed with a colonoscopy with biopsies as indicated. We will try to obtain some stool for culture, and if no specific pathology is identified, we will obtain random colorectal biopsies to rule out microscopic colitis. Potential risks of the procedure including bleeding and perforation were discussed, and the patient wishes to proceed. DETAILS OF PROCEDURE: The patient was taken to the operating room and placed in a left lateral decubitus position. IV sedation was administered, after which initial digital rectal exam was performed and was unremarkable. Colonoscope was then passed into the rectum with retroflexion revealing uncomplicated hemorrhoidal columns. The scope was eventually passed to the level of the cecum. The prep was fair, but there was some moderate amount of liquid stool present which obscured small areas of mucosal surface. The patient had quite extensive left colonic diverticulosis, but this was otherwise uncomplicated. Apart from that, there were no areas of colitis evident, and there were no polyps or other signs of neoplasia. The stool was evacuated during the course of the procedure and sent for full microbiologic workup. Upon retrieval of the scope, multiple biopsies were obtained from the cecum down through the rectum and sent for histologic evaluation to rule out microscopic colitis. Minimal bleeding at the biopsy sites was seen and the procedure then concluded. The patient was taken to the recovery room in satisfactory condition. The patient will be following up with Marita Vaughn PA-C, in [facility] in roughly 2 weeks. If nothing comes of todays cultures or biopsies, one might consider looking at the patient's medication list to see if there are any medications that may be contributing to the increase in the bowel movements. Otherwise, the patient could be treated medically with agents designed to slow down colonic motility. Aayush Ruiz MD /[id number]
== END 2019-12-28 11:48 | disposition home or self-care (01) ==
LOC: JP.SDS 07:28
PROVIDERS: ATTEND Surgery
DX: K57.30 Diverticulosis of large intestine without perforation or abscess without bleeding (principal); E78.5 Hyperlipidemia, unspecified; K21.9 Gastro-esophageal reflux disease without esophagitis; J43.9 Emphysema, unspecified; G47.33 Obstructive sleep apnea (adult) (pediatric); F17.200 Nicotine dependence, unspecified, uncomplicated
CPT/HCPCS: 45380; 87046; 87177; 87209; 87899; 88305; 88313; 89055; 94640; A9270; J2185; J2250; J2704; J3010; J7050; J7121; 87493

== ENCOUNTER 2020-05-15 22:02 | Emergency (ER) | payer MEDICARE, MEDICAID ==
[2020-05-15 22:17] VITALS: BP 144/76; PULSE 86
--- NOTE | 2020-05-15 23:34 | EDM.PDOC ---
ED HPI GENERAL MEDICAL PROBLEM - General Chief Complaint: Skin Complaint Stated Complaint: SWOLLEN LEFT LEG Time Seen by Provider: 05/15/20 23:10 Source of Information: Reports: Patient, RN History Limitations: Reports: No Limitations - History of Present Illness INITIAL COMMENTS - FREE TEXT/NARRATIVE: 65-year-old female with a history of multiple abdominal surgeries with Dr. Ruiz comes now because she is concerned about increasing swelling in her left leg and discomfort accompanying a left lower abdominal problem that she has had for which she is now on 2 antibiotics for the last 1 day. She had a CAT scan done that showed possible abscesses in the left lower quadrant area and some air. She apparently was started antibiotics after that was noted and she has a appointment to follow-up with Dr. Ruiz next week. She has no nausea vomiting or diarrhea or constipation and she is eating all right. Urine is working well. Pain is moderate in the abdomen is nonradiating worse. Her visit tonight was precipitated by swelling in the left leg. She is on 2 blood thinners however and DVT is unlikely. She has normal vital signs and is nontoxic in appearance Review of the old records show that she has had multiple surgeries and multiple comorbidities indeed Onset: Gradual Duration: Day(s):, Week(s): Location: Reports: Abdomen, Lower Extremity, Left Quality: Reports: Ache Severity: Mild Improves with: Reports: None Worsens with: Reports: None Left Groin Pain Score (Numeric/FACES): 6 - Related Data Allergies Allergy/AdvReac Type Severity Reaction Status Date / Time ciprofloxacin Allergy Hives Verified 12/27/19 08:32 clonidine Allergy Other Verified 12/27/19 08:32 hydromorphone Allergy Rash Verified 12/27/19 08:32 oxycodone [From Percocet] Allergy Hives Verified 12/27/19 08:32 Home Meds: Home Meds Levothyroxine Sodium [Synthroid] 25 mcg PO .ACBREAKFAST 07/05/14 [History] ondansetron HCL [Zofran] 8 mg PO Q8H PRN 10/25/14 [History] Furosemide 40 mg PO DAILY PRN 06/17/16 [History] Sertraline HCl [Zoloft] 100 mg PO DAILY 02/24/17 [History] traZODone 50 - 100 mg PO BEDTIME PRN 02/24/17 [History] ClonazePAM [KlonoPIN] 0.5 mg PO DAILY PRN 03/05/17 [History] Penciclovir [Denavir 1% Crm] 1 applic TOP ASDIRECTED 03/05/17 [History] Mometasone Furoate [Elocon 0.1% Crm] 1 applic TOP DAILY 09/16/17 [History] tiZANidine [Zanaflex] 4 mg PO Q8H PRN 09/16/17 [History] Pantoprazole [ProTONIX] 40 mg PO DAILY 06/06/19 [History] buPROPion HCL [Wellbutrin SR] 150 mg PO DAILY 06/06/19 [History] Acetaminophen [Tylenol Extra Strength] 1,000 mg PO BID PRN 08/10/19 [History] Albuterol [Proventil Neb Soln] 3 ml NEB Q4H PRN 08/10/19 [History] Cetirizine [ZyrTEC] 10 mg PO DAILY 08/10/19 [History] Cholecalciferol (Vitamin D3) [Vitamin D3] 2,000 unit PO DAILY 08/10/19 [History] Cyanocobalamin (Vitamin B-12) [B-12] 500 mcg PO DAILY 08/10/19 [History] Gabapentin [Neurontin] 300 mg PO BEDTIME 08/10/19 [History] Lidocaine 2% [Xylocaine 2% Jelly] 1 applic TOP DAILY 08/10/19 [History] Meclizine [Antivert] 25 mg PO .MORNING 08/10/19 [History] Varenicline [Chantix] 1 mg PO BID 08/10/19 [History] Albuterol [Ventolin HFA] 2 puff INH Q6H PRN 11/16/19 [History] Fluticasone Propionate [Flonase] 2 spr NASBOTH DAILY PRN 11/16/19 [History] Homeopathic Products (Leg Cramp Complex Or) 1 - 2 tab PO BEDTIME 11/16/19 [History] Umeclidinium Brm/Vilanterol Tr [Anoro Ellipta 62.5-25 MCG] 1 each INH DAILY 11/16/19 [History] Dicyclomine [Bentyl] 10 mg PO QID PRN 02/13/20 [History] Sulfamethoxazole/Trimethoprim [Sulfamethoxazole-Tmp Ds Tablet] 1 each PO ASDIRECTED 05/15/20 [History] Past Medical History HEENT History: Reports: Allergic Rhinitis, Impaired Vision Other HEENT History: wears glasses Cardiovascular History: Reports: Cardiomyopathy, Heart Murmur, SOB on Exertion Respiratory History: Reports: Bronchitis, Recurrent, COPD, Pneumonia, Recurrent, Sleep Apnea, SOB Gastrointestinal History: Reports: Bowel Obstruction, Cholelithiasis, Dive rticulosis, GERD, Hiatal Hernia Genitourinary History: Reports: UTI, Recurrent, Other (See Below) Other Genitourinary History: bladder suspension 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 ; wound ulcer right lower leg Neurological History: Reports: Vertigo Psychiatric History: Reports: Anxiety, Depression, Suicidal Ideation Endocrine/Metabolic History: Reports: Hypothyroidism, Obesity/BMI 30+ Hematologic History: Reports: None Immunologic History: Reports: None Oncologic (Cancer) History: Reports: Cervix, Uterine Other Oncologic History: complete hysterectomy July 09, 2014 Dermatologic History: Reports: Cellulitis, Other (See Below) Other Dermatologic History: sore on right lower leg that won't go away; [facility] debrid 06/27/2019 - Infectious Disease History Infectious Disease History: Reports: None - Past Surgical History Head Surgeries/Procedures: Reports: None HEENT Surgical History: Reports: Other (See Below) Other HEENT Surgeries/Procedures: biopsy on tongue Cardiovascular Surgical History: Reports: None Respiratory Surgical History: Reports: None GI Surgical History: Reports: Appendectomy, Cholecystectomy, Colon, Colonoscopy, EGD, Hernia Repair/Other Female Surgical History: Reports: Hysterectomy, Salpingo-Oophorectomy, Other (See Below) Other Female Surgeries/Procedures: bladder suspension Endocrine Surgical History: Reports: None Neurological Surgical History: Reports: None Musculoskeletal Surgical History: Reports: None, Knee Replacement Other Musculoskeletal Surgeries/Procedures:: right partial knee 11/20/19 Oncologic Surgical History: Reports: None Other Oncologic Surgeries/Procedures: hysterectomy Dermatological Surgical History: Reports: None Social & Family History - Family History Family Medical History: No Pertinent Family History Cardiac: Reports: Arrhythmia, Pacemaker, Other (See Below) Other Cardiac Family History: pacer/defib; valve replacement Respiratory: Reports: COPD Musculoskeletal: Reports: Arthritis, Back pain, Chronic, Gout Endocrine/Metabolic: Reports: Diabetes, type II Oncologic: Reports: Breast, Cervix, Uterine - Tobacco Use Tobacco Use Status *Q: Current Every Day Tobacco User Years of Tobacco use: 45 Packs/Tins Daily: 0.1 - Caffeine Use Caffeine Use: Reports: Coffee, Soda Caffeine Use Comment: 2 cups coffee. 2-6 diet cokes daily - Recreational Drug Use Recreational Drug Use: No - Living Situation & Occupation Living situation: Reports: (Lives with her 80+ mother, and her sister is in the next house. Has 1 son and 2 grandchildren , who she is currently estranged from her child and grandchildren.) ED ROS GENERAL - Review of Systems Review Of Systems: See Below Constitutional: Reports: No Symptoms HEENT: Reports: No Symptoms Respiratory: Reports: No Symptoms Cardiovascular: Reports: No Symptoms Endocrine: Reports: No Symptoms GI/Abdominal: Reports: Abdominal Pain : Reports: No Symptoms Musculoskeletal: Reports: Leg Pain Skin: Reports: Erythema Neurological: Reports: No Symptoms Psychiatric: Reports: No Symptoms ED EXAM, SKIN/RASH Exam: See Below Exam Limited By: No Limitations General Appearance: Alert, No Apparent Distress Head: Atraumatic, Normocephalic Neck: Normal Inspection Respiratory/Chest: No Respiratory Distress GI/Abdominal: Normal Bowel Sounds, Soft, Other (She has some erythema in the left lower quadrant and mild tenderness but no crepitus. There is no rebound. I do not feel in particular masses but she has defects from prior surgery.. So a nonacute abdomen) Back Exam: Normal Inspection Extremities: Other (I do not really see swelling of the left thigh compared to the right thigh as they are both large but she says that it is swollen.) Neurological: Alert, Oriented, Normal Cognition Course - Vital Signs Text/Narrative:: I reviewed the CAT scan and recent lab. She does not appear to be toxic. She does not need IV antibiotics at this juncture as she has just started 1 day of 2 antibiotics. She does not need surgery at this moment. Does not appear to reason for in admission. My recommendation be to continue her antibiotics and call Dr. Ruiz's office tomorrow if she continues to worsen or return here. Otherwise keep on her antibiotics and follow-up with him Last Recorded V/S: Last Vital Signs Temp 36.5 C 05/15/20 22:38 Pulse 86 05/15/20 22:38 Resp 16 05/15/20 22:38 BP 144/76 H 05/15/20 22:38 Pulse Ox 94 L 05/15/20 22:38 Departure - Departure Time of Disposition: 23:40 Disposition: Home, Self-Care 01 Condition: Good Clinical Impression: Abscess - Discharge Information Referrals: hZang Mckeon MD [Primary Care Provider] - Forms: ED Department Discharge Care Plan Goals: Call Dr. Ruiz for evaluation tomorrow or return for new or worse symptoms Sepsis Event Note (ED) - Evaluation Sepsis Screening Result: No Definite Risk - Focused Exam Vital Signs: Vital Signs Temp Pulse Resp BP Pulse Ox 05/15/20 22:38 36.5 C 86 16 144/76 H 94 L 05/15/20 22:16 36.5 C 86 16 144/76 H 94 L
== END 2020-05-15 23:36 | disposition home or self-care (01) ==
LOC: JP.ED 22:02
DX: L02.416 Cutaneous abscess of left lower limb (principal); J44.9 Chronic obstructive pulmonary disease, unspecified; K21.9 Gastro-esophageal reflux disease without esophagitis; E03.9 Hypothyroidism, unspecified; F41.9 Anxiety disorder, unspecified; F32.9 Major depressive disorder, single episode, unspecified; E66.9 Obesity, unspecified; Z68.35 Body mass index [BMI] 35.0-35.9, adult; F17.210 Nicotine dependence, cigarettes, uncomplicated; Z90.710 Acquired absence of both cervix and uterus; Z90.49 Acquired absence of other specified parts of digestive tract; Z88.1 Allergy status to other antibiotic agents; Z88.5 Allergy status to narcotic agent; Z79.899 Other long term (current) drug therapy
CPT/HCPCS: 99283

== ENCOUNTER 2020-06-06 08:17 | Inpatient (IN) | payer MEDICARE, MEDICAID ==
[~2020-06-06 08:17] MED LIST changes: +Acetaminophen 500 MG Tab PO ONE; +Bupivacaine 0.5% 50 ML MDV ONE; +Dexamethasone 4 MG/ML SDV ONE; +Glycopyrrolate 0.2 MG/ML 5 ML MDV ONE; +Lidocaine 1% with EPINEPHrine 1:100,000 50 ML MDV ONE; +Meropenem 500 MG SDV ONE; -Midazolam 1 MG/ML 2 ML SDV ONE; +Neostigmine Methylsulfate 1 MG/ML 5 ML Syringe ONE; +Ondansetron 4 MG/2 ML SDV ONE; +Rocuronium 50 MG/5 ML Vial ONE; +Succinylcholine 200 MG/10 ML MDV ONE; -fentaNYL 100 MCG/2 ML SDV ONE; +fentaNYL 250 MCG/5 ML SDV ONE
[2020-06-06] MEDS ORDERED: Neomycin/Polymyxin B 1 ML, Sodium Chloride 0.9% 750 ML ONE ×2 (08:30)
[2020-06-06] MEDS ORDERED: Dextrose 5%-Lactated Ringers 1,000 ML IV SCH (09:00)
[2020-06-06] MEDS ORDERED: cefOXitin 2 GM in Sodium Chloride 0.9% 50 ML IV ONE (09:30)
[2020-06-06] MEDS ORDERED: Albuterol/Ipratropium 3.0-0.5 MG/3 ML Neb Soln NEB ONE (09:30)
[2020-06-06] MEDS ORDERED: fentaNYL 250 MCG/5 ML SDV ONE (10:15)
[2020-06-06] MEDS ORDERED: Ropivacaine 40 ML, dexAMETHasone 8 MG, EPINEPHrine 0.4 MG, Sodium Chloride 0.9% 37.6 ML NERVRT SCH ×4 (10:30)
[2020-06-06] MEDS ORDERED: Ketamine 500 MG/5 ML MDV IV SCH (10:30)
[2020-06-06] MEDS ORDERED: Ketamine 50 MG in Sodium Chloride 0.9% 49.5 ML IV SCH (10:30)
[2020-06-06] MEDS ORDERED: diphenhydrAMINE 25 MG Cap PO PRN (12:13)
[2020-06-06] MEDS ORDERED: Naloxone 0.4 MG/ML SDV IVPUSH PRN (12:13)
[2020-06-06] MEDS ORDERED: diphenhydrAMINE 50 MG/ML SDV IVPUSH PRN ×2 (12:13→14:00)
[2020-06-06] MEDS ORDERED: Ondansetron 4 MG/2 ML SDV IVPUSH PRN (12:13)
[2020-06-06] MEDS: Linezolid 600 MG in Premix Bag 1 BAG IV SCH (12:35)
[2020-06-06] MEDS ORDERED: Naloxone 0.4 MG/ML SDV IV PRN (13:00)
[2020-06-06] MEDS ORDERED: Cyclobenzaprine 10 MG Tab PO PRN (13:12)
[2020-06-06] MEDS ORDERED: Fluticasone Propionate Nasal Spray 16 GM Bottle NASBOTH PRN (13:17)
[2020-06-06] MEDS ORDERED: Scopolamine 1.5 MG Transdermal Patch TOP PRN (13:35)
[2020-06-06] MEDS: Ondansetron 4 MG/2 ML SDV IVPUSH PRN ×2 (13:37→21:30)
[2020-06-06] MEDS: Dextrose 5%-Lactated Ringers 1,000 ML IV SCH ×2 (13:46→20:00)
[2020-06-06] MEDS ORDERED: Acetaminophen 500 MG Tab PO PRN (14:00)
[2020-06-06] MEDS ORDERED: Labetalol 20 MG/4 ML Syringe IVPUSH PRN (14:00)
[2020-06-06] MEDS ORDERED: hydrOXYzine HCL 100 MG/2 ML SDV IM PRN (14:00)
[2020-06-06] MEDS ORDERED: Albuterol/Ipratropium 3.0-0.5 MG/3 ML Neb Soln INH PRN (14:00)
[2020-06-06] MEDS: Albuterol/Ipratropium 3.0-0.5 MG/3 ML Neb Soln INH SCH ×2 (14:24→20:58)
[2020-06-06] MEDS: Metoclopramide 10 MG/2 ML SDV IVPUSH PRN (14:38)
[2020-06-06] MEDS ORDERED: MVI, Adult with Vitamin K 10 ML, Thiamine 200 MG, Zinc/Copper/Manganese/Selenium 1 ML i... IV SCH ×4 (16:00)
[2020-06-06] MEDS ORDERED: Coagulation Factor VIIa Recombinant (per MCG) 2 MG Vial IVPUSH ONE (16:00)
[2020-06-06] MEDS ORDERED: TRANEXAMIC ACID IV ONE (16:00)
[2020-06-06] MEDS ORDERED: Acetaminophen 500 MG Tab PO SCH (16:00)
[2020-06-06] MEDS ORDERED: SODIUM CHLORIDE 0.9% IV ONE (16:00)
[2020-06-06] MEDS: Pantoprazole 40 MG Vial IVPUSH SCH (16:46)
[2020-06-06] MEDS: cefOXitin 2 GM in Sodium Chloride 0.9% 50 ML IV SCH ×2 (16:47→21:02)
[2020-06-06] MEDS ORDERED: Heparin Sodium 5,000 Units/ML Vial SUBCUT SCH (20:00)
[2020-06-06] MEDS: Celecoxib 200 MG Cap PO SCH (21:01)
[2020-06-06] MEDS: Acetaminophen 500 MG Tab PO SCH (21:01)
[2020-06-06] MEDS: Gabapentin 300 MG Cap PO SCH (21:01)
[2020-06-07] MEDS: Dextrose 5%-Lactated Ringers 1,000 ML IV SCH ×4 (01:45→21:40)
[2020-06-07] MEDS: Linezolid 600 MG in Premix Bag 1 BAG IV SCH ×2 (01:46→13:40)
[2020-06-07] MEDS ORDERED: Iopamidol 510 MG/ML 50 ML SDV PO ONE (02:32)
[2020-06-07] MEDS: cefOXitin 2 GM in Sodium Chloride 0.9% 50 ML IV SCH ×4 (03:47→21:29)
[2020-06-07] MEDS: Ondansetron 4 MG/2 ML SDV IVPUSH PRN ×2 (03:47→13:59)
[2020-06-07] MEDS ORDERED: Iopamidol 612 MG/ML 50 ML SDV PO ONE (04:00)
[2020-06-07] MEDS: Acetaminophen 500 MG Tab PO SCH ×3 (05:00→21:28)
[2020-06-07] MEDS: Albuterol/Ipratropium 3.0-0.5 MG/3 ML Neb Soln INH SCH ×4 (07:36→21:23)
[2020-06-07] MEDS: Tiotropium BR/Olodaterol HCL 4 GM Inhalation Spray 2.5mcg/1 dose; 10 doses INH SCH ×2 (07:52→21:24)
[2020-06-07] MEDS: Levothyroxine 25 MCG Tab PO SCH (08:28)
[2020-06-07] MEDS: Meclizine 25 MG Tab PO SCH (08:28)
[2020-06-07] MEDS: Sertraline 50 MG Tab PO SCH (08:29)
[2020-06-07] MEDS: Celecoxib 200 MG Cap PO SCH ×2 (08:29→21:27)
[2020-06-07] MEDS: Multivitamins with Iron/Calcium/Folic Acid/Minerals Tab PO SCH (08:29)
[2020-06-07] MEDS: Furosemide 40 MG Tab PO SCH (08:29)
[2020-06-07] MEDS: Cetirizine 10 MG Tab PO SCH (08:30)
[2020-06-07] MEDS: Aspirin 81 MG Tab.EC PO SCH (09:07)
[2020-06-07] MEDS: Clopidogrel 75 MG Tab PO SCH (09:07)
[2020-06-07] MEDS: [UNRECOGNIZED DRUG - OTHER] PO PRN (09:38)
[2020-06-07] MEDS: Magnesium Sulfate/Water 2 GM/50 ML BAG IV SCH ×3 (09:47→21:28)
[2020-06-07] MEDS: Furosemide 20 MG/2 ML VIAL IVPUSH ONE ×2 (12:46→13:45)
[2020-06-07] MEDS: fentaNYL/Normal Saline 600 MCG/30 ML PCA Vial IV SCH (12:51)
[2020-06-07] MEDS: Pantoprazole 40 MG Vial IVPUSH SCH (15:49)
[2020-06-07] MEDS: Gabapentin 300 MG Cap PO SCH (21:28)
[2020-06-07] MEDS: traZODone 50 MG Tab PO PRN (21:39)
[2020-06-08] MEDS: Linezolid 600 MG in Premix Bag 1 BAG IV SCH ×2 (02:00→13:57)
[2020-06-08] MEDS: cefOXitin 2 GM in Sodium Chloride 0.9% 50 ML IV SCH ×4 (04:20→21:52)
[2020-06-08] MEDS: Magnesium Sulfate/Water 2 GM/50 ML BAG IV SCH ×4 (04:20→22:31)
[2020-06-08] MEDS: Dextrose 5%-Lactated Ringers 1,000 ML IV SCH ×2 (04:22→19:10)
[2020-06-08] MEDS: Acetaminophen 500 MG Tab PO SCH ×3 (05:14→21:56)
[2020-06-08] MEDS ORDERED: Lidocaine 1% with EPINEPHrine 1:100,000 50 ML MDV ONE (07:05)
[2020-06-08] MEDS ORDERED: Meropenem 500 MG SDV ONE (07:05)
[2020-06-08] MEDS ORDERED: Bupivacaine 0.5% 30 ML SDV ONE (07:05)
[2020-06-08] MEDS ORDERED: Metoclopramide 10 MG/2 ML SDV ONE (07:16)
[2020-06-08] MEDS: Metoclopramide 10 MG/2 ML SDV IVPUSH PRN (07:20)
[2020-06-08] MEDS ORDERED: fentaNYL 100 MCG/2 ML SDV ONE (07:31)
[2020-06-08] MEDS ORDERED: Midazolam 1 MG/ML 2 ML SDV ONE (07:32)
[2020-06-08] MEDS ORDERED: Propofol 200 MG/20 ML SDV ONE (07:32)
[2020-06-08] MEDS: Albuterol/Ipratropium 3.0-0.5 MG/3 ML Neb Soln INH SCH ×4 (07:37→20:36)
[2020-06-08] MEDS: Tiotropium BR/Olodaterol HCL 4 GM Inhalation Spray 2.5mcg/1 dose; 10 doses INH SCH ×2 (07:38→20:38)
[2020-06-08] MEDS ORDERED: Lactated Ringers 1,000 ML ONE (08:16)
[2020-06-08] MEDS ORDERED: Cyanocobalamin (Vitamin B12) 1,000 MCG/ML SDV IM ONE (09:00)
[2020-06-08] MEDS: Potassium Phos in 0.9 % NaCl 15 MMOL in Premix Bag 1 BAG IV SCH ×4 (11:06→15:34)
[2020-06-08] MEDS ORDERED: Furosemide 20 MG/2 ML VIAL IVPUSH ONE (11:30)
[2020-06-08] MEDS: Sertraline 50 MG Tab PO SCH (12:16)
[2020-06-08] MEDS: Levothyroxine 25 MCG Tab PO SCH (12:16)
[2020-06-08] MEDS: Aspirin 81 MG Tab.EC PO SCH (12:16)
[2020-06-08] MEDS: Docusate Sodium 100 MG Cap PO SCH ×2 (12:17→20:37)
[2020-06-08] MEDS: Cetirizine 10 MG Tab PO SCH (12:17)
[2020-06-08] MEDS: Celecoxib 200 MG Cap PO SCH ×2 (12:17→20:36)
[2020-06-08] MEDS: Multivitamins with Iron/Calcium/Folic Acid/Minerals Tab PO SCH (12:17)
[2020-06-08] MEDS: Clopidogrel 75 MG Tab PO SCH (12:17)
[2020-06-08] MEDS: Meclizine 25 MG Tab PO SCH (12:17)
[2020-06-08] MEDS: Bisacodyl 5 MG Tab PO SCH ×2 (12:22→20:37)
[2020-06-08] MEDS: Furosemide 40 MG Tab PO SCH (13:54)
[2020-06-08] MEDS: Ondansetron 4 MG/2 ML SDV IVPUSH PRN ×2 (14:36→20:28)
[2020-06-08] MEDS: Pantoprazole 40 MG Vial IVPUSH SCH (15:15)
[2020-06-08] MEDS: Calcium Carbonate 500 MG Tab.Chew PO PRN (15:44)
[2020-06-08] MEDS: Gabapentin 300 MG Cap PO SCH (20:38)
[2020-06-08] MEDS: traZODone 50 MG Tab PO PRN (20:40)
[2020-06-08] MEDS: [UNRECOGNIZED DRUG - OTHER] PO PRN (21:58)
[2020-06-09] MEDS: Linezolid 600 MG in Premix Bag 1 BAG IV SCH (01:10)
[2020-06-09] MEDS: cefOXitin 2 GM in Sodium Chloride 0.9% 50 ML IV SCH ×2 (03:25→10:32)
[2020-06-09] MEDS: Magnesium Sulfate/Water 2 GM/50 ML BAG IV SCH (04:42)
[2020-06-09] MEDS: Acetaminophen 500 MG Tab PO SCH ×3 (05:33→22:07)
[2020-06-09] MEDS: Albuterol/Ipratropium 3.0-0.5 MG/3 ML Neb Soln INH SCH ×4 (07:38→22:05)
[2020-06-09] MEDS: Tiotropium BR/Olodaterol HCL 4 GM Inhalation Spray 2.5mcg/1 dose; 10 doses INH SCH ×2 (07:39→22:06)
[2020-06-09] MEDS: Levothyroxine 25 MCG Tab PO SCH (07:53)
[2020-06-09] MEDS: Multivitamins with Iron/Calcium/Folic Acid/Minerals Tab PO SCH (08:25)
[2020-06-09] MEDS: Furosemide 40 MG Tab PO SCH (08:25)
[2020-06-09] MEDS: Celecoxib 200 MG Cap PO SCH ×2 (08:25→22:04)
[2020-06-09] MEDS: Sertraline 50 MG Tab PO SCH (08:25)
[2020-06-09] MEDS: Aspirin 81 MG Tab.EC PO SCH (08:25)
[2020-06-09] MEDS: Cetirizine 10 MG Tab PO SCH (08:25)
[2020-06-09] MEDS: Meclizine 25 MG Tab PO SCH (08:25)
[2020-06-09] MEDS: Clopidogrel 75 MG Tab PO SCH (08:25)
[2020-06-09] MEDS: Docusate Sodium 100 MG Cap PO SCH ×2 (08:34→22:03)
[2020-06-09] MEDS ORDERED: Bisacodyl 5 MG Tab PO PRN (09:00)
[2020-06-09] MEDS: Pantoprazole 40 MG Tab.CR PO SCH (09:11)
[2020-06-09] MEDS: Furosemide 20 MG/2 ML VIAL IVPUSH SCH ×2 (09:13→16:06)
[2020-06-09] MEDS: fentaNYL/Normal Saline 600 MCG/30 ML PCA Vial IV SCH (10:57)
[2020-06-09] MEDS: Dextrose 5%-Lactated Ringers 1,000 ML IV SCH ×2 (10:57→22:14)
[2020-06-09] MEDS: Ondansetron 4 MG/2 ML SDV IVPUSH PRN (12:03)
[2020-06-09] MEDS: Calcium Carbonate 500 MG Tab.Chew PO PRN ×2 (12:03→22:52)
[2020-06-09] MEDS: [UNRECOGNIZED DRUG - OTHER] PO PRN (22:03)
[2020-06-09] MEDS: Gabapentin 300 MG Cap PO SCH (22:06)
[2020-06-09] MEDS: traZODone 50 MG Tab PO PRN (22:55)
[2020-06-10] MEDS: Albuterol/Ipratropium 3.0-0.5 MG/3 ML Neb Soln INH SCH ×4 (06:59→20:31)
[2020-06-10] MEDS: Tiotropium BR/Olodaterol HCL 4 GM Inhalation Spray 2.5mcg/1 dose; 10 doses INH SCH ×2 (06:59→21:49)
[2020-06-10] MEDS: Acetaminophen 500 MG Tab PO SCH ×3 (07:12→21:49)
[2020-06-10] MEDS ORDERED: Furosemide 20 MG/2 ML VIAL IVPUSH ONE ×2 (07:40→16:00)
[2020-06-10] MEDS: cefOXitin 2 GM in Sodium Chloride 0.9% 50 ML IV SCH ×3 (08:01→20:31)
--- NOTE | 2020-06-10 09:53 | PN ---
DATE OF SERVICE: 06/10/2020 SUBJECTIVE: Reji's vital signs have been stable. She has been afebrile. She did have a bowel movement. Oral intake was 1900. Urine output 3550. The pain is uncontrolled with the PELLET PREPARATION OPERATOR. She will be changed from her PELLET PREPARATION OPERATOR. Remainder of review of systems negative for any pertinent positives and negatives. OBJECTIVE: GENERAL: Reji Gonzalez is a 65-year-old female. She is alert and orientated. VITAL SIGNS: TPR; 97, 60, 12. Blood pressure 103/52. HEENT: Negative. NECK: Supple. HEART: Regular rate and rhythm. LUNGS: Clear. ABDOMEN: Dressings dry and intact. Abdominal binder is on. EXTREMITIES: Without peripheral edema. ASSESSMENT: Delayed primary closure 06/08/2020 and sigmoid colon resection, removal of peritoneal mesh, small bowel resection, strictureplasty and insertion of mesh for recurrent sigmoid colon diverticulosis. Date of procedure: 06/06/2020. PLAN: 1. Discontinue Barrett catheter. 2. Lasix 20 mg IV now. Repeat in 8 hours. 3. Albumin 25 mg IV q.4 days. 4. KCl 60 mEq p.o., 3 doses. 5. Check CBC, CMP, mag, phos in a.m. 6. Cefoxitin 2 g IV q.6 hours. 7. Check labs in a.m. 8. Change to [place] 5/325 mg 1 to 2 every 4 hours p.r.n. pain. 9. We will continue use of incentive spirometer. 10.Transfer to second floor. 11.We will evaluate p.r.n. or in a.m. Irasema Gresham PA-C /[id number]
--- NOTE | 2020-06-10 10:17 | CR ---
UGI Limited HISTORY: Postabdominal surgery FINDINGS: Precontrast image shows an air-fluid level in the stomach. Gas pattern is nonspecific. There is a surgical drain in the left lower quadrant. Patient swallowed water-soluble contrast. Upright views of the abdomen show no evidence of extravasation or obstruction. IMPRESSION: Limited study Status post abdominal surgery No extravasation or obstruction seen
[2020-06-10] MEDS: Potassium Chloride 20 MEQ Tab.ER PO SCH ×3 (11:08→16:35)
[2020-06-10] MEDS: Cetirizine 10 MG Tab PO SCH (11:09)
[2020-06-10] MEDS: Sertraline 50 MG Tab PO SCH (11:09)
[2020-06-10] MEDS: Meclizine 25 MG Tab PO SCH (11:10)
[2020-06-10] MEDS: Multivitamins with Iron/Calcium/Folic Acid/Minerals Tab PO SCH (11:10)
[2020-06-10] MEDS: Aspirin 81 MG Tab.EC PO SCH (11:10)
[2020-06-10] MEDS: Furosemide 40 MG Tab PO SCH (11:10)
[2020-06-10] MEDS: Celecoxib 200 MG Cap PO SCH ×2 (11:10→21:48)
[2020-06-10] MEDS: Pantoprazole 40 MG Tab.CR PO SCH (11:11)
[2020-06-10] MEDS: Clopidogrel 75 MG Tab PO SCH (11:11)
[2020-06-10] MEDS: Docusate Sodium 100 MG Cap PO SCH ×3 (11:11→22:00)
[2020-06-10] MEDS: Levothyroxine 25 MCG Tab PO SCH (11:11)
[2020-06-10] MEDS: Dextrose 5%-Lactated Ringers 1,000 ML IV SCH (11:34)
--- NOTE | 2020-06-10 11:56 | CR ---
Abdomen 2V AP Flat Upright CLINICAL HISTORY: Assess gastric emptying FINDINGS: There is contrast throughout the colon. There is mild gaseous distention of colon. The there is some ill-defined contrast in the sigmoid region. This is likely due to overlapping loops of sigmoid and diverticulosis. No definite extravasation is identified. There is no contrast in the drain. IMPRESSION: Stomach is emptied since prior exam Contrast throughout the colon with mild colonic distention. This may be secondary to some mild ileus. No definite extravasation
[2020-06-10] MEDS: Ondansetron 4 MG/2 ML SDV IVPUSH PRN (12:14)
[2020-06-10] MEDS: Acetaminophen/HYDROcodone 325-5 MG Tab PO PRN ×2 (12:56→20:31)
[2020-06-10] MEDS: Calcium Carbonate 500 MG Tab.Chew PO PRN ×2 (13:32→22:29)
[2020-06-10] MEDS: Gabapentin 300 MG Cap PO SCH (21:48)
[2020-06-10] MEDS: traZODone 50 MG Tab PO PRN (21:48)
[2020-06-11] MEDS: Dextrose 5%-Lactated Ringers 1,000 ML IV SCH (01:18)
[2020-06-11] MEDS: cefOXitin 2 GM in Sodium Chloride 0.9% 50 ML IV SCH ×4 (01:21→20:31)
[2020-06-11] MEDS: Acetaminophen 500 MG Tab PO SCH ×3 (05:28→21:21)
[2020-06-11] MEDS: Tiotropium BR/Olodaterol HCL 4 GM Inhalation Spray 2.5mcg/1 dose; 10 doses INH SCH ×2 (07:49→21:20)
[2020-06-11] MEDS: Albuterol/Ipratropium 3.0-0.5 MG/3 ML Neb Soln INH SCH ×4 (07:49→21:27)
[2020-06-11] MEDS: Pantoprazole 40 MG Tab.CR PO SCH (08:19)
[2020-06-11] MEDS: Levothyroxine 25 MCG Tab PO SCH (08:19)
[2020-06-11] MEDS: Furosemide 40 MG Tab PO SCH (08:21)
[2020-06-11] MEDS: Cetirizine 10 MG Tab PO SCH (08:21)
[2020-06-11] MEDS: Potassium Chloride 20 MEQ Tab.ER PO SCH ×3 (08:21→17:04)
[2020-06-11] MEDS: Aspirin 81 MG Tab.EC PO SCH (08:21)
[2020-06-11] MEDS: Meclizine 25 MG Tab PO SCH (08:21)
[2020-06-11] MEDS: Docusate Sodium 100 MG Cap PO SCH ×2 (08:22→21:21)
[2020-06-11] MEDS: Multivitamins with Iron/Calcium/Folic Acid/Minerals Tab PO SCH (08:22)
[2020-06-11] MEDS: Sertraline 50 MG Tab PO SCH (08:22)
[2020-06-11] MEDS: Celecoxib 200 MG Cap PO SCH ×2 (08:22→21:21)
[2020-06-11] MEDS: Clopidogrel 75 MG Tab PO SCH (08:22)
[2020-06-11] MEDS: Ondansetron 4 MG/2 ML SDV IVPUSH PRN (08:29)
[2020-06-11] MEDS: Calcium Carbonate 500 MG Tab.Chew PO PRN ×2 (08:29→18:26)
[2020-06-11] MEDS: Acetaminophen/HYDROcodone 325-5 MG Tab PO PRN ×4 (08:29→23:02)
[2020-06-11] MEDS: Benzocaine/Cetylpyridinium/Menthol Lozenge MUCMEM PRN ×2 (09:16→15:48)
[2020-06-11] MEDS: Magnesium Sulfate/Water 2 GM/50 ML BAG IV SCH ×3 (09:16→21:15)
--- NOTE | 2020-06-11 09:54 | OR ---
DATE OF PROCEDURE: 06/08/2020 SURGEON: Aayush Ruiz MD PREOPERATIVE DIAGNOSIS: Open abdominal incision. POSTOPERATIVE DIAGNOSIS: Open abdominal incision. OPERATIVE PROCEDURE: Delayed primary closure of open abdominal incision. ANESTHESIA: Local plus IV sedation. INDICATION FOR PROCEDURE: The patient underwent a drainage of intraabdominal abscess, removal of infected mesh involving the small bowel fistula 48 hours go. The skin and subcutaneous tissue were felt to be high risk for wound infection if they were closed primarily. Given this, we packed open for a planned delayed primary closure at this time. Potential risks of the procedure including bleeding and infection were reviewed and the patient wishes to proceed. DETAILS OF PROCEDURE: The patient was taken to the operating room and placed in a supine position, sitting up roughly 30 degrees so as to minimize aspiration risk. The IV sedation was administered and the operative dressing was taken down. The wound was inspected and found to be clean. Abdomen was then prepped and draped. Using ultrasound guidance, bilateral transversus abdominis plane blocks were placed and the wound was irrigated with meropenem-containing saline solution. Incision was closed with a layer of 2-0 Vicryl stitch deep and the subcutaneous tissue with superficial subdermal 4-0 Vicryl stitch, and then azeem for the skin. Dressing was applied. The patient was taken to the recovery room in satisfactory condition. There were no evident complications. Aayush Ruiz MD /[id number]
--- NOTE | 2020-06-11 10:00 | PN ---
DATE OF SERVICE: 06/09/2020 The patient has been afebrile with stable vital signs. Blood pressure came up nicely after some additional transfusions yesterday. Urine output has been adequate. She did move her bowels twice so far and we will advance her diet. Otherwise, her BNP is up quite a bit. We will give her a dose of Lasix this morning. We will keep that in 8 hours. Otherwise, maximize activity and work with pulmonary toilet. Aayush Ruiz MD /[id number]
--- NOTE | 2020-06-11 11:30 | PN ---
DATE OF SERVICE: 06/07/2020 The patient is postop day 1 from a small bowel resection along with resection of intraperitoneal mesh which was involved in small bowel fistula formation. Clinically, she has done well overnight. She did have some oozing, required some factor VII along with tranexamic acid give her 1 unit of packed RBCs. Otherwise, respiratory status appears to be fairly good. Upper GI x-ray showed good flow through the small bowel . Her stomach empties slowly so prior to the delayed primary closure, we will get abdominal x-ray tomorrow morning to assess to how much extent there is fluid and air in the stomach. Also, we will need to be fairly careful with regard to aspiration risk with a delayed primary closure, minimizing the amount of sedation with significant fluid or air in the stomach found on the abdominal x-ray. Otherwise, we will actually continue the present antibiotics consisting of Zyvox and meropenem results with Gram stain showing gram-negative rods and gram-positive cocci. Aayush Ruiz MD /[id number]
--- NOTE | 2020-06-11 11:30 | PN ---
DATE OF SERVICE: 06/11/2020 SUBJECTIVE: Reji has had a bowel movement yesterday. Vital signs have been stable. HEATH drain put out 165 mL of a light-red drainage. Oral intake 1695, urine output 2400. Remainder of review of systems negative for any pertinent positives and negatives. OBJECTIVE: GENERAL: Reji Gonzalez is a pleasant 65-year-old female. VITAL SIGNS: Height is 5 feet 1 inch, weight is 196 pounds. TPR is 95.5, 64, 16. Blood pressure 105/51. HEENT: Negative. NECK: Supple. HEART: Regular rate and rhythm. LUNGS: Reveal decreased breath sounds bilaterally. EXTREMITIES: Without peripheral edema. ASSESSMENT: 1. Exploratory laparotomy with lysis of extensive adhesions. a. Small-bowel resection. b. Removal of peritoneal mesh. c. Small bowel strictureplasty. d. Drainage of intraabdominal abscess. e. Placement of Interceed mesh. 2. Small bowel adherent to intraabdominal mesh with small bowel fistula and intraabdominal abscess. 3. Extensive intraabdominal adhesions. 4. Uncomplicated sigmoid colon diverticulosis. Date of procedure: 06/06/2020. Surgeon: Aayush Ruiz MD. Delayed primary closure for open abdominal incision 06/08/2020. Surgeon: Aayush Ruiz MD. PLAN: 1. Discontinue HEATH drain. 2. Magnesium 2 g q.6 hours IV x72 hours. 3. Saline lock IV. 4. Check CBC, CMP, phos, BNP, and BMP in a.m. 5. Continue use of incentive spirometer. 6. We will evaluate p.r.n. or in a.m. Irasema Gresham PA-C /[id number]
--- NOTE | 2020-06-11 11:30 | PN ---
DATE OF SERVICE: 06/08/2020 The patient has been afebrile. Blood pressure is currently running a little low in the 80 to 100 range, but otherwise, she appears to be clinically fairly stable. Labs showed her hemoglobin only went up a little bit to 8.7. We will give her 1 unit of packed RBCs additionally today as well some additional Lasix as her BNP also went up. Potassium and phosphate are marginally low, we will also be supplementing this. The patient underwent a delayed primary closure today. We will restart some clear liquids with coffee. Otherwise, Barrett catheter is coming out, and we will maximize activity and work with pulmonary toilet. With her lower blood pressures, she is already in ICU, and we will simply switch her to formal ICU status rather than med overflow at this point. Aayush Ruiz MD /[id number]
[2020-06-11] MEDS: [UNRECOGNIZED DRUG - OTHER] PO PRN ×2 (12:54→21:24)
[2020-06-11] MEDS ORDERED: Magnesium Sulfate/Water 2 GM in Premix Bag 1 BAG IV SCH (14:00)
[2020-06-11] MEDS: Ondansetron 4 MG Tab.DIS PO PRN (17:04)
[2020-06-11] MEDS: Gabapentin 300 MG Cap PO SCH (21:21)
[2020-06-11] MEDS: traZODone 50 MG Tab PO PRN (21:27)
[2020-06-12] MEDS: cefOXitin 2 GM in Sodium Chloride 0.9% 50 ML IV SCH ×2 (01:11→08:31)
[2020-06-12] MEDS: Magnesium Sulfate/Water 2 GM/50 ML BAG IV SCH ×2 (01:50→08:30)
[2020-06-12] MEDS: Acetaminophen 500 MG Tab PO SCH (05:14)
[2020-06-12] MEDS: Tiotropium BR/Olodaterol HCL 4 GM Inhalation Spray 2.5mcg/1 dose; 10 doses INH SCH (07:21)
[2020-06-12] MEDS: Albuterol/Ipratropium 3.0-0.5 MG/3 ML Neb Soln INH SCH ×2 (07:21→11:15)
[2020-06-12 08:21] VITALS: BP 118/48; PULSE 78
[2020-06-12] MEDS: Levothyroxine 25 MCG Tab PO SCH (08:29)
[2020-06-12] MEDS: Acetaminophen/HYDROcodone 325-5 MG Tab PO PRN (08:29)
[2020-06-12] MEDS: Aspirin 81 MG Tab.EC PO SCH (08:30)
[2020-06-12] MEDS: Docusate Sodium 100 MG Cap PO SCH (08:30)
[2020-06-12] MEDS: Meclizine 25 MG Tab PO SCH (08:30)
[2020-06-12] MEDS: Pantoprazole 40 MG Tab.CR PO SCH (08:30)
[2020-06-12] MEDS: Celecoxib 200 MG Cap PO SCH (08:30)
[2020-06-12] MEDS: Potassium Chloride 20 MEQ Tab.ER PO SCH (08:30)
[2020-06-12] MEDS: Furosemide 40 MG Tab PO SCH (08:31)
[2020-06-12] MEDS: Cetirizine 10 MG Tab PO SCH (08:31)
[2020-06-12] MEDS: Multivitamins with Iron/Calcium/Folic Acid/Minerals Tab PO SCH (08:31)
[2020-06-12] MEDS: Clopidogrel 75 MG Tab PO SCH (08:31)
[2020-06-12] MEDS: Sertraline 50 MG Tab PO SCH (08:31)
[2020-06-12] MEDS: Ondansetron 4 MG Tab.DIS PO PRN (09:09)
--- NOTE | 2020-06-12 10:25 | DISCH ---
ADMISSION DIAGNOSES: 1. Diverticulosis. 2. Small bowel fistula. 3. Gastroesophageal reflux disease. 4. Hypercholesterolemia. 5. Obstructive sleep apnea. 6. Vitamin D deficiency. 7. Mild concentric left ventricular hypertrophy. 8. Vitamin B12 deficiency. 9. Central lobular emphysema. 10.Peripheral artery disease. 11.Hypertrophic cardiomyopathy. DISCHARGE DIAGNOSES: 1. Exploratory laparotomy with lysis of extensive adhesions. a. Small-bowel resection. b. Removal of peritoneal mesh. c. Small bowel strictureplasty. d. Drainage of intraabdominal abscess. e. Placement of Interceed mesh. POSTOPERATIVE DIAGNOSES: 1. Small bowel adherent to intraabdominal mesh with small bowel fistula and intraabdominal abscess. 2. Extensive intraabdominal adhesions. 3. Uncomplicated sigmoid colon diverticulitis. 4. Date of procedure: 06/06/2020. Surgeon: Aayush Ruiz MD. 5. Delayed primary closure for open abdominal incision. Date of procedure: 06/08/2020. Surgeon: Aayush Ruiz MD. HISTORY: Reji Gonzalez is a 65-year-old female who had abdominal pain and diverticulosis. After preoperative evaluation and discussion of possible risks and possible complications, she wished to proceed with surgical procedure. HOSPITAL COURSE: Reji had her surgery on 06/06/2020. She had no operative complications. On 06/08/2020, she had delayed primary closure. She tolerated both operative procedures without any problems. She did have a bowel movement. Her diet was advanced from clear liquids to a regular diet. Her BNP was monitored and it did get high enough where she did require some Lasix and she was working on her pulmonary function and ambulation. Labs remained within normal limits. Lasix was given when indicated and pain was well managed. She was on a CAR INSPECTOR and switched to oral pain medication. Oral intake adequate. Pain was controlled. Vital signs good and activity was good. She was able to be discharged to home on 06/12/2020. PHYSICAL EXAMINATION: GENERAL: Reji Gonzalez is a pleasant 65-year-old female. VITAL SIGNS: Height is 5 feet 1.42 inches, weight is 196 pounds, BMI 36.5. TPR 98, 78, 18, blood pressure 118/48. HEENT: Negative. NECK: Supple. HEART: Regular rate and rhythm. LUNGS: Decreased breath sounds. She does have some rhonchi with coughing and wheezing. This is normal for her. ABDOMEN: Aquacel dressing is on. It does have some shadowing, will be replaced prior to discharge. Abdominal binder is on. EXTREMITIES: Without peripheral edema. DISPOSITION: Discharged to home. CONDITION: Stable and improving. FOLLOWUP: Appointment with Irasema Gresham PA-C, on 06/20/2020 at 9:30 a.m. HOME MEDICATIONS: 1. [place] 5/325 mg 1 to 2 q.4 hours p.r.n. pain #42. 2. Nystatin swish and swallow 5 mL p.o. q.6 hours 200 mL given. 3. Diflucan 200 mg p.o. daily for 5 days #5 tablets. 4. Colace 100 mg p.o. b.i.d. #60. 5. She is to resume home medications: a. Tylenol Extra Strength 500 mg q.8 hours p.r.n. pain. b. Vitamin D3 2000 International Units daily. c. Trazodone 50 to 100 p.o. bedtime p.r.n. insomnia. d. Zanaflex 4 mg q.8 hours p.r.n. muscle spasms. e. Zofran 8 mg p.o. q.8 hours p.r.n. nausea. f. Chantix 1 mg p.o. b.i.d. g. Anoro Ellipta 62.5/25 mcg 1 inhalation daily. h. Sertraline/Zoloft 150 p.o. daily. i. Denavir 1% cream 1 applicator topical as directed. j. Protonix 40 mg daily. k. Elocon 0.1% cream 1 topical daily. l. Antivert 25 mg p.o. q.a.m. m. Lidocaine jelly 1 applicator topical daily. n. Levothyroxine 25 mcg p.o. before breakfast. o. Homeopathic leg cramp complex 1 to 2 at bedtime. p. Neurontin 300 mg p.o. at bedtime. q. Lasix 40 mg p.o. daily p.r.n. fluid retention. r. Flonase 2 sprays in each nostril daily p.r.n. s. Voltaren 1% gel topical q.i.d. to affected area. t. Vitamin B12 500 mcg daily. u. Plavix 75 mg p.o. daily. I. Clonazepam 0.5 mg p.o. daily p.r.n. v. Zyrtec 81 mg p.o. daily. I. Aspirin 81 mg p.o. daily. w. Albuterol 2 puffs inhalation q.12 hours. x. Proventil nebulizer solution 3 mL neb every 4 hours p.r.n. DIET: Regular diet as tolerated. Drink 8 to 10 glasses of water a day. ACTIVITY: No lifting over 10 pounds for 6 weeks. Walk 6 times daily inside your home. Driving: Do not drive for 1 week. Shower/bathing: May shower. DISCHARGE INSTRUCTIONS: Wound incision care: Keep operative site clean and dry. Take off Aquacel dressing in 3 days on 06/15/2020. Wear abdominal binder for 6 weeks and then as tolerated. Notify provider if any fever, increased pain, swelling, redness, nausea or vomiting, and use incentive spirometer 10 times every hour while awake for 1 week. /[id number]
--- NOTE | 2020-06-21 15:07 | OR ---
DATE OF PROCEDURE: 06/06/2020 SURGEON: Aayush Ruiz MD PREOPERATIVE DIAGNOSIS: Perforated sigmoid colon diverticulitis. POSTOPERATIVE DIAGNOSES: 1. 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 2. Extensive intraabdominal adhesions. 3. Uncomplicated sigmoid colon diverticulosis. OPERATIVE PROCEDURES: Exploratory laparotomy with lysis of extensive adhesions: 1. Small bowel resection (11681). 2. Removal of intraperitoneal mesh (23068). 3. Small bowel strictureplasty (85445). 4. Drainage of intraabdominal abscess (69632). 5. Placement of Interceed mesh to displace pelvic and abdominal wall from underlying viscera to limit recurrent adhesion formation (11519). ANESTHESIA: General. FLATWORK PRESSER: Irasema Gresham PA-C INDICATIONS FOR PROCEDURE: This is a 65-year-old female who was thought to have persistent complicated sigmoid colon diverticulitis. Recently had an attack of left lower quadrant pain, was diagnosed with diverticulitis in November and then more recently has had recurrent episodes. After the patient was off antibiotics for only 1 day, she had recurrent symptoms, and followup CT scan showed extensive diverticular disease with there being air and abscess formation in that vicinity. This was adjacent to some intraperitoneal mesh located in that area, which may be involved as well. The plan is to proceed with exploratory laparotomy with procedures as indicated, initially thought to be sigmoid resection. The potential risks including bleeding, infection, leaks from various GI tract closures as well as possible incorrect colostomy formation were gone over with the remote possibility of cardiopulmonary, septic, or hemorrhagic complications leading to , and the patient wishes to proceed. DETAILS OF PROCEDURE: The patient was taken to the operating room and after general endotracheal anesthesia was induced, placed in a lithotomy position and a Barrett catheter inserted, and the abdomen was then prepped and draped. Eventually, a nasogastric tube was also then placed. A lower midline incision was then made from the umbilicus down to the pubis. This was carried down through the skin and subcutaneous tissue. expectantly, the patient had quite a bit in way of adhesions between the omentum, small bowel, and anterior abdominal wall. As one proceeded dissecting over towards the left lower quadrant, it became evident that we were dealing with a complicated small bowel issue rather than colonic diverticulitis. The small bowel was narrowed up to the mesh located in that area, and on subsequent dissection, there was obvious fistula formation from the small bowel into the mesh with associated adjacent abscess. The small bowel was eventually freed up such that the proximal and distal end of the small bowel adherent to the mesh were identified. These were divided with a CELINA stapler as was the underlying mesentery, and the mesh then removed from the abdominal wall attached to the small bowel. During the course of dissection, the abscess cavity was identified and drained, and cultures were obtained. The mesh was then removed from the abdominal wall. There was 1 additional loop of small bowel that was adherent to the mesh, and this was divided more or less flush with the mesh, but this did result in an area of small bowel stricturing at that location. At this point, small bowel strictureplasty was initially undertaken with division of the aforementioned narrowed area of small bowel opening around the antimesenteric border, and a 60 mm followed by 30 mm CELINA stapler was then used with internal firing, and the common opening then closed with a CELINA purple load. The angles were anastomosed and reinforced with some 3-0 Vicryl stitch. There was no mesenteric defect in this case. Small bowel continuity was then accomplished with a [id number] enteroenterostomy between the 2 limbs of the revised small bowel with the same sequence of azeem as for the strictureplasty. The angles were anastomosed. In this case, mesenteric defect was approximated with 3-0 Vicryl stitch as well. At this point, the abdomen was irrigated with antibiotic-containing saline solution. There was some additional mesh in the upper abdomen, but this appeared to be away from the present infection and was encapsulated by omentum and it was left in place knowing there was some possibility that being infected, but there was also the chance that by its removal, she would certainly have a recurrent hernia in that area. 2 Santos-Bain drains were then placed in the mid abdomen, taken down towards the areas of dissection and abscess formation. The Interceed mesh was then placed underneath the incision, from there down towards the pelvis to limit recurrent adhesion formation between the viscera and those surfaces. Midline fascia was then approximated with #2 Vicryl stitch. Skin and subcutaneous tissue were left open for a planned delayed primary closure in 48 hours. Prior to closure, bilateral transversus abdominis plane blocks had also been placed, and the patient was taken to the recovery room in satisfactory condition. There were no evident complications. Physician library media assistant, Irasema Gresham PA-C, played an essential role in assisting in this case, helping to position the patient, and retracting structures as needed as well as suturing and cutting sutures when indicated. Her presence improved patient safety and decreased operative time. Aayush Ruiz MD /[id number]
== END 2020-06-12 13:20 | disposition home or self-care (01) | DRG 330 ==
LOC: JP.SDSSCHI 08:17 → JP.SDS 08:18 → EDSTATUS 12:15 → JP.ICU 13:19 → JP.MS 06-10 14:52
PROVIDERS: ADMIT Surgery; ATTEND Surgery
PROC: 0DB80ZZ Excision of Small Intestine, Open Approach (ICD-10-PCS; 2020-06-06)
PROC: 0WCG0ZZ Extirpation of Matter from Peritoneal Cavity, Open Approach (ICD-10-PCS; 2020-06-06)
PROC: 0W9G0ZZ Drainage of Peritoneal Cavity, Open Approach (ICD-10-PCS; 2020-06-06)
PROC: 3E0M05Z Introduction of Adhesion Barrier into Peritoneal Cavity, Open Approach (ICD-10-PCS; 2020-06-06)
PROC: 30233N1 Transfusion of Nonautologous Red Blood Cells into Peripheral Vein, Percutaneous Approach (ICD-10-PCS; principal; 2020-06-08)
PROC: 0WQF0ZZ Repair Abdominal Wall, Open Approach (ICD-10-PCS; 2020-06-08)
PROC: XW033N5 Introduction of Meropenem-vaborbactam Anti-infective into Peripheral Vein, Percutaneous Approach, New Technology Group 5 (ICD-10-PCS; 2020-06-08)
DX: K57.20 Diverticulitis of large intestine with perforation and abscess without bleeding (principal); K63.2 Fistula of intestine; I42.2 Other hypertrophic cardiomyopathy; K66.0 Peritoneal adhesions (postprocedural) (postinfection); K21.9 Gastro-esophageal reflux disease without esophagitis; E78.00 Pure hypercholesterolemia, unspecified; G47.33 Obstructive sleep apnea (adult) (pediatric); E55.9 Vitamin D deficiency, unspecified; Z20.822 Contact with and (suspected) exposure to COVID-19; J43.2 Centrilobular emphysema; I73.9 Peripheral vascular disease, unspecified; E53.8 Deficiency of other specified B group vitamins; I51.7 Cardiomegaly; F17.210 Nicotine dependence, cigarettes, uncomplicated; F41.9 Anxiety disorder, unspecified; E03.9 Hypothyroidism, unspecified; M54.5 Low back pain; G89.29 Other chronic pain; E66.9 Obesity, unspecified; Z68.33 Body mass index [BMI] 33.0-33.9, adult; Z79.82 Long term (current) use of aspirin; Z79.899 Other long term (current) drug therapy; Z88.1 Allergy status to other antibiotic agents; Z88.5 Allergy status to narcotic agent
CPT/HCPCS: 36415; 36430; 51702; 74019; 74019-26; 74240; 74240-26; 80053; 83735; 83880; 84100; 85025; 85027; 86850; 86900; 86901; 86920; 86922; 87070; 87075; 87077; 87186; 87205; 93005; 93010; 94640; 94762; 97162-GP; 97530-GP; 97535-GP; A9270-GY; C9113; J0171; J0330; J0694; J1100; J1200; J1940; J2020; J2185; J2250; J2405; J2704; J2710; J2765; J2795; J3010; J3420; J3475; J3490; J7050; J7120; J7121; J7189; J7620-GY; P9016; P9047; Q9967; U0002

== ENCOUNTER 2020-06-14 14:02 | Inpatient (IN) | payer MEDICARE, MEDICAID ==
[2020-06-14] MEDS ORDERED: Sodium Chloride 0.9% 1,000 ML IV SCH (14:45)
--- NOTE | 2020-06-14 15:06 | EDM.PDOC ---
ED HPI GENERAL MEDICAL PROBLEM - General Chief Complaint: Abdominal Pain Stated Complaint: TEMP/PAIN AFTER SURGERY Time Seen by Provider: 06/14/20 14:35 Source of Information: Reports: Patient History Limitations: Reports: No Limitations - History of Present Illness INITIAL COMMENTS - FREE TEXT/NARRATIVE: 65-year-old female who was discharged from the hospital 2 days ago after abdominal surgery, presents with temperature at home, increased nausea and pain over the past 12 to 24 hours. Her temperature at home was "101.5", here it is normal. She is having increased drainage from her bandages over the abdomen. Some mild bloated sensation of the abdomen but no radiation of pain to the back. No vomiting. Onset: Gradual Duration: Day(s): (Seems worse over the last day to 2 days) Location: Reports: Abdomen Associated Symptoms: Reports: Fever/Chills, Loss of Appetite, Malaise, Nausea/Vomiting. Denies: Shortness of Breath 5 Pain Score (Numeric/FACES): 7 - Related Data Allergies Allergy/AdvReac Type Severity Reaction Status Date / Time ciprofloxacin Allergy Hives Verified 06/14/20 14:12 clonidine Allergy Other Verified 06/14/20 14:12 hydromorphone Allergy Rash Verified 06/14/20 14:12 oxycodone [From Percocet] Allergy Hives Verified 06/14/20 14:12 Home Meds: Home Meds Levothyroxine Sodium [Synthroid] 25 mcg PO .ACBREAKFAST 07/05/14 [History] ondansetron HCL [Zofran] 8 mg PO Q8H PRN 10/25/14 [History] Furosemide 40 mg PO DAILY PRN 06/17/16 [History] Sertraline HCl [Zoloft] 150 mg PO DAILY 02/24/17 [History] traZODone 50 - 100 mg PO BEDTIME PRN 02/24/17 [History] ClonazePAM [KlonoPIN] 0.5 mg PO DAILY PRN 03/05/17 [History] Penciclovir [Denavir 1% Crm] 1 applic TOP ASDIRECTED 03/05/17 [History] Mometasone Furoate [Elocon 0.1% Crm] 1 applic TOP DAILY 09/16/17 [History] tiZANidine [Zanaflex] 4 mg PO Q8H PRN 09/16/17 [History] Pantoprazole [ProTONIX] 40 mg PO DAILY 06/06/19 [History] Albuterol [Proventil Neb Soln] 3 ml NEB Q4H PRN 08/10/19 [History] Cetirizine [ZyrTEC] 10 mg PO DAILY 08/10/19 [History] Cholecalciferol (Vitamin D3) [Vitamin D3] 2,000 unit PO DAILY 08/10/19 [History] Cyanocobalamin (Vitamin B-12) [B-12] 500 mcg PO DAILY 08/10/19 [History] Gabapentin [Neurontin] 300 mg PO BEDTIME 08/10/19 [History] Lidocaine 2% [Xylocaine 2% Jelly] 1 applic TOP DAILY 08/10/19 [History] Meclizine [Antivert] 25 mg PO .MORNING 08/10/19 [History] Varenicline [Chantix] 1 mg PO BID 08/10/19 [History] Albuterol [Ventolin HFA] 2 puff INH Q6H PRN 11/16/19 [History] Fluticasone Propionate [Flonase] 2 spr NASBOTH DAILY PRN 11/16/19 [History] Homeopathic Products (Leg Cramp Complex Or) 1 - 2 tab PO BEDTIME 11/16/19 [History] Umeclidinium Brm/Vilanterol Tr [Anoro Ellipta 62.5-25 MCG] 1 each INH DAILY 11/16/19 [History] Aspirin [Halfprin] 81 mg PO DAILY 05/21/20 [History] Clopidogrel [Plavix] 75 mg PO DAILY 05/27/20 [History] Diclofenac Sodium [Voltaren 1% Gel] 1 applic TOP QID 05/27/20 [History] Acetaminophen/HYDROcodone [[place] 325-5 MG] 1 - 2 tab PO Q4H PRN #42 tablet 06/12/20 [Rx] Docusate Sodium [Colace] 100 mg PO BID #60 cap 06/12/20 [Rx] Fluconazole [Diflucan] 200 mg PO DAILY #5 tablet 06/12/20 [Rx] Nystatin [Mycostatin] 5 ml PO Q6H #200 ml 06/12/20 [Rx] Past Medical History HEENT History: Reports: Allergic Rhinitis, Impaired Vision Other HEENT History: wears glasses Cardiovascular History: Reports: Cardiomyopathy, Heart Murmur, SOB on Exertion Respiratory History: Reports: Bronchitis, Recurrent, COPD, Pneumonia, Recurrent, Sleep Apnea, SOB Gastrointestinal History: Reports: Bowel Obstruction, Cholelithiasis, Chronic Diarrhea, Diverticulosis, GERD, Hiatal Hernia Genitourinary History: Reports: UTI, Recurrent, Other (See Below) Other Genitourinary History: bladder suspension 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 ; wound ulcer right lower leg Neurological History: Reports: Vertigo Psychiatric History: Reports: Anxiety, Depression, Suicidal Ideation Endocrine/Metabolic History: Reports: Hypothyroidism, Obesity/BMI 30+ Hematologic History: Reports: None Immunologic History: Reports: None Oncologic (Cancer) History: Reports: Cervix, Uterine Other Oncologic History: complete hysterectomy July 09, 2014 Dermatologic History: Reports: Cellulitis, Other (See Below) Other Dermatologic History: sore on right lower leg that won't go away; [facility] - Infectious Disease History Infectious Disease History: Reports: Chicken Pox, MRSA, Other (See Below) Other Infectious Disease History: MRSA in right leg in 2019 - Past Surgical History Head Surgeries/Procedures: Reports: None HEENT Surgical History: Reports: Other (See Below) Other HEENT Surgeries/Procedures: biopsy on tongue Cardiovascular Surgical History: Reports: Varicose, Other (See Below) Other Cardiovascular Surgeries/Procedures: RFA leg veins Respiratory Surgical History: Reports: None GI Surgical History: Reports: Appendectomy, Cholecystectomy, Colon, Colonoscopy, EGD, Hernia Repair/Other Female Surgical History: Reports: Hysterectomy, Salpingo-Oophorectomy, Other (See Below) Other Female Surgeries/Procedures: bladder suspension Endocrine Surgical History: Reports: None Neurological Surgical History: Reports: None Musculoskeletal Surgical History: Reports: None, Knee Replacement Other Musculoskeletal Surgeries/Procedures:: right partial knee 11/20/19 Oncologic Surgical History: Reports: None Other Oncologic Surgeries/Procedures: hysterectomy Dermatological Surgical History: Reports: None Social & Family History - Family History Family Medical History: No Pertinent Family History Cardiac: Reports: Arrhythmia, Pacemaker, Other (See Below) Other Cardiac Family History: pacer/defib; valve replacement Respiratory: Reports: COPD Musculoskeletal: Reports: Arthritis, Back pain, Chronic, Gout Endocrine/Metabolic: Reports: Diabetes, type II Oncologic: Reports: Breast, Cervix, Uterine - Tobacco Use Tobacco Use Status *Q: Former Tobacco User Used Tobacco, but Quit: Yes Month/Year Tobacco Last Used: 06/27 - Caffeine Use Caffeine Use: Reports: Coffee Caffeine Use Comment: 2 cups coffee. 2-6 diet cokes daily - Living Situation & Occupation Living situation: Reports: (Lives with her 80+ mother, and her sister is in the next house. Has 1 son and 2 grandchildren , who she is currently estranged from her child and grandchildren.) ED ROS GENERAL - Review of Systems Review Of Systems: See Below Constitutional: Reports: Fever, Chills, Malaise, Decreased Appetite HEENT: Reports: No Symptoms Respiratory: Denies: Shortness of Breath Cardiovascular: Denies: Chest Pain GI/Abdominal: Reports: Abdominal Pain, Nausea. Denies: Constipation, Diarrhea, Vomiting Skin: Reports: Bruising (Some bruising on the extremities from recent IVs) Neurological: Reports: No Symptoms Psychiatric: Reports: Anxiety ED EXAM, GI/ABD - Physical Exam Exam: See Below Exam Limited By: No Limitations General Appearance: Alert, No Apparent Distress Eyes: Bilateral: Normal Appearance (No jaundice) Head: Atraumatic Respiratory/Chest: No Respiratory Distress, Lungs Clear Cardiovascular: Regular Rate, Rhythm. No: Tachycardia GI/Abdominal Exam: Normal Bowel Sounds, Other (Some fullness is palpated underneath the incision, there is significant somewhat purulent appearing but none odorous drainage through the center of the incision.) Extremities: Normal Inspection (Normal other than some bruises on her arms from recent IV starts) Neurological: Alert, Oriented Psychiatric: Normal Affect, Normal Mood Course - Vital Signs Last Recorded V/S: Last Vital Signs Temp 97.2 F 06/17/20 12:45 Pulse 85 06/17/20 12:45 Resp 12 06/17/20 12:45 BP 86/48 L 06/17/20 12:45 Pulse Ox 90 L 06/17/20 12:45 - Orders/Labs/Meds Orders: Medication Orders Hydrocodone Bitart/Acetaminophen ([place] 325-5 Mg) 1 - 2 tab PO Q4H PRN PRN Reason: Pain Last Admin: 06/17/20 11:24 Dose: 2 tab Documented by: Admin: 06/17/20 07:28 Dose: 2 tab Documented by: HYACINTH Albuterol/Ipratropium (Duoneb 3.0-0.5 Mg/3 Ml) 3 ml INH QIDRT [facility] Last Admin: 06/17/20 11:22 Dose: 3 ml Documented by: Admin: 06/17/20 07:10 Dose: 3 ml Documented by: Admin: 06/16/20 20:37 Dose: 3 ml Documented by: Admin: 06/16/20 14:25 Dose: 3 ml Documented by: Admin: 06/16/20 10:35 Dose: 3 ml Documented by: Admin: 06/16/20 07:05 Dose: 3 ml Documented by: Admin: 06/15/20 20:46 Dose: 3 ml Documented by: Admin: 06/15/20 14:41 Dose: 3 ml Documented by: SPRING Albuterol/Ipratropium (Duoneb 3.0-0.5 Mg/3 Ml) 3 ml INH ASDIRECTED PRN PRN Reason: BREATHING Aspirin (Halfprin) 81 mg PO DAILY [facility] Last Admin: 06/17/20 08:37 Dose: 81 mg Documented by: Admin: 06/16/20 08:37 Dose: 81 mg Documented by: HYACINTH Bisacodyl (Dulcolax) 10 mg PO BID [facility] Admin: 06/17/20 08:37 Dose: 10 mg Documented by: Admin: 06/16/20 20:36 Dose: 10 mg Documented by: Admin: 06/16/20 08:38 Dose: 10 mg Documented by: HYACINTH Cetirizine HCl (Zyrtec) 10 mg PO DAILY [facility] Last Admin: 06/17/20 08:38 Dose: 10 mg Documented by: Admin: 06/16/20 08:38 Dose: 10 mg Documented by: HYACINTH Clonazepam (Klonopin) 0.5 mg PO DAILY [facility] Last Admin: 06/17/20 08:39 Dose: 0.5 mg Documented by: Admin: 06/16/20 08:44 Dose: 0.5 mg Documented by: HYACINTH Clopidogrel Bisulfate (Plavix) 75 mg PO DAILY [facility] Last Admin: 06/17/20 08:37 Dose: 75 mg Documented by: Admin: 06/16/20 08:38 Dose: 75 mg Documented by: HYACINTH Diclofenac Sodium (Voltaren 1% Gel) 0 gm TOP DAILY [facility] Last Admin: 06/17/20 08:40 Dose: Not Given Documented by: Admin: 06/16/20 09:38 Dose: Not Given Documented by: Admin: 06/15/20 14:01 Dose: Not Given Documented by: HYACINTH Diphenhydramine HCl (Benadryl) 25 - 50 mg IVPUSH Q4H PRN PRN Reason: Itching Last Admin: 06/16/20 15:43 Dose: 25 mg Documented by: HYACINTH Docusate Sodium (Colace) 100 mg PO BID [facility] Last Admin: 06/17/20 08:37 Dose: 100 mg Documented by: Admin: 06/16/20 20:36 Dose: 100 mg Documented by: Admin: 06/16/20 08:38 Dose: 100 mg Documented by: HYACINTH Fluticasone Propionate (Flonase) 0 gm NASBOTH DAILY [facility] Last Admin: 06/17/20 08:37 Dose: 2 inh Documented by: Admin: 06/16/20 08:39 Dose: 2 inh Documented by: HYACINTH Furosemide (Lasix) 40 mg PO DAILY [facility] Last Admin: 06/17/20 08:37 Dose: 40 mg Documented by: Admin: 06/16/20 08:38 Dose: 40 mg Documented by: HYACINTH Gabapentin (Neurontin) 300 mg PO BEDTIME [facility] Last Admin: 06/16/20 20:37 Dose: 300 mg Documented by: ERLIN Hydroxyzine HCl (Vistaril) 100 mg IM Q4H PRN PRN Reason: pain Dextrose/Lactated Ringer's (Dextrose 5%-Lactated Ringers) 1,000 mls @ 125 mls/hr IV ASDIRECTED [facility] Last Admin: 06/17/20 05:11 Dose: 125 mls/hr Documented by: Infusion: 06/16/20 16:45 Dose: 125 mls/hr Documented by: Admin: 06/16/20 08:45 Dose: 125 mls/hr Documented by: HYACINTH Magnesium Sulfate (Magnesium Sulfate In Water Premix) 2 gm in 50 mls @ 25 mls/hr IV Q6H [facility] Stop: 06/18/20 04:59 Last Admin: 06/17/20 08:35 Dose: 25 mls/hr Documented by: Infusion: 06/17/20 04:28 Dose: 25 mls/hr Documented by: Admin: 06/17/20 02:28 Dose: 25 mls/hr Documented by: Infusion: 06/16/20 22:37 Dose: 25 mls/hr Documented by: Admin: 06/16/20 20:37 Dose: 25 mls/hr Documented by: Infusion: 06/16/20 17:16 Dose: 25 mls/hr Documented by: Admin: 06/16/20 15:16 Dose: 25 mls/hr Documented by: Infusion: 06/16/20 11:36 Dose: 25 mls/hr Documented by: Admin: 06/16/20 09:36 Dose: 25 mls/hr Documented by: HYACINTH Ampicillin Sodium/Sulbactam (Sodium 3 gm/ Sodium Chloride) 100 mls @ 200 mls/hr IV Q6H [facility] Last Admin: 06/17/20 09:53 Dose: 200 mls/hr Documented by: HYACINTH Levothyroxine Sodium (Levothyroxine) 25 mcg PO DAILY@0730 [facility] Last Admin: 06/17/20 08:36 Dose: 25 mcg Documented by: Admin: 06/16/20 08:38 Dose: 25 mcg Documented by: HYACINTH Lidocaine HCl (Xylocaine 2% Jelly) 0 ml TOP DAILY [facility] Last Admin: 06/17/20 08:40 Dose: Not Given Documented by: Admin: 06/16/20 09:38 Dose: Not Given Documented by: Admin: 06/15/20 14:00 Dose: Not Given Documented by: HYACINTH Meclizine HCl (Antivert) 25 mg PO DAILY PRN PRN Reason: * Metoclopramide HCl (Reglan) 10 mg IVPUSH Q6H PRN PRN Reason: NAUSEA NOT CONTROL BY ZOFRAN Last Admin: 06/15/20 21:13 Dose: 10 mg Documented by: ERLIN Morphine Sulfate (Morphine) 1 - 2 mg IVPUSH Q30M PRN PRN Reason: Pain Last Admin: 06/17/20 04:35 Dose: 2 mg Documented by: Admin: 06/17/20 02:27 Dose: 2 mg Documented by: Admin: 06/17/20 01:51 Dose: 2 mg Documented by: ERLIN Naloxone HCl (Narcan) 0.1 mg IV ASDIRECTED PRN PRN Reason: decreased respiratory rate Scopolamine Patch (Check) 1 each TOP DAILY [facility] Last Admin: 06/17/20 08:40 Dose: Not Given Documented by: Admin: 06/16/20 08:41 Dose: Not Given Documented by: Admin: 06/15/20 12:23 Dose: Not Given Documented by: HYACINTH Homeopathic Products Leg Cramp Complex * *Ptom 1 - 2 tab PO BEDTIME PRN PRN Reason: leg cramp Nystatin (Mycostatin) 5 ml PO QID [facility] Last Admin: 06/17/20 09:53 Dose: 5 ml Documented by: HYACINTH Ondansetron HCl (Zofran) 4 mg IVPUSH Q4H PRN PRN Reason: Nausea Last Admin: 06/16/20 09:37 Dose: 4 mg Documented by: Admin: 06/15/20 13:39 Dose: 4 mg Documented by: Admin: 06/15/20 03:18 Dose: 4 mg Documented by: KAITLIN Pantoprazole Sodium (Protonix Iv) 40 mg IVPUSH Q24H [facility] Last Admin: 06/16/20 13:39 Dose: 40 mg Documented by: Admin: 06/15/20 14:13 Dose: 40 mg Documented by: HYACINTH Scopolamine (Transderm-Scop) 1.5 mg TOP Q72H [facility] Sertraline HCl (Zoloft) 150 mg PO DAILY [facility] Last Admin: 06/17/20 08:37 Dose: 150 mg Documented by: Admin: 06/16/20 08:37 Dose: 150 mg Documented by: HYACINTH Tizanidine HCl (Zanaflex) 4 mg PO Q8H PRN PRN Reason: Muscle Spasm Trazodone HCl (Trazodone) 50 - 100 mg PO BEDTIME PRN PRN Reason: SLEEP Last Admin: 06/16/20 20:55 Dose: 100 mg Documented by: ERLIN Varenicline (Chantix) 1 mg PO BID [facility] Last Admin: 06/17/20 08:36 Dose: 1 mg Documented by: Admin: 06/16/20 20:37 Dose: 1 mg Documented by: Admin: 06/16/20 08:38 Dose: 1 mg Documented by: HYACINTH Labs: Laboratory Tests 06/14/20 06/14/20 06/14/20 Range/Units 14:50 14:50 14:50 WBC 10.4 (4.5-11.0) K/uL RBC 3.60 (3.30-5.50) M/uL Hgb 10.8 L (12.0-15.0) g/dL Hct 33.2 L (36.0-48.0) % MCV 92 (80-98) fL MCH 30 (27-31) pg MCHC 33 (32-36) % Plt Count 346 (150-400) K/uL Neut % (Auto) 72 H (36-66) % Lymph % (Auto) 15 L (24-44) % Bates % (Auto) 10 H (2-6) % Eos % (Auto) 3 (2-4) % Baso % (Auto) 0 (0-1) % Sodium 139 L (140-148) mmol/L Potassium 4.1 (3.6-5.2) mmol/L Chloride 102 (100-108) mmol/L Carbon Dioxide 27 (21-32) mmol/L Anion Gap 14.1 H (5.0-14.0) mmol/L BUN 10 (7-18) mg/dL Creatinine 0.9 (0.6-1.0) mg/dL Est Cr Clr Drug Dosing 47.65 mL/min Estimated GFR (MDRD) > 60 (>60) Glucose 83 (74-106) mg/dL Calcium 8.4 L (8.5-10.1) mg/dL C-Reactive Protein 18.98 H (0.0-0.3) mg/dL Meds: Medications Generic Name Dose Route Start Last Admin Trade Name Freq PRN Reason Stop Dose Admin Hydrocodone Bitart/Acetaminophen 1 - 2 tab 06/17/20 07:08 06/17/20 11:24 [place] 325-5 Mg PO 2 tab Q4H PRN Administration Pain Albuterol/Ipratropium 3 ml 06/15/20 15:00 06/17/20 11:22 Duoneb 3.0-0.5 Mg/3 Ml INH 3 ml QIDRT [facility] Administration Albuterol/Ipratropium 3 ml 06/15/20 12:00 Duoneb 3.0-0.5 Mg/3 Ml INH ASDIRECTED PRN BREATHING Aspirin 81 mg 06/16/20 09:00 06/17/20 08:37 Halfprin PO 81 mg DAILY [facility] Administration Bisacodyl 10 mg 06/16/20 09:00 06/17/20 08:37 Dulcolax PO 10 mg BID [facility] Administration Cetirizine HCl 10 mg 06/16/20 09:00 06/17/20 08:38 Zyrtec PO 10 mg DAILY [facility] Administration Clonazepam 0.5 mg 06/16/20 09:00 06/17/20 08:39 Klonopin PO 0.5 mg DAILY [facility] Administration Clopidogrel Bisulfate 75 mg 06/16/20 09:00 06/17/20 08:37 Plavix PO 75 mg DAILY [facility] Administration Diclofenac Sodium 0 gm 06/15/20 14:00 06/17/20 08:40 Voltaren 1% Gel TOP Not Given DAILY [facility] Diphenhydramine HCl 25 - 50 mg 06/16/20 15:26 06/16/20 15:43 Benadryl IVPUSH 25 mg Q4H PRN Administration Itching Docusate Sodium 100 mg 06/16/20 09:00 06/17/20 08:37 Colace PO 100 mg BID [facility] Administration Fluticasone Propionate 0 gm 06/16/20 09:00 06/17/20 08:37 Flonase NASBOTH 2 inh DAILY [facility] Administration Furosemide 40 mg 06/16/20 09:00 06/17/20 08:37 Lasix PO 40 mg DAILY [facility] Administration Gabapentin 300 mg 06/16/20 21:00 06/16/20 20:37 Neurontin PO 300 mg BEDTIME [facility] Administration Hydroxyzine HCl 100 mg 06/15/20 12:00 Vistaril IM Q4H PRN pain Dextrose/Lactated Ringer's 1,000 mls @ 125 mls/hr 06/16/20 07:45 06/17/20 05:11 Dextrose 5%-Lactated Ringers IV 125 mls/hr ASDIRECTED [facility] Administration Magnesium Sulfate 2 gm in 50 mls @ 25 mls/hr 06/16/20 09:00 06/17/20 08:35 Magnesium Sulfate In Water Premix IV 06/18/20 04:59 25 mls/hr Q6H [facility] Administration Ampicillin Sodium/Sulbactam 100 mls @ 200 mls/hr 06/17/20 10:00 06/17/20 09:53 Sodium 3 gm/ Sodium Chloride IV 200 mls/hr Q6H [facility] Administration Levothyroxine Sodium 25 mcg 06/16/20 09:00 06/17/20 08:36 Levothyroxine PO 25 mcg DAILY@0730 [facility] Administration Lidocaine HCl 0 ml 06/15/20 14:00 06/17/20 08:40 Xylocaine 2% Jelly TOP Not Given DAILY [facility] Meclizine HCl 25 mg 06/16/20 07:37 Antivert PO DAILY PRN * Metoclopramide HCl 10 mg 06/15/20 12:00 06/15/20 21:13 Reglan IVPUSH 10 mg Q6H PRN Administration NAUSEA NOT CONTROL BY ZOFRAN Morphine Sulfate 1 - 2 mg 06/16/20 23:00 06/17/20 04:35 Morphine IVPUSH 2 mg Q30M PRN Administration Pain Naloxone HCl 0.1 mg 06/15/20 11:00 Narcan IV ASDIRECTED PRN decreased respiratory rate Scopolamine Patch 1 each 06/15/20 12:00 06/17/20 08:40 Check TOP Not Given DAILY [facility] Homeopathic Products 1 - 2 tab 06/16/20 07:41 Leg Cramp Complex * PO *Ptom BEDTIME PRN leg cramp Nystatin 5 ml 06/17/20 10:00 06/17/20 09:53 Mycostatin PO 5 ml QID [facility] Administration Ondansetron HCl 4 mg 06/14/20 19:00 06/16/20 09:37 Zofran IVPUSH 4 mg Q4H PRN Administration Nausea Pantoprazole Sodium 40 mg 06/15/20 14:00 06/16/20 13:39 Protonix Iv IVPUSH 40 mg Q24H [facility] Administration Scopolamine 1.5 mg 06/18/20 09:00 Transderm-Scop TOP Q72H [facility] Sertraline HCl 150 mg 06/16/20 09:00 06/17/20 08:37 Zoloft PO 150 mg DAILY [facility] Administration Tizanidine HCl 4 mg 06/16/20 07:36 Zanaflex PO Q8H PRN Muscle Spasm Trazodone HCl 50 - 100 mg 06/16/20 07:36 06/16/20 20:55 Trazodone PO 100 mg BEDTIME PRN Administration SLEEP Varenicline 1 mg 06/16/20 09:00 06/17/20 08:36 Chantix PO 1 mg BID [facility] Administration Discontinued Medications Generic Name Dose Route Start Last Admin Trade Name Freq PRN Reason Stop Dose Admin Albuterol 2.5 mg 06/14/20 17:20 Proventil Neb Soln INH Q4H PRN Shortness of Breath Albuterol/Ipratropium 3 ml 06/15/20 06:46 06/15/20 07:05 Duoneb 3.0-0.5 Mg/3 Ml NEB 06/15/20 06:47 3 ml ONETIME ONE Administration Bupivacaine HCl Confirm 06/15/20 07:30 Marcaine 0.5% Administered 06/15/20 07:31 Dose 50 ml .ROUTE .STK-MED ONE Ropivacaine 44 ml/ 0 ml 06/15/20 08:00 06/15/20 09:34 Dexamethasone 8 mg/ NERVRT 80 syringe Epinephrine HCl 0.4 mg/ Sodium ASDIRECTED [facility]ANIEL Administration Chloride 33.6 ml Dexamethasone Confirm 06/15/20 07:36 Decadron Administered 06/15/20 07:37 Dose 4 mg .ROUTE .STK-MED ONE Fentanyl 50 mcg 06/14/20 17:19 06/15/20 03:23 Sublimaze IV 50 mcg Q3H PRN Administration PAIN Fentanyl Confirm 06/15/20 07:38 Sublimaze Administered 06/15/20 07:39 Dose 250 mcg .ROUTE .STK-MED ONE Fentanyl Confirm 06/15/20 09:01 Sublimaze Administered 06/15/20 09:02 Dose 250 mcg .ROUTE .STK-MED ONE Fluconazole 200 mg 06/14/20 22:15 06/14/20 22:44 Diflucan PO 200 mg DAILY [facility] Administration Fluconazole 200 mg 06/15/20 21:00 Diflucan PO BEDTIME [facility] Glycopyrrolate Confirm 06/15/20 07:36 Robinul Administered 06/15/20 07:37 Dose 1 mg .ROUTE .STK-MED ONE Hydromorphone HCl 0.5 mg 06/14/20 15:25 06/14/20 15:35 Dilaudid IVPUSH 06/14/20 15:26 0.5 mg ONETIME ONE Administration Hydromorphone HCl 0 mg 06/15/20 10:45 06/16/20 19:34 Dilaudid Electricity Trader 15 Mg In Ns 30 Ml IV 15 mg ASDIRECTED PRN Administration Pain Protocol Hydroxyzine HCl 75 mg 06/15/20 10:44 06/15/20 10:57 Vistaril IM 06/15/20 10:45 75 mg ONETIME ONE Administration Sodium Chloride 1,000 mls @ 500 mls/hr 06/14/20 14:45 06/14/20 14:49 Normal Saline IV 500 mls/hr ASDIRECTED [facility]ANIEL Administration Sodium Chloride 80 mls @ 3 mls/sec 06/14/20 15:30 06/14/20 15:40 Normal Saline IV 06/14/20 23:59 3 mls/sec ASDIRECTED DANIEL Administration Cefoxitin Sodium 2 gm/ Sodium 50 mls @ 100 mls/hr 06/14/20 16:05 06/14/20 16:16 Chloride IV 06/14/20 16:34 100 mls/hr ONETIME ONE Administration Linezolid 600 mg/ Premix 300 mls @ 300 mls/hr 06/14/20 17:30 06/17/20 05:12 IV 300 mls/hr Q12H [facility] Administration Cefoxitin Sodium 2 gm/ Sodium 50 mls @ 100 mls/hr 06/15/20 00:05 06/15/20 07:34 Chloride IV 100 mls/hr Q8H [facility] Administration Dextrose/Lactated Ringer's 1,000 mls @ 125 mls/hr 06/14/20 17:30 06/15/20 02:01 Dextrose 5%-Lactated Ringers IV 125 mls/hr ASDIRECTED [facility] Administration Lactated Ringer's Confirm 06/15/20 08:35 Ringers, Lactated Administered 06/15/20 08:36 Dose 1,000 mls @ as directed .ROUTE .STK-MED ONE Piperacillin/Tazobactam/ 50 mls @ 100 mls/hr 06/15/20 11:00 06/17/20 04:30 Dextrose 3.375 gm/ Premix IV 100 mls/hr Q6H [facility] Administration Dextrose/Lactated Ringer's 1,000 mls @ 50 mls/hr 06/15/20 11:30 06/15/20 12:34 Dextrose 5%-Lactated Ringers IV 50 mls/hr ASDIRECTED [facility] Administration Lactated Ringer's 1,000 mls @ 150 mls/hr 06/15/20 11:30 06/16/20 05:23 Ringers, Lactated IV 150 mls/hr ASDIRECTED [facility]ANI[facility] Administration Lidocaine HCl Confirm 06/17/20 07:17 Xylocaine-Mpf 1% Administered 06/17/20 07:18 Dose 4 mls @ as directed .ROUTE .STK-MED ONE Iopamidol 135 ml 06/14/20 15:26 06/14/20 15:40 Isovue-300 (61%) IV 06/14/20 15:27 135 ml ONETIME ONE Administration Lidocaine/Epinephrine Confirm 06/15/20 07:30 Xylocaine 1% With Epinephrine 1:100,000 Administered 06/15/20 07:31 Dose 50 ml .ROUTE .STK-MED ONE Linezolid 600 mg 06/15/20 09:20 06/15/20 09:20 Zyvox IRR 06/15/20 09:21 600 mg .STK-MED ONE Administration Linezolid 600 mg 06/15/20 09:36 06/15/20 09:36 Zyvox IRR 06/15/20 09:37 600 mg .STK-MED ONE Administration Meropenem Confirm 06/15/20 07:30 06/15/20 09:20 Merrem Administered 06/15/20 07:31 500 mg Dose Administration 500 mg .ROUTE .STK-MED ONE Meropenem Confirm 06/15/20 09:31 06/15/20 09:36 Merrem Administered 06/15/20 09:32 500 mg Dose Administration 500 mg .ROUTE .STK-MED ONE Morphine Sulfate 150 mg 06/16/20 21:30 Morphine Electricity [employer]ader 150 Mg In 30 Ml IV ASDIRECTED DANIEL Protocol Neostigmine Methylsulfate Confirm 06/15/20 07:36 Neostigmine Administered 06/15/20 07:37 Dose 5 mg .ROUTE .STK-MED ONE Nystatin 5 ml 06/14/20 22:30 06/15/20 20:38 Mycostatin PO Not Given Q6H DANIEL Ondansetron HCl 4 mg 06/14/20 15:25 06/14/20 15:34 Zofran IVPUSH 06/14/20 15:26 4 mg ONETIME ONE Administration Ondansetron HCl Confirm 06/15/20 07:36 Zofran Administered 06/15/20 07:37 Dose 4 mg .ROUTE .STK-MED ONE Ondansetron HCl 4 mg 06/15/20 10:39 06/15/20 10:55 Zofran IVPUSH 06/15/20 10:40 4 mg ONETIME ONE Administration Pantoprazole Sodium 40 mg 06/14/20 17:30 06/14/20 17:31 Protonix Iv IV 06/14/20 17:31 40 mg ONETIME ONE Administration Propofol Confirm 06/15/20 07:36 Diprivan 20 Ml Administered 06/15/20 07:37 Dose 200 mg .ROUTE .STK-MED ONE Rocuronium [place] Confirm 06/15/20 07:36 Zemuron Administered 06/15/20 07:37 Dose 50 mg .ROUTE .STK-MED ONE Scopolamine Confirm 06/15/20 10:37 Transderm-Scop Administered 06/15/20 10:38 Dose 1.5 mg .ROUTE .STK-MED ONE Sodium Chloride 10 ml 06/14/20 15:26 06/14/20 15:40 Saline Flush FLUSH 10 ml ASDIRECTED PRN Administration Keep Vein Open Succinylcholine Chloride Confirm 06/15/20 07:36 Quelicin Administered 06/15/20 07:37 Dose 200 mg .ROUTE .STK-MED ONE Trazodone HCl 100 mg 06/14/20 22:59 06/14/20 23:10 Trazodone PO 100 mg BEDTIME PRN Administration Insomnia - Re-Assessments/Exams Free Text/Narrative Re-Assessment/Exam: 06/14/20 15:06 CBC, CRP, CMP was obtained and a culture obtained from the wound. IV was started and she was given normal saline. Discussed with Dr. Ruiz, her surgeon, and he recommended a CT of the abdomen and pelvis. Patient was given 2 g of cefoxitin IV, 0.5 mg of IV Dilaudid and 4 mg of IV Zofran. 06/14/20 16:45 White count is normal but CRP is now markedly elevated at near 20. CT the abdomen and pelvis with IV contrast has the following result IMPRESSION: 1. There has reportedly been interval bowel resection with a new healing midline anterior abdominal wall wound. Multiple bowel anastomoses are seen. No evidence of bowel obstruction. 2. New 5.4 x 4.8 cm hematoma in the left abdomen which is likely postoperative in nature. 3. New partially encapsulated gas and fluid collection subjacent to the anterior abdominal wall measuring approximately 2.4 x 12.3 cm, worrisome for developing abscess. 4. New 4.9 x 2.2 cm peripherally enhancing fluid collection subjacent to the left anterior abdominal wall. This has a different, more simple fluid appearance than the previously seen ill-defined soft tissue thickening and gas in this region on the prior exam. 5. Stable soft tissue thickening in the left inguinal region adjacent to the left anterior aspect of the bladder. This could be related to a prior inguinal hernia repair. Departure - Departure Time of Disposition: 19:06 Disposition: Admitted As Inpatient 67 Clinical Impression: Abdominal abscess Abdominal pain Qualifiers: Abdominal location: lower abdomen, unspecified Qualified Code(s): R10.30 - Lower abdominal pain, unspecified - Discharge Information Sepsis Event Note (ED) - Evaluation Sepsis Screening Result: No Definite Risk
[2020-06-14] MEDS ORDERED: HYDROmorphone 0.5 MG/0.5 ML Syringe IVPUSH ONE (15:25)
[2020-06-14] MEDS ORDERED: Ondansetron 4 MG/2 ML SDV IVPUSH ONE (15:25)
[2020-06-14] MEDS ORDERED: Iopamidol 612 MG/ML 500 ML Multipack Bottle IV ONE (15:26)
[2020-06-14] MEDS ORDERED: Sodium Chloride 0.9% 80 ML IV SCH (15:30)
[2020-06-14] MEDS: Sodium Chloride 0.9% 10 ML Syringe FLUSH PRN ×2 (15:35→15:40)
[2020-06-14] MEDS ORDERED: cefOXitin 2 GM in Sodium Chloride 0.9% 50 ML IV ONE (16:05)
--- NOTE | 2020-06-14 16:46 | CRLCT ---
INDICATION: Check for postsurgical infection. There has reportedly been interval bowel resection. TECHNIQUE: CT of the abdomen and pelvis with 135 cc Isovue 300 IV contrast. Coronal and sagittal reconstructions. COMPARISON: CT of the abdomen and pelvis 06/05/2020. FINDINGS: There is a new healing midline anterior abdominal wall wound with overlying skin azeem. Prior postoperative changes of the anterior abdominal wall and left inguinal region with multiple surgical fasteners. There is a new 5.4 x 4.8 cm high density fluid collection in the left abdomen which most likely represents postoperative hematoma (series 2, image 53). There is a new gas and fluid collection in subjacent to the anterior abdominal wall measuring approximately 2.4 x 12.3 cm (series 2, image 87). There is a peripherally enhancing rim around portions of the fluid collection, however the posterior margin is not encapsulated. This most likely represents a developing abscess. Additional smaller peripherally enhancing fluid collection subjacent to the left anterior abdominal wall measuring 4.9 x 2.2 cm (series 2, image 89). This has a different, more simple fluid appearance than the previously seen ill-defined soft tissue thickening and gas in this region on the prior exam. Small amount of free fluid in the pelvis. The liver, spleen, pancreas, and right adrenal gland are negative. Hepatic and portal veins are patent. Cholecystectomy. Stable mild nonspecific thickening of the left adrenal gland. Symmetric enhancement of the kidneys. Mildly prominent extrarenal pelves bilaterally. No ureteral dilation. No obstructing urinary calculi. The bladder is normal in appearance. Stable soft tissue thickening in the left inguinal region adjacent to the left anterior aspect of the bladder which could be related to an inguinal hernia repair. Hysterectomy. No bowel dilation. Multiple bowel anastomoses. Colonic diverticulosis. Chronic wall thickening of the sigmoid colon. No definite evidence of acute diverticulitis. Aortoiliac vascular calcifications. Short stent extending from the aortic bifurcation into the proximal right common iliac artery. No lymphadenopathy. Degenerative changes of the spine. Chronic mild superior endplate compression fracture of T9. Emphysema in the lung bases. Coronary artery calcifications. IMPRESSION: 1. There has reportedly been interval bowel resection with a new healing midline anterior abdominal wall wound. Multiple bowel anastomoses are seen. No evidence of bowel obstruction. 2. New 5.4 x 4.8 cm hematoma in the left abdomen which is likely postoperative in nature. 3. New partially encapsulated gas and fluid collection subjacent to the anterior abdominal wall measuring approximately 2.4 x 12.3 cm, worrisome for developing abscess. 4. New 4.9 x 2.2 cm peripherally enhancing fluid collection subjacent to the left anterior abdominal wall. This has a different, more simple fluid appearance than the previously seen ill-defined soft tissue thickening and gas in this region on the prior exam. 5. Stable soft tissue thickening in the left inguinal region adjacent to the left anterior aspect of the bladder. This could be related to a prior inguinal hernia repair. Please note that all CT scans at this facility use dose modulation, iterative reconstruction, and/or weight-based dosing when appropriate to reduce radiation dose to as low as reasonably achievable. Dictated by Irasema Roldan MD @ Jun 14 2020 4:14PM Signed by Dr. Irasema Roldan @ Jun 14 2020 4:44PM
[2020-06-14] MEDS ORDERED: Albuterol 0.083% 2.5 MG/3 ML Neb Soln INH PRN (17:20)
[2020-06-14] MEDS ORDERED: Pantoprazole 40 MG Vial IV ONE (17:30)
[2020-06-14] MEDS: Dextrose 5%-Lactated Ringers 1,000 ML IV SCH (17:31)
[2020-06-14] MEDS: Linezolid 600 MG in Premix Bag 1 BAG IV SCH (17:31)
[2020-06-14] MEDS ORDERED: [UNRECOGNIZED DRUG - OTHER] PO PRN (22:05)
[2020-06-14] MEDS ORDERED: Fluconazole 100 MG Tab PO SCH (22:15)
[2020-06-14] MEDS: Nystatin Susp 100,000 Unit/ML 5 ML UD Cup PO SCH (22:44)
[2020-06-14] MEDS ORDERED: traZODone 50 MG Tab PO PRN (22:59)
[2020-06-14] MEDS: fentaNYL 100 MCG/2 ML SDV IV PRN (23:06)
[2020-06-14] MEDS: cefOXitin 2 GM in Sodium Chloride 0.9% 50 ML IV SCH (23:40)
[2020-06-15] MEDS: Dextrose 5%-Lactated Ringers 1,000 ML IV SCH (02:01)
[2020-06-15] MEDS: Ondansetron 4 MG/2 ML SDV IVPUSH PRN ×2 (03:18→13:39)
[2020-06-15] MEDS: fentaNYL 100 MCG/2 ML SDV IV PRN (03:23)
[2020-06-15] MEDS: Nystatin Susp 100,000 Unit/ML 5 ML UD Cup PO SCH ×2 (05:43→20:38)
[2020-06-15] MEDS: Linezolid 600 MG in Premix Bag 1 BAG IV SCH ×2 (05:46→16:56)
[2020-06-15] MEDS ORDERED: Albuterol/Ipratropium 3.0-0.5 MG/3 ML Neb Soln NEB ONE (06:46)
[2020-06-15] MEDS ORDERED: Bupivacaine 0.5% 50 ML MDV ONE (07:30)
[2020-06-15] MEDS ORDERED: Meropenem 500 MG SDV ONE ×2 (07:30→09:31)
[2020-06-15] MEDS ORDERED: Lidocaine 1% with EPINEPHrine 1:100,000 50 ML MDV ONE (07:30)
[2020-06-15] MEDS: cefOXitin 2 GM in Sodium Chloride 0.9% 50 ML IV SCH (07:34)
[2020-06-15] MEDS ORDERED: Propofol 200 MG/20 ML SDV ONE (07:36)
[2020-06-15] MEDS ORDERED: Glycopyrrolate 0.2 MG/ML 5 ML MDV ONE (07:36)
[2020-06-15] MEDS ORDERED: Rocuronium 50 MG/5 ML Vial ONE (07:36)
[2020-06-15] MEDS ORDERED: Neostigmine Methylsulfate 1 MG/ML 5 ML Syringe ONE (07:36)
[2020-06-15] MEDS ORDERED: Ondansetron 4 MG/2 ML SDV ONE (07:36)
[2020-06-15] MEDS ORDERED: Succinylcholine 200 MG/10 ML MDV ONE (07:36)
[2020-06-15] MEDS ORDERED: Dexamethasone 4 MG/ML SDV ONE (07:36)
[2020-06-15] MEDS ORDERED: fentaNYL 250 MCG/5 ML SDV ONE ×2 (07:38→09:01)
[2020-06-15] MEDS ORDERED: Ropivacaine 44 ML, dexAMETHasone 8 MG, EPINEPHrine 0.4 MG, Sodium Chloride 0.9% 33.6 ML NERVRT SCH ×4 (08:00)
[2020-06-15] MEDS ORDERED: Lactated Ringers 1,000 ML ONE (08:35)
[2020-06-15] MEDS ORDERED: Scopolamine 1.5 MG Transdermal Patch ONE (10:37)
[2020-06-15] MEDS ORDERED: Ondansetron 4 MG/2 ML SDV IVPUSH ONE (10:39)
[2020-06-15] MEDS ORDERED: Naloxone 0.4 MG/ML SDV IVPUSH PRN (10:41)
[2020-06-15] MEDS ORDERED: diphenhydrAMINE 25 MG Cap PO PRN (10:41)
[2020-06-15] MEDS ORDERED: diphenhydrAMINE 50 MG/ML SDV IVPUSH PRN (10:41)
[2020-06-15] MEDS ORDERED: Ondansetron 4 MG/2 ML SDV IVPUSH PRN (10:41)
[2020-06-15] MEDS ORDERED: hydrOXYzine HCL 100 MG/2 ML SDV IM ONE (10:44)
[2020-06-15] MEDS: Piperacillin/Tazobactam/Dext 3.375 GM in Premix Bag 1 BAG IV SCH ×3 (10:57→22:29)
[2020-06-15] MEDS ORDERED: Naloxone 0.4 MG/ML SDV IV PRN (11:00)
[2020-06-15] MEDS ORDERED: Dextrose 5%-Lactated Ringers 1,000 ML IV SCH (11:30)
[2020-06-15] MEDS ORDERED: hydrOXYzine HCL 100 MG/2 ML SDV IM PRN (12:00)
[2020-06-15] MEDS ORDERED: Albuterol/Ipratropium 3.0-0.5 MG/3 ML Neb Soln INH PRN (12:00)
[2020-06-15] MEDS ORDERED: Metoclopramide 10 MG/2 ML SDV IVPUSH PRN (12:00)
[2020-06-15] MEDS: SCOPOLAMINE PATCH CHECK TOP SCH (12:23)
[2020-06-15] MEDS: Lidocaine 2% Jelly 30 ML Tube TOP SCH (14:00)
[2020-06-15] MEDS: Diclofenac Sodium 1% Gel 100 GM Tube TOP SCH (14:01)
[2020-06-15] MEDS: Lactated Ringers 1,000 ML IV SCH ×2 (14:13→21:57)
[2020-06-15] MEDS: Pantoprazole 40 MG Vial IVPUSH SCH (14:13)
[2020-06-15] MEDS: Tiotropium BR/Olodaterol HCL 4 GM Inhalation Spray 2.5mcg/1 dose; 10 doses INH SCH (14:40)
[2020-06-15] MEDS: Albuterol/Ipratropium 3.0-0.5 MG/3 ML Neb Soln INH SCH ×2 (14:41→20:46)
[2020-06-15] MEDS ORDERED: Fluconazole 100 MG Tab PO SCH (21:00)
[2020-06-16] MEDS: Piperacillin/Tazobactam/Dext 3.375 GM in Premix Bag 1 BAG IV SCH ×4 (04:39→22:51)
[2020-06-16] MEDS: Linezolid 600 MG in Premix Bag 1 BAG IV SCH ×2 (05:16→17:45)
[2020-06-16] MEDS: Lactated Ringers 1,000 ML IV SCH (05:23)
[2020-06-16] MEDS: Albuterol/Ipratropium 3.0-0.5 MG/3 ML Neb Soln INH SCH ×4 (07:05→20:37)
[2020-06-16] MEDS: Tiotropium BR/Olodaterol HCL 4 GM Inhalation Spray 2.5mcg/1 dose; 10 doses INH SCH (07:05)
[2020-06-16] MEDS ORDERED: tiZANidine 4 MG Tab PO PRN (07:36)
[2020-06-16] MEDS ORDERED: Meclizine 25 MG Tab PO PRN (07:37)
[2020-06-16] MEDS: HYDROmorphone/Normal Saline 15 MG/30 ML PCA IV PRN ×2 (08:36→19:34)
[2020-06-16] MEDS: Sertraline 50 MG Tab PO SCH (08:37)
[2020-06-16] MEDS: Aspirin 81 MG Tab.EC PO SCH (08:37)
[2020-06-16] MEDS: Docusate Sodium 100 MG Cap PO SCH ×2 (08:38→20:36)
[2020-06-16] MEDS: Bisacodyl 5 MG Tab PO SCH ×2 (08:38→20:36)
[2020-06-16] MEDS: Cetirizine 10 MG Tab PO SCH (08:38)
[2020-06-16] MEDS: Levothyroxine 25 MCG Tab PO SCH (08:38)
[2020-06-16] MEDS: Furosemide 40 MG Tab PO SCH (08:38)
[2020-06-16] MEDS: Clopidogrel 75 MG Tab PO SCH (08:38)
[2020-06-16] MEDS: Fluticasone Propionate Nasal Spray 16 GM Bottle NASBOTH SCH (08:39)
[2020-06-16] MEDS: SCOPOLAMINE PATCH CHECK TOP SCH (08:41)
[2020-06-16] MEDS: ClonazePAM 0.5 MG Tab PO SCH (08:44)
[2020-06-16] MEDS: Dextrose 5%-Lactated Ringers 1,000 ML IV SCH (08:45)
[2020-06-16] MEDS: Magnesium Sulfate/Water 2 GM/50 ML BAG IV SCH ×3 (09:36→20:37)
[2020-06-16] MEDS: Ondansetron 4 MG/2 ML SDV IVPUSH PRN (09:37)
[2020-06-16] MEDS: Diclofenac Sodium 1% Gel 100 GM Tube TOP SCH (09:38)
[2020-06-16] MEDS: Lidocaine 2% Jelly 30 ML Tube TOP SCH (09:38)
[2020-06-16] MEDS: Pantoprazole 40 MG Vial IVPUSH SCH (13:39)
[2020-06-16] MEDS ORDERED: diphenhydrAMINE 50 MG/ML SDV IVPUSH PRN (15:26)
[2020-06-16] MEDS: Gabapentin 300 MG Cap PO SCH (20:37)
[2020-06-16] MEDS: traZODone 50 MG Tab PO PRN ×2 (20:53→20:55)
[2020-06-16] MEDS ORDERED: Morphine PF 150 MG/30 ML PCA Syringe IV SCH (21:30)
[2020-06-17] MEDS: Morphine 2 MG/ML SYRINGE IVPUSH PRN ×3 (01:51→04:35)
[2020-06-17] MEDS: Magnesium Sulfate/Water 2 GM/50 ML BAG IV SCH ×4 (02:28→20:49)
[2020-06-17] MEDS: Piperacillin/Tazobactam/Dext 3.375 GM in Premix Bag 1 BAG IV SCH (04:30)
[2020-06-17] MEDS: Dextrose 5%-Lactated Ringers 1,000 ML IV SCH ×2 (05:11→20:47)
[2020-06-17] MEDS: Linezolid 600 MG in Premix Bag 1 BAG IV SCH (05:12)
[2020-06-17] MEDS: Albuterol/Ipratropium 3.0-0.5 MG/3 ML Neb Soln INH SCH ×4 (07:10→20:39)
[2020-06-17] MEDS: Tiotropium BR/Olodaterol HCL 4 GM Inhalation Spray 2.5mcg/1 dose; 10 doses INH SCH (07:17)
[2020-06-17] MEDS ORDERED: Lidocaine 1% 4 ML ONE (07:17)
[2020-06-17] MEDS: Acetaminophen/HYDROcodone 325-5 MG Tab PO PRN ×4 (07:28→20:38)
[2020-06-17] MEDS: Levothyroxine 25 MCG Tab PO SCH (08:36)
[2020-06-17] MEDS: Furosemide 40 MG Tab PO SCH (08:37)
[2020-06-17] MEDS: Bisacodyl 5 MG Tab PO SCH ×2 (08:37→20:39)
[2020-06-17] MEDS: Fluticasone Propionate Nasal Spray 16 GM Bottle NASBOTH SCH (08:37)
[2020-06-17] MEDS: Aspirin 81 MG Tab.EC PO SCH (08:37)
[2020-06-17] MEDS: Docusate Sodium 100 MG Cap PO SCH ×2 (08:37→20:38)
[2020-06-17] MEDS: Clopidogrel 75 MG Tab PO SCH (08:37)
[2020-06-17] MEDS: Sertraline 50 MG Tab PO SCH (08:37)
[2020-06-17] MEDS: Cetirizine 10 MG Tab PO SCH (08:38)
[2020-06-17] MEDS: ClonazePAM 0.5 MG Tab PO SCH (08:39)
[2020-06-17] MEDS: SCOPOLAMINE PATCH CHECK TOP SCH (08:40)
[2020-06-17] MEDS: Lidocaine 2% Jelly 30 ML Tube TOP SCH (08:40)
[2020-06-17] MEDS: Diclofenac Sodium 1% Gel 100 GM Tube TOP SCH (08:40)
[2020-06-17] MEDS: Nystatin Susp 100,000 Unit/ML 5 ML UD Cup PO SCH ×3 (09:53→22:06)
[2020-06-17] MEDS: Ampicillin/Sulbactam Na 3 GM in Sodium Chloride 0.9% 100 ML IV SCH ×3 (09:53→22:08)
--- NOTE | 2020-06-17 11:08 | PN ---
DATE OF SERVICE: 06/16/2020 The patient has been afebrile with stable vital signs. Oxygenation appears to be . She did have an NG tube in overnight with minimal output. We will remove that and she will be able to use her CPAP today. Otherwise, we will start her on oral pain medications, back down somewhat on the IV rate. Magnesium is somewhat low, that will be supplemented, and we will allow her to have some sips of liquids with coffee today. Otherwise, we will begin dressing changes to the open wound. Continue with present antibiotics pending C and S results. Aayush Ruiz MD /[id number]
--- NOTE | 2020-06-17 13:09 | PN ---
DATE OF SERVICE: 06/17/2020 The patient has been afebrile with stable vital signs. No major problems were noted overnight. She had a small amount of oral intake and has had no nausea with that. No flatus or bowel movement as of yet. Cultures came back in all cases showing enterococcus sensitive to ampicillin, and given this, we will discontinue the Zosyn and Zyvox and start her on Unasyn 3 g q.6 h. At present, she does not have an IV peripheral IV and then hopefully a PICC line subsequent to that. Otherwise, we will need to put a central line in later today. Her hemoglobin is 7.7. We will give her 1 unit of packed RBCs today. We will move up to a full- liquid diet, continue bowel stimulation. Aayush Ruiz MD /[id number]
[2020-06-17] MEDS: Pantoprazole 40 MG Vial IVPUSH SCH (15:03)
[2020-06-17] MEDS: Potassium Phos in 0.9 % NaCl 15 MMOL in Premix Bag 1 BAG IV SCH ×8 (15:06→22:07)
[2020-06-17] MEDS: Ondansetron 4 MG/2 ML SDV IVPUSH PRN (18:45)
[2020-06-17] MEDS: Gabapentin 300 MG Cap PO SCH (20:38)
[2020-06-17] MEDS: traZODone 50 MG Tab PO PRN (20:39)
[2020-06-18] MEDS: Magnesium Sulfate/Water 2 GM/50 ML BAG IV SCH (03:21)
[2020-06-18] MEDS: Ampicillin/Sulbactam Na 3 GM in Sodium Chloride 0.9% 100 ML IV SCH ×4 (03:23→21:24)
[2020-06-18] MEDS: Acetaminophen/HYDROcodone 325-5 MG Tab PO PRN ×4 (04:24→19:34)
[2020-06-18] MEDS: Nystatin Susp 100,000 Unit/ML 5 ML UD Cup PO SCH ×4 (05:31→21:11)
[2020-06-18] MEDS: Dextrose 5%-Lactated Ringers 1,000 ML IV SCH (05:39)
[2020-06-18] MEDS ORDERED: Furosemide 20 MG/2 ML VIAL IVPUSH ONE (06:18)
[2020-06-18] MEDS: Tiotropium BR/Olodaterol HCL 4 GM Inhalation Spray 2.5mcg/1 dose; 10 doses INH SCH (07:02)
[2020-06-18] MEDS: Albuterol/Ipratropium 3.0-0.5 MG/3 ML Neb Soln INH SCH ×4 (07:02→21:11)
[2020-06-18] MEDS ORDERED: Dextrose 5%-Lactated Ringers 1,000 ML IV SCH (07:15)
[2020-06-18] MEDS: Levothyroxine 25 MCG Tab PO SCH (07:46)
[2020-06-18] MEDS ORDERED: Scopolamine 1.5 MG Transdermal Patch TOP SCH (09:00)
[2020-06-18] MEDS: Fluticasone Propionate Nasal Spray 16 GM Bottle NASBOTH SCH (10:46)
[2020-06-18] MEDS: Bisacodyl 5 MG Tab PO SCH ×2 (10:52→21:18)
[2020-06-18] MEDS: Docusate Sodium 100 MG Cap PO SCH ×2 (10:52→21:18)
[2020-06-18] MEDS: Furosemide 40 MG Tab PO SCH (10:52)
[2020-06-18] MEDS: Aspirin 81 MG Tab.EC PO SCH (10:52)
[2020-06-18] MEDS: Sertraline 50 MG Tab PO SCH (10:53)
[2020-06-18] MEDS: Clopidogrel 75 MG Tab PO SCH (10:53)
[2020-06-18] MEDS: SCOPOLAMINE PATCH CHECK TOP SCH (10:55)
[2020-06-18] MEDS: Lidocaine 2% Jelly 30 ML Tube TOP SCH (10:56)
[2020-06-18] MEDS: Diclofenac Sodium 1% Gel 100 GM Tube TOP SCH (10:56)
[2020-06-18] MEDS: Cetirizine 10 MG Tab PO SCH (10:57)
[2020-06-18] MEDS: Ondansetron 4 MG/2 ML SDV IVPUSH PRN (11:00)
[2020-06-18] MEDS: ClonazePAM 0.5 MG Tab PO SCH (11:00)
[2020-06-18] MEDS: Pantoprazole 40 MG Vial IVPUSH SCH (14:44)
[2020-06-18] MEDS: traZODone 50 MG Tab PO PRN (21:11)
[2020-06-18] MEDS: Gabapentin 300 MG Cap PO SCH (21:11)
[2020-06-18] MEDS: [UNRECOGNIZED DRUG - OTHER] PO PRN (21:16)
[2020-06-19] MEDS: Ampicillin/Sulbactam Na 3 GM in Sodium Chloride 0.9% 100 ML IV SCH ×4 (04:12→21:03)
[2020-06-19] MEDS: Acetaminophen/HYDROcodone 325-5 MG Tab PO PRN ×4 (05:57→22:47)
[2020-06-19] MEDS: Nystatin Susp 100,000 Unit/ML 5 ML UD Cup PO SCH ×4 (05:58→21:01)
[2020-06-19] MEDS: Albuterol/Ipratropium 3.0-0.5 MG/3 ML Neb Soln INH SCH ×4 (07:06→21:14)
[2020-06-19] MEDS: Tiotropium BR/Olodaterol HCL 4 GM Inhalation Spray 2.5mcg/1 dose; 10 doses INH SCH (07:06)
[2020-06-19] MEDS: Cetirizine 10 MG Tab PO SCH (08:16)
[2020-06-19] MEDS: Clopidogrel 75 MG Tab PO SCH (08:16)
[2020-06-19] MEDS: Sertraline 50 MG Tab PO SCH (08:17)
[2020-06-19] MEDS: Levothyroxine 25 MCG Tab PO SCH (08:17)
[2020-06-19] MEDS: Aspirin 81 MG Tab.EC PO SCH (08:18)
[2020-06-19] MEDS: Furosemide 40 MG Tab PO SCH (08:18)
[2020-06-19] MEDS: Bisacodyl 5 MG Tab PO SCH ×2 (08:18→21:00)
[2020-06-19] MEDS: Docusate Sodium 100 MG Cap PO SCH ×2 (08:18→21:00)
[2020-06-19] MEDS: Lidocaine 2% Jelly 30 ML Tube TOP SCH (08:19)
[2020-06-19] MEDS: Fluticasone Propionate Nasal Spray 16 GM Bottle NASBOTH SCH (08:21)
[2020-06-19] MEDS: SCOPOLAMINE PATCH CHECK TOP SCH (08:22)
[2020-06-19] MEDS: Diclofenac Sodium 1% Gel 100 GM Tube TOP SCH (08:22)
[2020-06-19] MEDS: Furosemide 20 MG/2 ML VIAL IVPUSH SCH ×2 (08:28→14:39)
[2020-06-19] MEDS: ClonazePAM 0.5 MG Tab PO SCH (08:28)
[2020-06-19] MEDS: Ondansetron 4 MG/2 ML SDV IVPUSH PRN ×2 (09:50→23:01)
--- NOTE | 2020-06-19 10:28 | PN ---
DATE OF SERVICE: 06/19/2020 SUBJECTIVE: Reji's vital signs have been stable. Her pain has been well managed. Oral intake 2616. Urine output has not been recorded. REVIEW OF SYSTEMS: Remainder of review of systems negative for any pertinent positives and negatives. OBJECTIVE: GENERAL: Reji is a pleasant 65-year-old female. VITAL SIGNS: She has had a temperature max of 100.2. Current TPR is 99.2, 74, 18, blood pressure 104/47. HEENT: Negative. NECK: Supple. HEART: Regular rate and rhythm. LUNGS: Clear. ABDOMEN: Dressing dry and intact. Abdominal binder is on. EXTREMITIES: Without peripheral edema. ASSESSMENT: Exploratory laparotomy with incision and drainage of abdominal wall abscess, removal of intraabdominal mass, and excision of necrotic intraabdominal wall tissue for intraabdominal wall abscess. Date of procedure: 06/15/2020. Surgeon: Aayush Ruiz MD. PLAN: 1. Consult with discharge planning for home health care. Will need dressing changes twice daily, which includes removing 4 x 4 gauze pads, gauze pieces, and covering incision with ABDs. One dressing change should be after a shower. 2. Check CBC, CMP, mag, phos, and BNP in a.m. 3. Saline lock IV. 4. Lasix 20 mg IV now, and second dose of Lasix 20 mg IV at 1400. 5. We will evaluate p.r.n. or in a.m. 6. Plan discharge in a.m. Irasema Gresham PA-C /[id number]
[2020-06-19] MEDS: Pantoprazole 40 MG Vial IVPUSH SCH (14:39)
--- NOTE | 2020-06-19 20:37 | PN ---
DATE OF SERVICE: 06/18/2020 The patient has been afebrile with stable vital signs. improved today, and she appears to be diuresing. We gave her some additional Lasix this morning. Given her underlying cardiopulmonary status and Barrett catheter, I will back down on IV rate, go on regular diet, and continue to maximize activity and work with pulmonary toilet drains are putting out relatively small amounts at this point, and we will continue the present antibiotics. Aayush Ruiz MD /[id number]
[2020-06-19] MEDS: Gabapentin 300 MG Cap PO SCH (21:01)
[2020-06-19] MEDS: [UNRECOGNIZED DRUG - OTHER] PO PRN (21:15)
[2020-06-20] MEDS: Ampicillin/Sulbactam Na 3 GM in Sodium Chloride 0.9% 100 ML IV SCH (04:12)
[2020-06-20] MEDS: Nystatin Susp 100,000 Unit/ML 5 ML UD Cup PO SCH ×2 (06:05→09:18)
[2020-06-20] MEDS: Tiotropium BR/Olodaterol HCL 4 GM Inhalation Spray 2.5mcg/1 dose; 10 doses INH SCH (07:22)
[2020-06-20] MEDS: Albuterol/Ipratropium 3.0-0.5 MG/3 ML Neb Soln INH SCH ×2 (07:22→10:52)
[2020-06-20] MEDS ORDERED: Amoxicillin/Clavulanate K 875-125 MG Tab PO SCH (08:00)
[2020-06-20] MEDS ORDERED: Potassium Chloride 20 MEQ Tab.ER PO SCH (09:00)
[2020-06-20] MEDS: Acetaminophen/HYDROcodone 325-5 MG Tab PO PRN (09:14)
[2020-06-20] MEDS: ClonazePAM 0.5 MG Tab PO SCH (09:14)
[2020-06-20] MEDS: Furosemide 40 MG Tab PO SCH (09:15)
[2020-06-20] MEDS: Aspirin 81 MG Tab.EC PO SCH (09:16)
[2020-06-20] MEDS: Sertraline 50 MG Tab PO SCH (09:16)
[2020-06-20] MEDS: Levothyroxine 25 MCG Tab PO SCH (09:16)
[2020-06-20] MEDS: Cetirizine 10 MG Tab PO SCH (09:16)
[2020-06-20] MEDS: Clopidogrel 75 MG Tab PO SCH (09:16)
[2020-06-20] MEDS: Diclofenac Sodium 1% Gel 100 GM Tube TOP SCH (09:17)
[2020-06-20] MEDS: Fluticasone Propionate Nasal Spray 16 GM Bottle NASBOTH SCH (09:17)
[2020-06-20] MEDS: Bisacodyl 5 MG Tab PO SCH (09:17)
[2020-06-20] MEDS: Docusate Sodium 100 MG Cap PO SCH (09:17)
[2020-06-20] MEDS: SCOPOLAMINE PATCH CHECK TOP SCH (09:18)
[2020-06-20] MEDS: Lidocaine 2% Jelly 30 ML Tube TOP SCH (09:18)
[2020-06-20 09:30] VITALS: BP 130/69; PULSE 84
[2020-06-20] MEDS: Ondansetron 4 MG/2 ML SDV IVPUSH PRN (10:23)
--- NOTE | 2020-06-20 17:08 | DISCH ---
ADMISSION DIAGNOSES: Abdominal abscess, status post exploratory laparotomy with lysis of adhesions, small bowel resection, removal of peritoneal mass, small-bowel stricture plasty, drainage of intraabdominal abscess, and placement of Interceed mesh. Date of procedure: 06/06/2020, and delayed primary closure on 06/08/2020. DISCHARGE DIAGNOSES: Exploratory laparotomy with incision and drainage of abdominal wall abscess, removal of intraabdominal mass, and excision of necrotic intraabdominal wall tissue for intraabdominal abscess. Date of procedure: 06/15/2020. Surgeon: Aayush Ruiz MD. HISTORY: Reji Gonzalez had an exploratory laparotomy and was discharged on 06/12/2020. She developed a fever the day after being discharged and presented back to the emergency room with 101 fever. She was admitted to the hospital, had the above surgical procedure. She had no complications. She was started on appropriate antibiotics. The abdominal culture grew out gram-positive rods, Enterococcus faecalis, Klebsiella pneumoniae, Escherichia coli, and gram-positive rods. Throughout her hospitalization, she remained afebrile. Oral intake and output were adequate. She was having bowel movements. Activity was good. She was independent in daily care. She was taught how to change, pack her open abdominal wound, and she was able to be discharged to home on 06/20/2020. PHYSICAL EXAMINATION: GENERAL: Reji Gonzalez is a pleasant 65-year-old female. VITAL SIGNS: TPR is 98.8, 84, 18, blood pressure 130/69. HEENT: Negative. NECK: Supple. HEART: Regular rate and rhythm. LUNGS: Clear. ABDOMEN: Incision has been packed. Dressing dry and intact. Abdominal binder is on. EXTREMITIES: Without peripheral edema. DISPOSITION: Discharged to home. CONDITION: Stable and improving. HOME MEDICATIONS: Augmentin 875 mg/125 mg 1 tablet p.o. q.12 hours for 5 days. She is to resume her home medication as she was on prior to admission. Trazodone 50 to 100 mg at bedtime p.r.n., Zanaflex 4 mg p.o. every 8 hours p.r.n., Zofran 8 mg p.o. q.8 hours p.r.n., Chantix 1 mg p.o. b.i.d., Ellipta inhaler 1 daily, sertraline 150 mg p.o. daily, Denavir 1% cream 1 applicator topical daily, Protonix 40 mg daily, nystatin 5 mL q.6 hours swish and swallow, Elocon 0.1% cream 1 applicator topical daily, meclizine 25 mg every morning, lidocaine 2% jelly 1 applicator topical daily, Synthroid 25 mcg p.o. at breakfast, homeopathic product for leg cramps 1 to 2 at bedtime, Neurontin 300 mg p.o. bedtime, furosemide 40 mg p.o. daily p.r.n., Flonase 2 sprays in each nostril p.r.n. once a day, Diflucan 200 mg p.o. daily, Colace 100 mg p.o. b.i.d., Voltaren 1% gel 1 applicator topical q.i.d., vitamin B12 500 mcg p.o. daily, Plavix 75 mg p.o. daily, Klonopin 0.5 mg p.o. daily p.r.n., vitamin D3 2000 International Units p.o. daily, Zyrtec 10 mg p.o. daily, aspirin 81 mg p.o. daily, Ventolin 2 puffs inhalation every 6 hours p.r.n., albuterol inhaler 3 mL nebulized every 4 hours p.r.n., Ida 5/325 mg 1 to 2 tablets every 4 hours p.r.n. pain. FOLLOWUP: Followup appointment with Aayush Ruiz MD, on 06/26/2020 at 10 a.m. SPECIAL INSTRUCTION: Dressing change twice a day, 1 dressing change after shower, remove packing and replace 4 x 4 gauze into open incision and cover with ABDs. DIET: Usual diet as tolerated. Drink 8 to 10 glasses of water a day. ACTIVITY: No lifting greater than 10 pounds for 6 weeks. Driving: Do not drive for 1 week and while on narcotic pain medication. Shower/bathing: May shower. DISCHARGE INSTRUCTIONS: Keep operative site clean and dry. Notify provider if any fever, increased pain, swelling, redness, drainage, nausea, or vomiting, and use incentive spirometer 10 times every hour while awake. /[id number]
--- NOTE | 2020-06-25 10:48 | OR ---
DATE OF PROCEDURE: 06/15/2020 SURGEON: Aayush Ruiz MD PREOPERATIVE DIAGNOSIS: Infected intraabdominal hematoma. POSTOPERATIVE DIAGNOSES: 1. Infected intraabdominal hematoma. 2. Potentially infected intraperitoneal mesh with adherence to left lobe of liver. 3. Recurrent incarcerated incisional hernia. 4. Focal abdominal wall necrosis. OPERATIVE PROCEDURE: Exploratory laparotomy with lysis of adhesions and: 1. Drainage of infected intraabdominal hematoma (75584). 2. Removal of intraperitoneal mesh (35427). 3. Partial left hepatic lobectomy at the point of liver adherence to mesh (95822). 4. Repair of recurrent incarcerated incisional hernia (37221). 5. Debridement of focal abdominal wall necrosis (60230). ANESTHESIA: General. INDICATIONS FOR PROCEDURE: This is a 65-year-old presenting status post recent complicated small bowel resection in which small bowel was crystalized into some left lower quadrant abdominal mesh. Initially, the patient did well. The patient now presents with what appears to be an infected hematoma in the left midabdomen. Plan is to proceed with exploratory laparotomy with drainage of hematoma and other procedures as indicated. The potential risks including bleeding, infection, injury to underlying viscera as well as possibility of cardiopulmonary, septic, or hemorrhagic complications leading to were discussed, and the patient wishes to proceed. DETAILS OF PROCEDURE: The patient was taken to the operating room and placed in the supine position. After general endotracheal anesthesia was induced, a Barrett catheter was inserted, and the abdomen prepped and draped. The previous staple line in the lower abdomen midline was then taken down and the subcutaneous tissue and fascial tissue were divided. As we entered the peritoneal cavity to the left of the midline, as expected, there was purulent collection of hematoma. Cultures of this were obtained, Gram stains showing gram-positive cocci. This area was then evacuated and initially irrigated with meropenem-containing saline solution. No underlying visceral injury appeared to be present at this point. The patient's remaining mesh in the area superior to the incision was at this point felt to be at high risk for infection and given this the incision was extended superiorly and that mesh then gradually dissected free from surrounding soft tissues. This involved some division of the mesh away from the transverse colon as well as small bowel which was done with the aid of azeem and blunt electrocautery dissection. On the superior aspect of the mesh, there was a long ridge of adherent left lobe of liver and this needed to be resected with azeem removing an extensive area of liver adherence to the mesh. At this point, the mesh and the attached liver were removed from the peritoneal cavity. The patient at this point obviously had a significant recurrent incarcerated incisional hernia. Some of this was above the previous mesh and contained some incarcerated transverse colon and omentum, the latter which was reduced away from the area of herniation. Finally, there was some focal necrosis involving the abdominal wall at the skin, subcutaneous tissue, and fascia level. This was debrided. The abdomen was then irrigated with copious amounts of saline. A total of 4 Santos-Bain drains were placed across the various portions of the abdomen and pelvis. The midline fascia was then approximated with #2 Vicryl stitch. Prior to closure, bilateral transversus abdominis plane blocks were then placed and the drains were affixed with some 3- 0 Vicryl stitch. The skin and subcutaneous tissue were packed open with Iodoform gauze , this was in case there was a need for simple secondary closure given the extent of the contamination and poor quality of the tissues in the midline fascia. Aayush Ruiz MD /[id number]
== END 2020-06-20 14:02 | disposition home or self-care (01) | DRG 902 ==
LOC: JP.ED 14:02 → UNDOADMIN 16:54 → JP.MS 16:54 → JP.ICU 06-15 11:58 → JP.MS 06-15 11:58 → JP.ICU 06-18 21:45 → UNDODISIN 06-20 14:02
PROVIDERS: ADMIT Surgery; ATTEND Surgery
PROC: 0W9G0ZZ Drainage of Peritoneal Cavity, Open Approach (ICD-10-PCS; principal; 2020-06-14)
PROC: 0JB80ZZ Excision of Abdomen Subcutaneous Tissue and Fascia, Open Approach (ICD-10-PCS; 2020-06-14)
PROC: 0WPF0JZ Removal of Synthetic Substitute from Abdominal Wall, Open Approach (ICD-10-PCS; 2020-06-14)
PROC: 0FB20ZZ Excision of Left Lobe Liver, Open Approach (ICD-10-PCS; 2020-06-14)
PROC: XW033N5 Introduction of Meropenem-vaborbactam Anti-infective into Peripheral Vein, Percutaneous Approach, New Technology Group 5 (ICD-10-PCS; 2020-06-14)
PROC: 0WQF0ZZ Repair Abdominal Wall, Open Approach (ICD-10-PCS; 2020-06-14)
DX: K91.870 Postprocedural hematoma of a digestive system organ or structure following a digestive system procedure (principal); R10.30 Lower abdominal pain, unspecified; L02.211 Cutaneous abscess of abdominal wall; Z88.6 Allergy status to analgesic agent; Z88.8 Allergy status to other drugs, medicaments and biological substances; Z79.02 Long term (current) use of antithrombotics/antiplatelets; I42.9 Cardiomyopathy, unspecified; I96 Gangrene, not elsewhere classified; T85.79XA Infection and inflammatory reaction due to other internal prosthetic devices, implants and grafts, initial encounter; B96.20 Unspecified Escherichia coli [E. coli] as the cause of diseases classified elsewhere; B96.1 Klebsiella pneumoniae [K. pneumoniae] as the cause of diseases classified elsewhere; J44.9 Chronic obstructive pulmonary disease, unspecified; B95.2 Enterococcus as the cause of diseases classified elsewhere; K21.9 Gastro-esophageal reflux disease without esophagitis; K44.9 Diaphragmatic hernia without obstruction or gangrene; K57.90 Diverticulosis of intestine, part unspecified, without perforation or abscess without bleeding; H54.7 Unspecified visual loss; G47.30 Sleep apnea, unspecified; M54.9 Dorsalgia, unspecified; M19.90 Unspecified osteoarthritis, unspecified site; G89.29 Other chronic pain; M79.7 Fibromyalgia; F41.9 Anxiety disorder, unspecified; Z85.41 Personal history of malignant neoplasm of cervix uteri; Z85.42 Personal history of malignant neoplasm of other parts of uterus; Z98.890 Other specified postprocedural states; F32.9 Major depressive disorder, single episode, unspecified; Z20.822 Contact with and (suspected) exposure to COVID-19; E03.9 Hypothyroidism, unspecified; E66.9 Obesity, unspecified; Z88.1 Allergy status to other antibiotic agents; Z88.5 Allergy status to narcotic agent; Z79.890 Hormone replacement therapy; Z79.899 Other long term (current) drug therapy; Z79.82 Long term (current) use of aspirin; Z87.01 Personal history of pneumonia (recurrent); Z90.710 Acquired absence of both cervix and uterus; Z90.49 Acquired absence of other specified parts of digestive tract; Z87.891 Personal history of nicotine dependence; Z68.33 Body mass index [BMI] 33.0-33.9, adult
CPT/HCPCS: 36415; 36430; 74177; 80048; 80053; 83735; 83880; 84100; 85025; 85027; 86140; 86850; 86900; 86901; 86920; 86922; 87070; 87075; 87077; 87186; 87205; 88304; 88307; 94640; 94762; 96365; 96367; 96375; 97110-GP; 97162-GP; 97530-GP; 99284; 99284-25; A9270-GY; C9113; J0171; J0295; J0330; J0694; J1100; J1170; J1200; J1940; J2001; J2020; J2185; J2270; J2405; J2543; J2704; J2710; J2765; J2795; J3010; J3410; J3475; J3490; J7030; J7050; J7120; J7121; J7620-GY; P9016; Q9967; U0002

== ENCOUNTER 2020-07-14 11:52 | Emergency (ER) | payer MEDICARE, MEDICAID ==
[2020-07-14 12:10] VITALS: BP 110/57; PULSE 89
[2020-07-14] MEDS ORDERED: Ketorolac 30 MG/ML SDV IM ONE (12:24)
--- NOTE | 2020-07-14 12:26 | EDM.PDOC ---
ED HPI GENERAL MEDICAL PROBLEM - General Chief Complaint: Upper Extremity Injury/Pain Stated Complaint: INJURED THUMB Time Seen by Provider: 07/14/20 12:19 Source of Information: Reports: Patient, RN Notes Reviewed History Limitations: Reports: No Limitations - History of Present Illness INITIAL COMMENTS - FREE TEXT/NARRATIVE: 65-year-old female presents emergency department with a complaint of left thumb pain, she denies any trauma denies any repetitive motion, she states the pain started last night and has progressively gotten worse she has had some swelling around this joint there are no breaks in the skin she denies any history of gout did take tramadol which provided some relief - Related Data Allergies Allergy/AdvReac Type Severity Reaction Status Date / Time ciprofloxacin Allergy Hives Verified 07/14/20 12:03 clonidine Allergy Other Verified 07/14/20 12:03 hydromorphone Allergy Rash Verified 07/14/20 12:03 oxycodone [From Percocet] Allergy Hives Verified 07/14/20 12:03 Home Meds: Home Meds Levothyroxine Sodium [Synthroid] 25 mcg PO .ACBREAKFAST 07/05/14 [History] ondansetron HCL [Zofran] 8 mg PO Q8H PRN 10/25/14 [History] Furosemide 40 mg PO DAILY PRN 06/17/16 [History] Sertraline HCl [Zoloft] 150 mg PO DAILY 02/24/17 [History] traZODone 50 - 100 mg PO BEDTIME PRN 02/24/17 [History] ClonazePAM [KlonoPIN] 0.5 mg PO DAILY PRN 03/05/17 [History] Penciclovir [Denavir 1% Crm] 1 applic TOP ASDIRECTED 03/05/17 [History] Mometasone Furoate [Elocon 0.1% Crm] 1 applic TOP DAILY 09/16/17 [History] tiZANidine [Zanaflex] 4 mg PO Q8H PRN 09/16/17 [History] Pantoprazole [ProTONIX] 40 mg PO DAILY 06/06/19 [History] Albuterol [Proventil Neb Soln] 3 ml NEB Q4H PRN 08/10/19 [History] Cetirizine [ZyrTEC] 10 mg PO DAILY 08/10/19 [History] Cholecalciferol (Vitamin D3) [Vitamin D3] 2,000 unit PO DAILY 08/10/19 [History] Cyanocobalamin (Vitamin B-12) [B-12] 500 mcg PO DAILY 08/10/19 [History] Gabapentin [Neurontin] 300 mg PO BEDTIME 08/10/19 [History] Lidocaine 2% [Xylocaine 2% Jelly] 1 applic TOP DAILY 08/10/19 [History] Meclizine [Antivert] 25 mg PO .MORNING 08/10/19 [History] Varenicline [Chantix] 1 mg PO BID 08/10/19 [History] Albuterol [Ventolin HFA] 2 puff INH Q6H PRN 11/16/19 [History] Fluticasone Propionate [Flonase] 2 spr NASBOTH DAILY PRN 11/16/19 [History] Homeopathic Products (Leg Cramp Complex Or) 1 - 2 tab PO BEDTIME 11/16/19 [History] Umeclidinium Brm/Vilanterol Tr [Anoro Ellipta 62.5-25 MCG] 1 each INH DAILY 11/16/19 [History] Aspirin [Halfprin] 81 mg PO DAILY 05/21/20 [History] Clopidogrel [Plavix] 75 mg PO DAILY 05/27/20 [History] Diclofenac Sodium [Voltaren 1% Gel] 1 applic TOP QID 05/27/20 [History] Acetaminophen/HYDROcodone [[place] 325-5 MG] 1 - 2 tab PO Q4H PRN #42 tablet 06/12/20 [Rx] Docusate Sodium [Colace] 100 mg PO BID #60 cap 06/12/20 [Rx] Fluconazole [Diflucan] 200 mg PO DAILY #5 tablet 06/12/20 [Rx] Nystatin [Mycostatin] 5 ml PO Q6H #200 ml 06/12/20 [Rx] traMADol [Ultram] 50 mg PO Q4HR PRN 07/14/20 [History] Past Medical History HEENT History: Reports: Allergic Rhinitis, Impaired Vision Other HEENT History: wears glasses Cardiovascular History: Reports: Cardiomyopathy, Heart Murmur, SOB on Exertion Respiratory History: Reports: Bronchitis, Recurrent, COPD, Pneumonia, Recurrent, Sleep Apnea, SOB Gastrointestinal History: Reports: Bowel Obstruction, Cholelithiasis, Chronic Diarrhea, Diverticulosis, GERD, Hiatal Hernia Genitourinary History: Reports: UTI, Recurrent, Other (See Below) Other Genitourinary History: bladder suspension 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 ; wound ulcer right lower leg Neurological History: Reports: Vertigo Psychiatric History: Reports: Anxiety, Depression, Suicidal Ideation Endocrine/Metabolic History: Reports: Hypothyroidism, Obesity/BMI 30+ Hematologic History: Reports: None Immunologic History: Reports: None Oncologic (Cancer) History: Reports: Cervix, Uterine Other Oncologic History: complete hysterectomy July 09, 2014 Dermatologic History: Reports: Cellulitis, Other (See Below) Other Dermatologic History: sore on right lower leg that won't go away; [facility] debrid 06/27/2019 - Infectious Disease History Infectious Disease History: Reports: Chicken Pox, MRSA, Other (See Below) Other Infectious Disease History: MRSA in right leg in 2019 - Past Surgical History Head Surgeries/Procedures: Reports: None HEENT Surgical History: Reports: Other (See Below) Other HEENT Surgeries/Procedures: biopsy on tongue Cardiovascular Surgical History: Reports: Varicose, Other (See Below) Other Cardiovascular Surgeries/Procedures: RFA leg veins Respiratory Surgical History: Reports: None GI Surgical History: Reports: Appendectomy, Cholecystectomy, Colon, Colonoscopy, EGD, Hernia Repair/Other Female Surgical History: Reports: Hysterectomy, Salpingo-Oophorectomy, Other (See Below) Other Female Surgeries/Procedures: bladder suspension Endocrine Surgical History: Reports: None Neurological Surgical History: Reports: None Musculoskeletal Surgical History: Reports: None, Knee Replacement Other Musculoskeletal Surgeries/Procedures:: right partial knee 11/20/19 Oncologic Surgical History: Reports: None Other Oncologic Surgeries/Procedures: hysterectomy Dermatological Surgical History: Reports: None Social & Family History - Family History Family Medical History: No Pertinent Family History Cardiac: Reports: Arrhythmia, Pacemaker, Other (See Below) Other Cardiac Family History: pacer/defib; valve replacement Respiratory: Reports: COPD Musculoskeletal: Reports: Arthritis, Back pain, Chronic, Gout Endocrine/Metabolic: Reports: Diabetes, type II Oncologic: Reports: Breast, Cervix, Uterine - Tobacco Use Tobacco Use Status *Q: Former Tobacco User Used Tobacco, but Quit: Yes Month/Year Tobacco Last Used: 06/07/2020 Second Hand Smoke Exposure: No - Caffeine Use Caffeine Use: Reports: Coffee, Soda Caffeine Use Comment: 2 cups coffee. 2-6 diet cokes daily - Recreational Drug Use Recreational Drug Use: No - Living Situation & Occupation Living situation: Reports: (Lives with her 80+ mother, and her sister is in the next house. Has 1 son and 2 grandchildren , who she is currently estranged from her child and grandchildren.) Review of Systems - Review of Systems Review Of Systems: See Below Musculoskeletal: Reports: Hand Pain Skin: Reports: No Symptoms Neurological: Reports: No Symptoms ED EXAM, GENERAL - Physical Exam Exam: See Below Free Text/Narrative:: Examination of the left hand I do appreciate some edema around the first metacarpal it is very tender to the touch slightly warm to the touch, she has limited range of motion radial pulses +2 Exam Limited By: No Limitations General Appearance: Alert, WD/WN, No Apparent Distress Course - Vital Signs Last Recorded V/S: Last Vital Signs Temp 97.9 F 07/14/20 12:14 Pulse 89 07/14/20 12:14 Resp 16 07/14/20 12:14 BP 110/57 L 07/14/20 12:14 Pulse Ox 92 L 07/14/20 12:14 - Orders/Labs/Meds Orders: Active Orders 24 hr Category Date Time Status Fingers Thumb Lt FA [CR] Stat Exams 07/14/20 12:24 Taken Labs: Laboratory Tests 07/14/20 07/14/20 07/14/20 Range/Units 13:30 13:30 13:30 WBC 9.4 (4.5-11.0) K/uL RBC 3.22 L (3.30-5.50) M/uL Hgb 9.0 L (12.0-15.0) g/dL Hct 28.6 L (36.0-48.0) % MCV 89 (80-98) fL MCH 28 (27-31) pg MCHC 32 (32-36) % Plt Count 383 (150-400) K/uL Neut % (Auto) 71 H (36-66) % Lymph % (Auto) 18 L (24-44) % [place] % (Auto) 7 H (2-6) % Eos % (Auto) 4 (2-4) % Baso % (Auto) 0 (0-1) % Sodium 139 L (140-148) mmol/L Potassium 4.0 (3.6-5.2) mmol/L Chloride 102 (100-108) mmol/L Carbon Dioxide 26 (21-32) mmol/L Anion Gap 15.0 H (5.0-14.0) mmol/L BUN 13 D (7-18) mg/dL Creatinine 0.8 (0.6-1.0) mg/dL Est Cr Clr Drug Dosing 56.19 mL/min Estimated GFR (MDRD) > 60 (>60) Glucose 93 (74-106) mg/dL Uric Acid 5.0 (2.6-6.2) mg/dL Calcium 8.6 (8.5-10.1) mg/dL Meds: Medications Discontinued Medications Generic Name Dose Route Start Last Admin Trade Name Freq PRN Reason Stop Dose Admin Ketorolac Tromethamine 30 mg 07/14/20 12:24 07/14/20 12:59 Toradol IM 07/14/20 12:25 30 mg ONETIME ONE Administration Departure - Departure Time of Disposition: 14:08 Disposition: Home, Self-Care 01 Condition: Fair Clinical Impression: Inflammatory arthritis - Discharge Information Instructions: Arthritis, [id number] Referrals: Zhang Mckeon MD [Primary Care Provider] - Forms: ED Department Discharge Additional Instructions: Try the prednisone 20 mg once a day for the next 3 days follow-up with your primary care after the course of prednisone if no improvement call return to the emergency department worsening of symptoms, Sepsis Event Note (ED) - Evaluation Sepsis Screening Result: No Definite Risk - Focused Exam Vital Signs: Vital Signs Temp Pulse Resp BP Pulse Ox 07/14/20 12:14 97.9 F 89 16 110/57 L 92 L 07/14/20 12:09 97.9 F 89 16 110/57 L 92 L - My Orders Last 24 Hours: My Active Orders 07/14/20 12:24 Fingers Thumb Lt FA [CR] Stat - Assessment/Plan Last 24 Hours: My Active Orders 07/14/20 12:24 Fingers Thumb Lt FA [CR] Stat Plan: Assessment Acuity = acute Site and laterality = inflammatory arthritis right thumb Etiology = unknown Manifestations = pain Location of injury = Home Lab values = CBC unremarkable except for hemoglobin low at 9.0 consistent with normochromic anemia, BMP unremarkable uric acid normal x-rays of the thumb shows no acute process Plan Elected to treat empirically with prednisone 2 mg once a day for 3 days follow- up primary care 3 to 5 days if no improvement This note was dictated using [employer] voice recognition software please call with any questions on syntax or grammar.
--- NOTE | 2020-07-15 09:41 | CR ---
Fingers Thumb Lt FA CLINICAL HISTORY: Persistent pain, no trauma FINDINGS: There is no fracture or osseous lesion. There are severe degenerative changes in the first carpometacarpal joint with deformity of both the proximal metacarpal and trapezium. There is some periarticular spurring and calcification or ossification. IMPRESSION: Advanced degenerative changes of the first carpometacarpal joint. In a patient with persistent pain, a trial of intra-articular steroid injection as a consideration
== END 2020-07-14 14:16 | disposition home or self-care (01) ==
LOC: JP.ED 11:52
DX: M19.90 Unspecified osteoarthritis, unspecified site (principal); J44.9 Chronic obstructive pulmonary disease, unspecified; K21.9 Gastro-esophageal reflux disease without esophagitis; E03.9 Hypothyroidism, unspecified; E66.9 Obesity, unspecified; Z68.30 Body mass index [BMI] 30.0-30.9, adult; Z87.891 Personal history of nicotine dependence; Z88.1 Allergy status to other antibiotic agents; Z88.5 Allergy status to narcotic agent; Z88.8 Allergy status to other drugs, medicaments and biological substances; Z79.899 Other long term (current) drug therapy; Z79.82 Long term (current) use of aspirin; Z79.02 Long term (current) use of antithrombotics/antiplatelets
CPT/HCPCS: 36415; 73140; 80048; 84550; 85025; 96372; 99283; J1885

== ENCOUNTER 2020-09-10 10:48 | Emergency (ER) | payer MEDICARE, MEDICAID ==
[2020-09-10] MEDS ORDERED: Sodium Chloride 0.9% 10 ML Syringe FLUSH PRN (13:37)
[2020-09-10] MEDS ORDERED: fentaNYL 100 MCG/2 ML SDV IVPUSH ONE (13:38)
[2020-09-10] MEDS ORDERED: Ondansetron 4 MG/2 ML SDV IVPUSH ONE (13:38)
--- NOTE | 2020-09-10 13:41 | EDM.PDOC ---
ED HPI GENERAL MEDICAL PROBLEM - General Chief Complaint: Abdominal Pain Stated Complaint: ABD PAIN Time Seen by Provider: 09/10/20 13:20 Source of Information: Reports: Patient, Family, Old Records, RN Notes Reviewed History Limitations: Reports: No Limitations - History of Present Illness INITIAL COMMENTS - FREE TEXT/NARRATIVE: 65-year-old female presents emergency department a complaint of abdominal pain, she does have an extensive surgical history. States the abdominal pain started today it does come in waves wax and wanes it is generalized she has had some nausea no vomiting she has felt feverish Abdomen Pain Score (Numeric/FACES): 2 - Related Data Allergies Allergy/AdvReac Type Severity Reaction Status Date / Time ciprofloxacin Allergy Intermediate Hives Verified 09/10/20 12:34 clonidine Allergy Intermediate Other Verified 09/10/20 12:34 hydromorphone Allergy Intermediate Rash Verified 09/10/20 12:34 oxycodone [From Percocet] Allergy Intermediate Hives Verified 09/10/20 12:34 Home Meds: Home Meds Levothyroxine Sodium [Synthroid] 25 mcg PO .ACBREAKFAST 07/05/14 [History] ondansetron HCL [Zofran] 8 mg PO Q8H PRN 10/25/14 [History] Furosemide 40 mg PO DAILY PRN 06/17/16 [History] Sertraline HCl [Zoloft] 150 mg PO DAILY 02/24/17 [History] traZODone 50 - 100 mg PO BEDTIME PRN 02/24/17 [History] ClonazePAM [KlonoPIN] 0.5 mg PO DAILY PRN 03/05/17 [History] Penciclovir [Denavir 1% Crm] 1 applic TOP ASDIRECTED 03/05/17 [History] tiZANidine [Zanaflex] 4 mg PO Q8H PRN 09/16/17 [History] Pantoprazole [ProTONIX] 40 mg PO DAILY 06/06/19 [History] Albuterol [Proventil Neb Soln] 3 ml NEB Q4H PRN 08/10/19 [History] Cetirizine [ZyrTEC] 10 mg PO DAILY 08/10/19 [History] Cholecalciferol (Vitamin D3) [Vitamin D3] 2,000 unit PO DAILY 08/10/19 [History] Cyanocobalamin (Vitamin B-12) [B-12] 500 mcg PO DAILY 08/10/19 [History] Gabapentin [Neurontin] 300 mg PO BEDTIME 08/10/19 [History] Lidocaine 2% [Xylocaine 2% Jelly] 1 applic TOP DAILY 08/10/19 [History] Varenicline [Chantix] 1 mg PO BID 08/10/19 [History] Albuterol [Ventolin HFA] 2 puff INH Q6H PRN 11/16/19 [History] Fluticasone Propionate [Flonase] 2 spr NASBOTH DAILY PRN 11/16/19 [History] Homeopathic Products (Leg Cramp Complex Or) 1 - 2 tab PO BEDTIME 11/16/19 [History] Umeclidinium Brm/Vilanterol Tr [Anoro Ellipta 62.5-25 MCG] 1 each INH DAILY 11/16/19 [History] Aspirin [Halfprin] 81 mg PO DAILY 05/21/20 [History] Clopidogrel [Plavix] 75 mg PO DAILY 05/27/20 [History] Acetaminophen/HYDROcodone [[place] 325-5 MG] 1 - 2 tab PO Q4H PRN #42 tablet 06/12/20 [Rx] Docusate Sodium [Colace] 100 mg PO BID #60 cap 06/12/20 [Rx] Nystatin [Mycostatin] 5 ml PO Q6H #200 ml 06/12/20 [Rx] Past Medical History HEENT History: Reports: Allergic Rhinitis, Impaired Vision Other HEENT History: wears glasses Cardiovascular History: Reports: Cardiomyopathy, Heart Murmur, SOB on Exertion Respiratory History: Reports: Bronchitis, Recurrent, COPD, Pneumonia, Recurrent, Sleep Apnea, SOB Gastrointestinal History: Reports: Bowel Obstruction, Cholelithiasis, Chronic Diarrhea, Diverticulosis, GERD, Hiatal Hernia Genitourinary History: Reports: UTI, Recurrent, Other (See Below) Other Genitourinary History: bladder suspension 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 ; wound ulcer right lower leg Neurological History: Reports: Vertigo Psychiatric History: Reports: Anxiety, Depression, Suicidal Ideation Endocrine/Metabolic History: Reports: Hypothyroidism, Obesity/BMI 30+ Hematologic History: Reports: None Immunologic History: Reports: None Oncologic (Cancer) History: Reports: Cervix, Uterine Other Oncologic History: complete hysterectomy July 09, 2014 Dermatologic History: Reports: Cellulitis, Other (See Below) Other Dermatologic History: sore on right lower leg that won't go away; [facility] debrid 06/27/2019 - Infectious Disease History Infectious Disease History: Reports: Chicken Pox, MRSA, Other (See Below) Other Infectious Disease History: MRSA in right leg in 2019 - Past Surgical History Head Surgeries/Procedures: Reports: None HEENT Surgical History: Reports: Other (See Below) Other HEENT Surgeries/Procedures: biopsy on tongue Cardiovascular Surgical History: Reports: Varicose, Other (See Below) Other Cardiovascular Surgeries/Procedures: RFA leg veins Respiratory Surgical History: Reports: None GI Surgical History: Reports: Appendectomy, Cholecystectomy, Colon, Colonoscopy, EGD, Hernia Repair/Other Female Surgical History: Reports: Hysterectomy, Salpingo-Oophorectomy, Other (See Below) Other Female Surgeries/Procedures: bladder suspension Endocrine Surgical History: Reports: None Neurological Surgical History: Reports: None Musculoskeletal Surgical History: Reports: None, Knee Replacement Other Musculoskeletal Surgeries/Procedures:: right partial knee 11/20/19 Oncologic Surgical History: Reports: None Other Oncologic Surgeries/Procedures: hysterectomy Dermatological Surgical History: Reports: None Social & Family History - Family History Family Medical History: No Pertinent Family History Cardiac: Reports: Arrhythmia, Pacemaker, Other (See Below) Other Cardiac Family History: pacer/defib; valve replacement Respiratory: Reports: COPD Musculoskeletal: Reports: Arthritis, Back pain, Chronic, Gout Endocrine/Metabolic: Reports: Diabetes, type II Oncologic: Reports: Breast, Cervix, Uterine - Tobacco Use Tobacco Use Status *Q: Current Every Day Tobacco User Years of Tobacco use: 45 Packs/Tins Daily: 0.5 - Caffeine Use Caffeine Use: Reports: Coffee, Soda Caffeine Use Comment: 2 cups coffee. 2-6 diet cokes daily - Recreational Drug Use Recreational Drug Use: No - Living Situation & Occupation Living situation: Reports: (Lives with her 80+ mother, and her sister is in the next house. Has 1 son and 2 grandchildren , who she is currently estranged from her child and grandchildren.) ED ROS GENERAL - Review of Systems Review Of Systems: See Below Constitutional: Reports: Fever HEENT: Reports: No Symptoms Respiratory: Reports: No Symptoms Cardiovascular: Reports: No Symptoms GI/Abdominal: Reports: Abdominal Pain, Flatus, Nausea. Denies: Vomiting : Reports: No Symptoms ED EXAM, GI/ABD - Physical Exam Exam: See Below Exam Limited By: No Limitations General Appearance: Alert, WD/WN, No Apparent Distress Respiratory/Chest: No Respiratory Distress, Lungs Clear, Normal Breath Sounds, No Accessory Muscle Use, Chest Non-Tender Cardiovascular: Regular Rate, Rhythm, No Murmur GI/Abdominal Exam: Normal Bowel Sounds, Soft, Tender (Generalized) Course - Vital Signs Last Recorded V/S: Last Vital Signs Temp 97.7 F 09/10/20 12:30 Pulse 56 L 09/10/20 15:20 Resp 16 09/10/20 15:20 BP 140/68 09/10/20 15:20 Pulse Ox 95 09/10/20 15:20 - Orders/Labs/Meds Orders: Active Orders 24 hr Category Date Time Status Peripheral IV Care [RC] . DIRECTED Care 09/10/20 13:38 Active Lactated Ringers [Ringers, Lactated] 1,000 ml Med 09/10/20 13:45 Active IV ASDIRECTED Sodium Chloride 0.9% [Saline Flush] Med 09/10/20 13:37 Active 10 ml FLUSH ASDIRECTED PRN Peripheral IV Insertion Adult [OM.PC] Urgent Oth 09/10/20 13:37 Ordered Medication Orders Lactated Ringer's (Ringers, Lactated) 1,000 mls @ 999 mls/hr IV ASDIRECTED DANIEL Last Admin: 09/10/20 14:06 Dose: 999 mls/hr Documented by: CARLOS Sodium Chloride (Sodium Chloride 0.9% 10 Ml Syringe) 10 ml FLUSH ASDIRECTED PRN PRN Reason: Keep Vein Open Last Admin: 09/10/20 14:07 Dose: 10 ml Documented by: CARLOS Labs: Laboratory Tests 09/10/20 09/10/20 09/10/20 Range/Units 13:50 13:50 13:50 WBC 6.2 (4.5-11.0) K/uL RBC 3.95 (3.30-5.50) M/uL Hgb 11.4 L D (12.0-15.0) g/dL Hct 35.0 L (36.0-48.0) % MCV 89 (80-98) fL MCH 29 (27-31) pg MCHC 33 (32-36) % Plt Count 216 (150-400) K/uL Neut % (Auto) 55 (36-66) % Lymph % (Auto) 36 (24-44) % [place] % (Auto) 7 H (2-6) % Eos % (Auto) 2 (2-4) % Baso % (Auto) 0 (0-1) % Sodium 144 (140-148) mmol/L Potassium 4.1 (3.6-5.2) mmol/L Chloride 106 (100-108) mmol/L Carbon Dioxide 28 (21-32) mmol/L Anion Gap 10.1 (5.0-14.0) mmol/L BUN 20 H D (7-18) mg/dL Creatinine 0.7 (0.6-1.0) mg/dL Est Cr Clr Drug Dosing 61.27 mL/min Estimated GFR (MDRD) > 60 (>60) Glucose 79 (74-106) mg/dL Lactic Acid 0.6 (0.4-2.0) mmol/L Calcium 9.5 (8.5-10.1) mg/dL Total Bilirubin 0.3 (0.2-1.0) mg/dL AST 18 (15-37) U/L ALT 23 (12-78) U/L Alkaline Phosphatase 86 (46-116) U/L Troponin I < 0.017 (0.000-0.056) ng/mL Total Protein 7.2 (6.4-8.2) g/dL Albumin 3.3 L (3.4-5.0) g/dL Globulin 3.9 H (2.3-3.5) g/dL Albumin/Globulin Ratio 0.9 L (1.2-2.2) Lipase 169 (73-393) U/L Meds: Medications Generic Name Dose Route Start Last Admin Trade Name Freq PRN Reason Stop Dose Admin Lactated Ringer's 1,000 mls @ 999 mls/hr 09/10/20 13:45 09/10/20 14:06 Ringers, Lactated IV 999 mls/hr ASDIRECTED DANIEL Administration Sodium Chloride 10 ml 09/10/20 13:37 09/10/20 14:07 Sodium Chloride 0.9% 10 Ml Syringe FLUSH 10 ml ASDIRECTED PRN Administration Keep Vein Open Discontinued Medications Generic Name Dose Route Start Last Admin Trade Name Nedra PRN Reason Stop Dose Admin Fentanyl 50 mcg 09/10/20 13:38 09/10/20 14:03 Fentanyl 100 Mcg/2 Ml Sdv IVPUSH 09/10/20 13:39 50 mcg ONETIME ONE Administration Sodium Chloride 77 mls @ 3.5 mls/sec 09/10/20 14:15 Normal Saline IV 09/10/20 14:16 ASDIRECTED DANIEL Iopamidol 111 ml 09/10/20 14:14 Iopamidol 612 Mg/Ml 500 Ml Multipack Bottle IV 09/10/20 14:15 ONETIME ONE Ondansetron HCl 4 mg 09/10/20 13:38 09/10/20 14:04 Ondansetron 4 Mg/2 Ml Sdv IVPUSH 09/10/20 13:39 4 mg ONETIME ONE Administration Sodium Chloride 10 ml 09/10/20 14:14 Sodium Chloride 0.9% 10 Ml Syringe FLUSH 09/10/20 14:15 ONETIME ONE Departure - Departure Time of Disposition: 15:38 Disposition: Home, Self-Care 01 Condition: Fair Clinical Impression: Functional constipation - Discharge Information Instructions: Constipation, Adult Referrals: PCP,None [Primary Care Provider] - Forms: ED Department Discharge Additional Instructions: Try the MiraLAX 1 capful per day until loose stools, please followup with your primary care provider in 3-5 days if not better, please call return to the emergency department with worsening of symptoms. Sepsis Event Note (ED) - Evaluation Sepsis Screening Result: No Definite Risk - Focused Exam Vital Signs: Vital Signs Temp Pulse Resp BP Pulse Ox 09/10/20 15:20 56 L 16 140/68 95 09/10/20 12:30 97.7 F 68 16 125/58 L 95 - My Orders Last 24 Hours: My Active Orders 09/10/20 13:37 Sodium Chloride 0.9% [Saline Flush] 10 ml FLUSH ASDIRECTED PRN Peripheral IV Insertion Adult [OM.PC] Urgent 09/10/20 13:38 Peripheral IV Care [RC] . DIRECTED 09/10/20 13:45 Lactated Ringers [Ringers, Lactated] 1,000 ml IV ASDIRECTED - Assessment/Plan Last 24 Hours: My Active Orders 09/10/20 13:37 Sodium Chloride 0.9% [Saline Flush] 10 ml FLUSH ASDIRECTED PRN Peripheral IV Insertion Adult [OM.PC] Urgent 09/10/20 13:38 Peripheral IV Care [RC] . DIRECTED 09/10/20 13:45 Lactated Ringers [Ringers, Lactated] 1,000 ml IV ASDIRECTED Plan: Assessment Acuity = acute Site and laterality = functional constipation Etiology = slow transit time Manifestations = abdominal pain Location of injury = Home Lab values = CBC, CMP, lactic acid, lipase, troponin all within normal limits CT scan of the abdomen shows no acute process Plan I did review lab work CT scan results with her plan is to try MiraLAX 1 capful per day and follow-up with primary care next 3 to 5 days if not better This note was dictated using [employer] voice recognition software please call with any questions on syntax or grammar.
[2020-09-10] MEDS ORDERED: Lactated Ringers 1,000 ML IV SCH (13:45)
[2020-09-10] MEDS ORDERED: Sodium Chloride 0.9% 10 ML Syringe FLUSH ONE (14:14)
[2020-09-10] MEDS ORDERED: Iopamidol 612 MG/ML 500 ML Multipack Bottle IV ONE (14:14)
--- NOTE | 2020-09-10 15:06 | CT ---
Abdomen Pelvis wo Cont CLINICAL HISTORY: Generalized abdominal pain COMPARISON: 06/14/2020. TECHNIQUE: Axial tomographic images are obtained from the dome of the diaphragm to the pubic symphysis without IV contrast enhancement. Venous access was not able to be obtained. No oral contrast was used. The dosage reduction and iterative reconstruction techniques employed. FINDINGS: The lung bases show some minimal patchy atelectasis. There are a few scattered blebs. The liver shows no mass or biliary dilatation. The gallbladder has been removed. There are numerous surgical clips in the upper abdomen along the liver and transverse colon margin. This may be from previous omental resection. Patient has also had previous small bowel resection and anastomosis. Soft tissue inflammatory change and fluid collections seen on previous study have involuted. The small intestinal configuration is nonacute. There are some scattered colonic diverticula The spleen has a normal size and shape. The pancreas shows no mass or inflammatory change. There is some fullness of the left adrenal gland. This is similar to 2018 The kidneys show no stones or hydronephrosis. The aorta shows moderate atheromatous plaque. There is no suspicious retroperitoneal adenopathy. IMPRESSION: Multiple prior abdominal pelvic surgeries Previously seen inflammatory change and fluid collections has resolved Diverticulosis without evidence of diverticulitis
[2020-09-10 15:21] VITALS: BP 140/68; PULSE 56
== END 2020-09-10 15:45 | disposition home or self-care (01) ==
LOC: JP.ED 10:48
DX: K59.04 Chronic idiopathic constipation (principal); J44.9 Chronic obstructive pulmonary disease, unspecified; M19.90 Unspecified osteoarthritis, unspecified site; E03.9 Hypothyroidism, unspecified; E66.9 Obesity, unspecified; Z68.30 Body mass index [BMI] 30.0-30.9, adult; Z88.1 Allergy status to other antibiotic agents; Z88.5 Allergy status to narcotic agent; Z79.899 Other long term (current) drug therapy; Z79.82 Long term (current) use of aspirin; Z72.0 Tobacco use
CPT/HCPCS: 36415; 74176; 80053; 83605; 83690; 84484; 85025; 96374; 96375; 99284; J2405; J3010; J7120

== ENCOUNTER 2020-11-01 13:07 | Emergency (ER) | payer MEDICARE, MEDICAID ==
[2020-11-01] MEDS ORDERED: Lactated Ringers 1,000 ML IV ONE (13:45)
[2020-11-01] MEDS ORDERED: Ondansetron 4 MG/2 ML SDV IVPUSH ONE (13:46)
--- NOTE | 2020-11-01 13:53 | EDM.PDOC ---
ED HPI GENERAL MEDICAL PROBLEM - General Chief Complaint: Gastrointestinal Problem Stated Complaint: HEADACHE, VOMITING(BROWN), DIARRHEA Time Seen by Provider: 11/01/20 13:40 Source of Information: Reports: Patient, Old Records History Limitations: Reports: No Limitations - History of Present Illness INITIAL COMMENTS - FREE TEXT/NARRATIVE: 65 yo female here with nausea, vomiting and diarrhea. The diarrhea began about 36 hrs ago. 12 hrs ago she vomited several times. Has not been eating or drinking so no more vomiting, but still has nausea. [place] distended before the vomiting began, not now. No blood in her emesis or stool. No fever. Has a PHx of multiple surgeries and is concerned about bowel obstruction as she has had this in the past. Onset: Gradual Onset Date: 10/31/20 Duration: Hour(s): (36), Waxing/Waning Location: Reports: Abdomen Quality: Reports: Dull Severity: Mild Improves with: Denies: Eating (not eating) Worsens with: Reports: Eating Context: Reports: Other (See HPI) Associated Symptoms: Reports: Nausea/Vomiting, Other (diarrhea). Denies: Fever/Chills Treatments SCRAP BURNER: Reports: Other (see below) (none) - Related Data Allergies Allergy/AdvReac Type Severity Reaction Status Date / Time ciprofloxacin Allergy Intermediate Hives Verified 11/01/20 13:29 clonidine Allergy Intermediate Other Verified 11/01/20 13:29 hydromorphone Allergy Intermediate Rash Verified 11/01/20 13:29 oxycodone [From Percocet] Allergy Intermediate Hives Verified 11/01/20 13:29 Home Meds: Home Meds Levothyroxine Sodium [Synthroid] 25 mcg PO .ACBREAKFAST 07/05/14 [History] ondansetron HCL [Zofran] 8 mg PO Q8H PRN 10/25/14 [History] Furosemide 40 mg PO DAILY PRN 06/17/16 [History] Sertraline HCl [Zoloft] 150 mg PO DAILY 02/24/17 [History] traZODone 50 - 100 mg PO BEDTIME PRN 02/24/17 [History] ClonazePAM [KlonoPIN] 0.5 mg PO DAILY PRN 03/05/17 [History] Penciclovir [Denavir 1% Crm] 1 applic TOP ASDIRECTED 03/05/17 [History] tiZANidine [Zanaflex] 4 mg PO Q8H PRN 09/16/17 [History] Pantoprazole [ProTONIX] 40 mg PO DAILY 06/06/19 [History] Albuterol [Proventil Neb Soln] 3 ml NEB Q4H PRN 08/10/19 [History] Cetirizine [ZyrTEC] 10 mg PO DAILY 08/10/19 [History] Cholecalciferol (Vitamin D3) [Vitamin D3] 2,000 unit PO DAILY 08/10/19 [History] Cyanocobalamin (Vitamin B-12) [B-12] 500 mcg PO DAILY 08/10/19 [History] Gabapentin [Neurontin] 300 mg PO BEDTIME 08/10/19 [History] Lidocaine 2% [Xylocaine 2% Jelly] 1 applic TOP DAILY 08/10/19 [History] Varenicline [Chantix] 1 mg PO BID 08/10/19 [History] Albuterol [Ventolin HFA] 2 puff INH Q6H PRN 11/16/19 [History] Fluticasone Propionate [Flonase] 2 spr NASBOTH DAILY PRN 11/16/19 [History] Homeopathic Products (Leg Cramp Complex Or) 1 - 2 tab PO BEDTIME 11/16/19 [History] Umeclidinium Brm/Vilanterol Tr [Anoro Ellipta 62.5-25 MCG] 1 each INH DAILY 11/16/19 [History] Aspirin [Halfprin] 81 mg PO DAILY 05/21/20 [History] Clopidogrel [Plavix] 75 mg PO DAILY 05/27/20 [History] Acetaminophen/HYDROcodone [[place] 325-5 MG] 1 - 2 tab PO Q4H PRN #42 tablet 06/12/20 [Rx] Docusate Sodium [Colace] 100 mg PO BID #60 cap 06/12/20 [Rx] Nystatin [Mycostatin] 5 ml PO Q6H #200 ml 06/12/20 [Rx] Ondansetron [Zofran ODT] 4 mg PO Q6H PRN #10 tab.dis 11/01/20 [Rx] Past Medical History HEENT History: Reports: Allergic Rhinitis, Impaired Vision Other HEENT History: wears glasses Cardiovascular History: Reports: Cardiomyopathy, Heart Murmur, SOB on Exertion Respiratory History: Reports: Bronchitis, Recurrent, COPD, Pneumonia, Recurrent, Sleep Apnea, SOB Gastrointestinal History: Reports: Bowel Obstruction, Cholelithiasis, Chronic Diarrhea, Diverticulosis, GERD, Hiatal Hernia Genitourinary History: Reports: UTI, Recurrent, Other (See Below) Other Genitourinary History: bladder suspension SHANK TAPPER 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 ; wound ulcer right lower leg Neurological History: Reports: Vertigo Psychiatric History: Reports: Anxiety, Depression, Suicidal Ideation Endocrine/Metabolic History: Reports: Hypothyroidism, Obesity/BMI 30+ Hematologic History: Reports: Anticoagulation Therapy Immunologic History: Reports: None Oncologic (Cancer) History: Reports: Cervix, Uterine Other Oncologic History: complete hysterectomy July 09, 2014 Dermatologic History: Reports: Cellulitis, Other (See Below) Other Dermatologic History: sore on right lower leg that won't go away; [facility] debrid 06/27/2019 - Infectious Disease History Infectious Disease History: Reports: Chicken Pox, MRSA, Other (See Below) Other Infectious Disease History: MRSA in right leg in 2019 - Past Surgical History Head Surgeries/Procedures: Reports: None HEENT Surgical History: Reports: Other (See Below) Other HEENT Surgeries/Procedures: biopsy on tongue Cardiovascular Surgical History: Reports: Varicose, Other (See Below) Other Cardiovascular Surgeries/Procedures: RFA leg veins Respiratory Surgical History: Reports: None GI Surgical History: Reports: Appendectomy, Cholecystectomy, Colon, Colonoscopy, EGD, Hernia Repair/Other Female Surgical History: Reports: Hysterectomy, Salpingo-Oophorectomy, Other (See Below) Other Female Surgeries/Procedures: bladder suspension Endocrine Surgical History: Reports: None Neurological Surgical History: Reports: None Musculoskeletal Surgical History: Reports: None, Knee Replacement Other Musculoskeletal Surgeries/Procedures:: right partial knee 11/20/19 Oncologic Surgical History: Reports: None Other Oncologic Surgeries/Procedures: hysterectomy Dermatological Surgical History: Reports: None Social & Family History - Family History Family Medical History: No Pertinent Family History Cardiac: Reports: Arrhythmia, Pacemaker, Other (See Below) Other Cardiac Family History: pacer/defib; valve replacement Respiratory: Reports: COPD Musculoskeletal: Reports: Arthritis, Back pain, Chronic, Gout Endocrine/Metabolic: Reports: Diabetes, type II Oncologic: Reports: Breast, Cervix, Uterine - Caffeine Use Caffeine Use: Reports: Coffee, Soda Caffeine Use Comment: 2 cups coffee. 2-6 diet cokes daily - Living Situation & Occupation Living situation: Reports: (Lives with her 80+ mother, and her sister is in the next house. Has 1 son and 2 grandchildren , who she is currently est ranged from her child and grandchildren.) ED ROS GENERAL - Review of Systems Review Of Systems: See Below Constitutional: Reports: No Symptoms HEENT: Reports: No Symptoms Respiratory: Reports: No Symptoms Cardiovascular: Reports: No Symptoms GI/Abdominal: Reports: Abdominal Pain, Diarrhea, Nausea, Vomiting. Denies: Black Stool, Bloody Stool, Constipation, Distension (now improved), Hematemesis, Hematochezia, Melena : Reports: No Symptoms Musculoskeletal: Reports: No Symptoms Skin: Reports: No Symptoms Neurological: Reports: No Symptoms ED EXAM, GI/ABD - Physical Exam Exam: See Below Exam Limited By: No Limitations General Appearance: Alert, WD/WN, No Apparent Distress Eyes: Bilateral: Normal Appearance Ears: Normal External Exam, Normal Canal, Hearing Grossly Normal Nose: Normal Inspection, No Blood Throat/Mouth: Normal Inspection, Normal Lips, Normal Oropharynx, Normal Voice, No Airway Compromise Head: Atraumatic, Normocephalic Neck: Normal Inspection Respiratory/Chest: No Respiratory Distress, Lungs Clear, Normal Breath Sounds, No Accessory Muscle Use Cardiovascular: Regular Rate, Rhythm, No Edema GI/Abdominal Exam: Normal Bowel Sounds, Soft, Non-Tender, No Distention, Abnormal Bowel Sounds (slightly decreased). No: Distended, Guarding, Rigid, Rebound, Tender Back Exam: Normal Inspection Extremities: Normal Inspection, Normal Range of Motion, Non-Tender, No Pedal Edema Neurological: Alert, Oriented, CN II-XII Intact, Normal Cognition, No Motor/Sensory Deficits Psychiatric: Normal Affect, Normal Mood Skin Exam: Warm, Dry, Intact, Normal Color, No Rash Course - Vital Signs Last Recorded V/S: Last Vital Signs Temp 36.8 C 11/01/20 13:34 Pulse 64 11/01/20 15:40 Resp 16 11/01/20 13:34 BP 112/64 11/01/20 15:40 Pulse Ox 92 L 11/01/20 15:40 - Orders/Labs/Meds Orders: Active Orders 24 hr Category Date Time Status Iopamidol [Isovue-300 (61%)] Med 11/01/20 14:45 Active 100 ml IV . DIRECTED Sodium Chloride 0.9% [Normal Saline] 80 ml Med 11/01/20 14:45 Active IV ASDIRECTED Medication Orders Sodium Chloride (Normal Saline) 80 mls @ 3.5 mls/sec IV ASDIRECTED DANIEL Last Admin: 11/01/20 15:10 Dose: 3 mls/sec Documented by: GWYN Iopamidol (Iopamidol 612 Mg/Ml 100 Ml Bottle) 100 ml IV . DIRECTED DANIEL Last Admin: 11/01/20 15:10 Dose: 100 ml Documented by: GWYN Labs: Laboratory Tests 11/01/20 11/01/20 11/01/20 Range/Units 13:58 13:58 14:06 WBC 5.3 (4.5-11.0) K/uL RBC 4.83 (3.30-5.50) M/uL Hgb 13.5 D (12.0-15.0) g/dL Hct 43.3 (36.0-48.0) % MCV 90 (80-98) fL MCH 28 (27-31) pg MCHC 31 L (32-36) % Plt Count 271 (150-400) K/uL Sodium 139 L (140-148) mmol/L Potassium 3.6 (3.6-5.2) mmol/L Chloride 103 (100-108) mmol/L Carbon Dioxide 25 (21-32) mmol/L Anion Gap 14.6 H (5.0-14.0) mmol/L BUN 21 H (7-18) mg/dL Creatinine 1.0 (0.6-1.0) mg/dL Est Cr Clr Drug Dosing 42.89 mL/min Estimated GFR (MDRD) 56 L (>60) Glucose 85 (74-106) mg/dL Calcium 8.8 (8.5-10.1) mg/dL Urine Color Yellow (YELLOW) Urine Appearance Clear (CLEAR) Urine pH 5.5 (5.0-8.0) Ur Specific [place] 1.025 (1.008-1.030) Urine Protein Negative (NEGATIVE) mg/dL Urine Glucose (UA) Negative (NEGATIVE) mg/dL Urine Ketones Negative (NEGATIVE) mg/dL Urine Occult Blood Negative (NEGATIVE) Urine Nitrite Negative (NEGATIVE) Urine Bilirubin Negative (NEGATIVE) Urine Urobilinogen 0.2 (0.2-1.0) EU/dL Ur Leukocyte Esterase Negative (NEGATIVE) Urine RBC 0-5 (0-5) Urine WBC 0-5 (0-5) Ur Epithelial Cells Few Amorphous Sediment Occasional Urine Bacteria Occasional Urine Mucus Occasional Urine Other Meds: Medications Generic Name Dose Route Start Last Admin Trade Name Freq PRN Reason Stop Dose Admin Sodium Chloride 80 mls @ 3.5 mls/sec 11/01/20 14:45 11/01/20 15:10 Normal Saline IV 3 mls/sec ASDIRECTED DANIEL Administration Iopamidol 100 ml 11/01/20 14:45 11/01/20 15:10 Iopamidol 612 Mg/Ml 100 Ml Bottle IV 100 ml . DIRECTED DANIEL Administration Discontinued Medications Generic Name Dose Route Start Last Admin Trade Name Freq PRN Reason Stop Dose Admin Lactated Ringer's 1,000 mls @ 1,000 mls/hr 11/01/20 13:45 11/01/20 14:02 Ringers, Lactated IV 11/01/20 14:44 1,000 mls/hr BOLUS ONE Administration Loperamide HCl 4 mg 11/01/20 16:15 11/01/20 16:12 Loperamide 2 Mg Cap PO 11/01/20 16:16 4 mg ONETIME ONE Administration Ondansetron HCl 4 mg 11/01/20 13:46 11/01/20 14:05 Ondansetron 4 Mg/2 Ml Sdv IVPUSH 11/01/20 13:47 4 mg ONETIME ONE Administration Sodium Chloride 10 ml 11/01/20 14:39 11/01/20 15:10 Sodium Chloride 0.9% 10 Ml Syringe FLUSH 11/01/20 14:40 10 ml ONETIME ONE Administration - Radiology Interpretation Free Text/Narrative:: Flat/upright Abd [id number] air/fluid levels CT abd/pelvis with IV contrast-Distended fluid filled colon, mild small bowel distention in a nonspecific pattern. - Re-Assessments/Exams Free Text/Narrative Re-Assessment/Exam: 11/01/20 16:22 Not fully resolved of her sx's. No beds available here. Does not want to be transferred. Will try it at home over night. Departure - Departure Time of Disposition: 16:25 Disposition: Home, Self-Care 01 Condition: Fair Clinical Impression: Nausea vomiting and diarrhea, Ileus - Discharge Information *PRESCRIPTION DRUG MONITORING PROGRAM REVIEWED*: Not Applicable *COPY OF PRESCRIPTION DRUG MONITORING REPORT IN PATIENT CLYDE: Not Applicable Prescriptions: Ondansetron [Zofran ODT] 4 mg PO Q6H PRN #10 tab.dis PRN Reason: Nausea Instructions: Nausea and Vomiting, Adult, [id number], Diarrhea, Adult, [id number] Referrals: Zhang Mckeon MD [Primary Care Provider] - Forms: ED Department Discharge Additional Instructions: Use Zofran as directed for nausea control. Use loperamide per package instructions for diarrhea control. Sips of a clear liquid like Gatorade only until feeling better. Return tomorrow if not feeling better as we might have available beds by then? Sepsis Event Note (ED) - Evaluation Sepsis Screening Result: No Definite Risk - Focused Exam Vital Signs: Vital Signs Temp Pulse Resp BP Pulse Ox 11/01/20 15:40 64 112/64 92 L 11/01/20 13:34 36.8 C 80 16 131/68 95 11/01/20 13:29 36.8 C 80 16 131/68 95 - My Orders Last 24 Hours: My Active Orders 11/01/20 14:45 Iopamidol [Isovue-300 (61%)] 100 ml IV . DIRECTED Sodium Chloride 0.9% [Normal Saline] 80 ml IV ASDIRECTED - Assessment/Plan Last 24 Hours: My Active Orders 11/01/20 14:45 Iopamidol [Isovue-300 (61%)] 100 ml IV . DIRECTED Sodium Chloride 0.9% [Normal Saline] 80 ml IV ASDIRECTED
--- NOTE | 2020-11-01 14:27 | CR ---
Abdomen 2V AP Flat Upright CLINICAL HISTORY: History of obstruction, vomiting and diarrhea FINDINGS: There are dilated loops of small bowel with scattered air-fluid levels. No free air is identified. There are surgical clips and sutures in the upper abdomen IMPRESSION: Small bowel distention with scattered air-fluid levels. Small bowel obstruction is not excluded. Previous abdominal surgery
[2020-11-01] MEDS ORDERED: Sodium Chloride 0.9% 10 ML Syringe FLUSH ONE (14:39)
[2020-11-01] MEDS ORDERED: Sodium Chloride 0.9% 80 ML IV SCH (14:45)
[2020-11-01] MEDS ORDERED: Iopamidol 612 MG/ML 100 ML Bottle IV SCH (14:45)
--- NOTE | 2020-11-01 15:49 | CT ---
Abdomen Pelvis w Cont CLINICAL HISTORY: Abdominal pain, distention COMPARISON: September 2020. TECHNIQUE: Transverse scans were obtained from the base of the lungs to the pubic symphysis following oral contrast and IV infusion of contrast.Auto dosage reduction and iterative reconstructiontechniques employed. FINDINGS: There is a distended fluid-filled colon. There is sigmoid diverticulosis without evidence of diverticulitis There is mild small bowel distention in a nonspecific pattern. There is a left lower quadrant anastomosis The lung bases show some patchy pleural parenchymal scarring and a few scattered blebs. The liver shows no mass or biliary dilatation. The gallbladder has been removed. There is been previous epigastric surgery. The spleen has a normal size and shape. The pancreas shows no mass or inflammatory change. The adrenal glands appear normal bilaterally . The kidneys show no mass, stones or hydronephrosis. The ureters have a normal course and caliber the bladder has normal contour.. The aorta shows diffuse atheromatous plaque. There is a stent in the right common iliac artery. There is no suspicious retroperitoneal adenopathy. IMPRESSION: Previous gastric and left lower quadrant surgery. This may be previous bariatric surgery. Distended fluid-filled colon Mild small bowel distention in a nonspecific pattern
[2020-11-01] MEDS ORDERED: Loperamide 1 MG/7.5 ML 7.5 ML UD Cup PO ONE (16:00)
[2020-11-01] MEDS ORDERED: Loperamide 2 MG Cap PO ONE (16:15)
[2020-11-01 16:22] VITALS: BP 123/39; PULSE 72
== END 2020-11-01 16:36 | disposition home or self-care (01) ==
LOC: JP.ED 13:07
DX: K56.7 Ileus, unspecified (principal); R11.2 Nausea with vomiting, unspecified; R19.7 Diarrhea, unspecified; J44.9 Chronic obstructive pulmonary disease, unspecified; K21.9 Gastro-esophageal reflux disease without esophagitis; M19.90 Unspecified osteoarthritis, unspecified site; E03.9 Hypothyroidism, unspecified; E66.9 Obesity, unspecified; Z68.30 Body mass index [BMI] 30.0-30.9, adult; Z88.1 Allergy status to other antibiotic agents; Z88.5 Allergy status to narcotic agent; Z88.8 Allergy status to other drugs, medicaments and biological substances; Z79.82 Long term (current) use of aspirin; Z79.02 Long term (current) use of antithrombotics/antiplatelets; Z79.899 Other long term (current) drug therapy
CPT/HCPCS: 36415; 74019; 74177; 80048; 81001; 85027; 96374; 99284; A9270; J2405; J7120; Q9967

== ENCOUNTER 2020-11-04 12:14 | Emergency (ER) | payer MEDICARE, MEDICAID ==
[2020-11-04 14:12] VITALS: BP 118/57; PULSE 82
[2020-11-04] MEDS ORDERED: Loperamide 1 MG/7.5 ML 7.5 ML UD Cup PO ONE (15:18)
--- NOTE | 2020-11-04 15:25 | EDM.PDOC ---
ED HPI GENERAL MEDICAL PROBLEM - General Chief Complaint: Gastrointestinal Problem Stated Complaint: STOOLS ARE BLACK Time Seen by Provider: 11/04/20 15:00 Source of Information: Reports: Patient History Limitations: Reports: No Limitations - History of Present Illness INITIAL COMMENTS - FREE TEXT/NARRATIVE: This is a 65-year-old female with history of prior abdominal surgeries who presents with concerns of diarrhea. She was seen in the ED for the same concerns 4 days ago. Reports at that time she had an emesis accompanied by at that time dark diarrhea that has now faded to light brown. She has had no fevers or chills. She has an diffuse crampy abdominal pain. She was x-ray of anesthesia constipation recently and was on MiraLAX. For this reason she has not been taking loperamide for concern that she may become "bound up". She has not been having any vomiting now. Last night she ate pork chop and accompaniments. Abdomen Pain Score (Numeric/FACES): 10 - Related Data Allergies Allergy/AdvReac Type Severity Reaction Status Date / Time ciprofloxacin Allergy Intermediate Hives Verified 11/04/20 14:25 clonidine Allergy Intermediate Other Verified 11/04/20 14:25 hydromorphone Allergy Intermediate Rash Verified 11/04/20 14:25 oxycodone [From Percocet] Allergy Intermediate Hives Verified 11/04/20 14:25 Home Meds: Home Meds Levothyroxine Sodium [Synthroid] 25 mcg PO .ACBREAKFAST 07/05/14 [History] ondansetron HCL [Zofran] 8 mg PO Q8H PRN 10/25/14 [History] Furosemide 40 mg PO DAILY PRN 06/17/16 [History] Sertraline HCl [Zoloft] 150 mg PO DAILY 02/24/17 [History] traZODone 50 - 100 mg PO BEDTIME PRN 02/24/17 [History] ClonazePAM [KlonoPIN] 0.5 mg PO DAILY PRN 03/05/17 [History] Penciclovir [Denavir 1% Crm] 1 applic TOP ASDIRECTED 03/05/17 [History] tiZANidine [Zanaflex] 4 mg PO Q8H PRN 09/16/17 [History] Pantoprazole [ProTONIX] 40 mg PO DAILY 06/06/19 [History] Albuterol [Proventil Neb Soln] 3 ml NEB Q4H PRN 08/10/19 [History] Cetirizine [ZyrTEC] 10 mg PO DAILY 08/10/19 [History] Cholecalciferol (Vitamin D3) [Vitamin D3] 2,000 unit PO DAILY 08/10/19 [History] Cyanocobalamin (Vitamin B-12) [B-12] 500 mcg PO DAILY 08/10/19 [History] Gabapentin [Neurontin] 300 mg PO BEDTIME 08/10/19 [History] Lidocaine 2% [Xylocaine 2% Jelly] 1 applic TOP DAILY 08/10/19 [History] Varenicline [Chantix] 1 mg PO BID 08/10/19 [History] Albuterol [Ventolin HFA] 2 puff INH Q6H PRN 11/16/19 [History] Fluticasone Propionate [Flonase] 2 spr NASBOTH DAILY PRN 11/16/19 [History] Homeopathic Products (Leg Cramp Complex Or) 1 - 2 tab PO BEDTIME 11/16/19 [History] Umeclidinium Brm/Vilanterol Tr [Anoro Ellipta 62.5-25 MCG] 1 each INH DAILY 11/16/19 [History] Aspirin [Halfprin] 81 mg PO DAILY 05/21/20 [History] Clopidogrel [Plavix] 75 mg PO DAILY 05/27/20 [History] Acetaminophen/HYDROcodone [[place] 325-5 MG] 1 - 2 tab PO Q4H PRN #42 tablet 06/12/20 [Rx] Docusate Sodium [Colace] 100 mg PO BID #60 cap 06/12/20 [Rx] Nystatin [Mycostatin] 5 ml PO Q6H #200 ml 06/12/20 [Rx] Ondansetron [Zofran ODT] 4 mg PO Q6H PRN #10 tab.dis 11/01/20 [Rx] Past Medical History HEENT History: Reports: Allergic Rhinitis, Impaired Vision Other HEENT History: wears glasses Cardiovascular History: Reports: Cardiomyopathy, Heart Murmur, SOB on Exertion Respiratory History: Reports: Bronchitis, Recurrent, COPD, Pneumonia, Recurrent, Sleep Apnea, SOB Gastrointestinal History: Reports: Bowel Obstruction, Cholelithiasis, Chronic Diarrhea, Diverticulosis, GERD, Hiatal Hernia Genitourinary History: Reports: UTI, Recurrent, Other (See Below) Other Genitourinary History: bladder suspension 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 ; wound ulcer right lower leg Neurological History: Reports: Vertigo Psychiatric History: Reports: Anxiety, Depression, Suicidal Ideation Endocrine/Metabolic History: Reports: Hypothyroidism, Obesity/BMI 30+ Hematologic History: Reports: Anticoagulation Therapy Immunologic History: Reports: None Oncologic (Cancer) History: Reports: Cervix, Uterine Other Oncologic History: complete hysterectomy July 09, 2014 Dermatologic History: Reports: Cellulitis, Other (See Below) Other Dermatologic History: sore on right lower leg that won't go away; [facility] debrid 06/27/2019 - Infectious Disease History Infectious Disease History: Reports: Chicken Pox, MRSA, Other (See Below) Other Infectious Disease History: MRSA in right leg in 2019 - Past Surgical History Head Surgeries/Procedures: Reports: None HEENT Surgical History: Reports: Other (See Below) Other HEENT Surgeries/Procedures: biopsy on tongue Cardiovascular Surgical History: Reports: Varicose, Other (See Below) Other Cardiovascular Surgeries/Procedures: RFA leg veins Respiratory Surgical History: Reports: None GI Surgical History: Reports: Appendectomy, Cholecystectomy, Colon, Colonoscopy, EGD, Hernia Repair/Other Female Surgical History: Reports: Hysterectomy, Salpingo-Oophorectomy, Other (See Below) Other Female Surgeries/Procedures: bladder suspension Endocrine Surgical History: Reports: None Neurological Surgical History: Reports: None Musculoskeletal Surgical History: Reports: None, Knee Replacement Other Musculoskeletal Surgeries/Procedures:: right partial knee 11/20/19 Oncologic Surgical History: Reports: None Other Oncologic Surgeries/Procedures: hysterectomy Dermatological Surgical History: Reports: None Social & Family History - Family History Family Medical History: No Pertinent Family History Cardiac: Reports: Arrhythmia, Pacemaker, Other (See Below) Other Cardiac Family History: pacer/defib; valve replacement Respiratory: Reports: COPD Musculoskeletal: Reports: Arthritis, Back pain, Chronic, Gout Endocrine/Metabolic: Reports: Diabetes, type II Oncologic: Reports: Breast, Cervix, Uterine - Tobacco Use Tobacco Use Status *Q: Never Tobacco User Second Hand Smoke Exposure: No - Caffeine Use Caffeine Use: Reports: Coffee, Soda Caffeine Use Comment: 2 cups coffee. 2-6 diet cokes daily - Recreational Drug Use Recreational Drug Use: No - Living Situation & Occupation Living situation: Reports: (Lives with her 80+ mother, and her sister is in the next house. Has 1 son and 2 grandchildren , who she is currently estranged from her child and grandchildren.) ED ROS GENERAL - Review of Systems Review Of Systems: See Below Constitutional: Reports: No Symptoms HEENT: Reports: No Symptoms Respiratory: Reports: No Symptoms Cardiovascular: Reports: No Symptoms Endocrine: Reports: No Symptoms GI/Abdominal: Reports: Abdominal Pain, Diarrhea, Nausea : Reports: No Symptoms Musculoskeletal: Reports: No Symptoms Skin: Reports: No Symptoms Neurological: Reports: No Symptoms Psychiatric: Reports: No Symptoms Hematologic/Lymphatic: Reports: No Symptoms Immunologic: Reports: No Symptoms ED EXAM, GI/ABD - Physical Exam Exam: See Below Exam Limited By: No Limitations General Appearance: Alert, No Apparent Distress Ears: Normal External Exam Nose: Normal Inspection Throat/Mouth: Normal Inspection Head: Atraumatic, Normocephalic Neck: Normal Inspection Respiratory/Chest: Lungs Clear Cardiovascular: Regular Rate, Rhythm GI/Abdominal Exam: Soft, No Distention, Tender (Mild diffuse abdominal tenderness) Back Exam: Normal Inspection Extremities: Normal Inspection Neurological: Alert, Oriented Psychiatric: Normal Affect, Normal Mood Skin Exam: Warm, Dry Course - Vital Signs Last Recorded V/S: Last Vital Signs Temp 36.8 C 11/04/20 14:33 Pulse 82 11/04/20 14:33 Resp 16 11/04/20 14:33 BP 118/57 L 11/04/20 14:33 Pulse Ox 96 11/04/20 14:33 - Orders/Labs/Meds Orders: Active Orders 24 hr Category Date Time Status C Diff [CLOS DIFFICILE PCR W/REFLEX] [RM] Stat Lab 11/04/20 16:12 Received CULTURE STOOL + SHIGATOX [RM] Stat Lab 11/04/20 16:12 Received OVA + PARASITE EXAM Stat Lab 11/04/20 16:12 Received Labs: Laboratory Tests 11/04/20 11/04/20 Range/Units 15:31 15:31 WBC 7.1 (4.5-11.0) K/uL RBC 4.10 (3.30-5.50) M/uL Hgb 11.6 L (12.0-15.0) g/dL Hct 35.5 L (36.0-48.0) % MCV 87 (80-98) fL MCH 28 (27-31) pg MCHC 33 (32-36) % Plt Count 224 (150-400) K/uL Neut % (Auto) 72.9 H (36-66) % Lymph % (Auto) 18.0 L (24-44) % [place] % (Auto) 7.0 H (2-6) % Eos % (Auto) 1.7 L (2-4) % Baso % (Auto) 0.4 (0-1) % Sodium 142 (140-148) mmol/L Potassium 3.4 L (3.6-5.2) mmol/L Chloride 105 (100-108) mmol/L Carbon Dioxide 26 (21-32) mmol/L Anion Gap 14.4 H (5.0-14.0) mmol/L BUN 18 (7-18) mg/dL Creatinine 0.8 (0.6-1.0) mg/dL Est Cr Clr Drug Dosing 53.61 mL/min Estimated GFR (MDRD) > 60 (>60) Glucose 81 (74-106) mg/dL Calcium 8.4 L (8.5-10.1) mg/dL Magnesium 1.4 L (1.8-2.4) mg/dL Meds: Medications Discontinued Medications Generic Name Dose Route Start Last Admin Trade Name Freq PRN Reason Stop Dose Admin Loperamide HCl 4 mg 11/04/20 15:45 11/04/20 15:39 Loperamide 2 Mg Cap PO 11/04/20 15:46 4 mg ONETIME ONE Administration - Re-Assessments/Exams Free Text/Narrative Re-Assessment/Exam: 65-year-old female presents with concerns of diarrhea. She was seen in the ED for this 4 days ago, labs and CT imaging at that time reassuring. On exam now she has normal vitals. She does have mild diffuse abdominal tenderness. She has not been taking loperamide frequently for concerns for possible constipation. She has no recent antibiotic use or high risk features to her diarrhea. Nevertheless, we did send an O&P, stool culture, and C. difficile. These are pending and will need to be followed up by the PCP. Screening labs otherwise reassuring. She was given a dose of loperamide, discussed dietary changes and use of Imodium as needed. 11/04/20 16:28 Departure - Departure Time of Disposition: 16:28 Disposition: Home, Self-Care 01 Clinical Impression: Diarrhea Qualifiers: Diarrhea type: unspecified type Qualified Code(s): R19.7 - Diarrhea, unspec ified - Discharge Information *PRESCRIPTION DRUG MONITORING PROGRAM REVIEWED*: No *COPY OF PRESCRIPTION DRUG MONITORING REPORT IN PATIENT CLYDE: No Instructions: Diarrhea, Adult Referrals: Zhang Mckeon MD [Primary Care Provider] - Forms: ED Department Discharge Additional Instructions: Your labs today are reassuring. We have some additional studies pending that you will need to follow-up with your primary doctor. You should be taking your Imodium as follows: 2 mg after every episode of diarrhea up to 16 mg a day. This dosing should only be for a few days until you can see your primary doctor. Thank you for trusting us to care for you today. Sepsis Event Note (ED) - Evaluation Sepsis Screening Result: No Definite Risk - Focused Exam Vital Signs: Vital Signs Temp Pulse Resp BP Pulse Ox 11/04/20 14:33 36.8 C 82 16 118/57 L 96 11/04/20 14:08 36.8 C 82 16 118/57 L 96 - My Orders Last 24 Hours: My Active Orders 11/04/20 16:12 C Diff [CLOS DIFFICILE PCR W/REFLEX] [RM] Stat CULTURE STOOL + SHIGATOX [RM] Stat OVA + PARASITE EXAM Stat - Assessment/Plan Last 24 Hours: My Active Orders 11/04/20 16:12 C Diff [CLOS DIFFICILE PCR W/REFLEX] [RM] Stat CULTURE STOOL + SHIGATOX [RM] Stat OVA + PARASITE EXAM Stat
[2020-11-04] MEDS ORDERED: Loperamide 2 MG Cap PO ONE (15:45)
== END 2020-11-04 16:46 | disposition home or self-care (01) ==
LOC: JP.ED 12:14
DX: R19.7 Diarrhea, unspecified (principal); E66.9 Obesity, unspecified; J44.9 Chronic obstructive pulmonary disease, unspecified; E03.9 Hypothyroidism, unspecified; Z88.1 Allergy status to other antibiotic agents; Z88.5 Allergy status to narcotic agent; Z79.82 Long term (current) use of aspirin; Z79.02 Long term (current) use of antithrombotics/antiplatelets; Z68.30 Body mass index [BMI] 30.0-30.9, adult
CPT/HCPCS: 36415; 80048; 83735; 85025; 87046; 87177; 87209; 87493; 87899; 99284; A9270

== ENCOUNTER 2021-03-05 16:22 | Emergency (ER) | payer MEDICARE, MEDICAID ==
[2021-03-05] MEDS ORDERED: Nitroglycerin 0.4 MG Tab.SL SL ONE (17:02)
--- NOTE | 2021-03-05 17:06 | EDM.PDOC ---
ED HPI GENERAL MEDICAL PROBLEM - General Chief Complaint: Chest Pain Stated Complaint: CHEST PAIN Time Seen by Provider: 03/05/21 16:59 Source of Information: Reports: Patient, Provider - History of Present Illness INITIAL COMMENTS - FREE TEXT/NARRATIVE: 66-year-old female with a history of MIs in both mother and father developed anterior chest pain 2 days ago which has been intermittent ever since. It got severe at an 8 or 9 out of 10 a couple days ago associated with diaphoresis and nausea. She had radiation of the anterior chest under the left arm and has happened periodically over the last 2 days. She was seen in surgery clinic apparently this morning for a abdominal hernia issue and then referred for showed up at the medicine clinic for further evaluation and because of the chest pain sent here. She has a discomfort of 1-2 at the moment but is otherwise resting comfortably in the bed. She thought maybe she had heartburn. She is also noted significant fatigue recently more than usual. Left Chest Pain Score (Numeric/FACES): 2 - Related Data Allergies Allergy/AdvReac Type Severity Reaction Status Date / Time ciprofloxacin Allergy Intermediate Hives Verified 03/05/21 16:31 clonidine Allergy Intermediate Other Verified 03/05/21 16:31 hydromorphone Allergy Intermediate Rash Verified 03/05/21 16:31 oxycodone [From Percocet] Allergy Intermediate Hives Verified 03/05/21 16:31 Home Meds: Home Meds Levothyroxine Sodium [Synthroid] 25 mcg PO .ACBREAKFAST 07/05/14 [History] ondansetron HCL [Zofran] 8 mg PO Q8H PRN 10/25/14 [History] Furosemide 40 mg PO DAILY PRN 06/17/16 [History] Sertraline HCl [Zoloft] 150 mg PO DAILY 02/24/17 [History] traZODone 50 - 100 mg PO BEDTIME PRN 02/24/17 [History] ClonazePAM [KlonoPIN] 0.5 mg PO DAILY PRN 03/05/17 [History] Penciclovir [Denavir 1% Crm] 1 applic TOP ASDIRECTED 03/05/17 [History] tiZANidine [Zanaflex] 4 mg PO Q8H PRN 09/16/17 [History] Pantoprazole [ProTONIX] 40 mg PO DAILY 06/06/19 [History] Albuterol [Proventil Neb Soln] 3 ml NEB Q4H PRN 08/10/19 [History] Cetirizine [ZyrTEC] 10 mg PO DAILY 08/10/19 [History] Cholecalciferol (Vitamin D3) [Vitamin D3] 2,000 unit PO DAILY 08/10/19 [History] Cyanocobalamin (Vitamin B-12) [B-12] 500 mcg PO DAILY 08/10/19 [History] Gabapentin [Neurontin] 300 mg PO BEDTIME 08/10/19 [History] Varenicline [Chantix] 1 mg PO BID 08/10/19 [History] Albuterol [Ventolin HFA] 2 puff INH Q6H PRN 11/16/19 [History] Fluticasone Propionate [Flonase] 2 spr NASBOTH DAILY PRN 11/16/19 [History] Homeopathic Products (Leg Cramp Complex Or) 1 - 2 tab PO BEDTIME 11/16/19 [History] Umeclidinium Brm/Vilanterol Tr [Anoro Ellipta 62.5-25 MCG] 1 each INH DAILY 11/16/19 [History] Aspirin [Halfprin] 81 mg PO DAILY 05/21/20 [History] Docusate Sodium [Colace] 100 mg PO BID #60 cap 06/12/20 [Rx] Past Medical History HEENT History: Reports: Allergic Rhinitis, Impaired Vision Other HEENT History: wears glasses Cardiovascular History: Reports: Cardiomyopathy, Heart Murmur, SOB on Exertion Respiratory History: Reports: Bronchitis, Recurrent, COPD, Pneumonia, Recurrent, Sleep Apnea, SOB Gastrointestinal History: Reports: Bowel Obstruction, Cholelithiasis, Chronic Diarrhea, Diverticulosis, GERD, Hiatal Hernia Genitourinary History: Reports: UTI, Recurrent, Other (See Below) Other Genitourinary History: bladder suspension 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 ; wound ulcer right lower leg Neurological History: Reports: Vertigo Psychiatric History: Reports: Anxiety, Depression, Suicidal Ideation Endocrine/Metabolic History: Reports: Hypothyroidism, Obesity/BMI 30+ Hematologic History: Reports: Anticoagulation Therapy Immunologic History: Reports: None Oncologic (Cancer) History: Reports: Cervix, Uterine Other Oncologic History: complete hysterectomy July 09, 2014 Dermatologic History: Reports: Cellulitis, Other (See Below) Other Dermatologic History: sore on right lower leg that won't go away; [facility] debrid 06/27/2019 - Infectious Disease History Infectious Disease History: Reports: Chicken Pox, MRSA, Other (See Below) Other Infectious Disease History: MRSA in right leg in 2019 - Past Surgical History Head Surgeries/Procedures: Reports: None HEENT Surgical History: Reports: Other (See Below) Other HEENT Surgeries/Procedures: biopsy on tongue Cardiovascular Surgical History: Reports: Varicose, Other (See Below) Other Cardiovascular Surgeries/Procedures: RFA leg veins Respiratory Surgical History: Reports: None GI Surgical History: Reports: Appendectomy, Cholecystectomy, Colon, Colonoscopy, EGD, Hernia Repair/Other Female Surgical History: Reports: Hysterectomy, Salpingo-Oophorectomy, Other (See Below) Other Female Surgeries/Procedures: bladder suspension Endocrine Surgical History: Reports: None Neurological Surgical History: Reports: None Musculoskeletal Surgical History: Reports: None, Knee Replacement Other Musculoskeletal Surgeries/Procedures:: right partial knee 11/20/19 Oncologic Surgical History: Reports: None Other Oncologic Surgeries/Procedures: hysterectomy Dermatological Surgical History: Reports: None Social & Family History - Family History Family Medical History: No Pertinent Family History Cardiac: Reports: Arrhythmia, Pacemaker, Other (See Below) Other Cardiac Family History: pacer/defib; valve replacement Respiratory: Reports: COPD Musculoskeletal: Reports: Arthritis, Back pain, Chronic, Gout Endocrine/Metabolic: Reports: Diabetes, type II Oncologic: Reports: Breast, Cervix, Uterine - Tobacco Use Tobacco Use Status *Q: Heavy Tobacco User Years of Tobacco use: 50 Packs/Tins Daily: 1 - Caffeine Use Caffeine Use: Reports: Coffee, Soda Caffeine Use Comment: 2 cups coffee. 2-6 diet cokes daily - Recreational Drug Use Recreational Drug Use: No - Living Situation & Occupation Living situation: Reports: (Lives with her 80+ mother, and her sister is in the next house. Has 1 son and 2 grandchildren , who she is currently estranged from her child and grandchildren.) ED ROS GENERAL - Review of Systems Review Of Systems: Comprehensive ROS is negative, except as noted in HPI. ED EXAM, GENERAL - Physical Exam Exam: See Below Free Text/Narrative:: 66-year-old female sitting on the gurney resting comfortably at the moment with vital signs are normal pressure 130. HEENT shows eyes ears nose and throat appear to be normal no facial droop skull and skull nontender Neck is supple normal range of motion chest is clear With exception of some rattles slightly on the right side with a regular rate and rhythm without murmur. No pain on compression of the chest Abdomen is soft with active bowel sounds with exception she has notable scars from prior surgeries from hernias. Extremities emanation shows a burn of the old nature on the right lower leg. She has excoriations from scratching on her back because of itching from an unknown cause. Neurologic physiologic urine tone Course - Vital Signs Text/Narrative:: Cardiogram done at about 1700 shows a sinus rhythm rate of about 57 with no acute abnormalities or ST segmental changes suggesting of ischemic problems. Nitroglycerin was not given because the patient had no pain at that juncture and is resting comfortably when I reexamined her at 535 Patient has a negative work-up with negative troponin. She has had no further pain while here. She wants to go home. There are no beds to admit to for observation. She does have a home health care social worker here in [place] that she could perhaps see tomorrow or Dr. Levine. She understands she should return anytime if she gets recurrent pain and certainly with her nausea and diaphoresis. I did give her a prescription for nitro to try 100 tongue when she gets pain to see if that helps on the way to the emergency department. She does 1 block from the ambulance Last Recorded V/S: Last Vital Signs Temp 36.8 C 03/05/21 16:36 Pulse 52 L 03/05/21 18:27 Resp 12 03/05/21 18:27 BP 116/69 03/05/21 18:27 Pulse Ox 92 L 03/05/21 18:27 - Orders/Labs/Meds Orders: Active Orders 24 hr Category Date Time Status Chest 1V Frontal [CR] Stat Exams 03/05/21 17:02 Taken EKG 12 Lead [EK] Stat Ther 03/05/21 17:00 Ordered Labs: Laboratory Tests 03/05/21 03/05/21 03/05/21 Range/Units 17:20 17:20 17:20 WBC 7.5 (4.5-11.0) K/uL RBC 4.31 (3.30-5.50) M/uL Hgb 12.3 (12.0-15.0) g/dL Hct 38.8 (36.0-48.0) % MCV 90 (80-98) fL MCH 29 (27-31) pg MCHC 32 (32-36) % Plt Count 230 (150-400) K/uL PT 9.5 (9.2-10.6) sec INR 0.9 Sodium (140-148) mmol/L Potassium (3.6-5.2) mmol/L Chloride (100-108) mmol/L Carbon Dioxide (21-32) mmol/L Anion Gap (5.0-14.0) mmol/L BUN (7-18) mg/dL Creatinine (0.6-1.0) mg/dL Est Cr Clr Drug Dosing mL/min Estimated GFR (MDRD) (>60) Glucose (74-106) mg/dL Calcium (8.5-10.1) mg/dL Total Bilirubin (0.2-1.0) mg/dL AST (15-37) U/L ALT (12-78) U/L Alkaline Phosphatase (46-116) U/L Troponin I (0.000-0.056) ng/mL C-Reactive Protein (0.0-0.3) mg/dL Total Protein (6.4-8.2) g/dL Albumin (3.4-5.0) g/dL Globulin (2.3-3.5) g/dL Albumin/Globulin Ratio (1.2-2.2) Urine Color Yellow (YELLOW) Urine Appearance Clear (CLEAR) Urine pH 6.0 (5.0-8.0) Ur Specific [place] 1.010 (1.008-1.030) Urine Protein Negative (NEGATIVE) mg/dL Urine Glucose (UA) Negative (NEGATIVE) mg/dL Urine Ketones Negative (NEGATIVE) mg/dL Urine Occult Blood Trace-lysed H (NEGATIVE) Urine Nitrite Negative (NEGATIVE) Urine Bilirubin Negative (NEGATIVE) Urine Urobilinogen 0.2 (0.2-1.0) EU/dL Ur Leukocyte Esterase Negative (NEGATIVE) Urine RBC 0-5 (0-5) Urine WBC Not seen (0-5) Ur Epithelial Cells Not seen Amorphous Sediment Rare Urine Bacteria Not seen Urine Mucus Not seen 09/29/21 Range/Units 17:20 WBC (4.5-11.0) K/uL RBC (3.30-5.50) M/uL Hgb (12.0-15.0) g/dL Hct (36.0-48.0) % MCV (80-98) fL MCH (27-31) pg MCHC (32-36) % Plt Count (150-400) K/uL PT (9.2-10.6) sec INR Sodium 139 L (140-148) mmol/L Potassium 4.2 (3.6-5.2) mmol/L Chloride 105 (100-108) mmol/L Carbon Dioxide 29 (21-32) mmol/L Anion Gap 9.2 (5.0-14.0) mmol/L BUN 14 (7-18) mg/dL Creatinine 0.7 (0.6-1.0) mg/dL Est Cr Clr Drug Dosing 61.19 mL/min Estimated GFR (MDRD) > 60 (>60) Glucose 74 (74-106) mg/dL Calcium 8.3 L (8.5-10.1) mg/dL Total Bilirubin 0.1 L D (0.2-1.0) mg/dL AST 27 (15-37) U/L ALT 30 (12-78) U/L Alkaline Phosphatase 104 (46-116) U/L Troponin I < 0.017 (0.000-0.056) ng/mL C-Reactive Protein 0.14 (0.0-0.3) mg/dL Total Protein 7.0 (6.4-8.2) g/dL Albumin 3.1 L (3.4-5.0) g/dL Globulin 3.9 H (2.3-3.5) g/dL Albumin/Globulin Ratio 0.8 L (1.2-2.2) Urine Color (YELLOW) Urine Appearance (CLEAR) Urine pH (5.0-8.0) Ur Specific [place] (1.008-1.030) Urine Protein (NEGATIVE) mg/dL Urine Glucose (UA) (NEGATIVE) mg/dL Urine Ketones (NEGATIVE) mg/dL Urine Occult Blood (NEGATIVE) Urine Nitrite (NEGATIVE) Urine Bilirubin (NEGATIVE) Urine Urobilinogen (0.2-1.0) EU/dL Ur Leukocyte Esterase (NEGATIVE) Urine RBC (0-5) Urine WBC (0-5) Ur Epithelial Cells Amorphous Sediment Urine Bacteria Urine Mucus Meds: Medications Discontinued Medications Generic Name Dose Route Start Last Admin Trade Name Nedra PRN Reason Stop Dose Admin Nitroglycerin 0.4 mg 03/05/21 17:02 03/05/21 17:20 Nitroglycerin 0.4 Mg Tab.Sl SL 03/05/21 17:03 Not Given ONETIME ONE Departure - Departure Time of Disposition: 18:50 Disposition: Home, Self-Care 01 Condition: Good Clinical Impression: Chest pain at rest Referrals: Ashia Caputo PA-C [Primary Care Provider] - Forms: ED Department Discharge Additional Instructions: Return for any new or worse symptoms at all. Make appointment with your home health care social worker tomorrow I gave your prescription for nitroglycerin and you can try when under your tongue if you have recurrent chest pain see if it helps Sepsis Event Note (ED) - Evaluation Sepsis Screening Result: No Definite Risk - Focused Exam Vital Signs: Vital Signs Temp Pulse Resp BP Pulse Ox 03/05/21 18:27 52 L 12 116/69 92 L 03/05/21 17:46 51 L 10 L 121/65 95 03/05/21 17:20 58 L 12 136/52 L 96 03/05/21 16:36 36.8 C 82 12 133/70 93 L - My Orders Last 24 Hours: My Active Orders 03/05/21 17:00 EKG 12 Lead [EK] Stat 03/05/21 17:02 Chest 1V Frontal [CR] Stat - Assessment/Plan Last 24 Hours: My Active Orders 03/05/21 17:00 EKG 12 Lead [EK] Stat 03/05/21 17:02 Chest 1V Frontal [CR] Stat
[2021-03-05 18:28] VITALS: BP 116/69; PULSE 52
--- NOTE | 2021-03-06 09:16 | CR ---
CHEST: Portable 03/05/2021 at 5:33 PM CLINICAL HISTORY:Pain COMPARISON:CT 02/25/2021 FINDINGS: The heart size, pulmonary vascularity and hilar structures are normal. No infiltrate effusion or pneumothorax is seen. There are atherosclerotic changes in the aorta. IMPRESSION: No acute cardiopulmonary process.
== END 2021-03-05 19:06 | disposition home or self-care (01) ==
LOC: JP.ED 16:22
DX: R07.9 Chest pain, unspecified (principal); K21.9 Gastro-esophageal reflux disease without esophagitis; E66.9 Obesity, unspecified; E03.9 Hypothyroidism, unspecified; J44.9 Chronic obstructive pulmonary disease, unspecified; Z88.1 Allergy status to other antibiotic agents; Z88.8 Allergy status to other drugs, medicaments and biological substances; Z88.5 Allergy status to narcotic agent; Z79.82 Long term (current) use of aspirin; Z72.0 Tobacco use; Z79.899 Other long term (current) drug therapy
CPT/HCPCS: 36415; 71045; 71045-26; 80053; 81001; 84484; 85027; 85610; 86140; 93005; 99285-25

== ENCOUNTER 2021-05-02 00:06 | Emergency (ER) | payer MEDICARE, MEDICAID ==
[2021-05-02 00:16] VITALS: BP 153/80; PULSE 92
[2021-05-02] MEDS ORDERED: Ketorolac 30 MG/ML SDV IM ONE (00:33)
--- NOTE | 2021-05-02 00:34 | EDM.PDOC ---
ED HPI GENERAL MEDICAL PROBLEM - General Chief Complaint: Neck Problem Stated Complaint: BODY ACHES Time Seen by Provider: 05/02/21 00:20 Source of Information: Reports: Patient History Limitations: Reports: No Limitations - History of Present Illness INITIAL COMMENTS - FREE TEXT/NARRATIVE: 66-year-old female woke up 2 mornings ago with some pain in her right neck and back into her shoulder, over the past 2 days she has been taking Tylenol but it just does getting "progressively worse". Pain radiates through the shoulder into the anterior right upper chest. It hurts to rotate her head or leaning her head forward. No rash, no shortness of breath, no fever or chills, no recent trauma. She has not had this problem in the past. Onset: Gradual Duration: Day(s): (Symptoms for the last 2 days) Location: Reports: Neck, Chest, Upper Extremity, Right Quality: Reports: Sharp, Stabbing Worsens with: Reports: Movement Associated Symptoms: Reports: No Other Symptoms Neck Pain Score (Numeric/FACES): 8 - Related Data Allergies Allergy/AdvReac Type Severity Reaction Status Date / Time ciprofloxacin Allergy Intermediate Hives Verified 05/02/21 00:16 clonidine Allergy Intermediate Other Verified 05/02/21 00:16 hydromorphone Allergy Intermediate Rash Verified 05/02/21 00:16 oxycodone [From Percocet] Allergy Intermediate Hives Verified 05/02/21 00:16 Home Meds: Home Meds Levothyroxine Sodium [Synthroid] 25 mcg PO .ACBREAKFAST 07/05/14 [History] ondansetron HCL [Zofran] 8 mg PO Q8H PRN 10/25/14 [History] Furosemide 40 mg PO DAILY PRN 06/17/16 [History] Sertraline HCl [Zoloft] 150 mg PO DAILY 02/24/17 [History] traZODone 50 - 100 mg PO BEDTIME PRN 02/24/17 [History] ClonazePAM [KlonoPIN] 0.5 mg PO DAILY PRN 03/05/17 [History] Penciclovir [Denavir 1% Crm] 1 applic TOP ASDIRECTED 03/05/17 [History] tiZANidine [Zanaflex] 4 mg PO Q8H PRN 09/16/17 [History] Pantoprazole [ProTONIX] 40 mg PO DAILY 06/06/19 [History] Albuterol [Proventil Neb Soln] 3 ml NEB Q4H PRN 08/10/19 [History] Cetirizine [ZyrTEC] 10 mg PO DAILY 08/10/19 [History] Cholecalciferol (Vitamin D3) [Vitamin D3] 2,000 unit PO DAILY 08/10/19 [History] Cyanocobalamin (Vitamin B-12) [B-12] 500 mcg PO DAILY 08/10/19 [History] Gabapentin [Neurontin] 300 mg PO BEDTIME 08/10/19 [History] Varenicline [Chantix] 1 mg PO BID 08/10/19 [History] Albuterol [Ventolin HFA] 2 puff INH Q6H PRN 11/16/19 [History] Fluticasone Propionate [Flonase] 2 spr NASBOTH DAILY PRN 11/16/19 [History] Homeopathic Products (Leg Cramp Complex Or) 1 - 2 tab PO BEDTIME 11/16/19 [History] Umeclidinium Brm/Vilanterol Tr [Anoro Ellipta 62.5-25 MCG] 1 each INH DAILY 11/16/19 [History] Aspirin [Halfprin] 81 mg PO DAILY 05/21/20 [History] Docusate Sodium [Colace] 100 mg PO BID #60 cap 06/12/20 [Rx] Past Medical History HEENT History: Reports: Allergic Rhinitis, Impaired Vision Other HEENT History: wears glasses Cardiovascular History: Reports: Cardiomyopathy, Heart Murmur, SOB on Exertion Respiratory History: Reports: Bronchitis, Recurrent, COPD, Pneumonia, Recurrent, Sleep Apnea, SOB Gastrointestinal History: Reports: Bowel Obstruction, Cholelithiasis, Chronic Diarrhea, Diverticulosis, GERD, Hiatal Hernia Genitourinary History: Reports: UTI, Recurrent, Other (See Below) Other Genitourinary History: bladder suspension [employer] 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 ; wound ulcer right lower leg Neurological History: Reports: Vertigo Psychiatric History: Reports: Anxiety, Depression, Suicidal Ideation Endocrine/Metabolic History: Reports: Hypothyroidism, Obesity/BMI 30+ Hematologic History: Reports: Anticoagulation Therapy Immunologic History: Reports: None Oncologic (Cancer) History: Reports: Cervix, Uterine Other Oncologic History: complete hysterectomy July 09, 2014 Dermatologic History: Reports: Cellulitis, Other (See Below) Other Dermatologic History: sore on right lower leg that won't go away; [facility] debrid 06/27/2019 - Infectious Disease History Infectious Disease History: Reports: Chicken Pox, MRSA, Other (See Below) Other Infectious Disease History: MRSA in right leg in 2019 - Past Surgical History Head Surgeries/Procedures: Reports: None HEENT Surgical History: Reports: Other (See Below) Other HEENT Surgeries/Procedures: biopsy on tongue Cardiovascular Surgical History: Reports: Varicose, Other (See Below) Other Cardiovascular Surgeries/Procedures: RFA leg veins Respiratory Surgical History: Reports: None GI Surgical History: Reports: Appendectomy, Cholecystectomy, Colon, Colonoscopy, EGD, Hernia Repair/Other Female Surgical History: Reports: Hysterectomy, Salpingo-Oophorectomy, Other (See Below) Other Female Surgeries/Procedures: bladder suspension Endocrine Surgical History: Reports: None Neurological Surgical History: Reports: None Musculoskeletal Surgical History: Reports: None, Knee Replacement Other Musculoskeletal Surgeries/Procedures:: right partial knee 11/20/19 Oncologic Surgical History: Reports: None Other Oncologic Surgeries/Procedures: hysterectomy Dermatological Surgical History: Reports: None Social & Family History - Family History Family Medical History: No Pertinent Family History Cardiac: Reports: Arrhythmia, Pacemaker, Other (See Below) Other Cardiac Family History: pacer/defib; valve replacement Respiratory: Reports: COPD Musculoskeletal: Reports: Arthritis, Back pain, Chronic, Gout Endocrine/Metabolic: Reports: Diabetes, type II Oncologic: Reports: Breast, Cervix, Uterine - Tobacco Use Tobacco Use Status *Q: Current Every Day Tobacco User Years of Tobacco use: 50 Packs/Tins Daily: 0.7 - Caffeine Use Caffeine Use: Reports: Coffee Caffeine Use Comment: 2 cups coffee. 2-6 diet cokes daily - Recreational Drug Use Recreational Drug Use: No - Living Situation & Occupation Living situation: Reports: (Lives with her 80+ mother, and her sister is in the next house. Has 1 son and 2 grandchildren , who she is currently estranged from her child and grandchildren.) ED ROS GENERAL - Review of Systems Review Of Systems: See Below Constitutional: Denies: Fever, Chills, Malaise HEENT: Denies: Vision Change Respiratory: Denies: Shortness of Breath, Pleuritic Chest Pain Cardiovascular: Reports: Chest Pain (Some extreme right upper chest pain around the clavicle continuous with the neck and shoulder pain) GI/Abdominal: Reports: Abdominal Pain (Chronic abdominal pain from hernias of her abdomen) : Reports: No Symptoms Musculoskeletal: Reports: Other (See HPI) Skin: Reports: No Symptoms. Denies: Rash Neurological: Denies: Paresthesia (No numbness of the right arm) ED EXAM, UPPER BACK/NECK PAIN - Physical Exam Exam: See Below Exam Limited By: No Limitations General Appearance: Alert, Anxious, Mild Distress, Other (Tearful, looks uncomfortable) Head Exam: Atraumatic Neck Exam: Other (Very point tender to palpation along the paracervical muscle on the right neck, especially into the trapezius, supraclavicular and subclavicular area of the right shoulder. Pain is increased with lateral bending of the head to rotation) Cardiovascular/Respiratory: Regular Rate, Rhythm Neurologic: No Motor/Sensory Deficits, Alert, Normal Mood/Affect, Oriented x 3 Psychiatric: Anxious Skin Exam: Normal Color, Warm/Dry, Other (No rash over sore area) Course - Vital Signs Last Recorded V/S: Last Vital Signs Temp 98.2 F 05/02/21 00:10 Pulse 92 05/02/21 00:10 Resp 20 05/02/21 00:10 BP 153/80 H 05/02/21 00:10 Pulse Ox 93 L 05/02/21 00:10 - Orders/Labs/Meds Meds: Medications Discontinued Medications Generic Name Dose Route Start Last Admin Trade Name Nedra PRN Reason Stop Dose Admin Ketorolac Tromethamine 30 mg 05/02/21 00:33 05/02/21 00:38 Ketorolac 30 Mg/Ml Sdv IM 05/02/21 00:34 30 mg ONETIME ONE Administration - Re-Assessments/Exams Free Text/Narrative Re-Assessment/Exam: 05/02/21 00:42 Patient has a localized inflammatory problem with soft tissue or muscle of the right neck and shoulder. She was given 30 mg of IM Toradol, and will be discharged with 10 additional doses as well as 10 doses of hydrocodone for extra pain control. Warm compresses to the area and gentle stretching and range of motion may be helpful, she can recheck at the clinic for a physical therapy consult if not improving satisfactorily. Departure - Departure Time of Disposition: 00:46 Disposition: Home, Self-Care 01 Clinical Impression: Strain of neck Qualifiers: Encounter type: initial encounter Qualified Code(s): S16.1XXA - Strain of muscle, fascia and tendon at neck level, initial encounter - Discharge Information Instructions: Muscle Strain Referrals: Zhang Mckeon MD [Primary Care Provider] - Forms: ED Department Discharge Care Plan Goals: Warm compresses or heating pad may be helpful, gentle stretching and range of motion to keep the area loose will help with healing. Take 1 Toradol every 6 hours until gone, and add hydrocodone for stronger pain control if needed. Recheck at the clinic for physical therapy if not improving in the next few days. Sepsis Event Note (ED) - Evaluation Sepsis Screening Result: No Definite Risk
== END 2021-05-02 01:03 | disposition home or self-care (01) ==
LOC: JP.ED 00:06
DX: S16.1XXA Strain of muscle, fascia and tendon at neck level, initial encounter (principal); J44.9 Chronic obstructive pulmonary disease, unspecified; E03.9 Hypothyroidism, unspecified; E66.9 Obesity, unspecified; K21.9 Gastro-esophageal reflux disease without esophagitis; Z68.30 Body mass index [BMI] 30.0-30.9, adult; Z88.1 Allergy status to other antibiotic agents; Z88.5 Allergy status to narcotic agent; Z79.82 Long term (current) use of aspirin; Z79.899 Other long term (current) drug therapy; Z72.0 Tobacco use; X58.XXXA Exposure to other specified factors, initial encounter
CPT/HCPCS: 96372; 99283; J1885

== ENCOUNTER 2021-06-24 05:49 | Inpatient (IN) | payer MEDICARE, MEDICAID ==
[2021-06-24] MEDS ORDERED: Scopolamine 1.5 MG Transdermal Patch TOP SCH (06:00)
[2021-06-24] MEDS ORDERED: Dextrose 5%-Lactated Ringers 1,000 ML IV SCH (06:00)
[2021-06-24] MEDS ORDERED: Acetaminophen 500 MG Tab PO ONE (06:00)
[2021-06-24] MEDS ORDERED: Gabapentin 300 MG Cap PO ONE (06:00)
[2021-06-24] MEDS ORDERED: Celecoxib 200 MG Cap PO ONE (06:00)
[2021-06-24] MEDS ORDERED: Bupivacaine 0.5% 50 ML MDV ONE (06:33)
[2021-06-24] MEDS ORDERED: Meropenem 500 MG SDV ONE (06:33)
[2021-06-24] MEDS ORDERED: Lidocaine 1% with EPINEPHrine 1:100,000 50 ML MDV ONE (06:33)
[2021-06-24] MEDS ORDERED: Albuterol/Ipratropium 3.0-0.5 MG/3 ML Neb Soln NEB ONE (07:00)
[2021-06-24] MEDS ORDERED: fentaNYL 250 MCG/5 ML SDV ONE ×2 (07:06→08:44)
[2021-06-24] MEDS ORDERED: Glycopyrrolate 0.2 MG/ML 5 ML MDV ONE (07:07)
[2021-06-24] MEDS ORDERED: Dexamethasone 4 MG/ML SDV ONE (07:07)
[2021-06-24] MEDS ORDERED: Neostigmine Methylsulfate 1 MG/ML 5 ML Syringe ONE (07:07)
[2021-06-24] MEDS ORDERED: Propofol 200 MG/20 ML SDV ONE (07:07)
[2021-06-24] MEDS ORDERED: Succinylcholine 200 MG/10 ML MDV ONE (07:07)
[2021-06-24] MEDS ORDERED: Ondansetron 4 MG/2 ML SDV ONE (07:07)
[2021-06-24] MEDS ORDERED: Rocuronium 50 MG/5 ML Vial ONE ×2 (07:07→08:41)
[2021-06-24] MEDS ORDERED: ceFAZolin 2 GM in Premix Bag 1 BAG IV ONE (07:15)
[2021-06-24] MEDS ORDERED: Naloxone 0.4 MG/ML SDV IVPUSH PRN (07:25)
[2021-06-24] MEDS ORDERED: Ropivacaine 35 ML, dexAMETHasone 8 MG, EPINEPHrine 0.4 MG, Sodium Chloride 0.9% 42.6 ML NERVRT SCH ×4 (07:30)
[2021-06-24] MEDS ORDERED: Ketamine 500 MG/5 ML MDV IV SCH (07:30)
[2021-06-24] MEDS ORDERED: Ketamine 14 MG in Sodium Chloride 0.9% 19.86 ML IV SCH (07:30)
[2021-06-24] MEDS ORDERED: Naloxone 0.4 MG/ML SDV IV PRN (08:00)
[2021-06-24] MEDS ORDERED: Meropenem 500 MG SDV IRR ONE ×2 (08:13→09:00)
[2021-06-24] MEDS ORDERED: Lactated Ringers 1,000 ML ONE (08:25)
[2021-06-24] MEDS: fentaNYL/Normal Saline 600 MCG/30 ML PCA Vial IV PRN (08:40)
[2021-06-24] MEDS ORDERED: hydrOXYzine HCL 100 MG/2 ML SDV IM ONE (10:51)
[2021-06-24] MEDS ORDERED: Nitroglycerin 0.4 MG Tab.SL SL PRN (11:52)
[2021-06-24] MEDS ORDERED: diphenhydrAMINE 50 MG/ML SDV IVPUSH PRN (12:00)
[2021-06-24] MEDS ORDERED: Labetalol 20 MG/4 ML Syringe IVPUSH PRN (12:00)
[2021-06-24] MEDS ORDERED: Metoclopramide 10 MG/2 ML SDV IVPUSH PRN (12:00)
[2021-06-24] MEDS ORDERED: Albuterol/Ipratropium 3.0-0.5 MG/3 ML Neb Soln INH PRN (12:00)
[2021-06-24] MEDS ORDERED: hydrOXYzine HCL 100 MG/2 ML SDV IM PRN (12:00)
[2021-06-24] MEDS: Dextrose 5%-Lactated Ringers 1,000 ML IV SCH ×2 (12:43→22:06)
[2021-06-24] MEDS: ceFAZolin 2 GM in Premix Bag 1 BAG IV SCH ×2 (13:59→22:06)
[2021-06-24] MEDS: Clopidogrel 75 MG Tab PO SCH (13:59)
[2021-06-24] MEDS: Sertraline 50 MG Tab PO SCH (14:00)
[2021-06-24] MEDS: Levothyroxine 25 MCG Tab PO SCH (14:00)
[2021-06-24] MEDS: Acetaminophen 500 MG Tab PO SCH ×2 (14:00→21:24)
[2021-06-24] MEDS ORDERED: Pantoprazole 40 MG Vial IVPUSH SCH (14:00)
[2021-06-24] MEDS: Cetirizine 10 MG Tab PO SCH (14:00)
[2021-06-24] MEDS: Albuterol/Ipratropium 3.0-0.5 MG/3 ML Neb Soln INH SCH ×2 (14:43→21:22)
[2021-06-24] MEDS ORDERED: MVI, Adult with Vitamin K 10 ML, Thiamine 200 MG, Zinc/Copper/Manganese/Selenium 1 ML i... IV SCH ×4 (16:00)
[2021-06-24] MEDS: Gabapentin 300 MG Cap PO SCH (21:23)
[2021-06-25] MEDS: ceFAZolin 2 GM in Premix Bag 1 BAG IV SCH (05:20)
[2021-06-25] MEDS: Dextrose 5%-Lactated Ringers 1,000 ML IV SCH (05:20)
[2021-06-25] MEDS: Acetaminophen 500 MG Tab PO SCH ×3 (05:21→21:09)
[2021-06-25] MEDS: Albuterol/Ipratropium 3.0-0.5 MG/3 ML Neb Soln INH SCH ×4 (07:00→21:33)
[2021-06-25] MEDS: Tiotropium BR/Olodaterol HCL 4 GM Inhalation Spray 2.5mcg/1 dose; 10 doses INH SCH (07:01)
[2021-06-25] MEDS ORDERED: Dextrose 5%-Lactated Ringers 1,000 ML IV SCH (07:33)
[2021-06-25] MEDS: Gabapentin 300 MG Cap PO SCH ×2 (08:09→21:10)
[2021-06-25] MEDS: Celecoxib 200 MG Cap PO SCH ×2 (08:09→21:10)
[2021-06-25] MEDS: Clopidogrel 75 MG Tab PO SCH (08:09)
[2021-06-25] MEDS: SCOPOLAMINE PATCH CHECK TOP SCH (08:09)
[2021-06-25] MEDS: Levothyroxine 25 MCG Tab PO SCH (08:09)
[2021-06-25] MEDS: Cyanocobalamin (Vitamin B12) 1,000 MCG Tab PO SCH (08:09)
[2021-06-25] MEDS: Cetirizine 10 MG Tab PO SCH (08:10)
[2021-06-25] MEDS: Sertraline 50 MG Tab PO SCH (08:10)
[2021-06-25] MEDS: Furosemide 20 MG/2 ML VIAL IVPUSH SCH ×2 (08:13→14:21)
[2021-06-25] MEDS: Docusate Sodium 100 MG Cap PO SCH ×2 (08:13→21:10)
[2021-06-25] MEDS: Bisacodyl 5 MG Tab PO SCH ×2 (08:13→21:10)
[2021-06-25] MEDS ORDERED: Potassium Chloride 20 MEQ Tab.ER PO ONE (09:00)
[2021-06-25] MEDS: Pantoprazole 40 MG Tab.CR PO SCH (10:17)
[2021-06-25] MEDS ORDERED: MVI, Adult with Vitamin K 10 ML, Thiamine 200 MG, Zinc/Copper/Manganese/Selenium 1 ML i... IV SCH ×4 (16:00)
[2021-06-25] MEDS: Ondansetron 4 MG/2 ML SDV IVPUSH PRN (18:26)
[2021-06-25] MEDS: ClonazePAM 0.5 MG Tab PO PRN (21:12)
[2021-06-26] MEDS: fentaNYL/Normal Saline 600 MCG/30 ML PCA Vial IV PRN (06:03)
[2021-06-26] MEDS: Acetaminophen 500 MG Tab PO SCH ×3 (06:04→22:23)
[2021-06-26] MEDS: Albuterol/Ipratropium 3.0-0.5 MG/3 ML Neb Soln INH SCH ×4 (07:14→20:10)
[2021-06-26] MEDS: Tiotropium BR/Olodaterol HCL 4 GM Inhalation Spray 2.5mcg/1 dose; 10 doses INH SCH (07:15)
[2021-06-26] MEDS ORDERED: Dextrose 5%-Lactated Ringers 1,000 ML IV SCH (07:33)
[2021-06-26] MEDS: Pantoprazole 40 MG Tab.CR PO SCH (07:59)
[2021-06-26] MEDS: Levothyroxine 25 MCG Tab PO SCH (08:00)
[2021-06-26] MEDS: Celecoxib 200 MG Cap PO SCH ×2 (08:00→20:03)
[2021-06-26] MEDS: Docusate Sodium 100 MG Cap PO SCH ×2 (08:01→20:02)
[2021-06-26] MEDS: Gabapentin 300 MG Cap PO SCH ×2 (08:02→20:03)
[2021-06-26] MEDS: Bisacodyl 5 MG Tab PO SCH ×2 (08:02→20:02)
[2021-06-26] MEDS: SCOPOLAMINE PATCH CHECK TOP SCH (08:03)
[2021-06-26] MEDS: Clopidogrel 75 MG Tab PO SCH (08:04)
[2021-06-26] MEDS: Cyanocobalamin (Vitamin B12) 1,000 MCG Tab PO SCH (08:04)
[2021-06-26] MEDS: Cetirizine 10 MG Tab PO SCH (08:05)
[2021-06-26] MEDS: Sertraline 50 MG Tab PO SCH (08:05)
[2021-06-26] MEDS: Ondansetron 4 MG/2 ML SDV IVPUSH PRN ×2 (08:15→14:02)
[2021-06-26] MEDS: Furosemide 20 MG/2 ML VIAL IVPUSH SCH (09:41)
[2021-06-26] MEDS: Magnesium Oxide 400 MG Tab PO SCH ×2 (09:43→20:03)
[2021-06-26] MEDS: Cyclobenzaprine 10 MG Tab PO PRN (20:10)
[2021-06-26] MEDS: ClonazePAM 0.5 MG Tab PO PRN (20:10)
[2021-06-26] MEDS: traZODone 50 MG Tab PO PRN (22:24)
[2021-06-27] MEDS: Acetaminophen 500 MG Tab PO SCH (05:48)
[2021-06-27] MEDS ORDERED: hydrOXYzine HCl 25 MG Tab PO PRN (07:06)
[2021-06-27] MEDS: Tiotropium BR/Olodaterol HCL 4 GM Inhalation Spray 2.5mcg/1 dose; 10 doses INH SCH (07:12)
[2021-06-27] MEDS: Albuterol/Ipratropium 3.0-0.5 MG/3 ML Neb Soln INH SCH ×4 (07:12→20:58)
[2021-06-27] MEDS ORDERED: Furosemide 20 MG/2 ML VIAL IVPUSH ONE (07:30)
[2021-06-27] MEDS: Levothyroxine 25 MCG Tab PO SCH (07:44)
[2021-06-27] MEDS: Pantoprazole 40 MG Tab.CR PO SCH (07:44)
[2021-06-27] MEDS: Cyanocobalamin (Vitamin B12) 1,000 MCG Tab PO SCH (09:09)
[2021-06-27] MEDS: Docusate Sodium 100 MG Cap PO SCH ×2 (09:09→20:47)
[2021-06-27] MEDS: Celecoxib 200 MG Cap PO SCH ×2 (09:09→20:47)
[2021-06-27] MEDS: Gabapentin 300 MG Cap PO SCH ×2 (09:10→20:47)
[2021-06-27] MEDS: Sertraline 50 MG Tab PO SCH (09:10)
[2021-06-27] MEDS: Cetirizine 10 MG Tab PO SCH (09:10)
[2021-06-27] MEDS: Magnesium Oxide 400 MG Tab PO SCH ×2 (09:10→20:47)
[2021-06-27] MEDS: Clopidogrel 75 MG Tab PO SCH (09:10)
[2021-06-27] MEDS: Furosemide 20 MG/2 ML VIAL IVPUSH SCH (10:15)
[2021-06-27] MEDS: Acetaminophen/HYDROcodone 325-5 MG Tab PO PRN ×3 (10:34→20:59)
[2021-06-27] MEDS: Cyclobenzaprine 10 MG Tab PO PRN (21:00)
[2021-06-27] MEDS: traZODone 50 MG Tab PO PRN (21:00)
[2021-06-27] MEDS: ClonazePAM 0.5 MG Tab PO PRN (21:00)
[2021-06-27] MEDS: traZODone 50 MG Tab PO SCH (22:41)
[2021-06-28] MEDS ORDERED: Benzocaine/Cetylpyridinium/Menthol Lozenge MUCMEM PRN (03:25)
[2021-06-28] MEDS ORDERED: Furosemide 20 MG/2 ML VIAL IVPUSH ONE (06:38)
[2021-06-28] MEDS: Albuterol/Ipratropium 3.0-0.5 MG/3 ML Neb Soln INH SCH ×4 (06:58→20:31)
[2021-06-28] MEDS: Tiotropium BR/Olodaterol HCL 4 GM Inhalation Spray 2.5mcg/1 dose; 10 doses INH SCH (06:59)
[2021-06-28] MEDS: Pantoprazole 40 MG Tab.CR PO SCH (08:00)
[2021-06-28] MEDS: Levothyroxine 25 MCG Tab PO SCH (08:00)
[2021-06-28] MEDS: Magnesium Oxide 400 MG Tab PO SCH ×2 (08:34→20:13)
[2021-06-28] MEDS: Gabapentin 300 MG Cap PO SCH ×2 (08:34→20:13)
[2021-06-28] MEDS: Cyanocobalamin (Vitamin B12) 1,000 MCG Tab PO SCH (08:34)
[2021-06-28] MEDS: Clopidogrel 75 MG Tab PO SCH (08:34)
[2021-06-28] MEDS: Cetirizine 10 MG Tab PO SCH (08:34)
[2021-06-28] MEDS: Celecoxib 200 MG Cap PO SCH ×2 (08:35→20:13)
[2021-06-28] MEDS: Furosemide 20 MG/2 ML VIAL IVPUSH SCH (10:59)
[2021-06-28] MEDS: Acetaminophen/HYDROcodone 325-5 MG Tab PO PRN (11:00)
[2021-06-28] MEDS: Docusate Sodium 100 MG Cap PO SCH ×2 (11:01→20:12)
[2021-06-28] MEDS: Cyclobenzaprine 10 MG Tab PO PRN ×2 (11:11→20:31)
[2021-06-28] MEDS: Sertraline 50 MG Tab PO SCH (20:12)
[2021-06-28] MEDS: traZODone 50 MG Tab PO SCH (20:13)
[2021-06-28] MEDS: Acetaminophen 500 MG Tab PO PRN (22:57)
[2021-06-28] MEDS: traZODone 50 MG Tab PO PRN (22:58)
[2021-06-29] MEDS: Acetaminophen 500 MG Tab PO PRN (04:13)
[2021-06-29] MEDS ORDERED: Furosemide 20 MG/2 ML VIAL IVPUSH ONE (06:23)
[2021-06-29] MEDS ORDERED: Acetaminophen 500 MG Tab PO PRN (06:41)
[2021-06-29] MEDS: Tiotropium BR/Olodaterol HCL 4 GM Inhalation Spray 2.5mcg/1 dose; 10 doses INH SCH (07:02)
[2021-06-29] MEDS: Albuterol/Ipratropium 3.0-0.5 MG/3 ML Neb Soln INH SCH ×4 (07:02→20:21)
[2021-06-29] MEDS: Pantoprazole 40 MG Tab.CR PO SCH (07:42)
[2021-06-29] MEDS: Levothyroxine 25 MCG Tab PO SCH (07:42)
[2021-06-29] MEDS: Cetirizine 10 MG Tab PO SCH (09:11)
[2021-06-29] MEDS: Celecoxib 200 MG Cap PO SCH ×2 (09:11→20:17)
[2021-06-29] MEDS: Magnesium Oxide 400 MG Tab PO SCH ×2 (09:11→20:17)
[2021-06-29] MEDS: Cyanocobalamin (Vitamin B12) 1,000 MCG Tab PO SCH (09:11)
[2021-06-29] MEDS: Docusate Sodium 100 MG Cap PO SCH ×2 (09:11→20:17)
[2021-06-29] MEDS: Clopidogrel 75 MG Tab PO SCH (09:11)
[2021-06-29] MEDS: Gabapentin 300 MG Cap PO SCH ×2 (09:11→20:17)
[2021-06-29] MEDS: Furosemide 20 MG/2 ML VIAL IVPUSH SCH (09:27)
[2021-06-29] MEDS: Ondansetron 4 MG/2 ML SDV IVPUSH PRN (09:27)
[2021-06-29] MEDS: Cyclobenzaprine 10 MG Tab PO PRN (16:23)
[2021-06-29] MEDS: Sertraline 50 MG Tab PO SCH (20:17)
[2021-06-29] MEDS: traZODone 50 MG Tab PO SCH (20:17)
[2021-06-30] MEDS: traZODone 50 MG Tab PO PRN (01:05)
[2021-06-30] MEDS: Albuterol/Ipratropium 3.0-0.5 MG/3 ML Neb Soln INH SCH ×2 (07:12→10:44)
[2021-06-30] MEDS: Tiotropium BR/Olodaterol HCL 4 GM Inhalation Spray 2.5mcg/1 dose; 10 doses INH SCH (07:12)
[2021-06-30] MEDS: Levothyroxine 25 MCG Tab PO SCH (07:28)
[2021-06-30] MEDS: Pantoprazole 40 MG Tab.CR PO SCH (07:28)
[2021-06-30 07:31] VITALS: BP 109/43; PULSE 51
[2021-06-30] MEDS: Celecoxib 200 MG Cap PO SCH (08:14)
[2021-06-30] MEDS: Cyanocobalamin (Vitamin B12) 1,000 MCG Tab PO SCH (08:14)
[2021-06-30] MEDS: Docusate Sodium 100 MG Cap PO SCH (08:14)
[2021-06-30] MEDS: Magnesium Oxide 400 MG Tab PO SCH (08:14)
[2021-06-30] MEDS: Gabapentin 300 MG Cap PO SCH (08:15)
[2021-06-30] MEDS: Clopidogrel 75 MG Tab PO SCH (08:15)
[2021-06-30] MEDS: Furosemide 20 MG/2 ML VIAL IVPUSH SCH (08:15)
[2021-06-30] MEDS: Cetirizine 10 MG Tab PO SCH (08:15)
== END 2021-06-30 11:15 | disposition home or self-care (01) | DRG 345 ==
LOC: JP.SDSSCHI 05:49 → JP.SDS 05:49 → EDSTATUS 07:15 → JP.MS 10:20
PROVIDERS: ADMIT Surgery; ATTEND Surgery
PROC: 0WUF0JZ Supplement Abdominal Wall with Synthetic Substitute, Open Approach (ICD-10-PCS; principal; 2021-06-24)
PROC: 0TQB0ZZ Repair Bladder, Open Approach (ICD-10-PCS; 2021-06-24)
PROC: 0DBW0ZZ Excision of Peritoneum, Open Approach (ICD-10-PCS; 2021-06-24)
PROC: 3E0M05Z Introduction of Adhesion Barrier into Peritoneal Cavity, Open Approach (ICD-10-PCS; 2021-06-24)
DX: K43.0 Incisional hernia with obstruction, without gangrene (principal); K65.4 Sclerosing mesenteritis; H54.7 Unspecified visual loss; K66.8 Other specified disorders of peritoneum; J02.9 Acute pharyngitis, unspecified; K66.0 Peritoneal adhesions (postprocedural) (postinfection); J44.9 Chronic obstructive pulmonary disease, unspecified; M54.50 Low back pain, unspecified; G89.29 Other chronic pain; K21.9 Gastro-esophageal reflux disease without esophagitis; G47.33 Obstructive sleep apnea (adult) (pediatric); E66.9 Obesity, unspecified; K57.90 Diverticulosis of intestine, part unspecified, without perforation or abscess without bleeding; E55.9 Vitamin D deficiency, unspecified; E53.8 Deficiency of other specified B group vitamins; Z90.49 Acquired absence of other specified parts of digestive tract; Z88.1 Allergy status to other antibiotic agents; Z88.5 Allergy status to narcotic agent; Z79.899 Other long term (current) drug therapy; Z68.29 Body mass index [BMI] 29.0-29.9, adult
CPT/HCPCS: 36415; 80053; 83735; 83880; 84100; 85025; 85027; 87081; 87880-QW; 88302; 88305; 94640; 94667; 94668; A9270-GY; C1713; C1781; C9113; J0171; J0330; J0690; J1100; J1940; J2020; J2185; J2405; J2704; J2710; J2795; J3010; J3410; J3411; J3490; J7120; J7121; J7620-GY

== ENCOUNTER 2021-10-25 20:46 | Inpatient (IN) | payer MEDICARE, MEDICAID ==
[2021-10-25] MEDS ORDERED: Sodium Chloride 0.9% 1,000 ML IV SCH (22:30)
[2021-10-25] MEDS ORDERED: Nicotine 14 MG/24 Hr Patch TRDERM ONE (23:13)
[2021-10-26] MEDS ORDERED: Sodium Chloride 0.9% 10 ML Syringe FLUSH PRN (00:03)
[2021-10-26] MEDS ORDERED: Sodium Chloride 0.9% 75 ML IV ONE (00:03)
[2021-10-26] MEDS ORDERED: Iopamidol 612 MG/ML 100 ML Bottle IV PRN (00:03)
[2021-10-26 01:51] LABS: CORONAVIRUS COVID-19 NAA POSITIVE (NEGATIVE)
[2021-10-26] MEDS: Acetaminophen 325 MG Tab PO PRN (08:16)
[2021-10-26] MEDS: Pantoprazole 40 MG Tab.CR PO SCH ×2 (08:19→16:46)
[2021-10-26] MEDS ORDERED: Bisacodyl 5 MG Tab PO ONE ×2 (09:00→20:00)
[2021-10-26] MEDS ORDERED: Ondansetron 4 MG/2 ML SDV IVPUSH PRN (09:53)
[2021-10-26] MEDS ORDERED: Albuterol 8 GM Inhaler INH PRN (15:31)
[2021-10-26] MEDS ORDERED: Furosemide 40 MG Tab PO PRN (15:31)
[2021-10-26] MEDS ORDERED: Fluticasone NASAL Spray 16 GM Bottle NASBOTH PRN (15:31)
[2021-10-26] MEDS ORDERED: ClonazePAM 0.5 MG Tab PO PRN (15:31)
[2021-10-26] MEDS ORDERED: Nitroglycerin 0.4 MG Tab.SL SL PRN (15:31)
[2021-10-26] MEDS ORDERED: Acetaminophen 500 MG Tab PO PRN (15:31)
[2021-10-26] MEDS ORDERED: Ondansetron 4 MG Tab.DIS PO PRN (15:31)
[2021-10-26] MEDS ORDERED: PENCICLOVIR TOP PRN (15:31)
[2021-10-26] MEDS ORDERED: Pantoprazole 40 MG Tab.CR PO SCH (15:45)
[2021-10-26] MEDS ORDERED: Tiotropium BR/Olodaterol HCL 4 GM Inhalation Spray 2.5mcg/1 dose; 10 doses INH SCH (15:45)
[2021-10-26] MEDS: Levothyroxine 25 MCG Tab PO SCH (16:43)
[2021-10-26] MEDS: Cetirizine 10 MG Tab PO SCH (16:46)
[2021-10-26] MEDS: Rosuvastatin 10 MG Tab PO SCH (16:46)
[2021-10-26] MEDS ORDERED: Polyethylene Glycol 3350 Powder 238 GM Bot PO ONE (17:00)
[2021-10-26] MEDS ORDERED: Sodium Chloride 0.9% 1,000 ML IV SCH (20:15)
[2021-10-26] MEDS: Sertraline 50 MG Tab PO SCH (20:52)
[2021-10-26] MEDS: Cyclobenzaprine 10 MG Tab PO SCH (20:52)
[2021-10-26] MEDS: traZODone 50 MG Tab PO SCH (20:53)
[2021-10-26] MEDS: NS + KCl 20mEq/L 1,000 ML IV SCH (23:35)
[2021-10-27] MEDS ORDERED: fentaNYL 100 MCG/2 ML SDV ONE (07:31)
[2021-10-27] MEDS ORDERED: Midazolam 1 MG/ML 2 ML SDV ONE (07:31)
[2021-10-27] MEDS ORDERED: Propofol 200 MG/20 ML SDV ONE (07:31)
[2021-10-27] MEDS ORDERED: diphenhydrAMINE 50 MG/ML SDV IV ONE ×2 (08:05→10:30)
[2021-10-27] MEDS: Levothyroxine 25 MCG Tab PO SCH ×2 (08:49→11:16)
[2021-10-27] MEDS: Pantoprazole 40 MG Tab.CR PO SCH ×2 (08:49→17:09)
[2021-10-27] MEDS: Tiotropium BR/Olodaterol HCL 4 GM Inhalation Spray 2.5mcg/1 dose; 10 doses INH SCH (08:55)
[2021-10-27] MEDS ORDERED: Aspirin 81 MG Tab.EC PO SCH (09:00)
[2021-10-27] MEDS ORDERED: Clopidogrel 75 MG Tab PO SCH (09:00)
[2021-10-27] MEDS ORDERED: Albuterol/Ipratropium 3.0-0.5 MG/3 ML Neb Soln INH ONE (10:00)
[2021-10-27] MEDS: NS + KCl 20mEq/L 1,000 ML IV SCH (10:07)
[2021-10-27] MEDS: Cetirizine 10 MG Tab PO SCH (11:15)
[2021-10-27] MEDS: Rosuvastatin 10 MG Tab PO SCH (11:16)
[2021-10-27] MEDS: Cholecalciferol (Vitamin D3) 25 MCG Tab PO SCH (11:16)
[2021-10-27] MEDS: Cyanocobalamin (Vitamin B12) 1,000 MCG Tab PO SCH (11:16)
[2021-10-27] MEDS ORDERED: Furosemide 20 MG/2 ML VIAL IVPUSH ONE (12:30)
[2021-10-27] MEDS: Docusate Sodium 100 MG Cap PO SCH (20:42)
[2021-10-27] MEDS: Sertraline 50 MG Tab PO SCH (20:42)
[2021-10-27] MEDS: traZODone 50 MG Tab PO SCH (20:42)
[2021-10-27] MEDS: Cyclobenzaprine 10 MG Tab PO SCH (20:42)
[2021-10-27] MEDS: Acetaminophen 325 MG Tab PO PRN (23:28)
[2021-10-28] MEDS: Tiotropium BR/Olodaterol HCL 4 GM Inhalation Spray 2.5mcg/1 dose; 10 doses INH SCH (07:21)
[2021-10-28] MEDS: Levothyroxine 25 MCG Tab PO SCH (07:38)
[2021-10-28] MEDS: Pantoprazole 40 MG Tab.CR PO SCH (07:38)
[2021-10-28] MEDS: Docusate Sodium 100 MG Cap PO SCH (09:06)
[2021-10-28] MEDS: Cetirizine 10 MG Tab PO SCH (09:06)
[2021-10-28] MEDS: Rosuvastatin 10 MG Tab PO SCH (09:06)
[2021-10-28] MEDS: Cyanocobalamin (Vitamin B12) 1,000 MCG Tab PO SCH (09:06)
[2021-10-28] MEDS: Cholecalciferol (Vitamin D3) 25 MCG Tab PO SCH (09:06)
[2021-10-28] MEDS ORDERED: Furosemide 20 MG/2 ML VIAL IVPUSH ONE (10:00)
[2021-10-28 11:04] VITALS: BP 134/70
[2021-10-28] MEDS ORDERED: Metoprolol Succinate 25 MG Tab.ER PO SCH (11:45)
[2021-10-28 12:22] VITALS: PULSE 70
== END 2021-10-28 12:40 | disposition home or self-care (01) | DRG 377 ==
LOC: JP.ED 20:46 → JP.MS 10-26 02:38
PROVIDERS: ADMIT Internal Medicine; ATTEND Internal Medicine
PROC: 30233N1 Transfusion of Nonautologous Red Blood Cells into Peripheral Vein, Percutaneous Approach (ICD-10-PCS; principal; 2021-10-26)
PROC: 8E0ZXY6 Isolation (ICD-10-PCS; 2021-10-26)
PROC: 0DJD8ZZ Inspection of Lower Intestinal Tract, Via Natural or Artificial Opening Endoscopic (ICD-10-PCS; 2021-10-27)
DX: K92.2 Gastrointestinal hemorrhage, unspecified (principal); K57.31 Diverticulosis of large intestine without perforation or abscess with bleeding; U07.1 COVID-19; I42.9 Cardiomyopathy, unspecified; D62 Acute posthemorrhagic anemia; I42.2 Other hypertrophic cardiomyopathy; H54.7 Unspecified visual loss; J44.9 Chronic obstructive pulmonary disease, unspecified; G47.30 Sleep apnea, unspecified; K21.9 Gastro-esophageal reflux disease without esophagitis; K44.9 Diaphragmatic hernia without obstruction or gangrene; M19.90 Unspecified osteoarthritis, unspecified site; M79.7 Fibromyalgia; F32.A Depression, unspecified; F41.9 Anxiety disorder, unspecified; E03.9 Hypothyroidism, unspecified; Z85.41 Personal history of malignant neoplasm of cervix uteri; Z85.42 Personal history of malignant neoplasm of other parts of uterus; K62.5 Hemorrhage of anus and rectum; Z79.82 Long term (current) use of aspirin; F17.210 Nicotine dependence, cigarettes, uncomplicated; Z79.02 Long term (current) use of antithrombotics/antiplatelets; Z95.5 Presence of coronary angioplasty implant and graft; K52.9 Noninfective gastroenteritis and colitis, unspecified; Z79.890 Hormone replacement therapy; Z79.899 Other long term (current) drug therapy; Z88.1 Allergy status to other antibiotic agents; Z88.8 Allergy status to other drugs, medicaments and biological substances; Z88.5 Allergy status to narcotic agent
CPT/HCPCS: 0241U; 36415; 36430; 74177; 80048; 80053; 83735; 83880; 84100; 85018; 85025; 85610; 85730; 86140; 86850; 86900; 86901; 86920; 86922; 87040; 94640; 99238; 99283; 99285-25; A9270-GY; J1200; J1940; J2250; J2405; J2704; J3010; J3480; J3490; J7030; J7620; P9016; Q9967

== ENCOUNTER 2022-01-25 01:56 | Emergency (ER) | payer MEDICARE, MEDICAID ==
[2022-01-25 02:13] VITALS: BP 132/66; PULSE 70
[2022-01-25] MEDS ORDERED: Lactated Ringers 1,000 ML IV SCH (02:30)
[2022-01-25] MEDS ORDERED: Sodium Chloride 0.9% 10 ML Syringe FLUSH PRN (02:30)
[2022-01-25 03:03] LABS: ESTIMATED GFR 63 mL/min (>60)
== END 2022-01-25 04:09 | disposition home or self-care (01) ==
LOC: JP.ED 01:56
DX: K62.5 Hemorrhage of anus and rectum (principal); J44.9 Chronic obstructive pulmonary disease, unspecified; F17.210 Nicotine dependence, cigarettes, uncomplicated; E66.9 Obesity, unspecified; Z68.30 Body mass index [BMI] 30.0-30.9, adult; Z88.1 Allergy status to other antibiotic agents; Z88.8 Allergy status to other drugs, medicaments and biological substances; Z88.5 Allergy status to narcotic agent; Z88.6 Allergy status to analgesic agent; Z79.899 Other long term (current) drug therapy; Z86.16 Personal history of COVID-19; Z90.49 Acquired absence of other specified parts of digestive tract; Z90.710 Acquired absence of both cervix and uterus
CPT/HCPCS: 36415; 80053; 83690; 85025; 96360; 99283; J3490; J7120

== ENCOUNTER 2022-09-27 15:53 | Emergency (ER) | payer MEDICARE, MEDICAID ==
[2022-09-27 16:02] VITALS: BP 137/54; PULSE 72
[2022-09-27] MEDS ORDERED: methylPREDNISolone Sodium Succinate 125 MG/2 ML SDV IM ONE (16:18)
== END 2022-09-27 16:47 | disposition home or self-care (01) ==
LOC: JP.ED 15:53
DX: J30.89 Other allergic rhinitis (principal); J44.9 Chronic obstructive pulmonary disease, unspecified; K21.9 Gastro-esophageal reflux disease without esophagitis; E03.9 Hypothyroidism, unspecified; E66.9 Obesity, unspecified; F17.210 Nicotine dependence, cigarettes, uncomplicated; Z88.5 Allergy status to narcotic agent; Z88.8 Allergy status to other drugs, medicaments and biological substances; Z79.51 Long term (current) use of inhaled steroids; Z88.1 Allergy status to other antibiotic agents; Z79.899 Other long term (current) drug therapy; Z79.01 Long term (current) use of anticoagulants; Z86.16 Personal history of COVID-19; Z68.30 Body mass index [BMI] 30.0-30.9, adult
CPT/HCPCS: 96372; 99284; J2930; 99282

== ENCOUNTER 2022-10-18 23:37 | Emergency (ER) | payer MEDICARE, MEDICAID ==
[2022-10-19 00:11] VITALS: BP 119/60; PULSE 58
[2022-10-19] MEDS ORDERED: Ketorolac 30 MG/ML SDV IM ONE (00:41)
== END 2022-10-19 01:52 | disposition home or self-care (01) ==
LOC: JP.ED 23:37
DX: M62.838 Other muscle spasm (principal); J44.9 Chronic obstructive pulmonary disease, unspecified; E66.9 Obesity, unspecified; Z68.31 Body mass index [BMI] 31.0-31.9, adult; E03.9 Hypothyroidism, unspecified; E78.00 Pure hypercholesterolemia, unspecified; F17.210 Nicotine dependence, cigarettes, uncomplicated; Z88.1 Allergy status to other antibiotic agents; Z88.5 Allergy status to narcotic agent
CPT/HCPCS: 96372; 99283; J1885

== ENCOUNTER 2023-07-09 13:48 | Emergency (ER) | payer MEDICARE ==
[2023-07-09 15:42] LABS: APPEARANCE,URINE CLEAR (CLEAR); BILIRUBIN,URINE NEGATIVE (NEGATIVE); COLOR,URINE YELLOW (YELLOW); GLUCOSE,URINE NEGATIVE (NEGATIVE); KETONES,URINE NEGATIVE (NEGATIVE); LEUKOCYTE ESTERASE,URINE NEGATIVE (NEGATIVE); NITRITE,URINE NEGATIVE (NEGATIVE); OCCULT BLOOD,URINE TRACE-INTACT (NEGATIVE); PH,URINE 5.5 (5.0-8.0); PROTEIN,URINE NEGATIVE (NEGATIVE); UROBILINOGEN,URINE 0.2 EU/dL (0.2-1.0)
[2023-07-09 15:52] LABS: BACTERIA,URINE MANY; EPITHELIAL CELLS,URINE NOT SEEN; RBC,URINE 0-5 (0-5); WBC,URINE 0-5 (0-5)
[2023-07-09 15:53] LABS: AMORPHOUS SEDIMENT,URINE NOT SEEN; MUCUS,URINE NOT SEEN
[2023-07-09 16:36] LABS: BASOPHILS ABSOLUTE AUTO 0.05 K/uL (0.00-0.10); BASOPHILS PERCENT AUTO 0.5 % (0.1-1.3); EOSINOPHILS ABSOLUTE AUTO 0.16 K/uL (0.00-0.40); EOSINOPHILS PERCENT AUTO 1.5 % (0.0-5.4); HEMATOCRIT 42.8 % (34.3-46.0); HEMOGLOBIN 14.4 g/dL (11.2-15.5); IMMATURE GRAN ABSOLUTE AUTO 0.03 K/uL (0.00-0.23); IMMATURE GRAN PERCENT AUTO 0.3 % (0.0-0.7); LYMPHOCYTES PERCENT AUTO 19.2 % (11.4-47.7); MEAN CORPUSCULAR HEMOGLOBIN 31.1 pg (31.6-35.5); MEAN CORPUSCULAR HGB CONC 33.6 g/dL (31.6-35.5); MEAN CORPUSCULAR VOLUME 92.4 fL (81.4-99.0); MONOCYTES ABSOLUTE AUTO 0.61 K/uL (0.20-0.90); MONOCYTES PERCENT AUTO 5.6 % (3.3-12.6); NEUTROPHILS ABSOLUTE AUTO 7.98 K/uL (1.0-7.6); NEUTROPHILS PERCENT AUTO 72.9 % (40.0-78.1); PLATELET COUNT,PLT 203 K/uL (130-375); RED BLOOD CELL COUNT 4.63 M/uL (3.77-5.24); WHITE BLOOD CELL COUNT,WBC 10.9 K/uL (3.2-11.0)
[2023-07-09 16:40] VITALS: BP 113/66; PULSE 56
[2023-07-09 16:57] LABS: A/G RATIO 0.8 (1.2-2.2); ALANINE AMINOTRANSFERASE,ALT 16 U/L (12-78); ALBUMIN 3.2 g/dL (3.4-5.0); ALKALINE PHOSPHATASE 74 U/L (46-116); ASPARTATE AMNIOTRANSFERASE,AST 16 U/L (15-37); BILIRUBIN TOTAL 0.6 mg/dL (0.2-1.0); BLOOD UREA NITROGEN,BUN 15 mg/dL (7-18); C-REACTIVE PROTEIN 0.61 mg/dL (<0.50); CALCIUM 8.4 mg/dL (8.5-10.1); CARBON DIOXIDE,CO2 29 mmol/L (21-32); CHLORIDE,CL 101 mmol/L (100-108); CREATININE 0.9 mg/dL (0.6-1.0); EST CRCL DRUG DOSING (CG) 54.58 mL/min; ESTIMATED GFR 70 mL/min (>60); GLUCOSE RANDOM 78 mg/dL (74-106); POTASSIUM,K 4.7 mmol/L (3.6-5.2); SODIUM,NA 138 mmol/L (140-148)
[2023-07-09 16:58] LABS: ANION GAP 12.7 mmol/L (5.0-14.0)
[2023-07-09] MEDS: Iopamidol 612 MG/ML 100 ML Bottle IV SCH (17:28)
[2023-07-09] MEDS: Sodium Chloride 0.9% 50 ML IV SCH (17:28)
[2023-07-09] MEDS: Sodium Chloride 0.9% 10 ML Syringe FLUSH PRN (17:28)
[2023-07-09] MEDS: Magnesium Citrate Solution 296 ML Bottle PO ONE (19:06)
== END 2023-07-09 19:11 | disposition home or self-care (01) ==
LOC: JP.ED 13:48
DX: K59.00 Constipation, unspecified (principal); I10 Essential (primary) hypertension; J44.9 Chronic obstructive pulmonary disease, unspecified; K21.9 Gastro-esophageal reflux disease without esophagitis; E78.00 Pure hypercholesterolemia, unspecified; E66.9 Obesity, unspecified; E03.9 Hypothyroidism, unspecified; F17.210 Nicotine dependence, cigarettes, uncomplicated; Z88.8 Allergy status to other drugs, medicaments and biological substances; Z79.899 Other long term (current) drug therapy; Z90.49 Acquired absence of other specified parts of digestive tract; Z90.710 Acquired absence of both cervix and uterus; Z68.27 Body mass index [BMI] 27.0-27.9, adult
CPT/HCPCS: 36415; 74177; 80053; 81001; 83605; 85025; 86140; 99284; A9270; J3490; Q9967

== ENCOUNTER 2024-01-25 09:16 | Day surgery (SDC) | payer MEDICARE ==
[2024-01-25] MEDS: Sodium Chloride 0.9% 1,000 ML IV SCH (09:47)
[2024-01-25] MEDS ORDERED: Propofol 200 MG/20 ML SDV ONE (11:14)
[2024-01-25] MEDS ORDERED: fentaNYL 50 MCG/ML SDV ONE (11:14)
[2024-01-25 12:34] VITALS: BP 146/65; PULSE 55
== END 2024-01-25 12:42 | disposition home or self-care (01) ==
LOC: JP.SDS 09:16
PROVIDERS: ATTEND Surgery
DX: R13.10 Dysphagia, unspecified (principal); K44.9 Diaphragmatic hernia without obstruction or gangrene; J44.9 Chronic obstructive pulmonary disease, unspecified; K21.9 Gastro-esophageal reflux disease without esophagitis; E03.9 Hypothyroidism, unspecified
CPT/HCPCS: 00731; 43239; 43249; 88305; C1726; J2704; J3010; J7030

== ENCOUNTER 2024-04-19 12:54 | Emergency (ER) | payer MEDICARE ==
[2024-04-19 15:49] VITALS: BP 146/87; PULSE 82
== END 2024-04-19 15:49 | disposition home or self-care (01) ==
LOC: JP.ED 12:54
DX: T18.9XXA Foreign body of alimentary tract, part unspecified, initial encounter (principal); J44.9 Chronic obstructive pulmonary disease, unspecified; E11.9 Type 2 diabetes mellitus without complications; Z95.0 Presence of cardiac pacemaker; Z90.49 Acquired absence of other specified parts of digestive tract; Z90.710 Acquired absence of both cervix and uterus; I10 Essential (primary) hypertension; K21.9 Gastro-esophageal reflux disease without esophagitis; Z79.899 Other long term (current) drug therapy; Z88.1 Allergy status to other antibiotic agents; Z88.8 Allergy status to other drugs, medicaments and biological substances; Z88.6 Allergy status to analgesic agent; Z88.5 Allergy status to narcotic agent
CPT/HCPCS: 70360; 70360-26; 71046; 71046-26; 99283